=== PATIENT | female | born 1960 | race Caucasian/White ===

== ENCOUNTER 2021-09-26 14:17 | Inpatient (IN) ==
--- NOTE | 2021-09-26 15:36 | Emergency Department Note ---
Impression & Plan Schizophrenia, paranoid, chronic with acute exacerbation ED Provider Note Provider: Rafat Chacon MD DATE OF SERVICE: 09/26/2021 CHIEF COMPLAINT: Mental health evaluation HISTORY OF PRESENT ILLNESS: Patient is a 61-year-old female history of hypothyroidism and schizophrenia with prior inpatient hospitalizations at [facility] until August last year after approximately a year of hospitalization. Has been living independently at the [facility] with assistance from the staff there as well as a county foster care case manager. Patient has been doing fairly well but not significantly independent. Over the last approximately 4 days the patient's not been taking her Clozaril with her evening medications. She reports that this is because she feels that her mood medicines have not been helping her make her somewhat drowsy. 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 Patient states this is classified work and she can get me more details. Patient states that she feels like she has been stuck a little bit and things are bit boring at her current location. Today she left the jail and went to a former apartment site was looking for an apartment. She states that she went there to meet her 2 sons 1 of whom is 40 years old and the other who is 12 years old. She states they did not answer the door they got scared. She states they were for the [employer] service and she cannot tell us much as this is classified. Patient denies wanting to harm her self or others. She denies issues with eating and denies any falls or trauma. Patient does not want inpatient treatment at this time. Patient's county seat scooper machine is present states this is not like duty at all and she is much more grandiose now and does not have any sons. Patient psychiatrist Dr. Negron calls and states he is very concerned about the patient and believe she needs several days of inpatient treatment. He states that she has been noncompliant recently as reported above and he feels that when she gets back on medications after several days will be much improved. He does not think that she would do well with return to her current living situation without hospitalization. REVIEW OF SYSTEMS: A total of 10 review of systems was obtained and negative except as stated above in the HPI. PAST MEDICAL HISTORY: As noted above MEDICATIONS: Reviewed home medication list but again recent compliance issues SOCIAL HISTORY: Denies drug or alcohol issues with social rare alcohol use PHYSICAL EXAM: GENERAL: alert and oriented in no acute distress on stretcher Head: normocephalic and atraumatic EYES: No injection, discharge or icterus. NECK: Trachea midline. ENT: Mucous membranes pink and moist. LUNGS: Airway patent. No retractions and no tachypnea HEART: Regular rate and rhythm. SKIN: Acyanotic, warm, dry, without rashes EXTREMITIES: Without swelling, tenderness or deformity NEUROLOGICAL: No focal deficits. No aphasia. No facial droop or slurred speech. Ambulatory. Psych: Patient denies SI or HI. Does have grandiose thoughts and do not believe she actually works for the [employer]. Patient denies significant depression at this time. Patient denies auditory or visual hallucinations to me. Patient's laboratory studies reviewed. Differential includes Mood disorder, infection, hypoglycemia, electrolyte abnormalities, cardiac sources, intracerebral event, toxicologic, trauma, neurologic, as well as other pathologies. IMPRESSION/MEDICAL DECISION MAKING: Patient with long history and foster care case manager and psychiatry to call and provide additional history. Recent medication noncompliance. No evidence of any traumatic injury and basic labs were completed. Covid negative. Question the patient's ability to care for self at home although she has not attempted to deliberately harm herself or others I feel with her worsening grandiose thoughts and psychosis this could progress inadvertently. I do not feel she is in a position to go home at this time and this would be unsafe. Do feel involuntary commitment needs to be pursued and her psychiatrist agreed and recommended this in my phone discussion with him. I completed the 302 paperwork with my concerns for her ability to function with her worsening schizophrenia. Case management assisted and the process was initiated. Referral to [facility] and was she was accepted there for further care. Patient will be ordered small dose of Zyprexa to begin the process of trying to temper some of her paranoid schizophrenic delusions. DIAGNOSIS: Paranoid schizophrenia DISPOSITION: Transfer to [facility] for further inpatient psychiatric care on involuntary commitment Past Med/Surg History Social History Smoking Status: Never smoker Feels Safe at Home: No Allergies Allergies Allergy/AdvReac Type Severity Reaction Status Date / Time Sulfa (Sulfonamide Allergy Rash Verified 09/26/21 15:48 Antibiotics) tetracycline Allergy Unknown Verified 09/26/21 21:32 Home Meds Home Medications Medication Instructions Recorded Confirmed Refresh Optive 1 drp INSTIL QID 09/26/21 09/26/21 Vitamin D3 5,000 units PO DAILY 09/26/21 09/26/21 acetaminophen 500 mg tablet 500 - 1,000 mg PO Q8H PRN 09/26/21 09/26/21 clozapine 100 mg tablet 200 mg PO DAILY 09/26/21 09/26/21 clozapine 50 mg tablet 50 mg PO DAILY 09/26/21 09/26/21 docusate sodium 100 mg PO BID 09/26/21 09/26/21 levothyroxine 25 mcg tablet 25 mcg PO DAILY 09/26/21 09/26/21 loratadine 10 mg tablet 10 mg PO DAILY 09/26/21 09/26/21 naproxen 500 mg tablet 500 mg PO BID 09/26/21 09/26/21 olanzapine 5 mg tablet 5 mg PO HS 09/26/21 09/26/21 pantoprazole 20 mg tablet,delayed 20 mg PO DAILY 09/26/21 09/26/21 release Results & Data (ED) Vital Signs Vital Signs - 24 hr 09/26/21 14:20 09/26/21 18:20 Temperature 35.9 C L Temperature Source Temporal Artery Scan Pulse Rate 109 H Pulse Rate [Left] 88 Respiratory Rate 18 18 Respiratory Effort / Characteristics Non-Labored Spontaneous Respiratory Depth Normal Normal Blood Pressure 149/82 H Blood Pressure [Left Arm] 162/97 H Blood Pressure Mean 104 Blood Pressure Mean [Left Arm] 118 Blood Pressure Position [Left Arm] Sitting Pulse Oximetry 97 97 Oxygen Delivery Method Room Air Room Air Sepsis Recent Fever Within 48 Hours No Sepsis New/Unexplained Change in Mental Status N/A Sepsis Action Taken by Nursing No Action Required Laboratory Data Result diagrams: 09/26/21 15:38 09/26/21 15:38 Lab Results 09/26/21 09/26/21 09/26/21 Range/Units 14:35 14:35 15:38 WBC 6.31 (4.8-10.8) K/uL RBC 4.27 (4.2-5.4) M/uL Hgb 13.1 (12.0-16.0) g/dL Hct 39.6 (37-47) % MCV 92.7 (80-100) fL MCH 30.7 (25-34) pg MCHC 33.1 (32-36) g/dL RDW Std Deviation 49.4 H (36.4-46.3) fL RDW Coeff of Kim 14.5 (11.5-14.5) % Plt Count 296 (130-400) K/uL MPV 9.3 (7.4-10.4) fL Immature Gran % (Auto) 0.2 % Neut % (Auto) 58.8 % Lymph % (Auto) 31.5 % [place] % (Auto) 9.0 % Eos % (Auto) 0.0 % Baso % (Auto) 0.5 % Neut # (Auto) 3.71 (1.4-6.5) K/uL Lymph # (Auto) 1.99 (1.2-3.4) K/uL [place] # (Auto) 0.57 (0.11-0.59) K/uL Eos # (Auto) 0.00 (0-0.5) K/uL Baso # (Auto) 0.03 (0-0.2) K/uL Immature Gran # (Auto) 0.01 (0.00-0.02) K/uL Sodium (136-145) mmol/L Potassium (3.5-5.1) mmol/L Chloride (98-107) mmol/L Carbon Dioxide (21-32) mmol/L Anion Gap (3-11) BUN (7-18) mg/dl Creatinine (0.6-1.2) mg/dl Est Cr Clr Drug Dosing ml/min Est GFR ( Amer) ml/min Est GFR (Non-Af Amer) ml/min BUN/Creatinine Ratio (10-20) Glucose (70-99) mg/dl Calcium (8.5-10.1) mg/dl Total Bilirubin (0.2-1) mg/dl AST (15-37) U/L ALT (12-78) U/L Alkaline Phosphatase (45-117) U/L Total Protein (6.4-8.2) gm/dl Albumin (3.4-5.0) gm/dl Globulin (2.5-4.0) gm/dl Albumin/Globulin Ratio (0.9-2) TSH (0.300-4.500) uIu/ml Urine Color Yellow Urine Appearance Clear (Clear) Urine pH 6.0 (4.5-7.5) Ur Specific [place] 1.005 (1.000-1.030) Urine Protein Negative (Negative) Urine Glucose (UA) Negative (Negative) Urine Ketones Negative (Negative) Urine Blood Negative (Negative) Urine Nitrite Negative (Negative) Urine Bilirubin Negative (Negative) Urine Urobilinogen Negative (Negative) Ur Leukocyte Esterase Negative (Negative) Salicylates (2.8-20) mg/dl Urine Opiates Screen Neg (Neg) Ur Methadone, Qual Neg (Neg) Acetaminophen (10-30) ug/ml Urine Barbiturates Neg (Neg) Ur Phencyclidine (PCP) Neg (Neg) U Amphetamin/Meth Scrn Neg (Neg) MDMA (Ecstasy) Screen Neg (Neg) U Benzodiazepines Scrn Neg (Neg) Ur Cocaine Metabolite Neg (Neg) U Marijuana (THC) Screen Neg (Neg) Ethyl Alcohol mg/dL (0-3) mg/dl COVID-19 Eval Order SARS-CoV-2 (PCR) (Negative) 09/26/21 09/26/21 09/26/21 Range/Units 15:38 15:38 15:38 WBC (4.8-10.8) K/uL RBC (4.2-5.4) M/uL Hgb (12.0-16.0) g/dL Hct (37-47) % MCV (80-100) fL MCH (25-34) pg MCHC (32-36) g/dL RDW Std Deviation (36.4-46.3) fL RDW Coeff of Kim (11.5-14.5) % Plt Count (130-400) K/uL MPV (7.4-10.4) fL Immature Gran % (Auto) % Neut % (Auto) % Lymph % (Auto) % [place] % (Auto) % Eos % (Auto) % Baso % (Auto) % Neut # (Auto) (1.4-6.5) K/uL Lymph # (Auto) (1.2-3.4) K/uL [place] # (Auto) (0.11-0.59) K/uL Eos # (Auto) (0-0.5) K/uL Baso # (Auto) (0-0.2) K/uL Immature Gran # (Auto) (0.00-0.02) K/uL Sodium 140 (136-145) mmol/L Potassium 4.1 (3.5-5.1) mmol/L Chloride 109 H (98-107) mmol/L Carbon Dioxide 25 (21-32) mmol/L Anion Gap 6.0 (3-11) BUN 10 (7-18) mg/dl Creatinine 1.08 (0.6-1.2) mg/dl Est Cr Clr Drug Dosing 61.1 ml/min Est GFR ( Amer) 63.3 ml/min Est GFR (Non-Af Amer) 54.6 ml/min BUN/Creatinine Ratio 8.9 L (10-20) Glucose 95 (70-99) mg/dl Calcium 9.6 (8.5-10.1) mg/dl Total Bilirubin 0.3 (0.2-1) mg/dl AST 18 (15-37) U/L ALT 22 (12-78) U/L Alkaline Phosphatase 96 (45-117) U/L Total Protein 7.7 (6.4-8.2) gm/dl Albumin 3.7 (3.4-5.0) gm/dl Globulin 4.0 (2.5-4.0) gm/dl Albumin/Globulin Ratio 0.9 (0.9-2) TSH 1.270 (0.300-4.500) uIu/ml Urine Color Urine Appearance (Clear) Urine pH (4.5-7.5) Ur Specific [place] (1.000-1.030) Urine Protein (Negative) Urine Glucose (UA) (Negative) Urine Ketones (Negative) Urine Blood (Negative) Urine Nitrite (Negative) Urine Bilirubin (Negative) Urine Urobilinogen (Negative) Ur Leukocyte Esterase (Negative) Salicylates < 1.7 L (2.8-20) mg/dl Urine Opiates Screen (Neg) Ur Methadone, Qual (Neg) Acetaminophen < 2 L (10-30) ug/ml Urine Barbiturates (Neg) Ur Phencyclidine (PCP) (Neg) U Amphetamin/Meth Scrn (Neg) MDMA (Ecstasy) Screen (Neg) U Benzodiazepines Scrn (Neg) Ur Cocaine Metabolite (Neg) U Marijuana (THC) Screen (Neg) Ethyl Alcohol mg/dL < 3.0 (0-3) mg/dl COVID-19 Eval Order SARS-CoV-2 (PCR) (Negative) 09/26/21 09/26/21 Range/Units 15:53 15:53 WBC (4.8-10.8) K/uL RBC (4.2-5.4) M/uL Hgb (12.0-16.0) g/dL Hct (37-47) % MCV (80-100) fL MCH (25-34) pg MCHC (32-36) g/dL RDW Std Deviation (36.4-46.3) fL RDW Coeff of Kim (11.5-14.5) % Plt Count (130-400) K/uL MPV (7.4-10.4) fL Immature Gran % (Auto) % Neut % (Auto) % Lymph % (Auto) % [place] % (Auto) % Eos % (Auto) % Baso % (Auto) % Neut # (Auto) (1.4-6.5) K/uL Lymph # (Auto) (1.2-3.4) K/uL [place] # (Auto) (0.11-0.59) K/uL Eos # (Auto) (0-0.5) K/uL Baso # (Auto) (0-0.2) K/uL Immature Gran # (Auto) (0.00-0.02) K/uL Sodium (136-145) mmol/L Potassium (3.5-5.1) mmol/L Chloride (98-107) mmol/L Carbon Dioxide (21-32) mmol/L Anion Gap (3-11) BUN (7-18) mg/dl Creatinine (0.6-1.2) mg/dl Est Cr Clr Drug Dosing ml/min Est GFR ( Amer) ml/min Est GFR (Non-Af Amer) ml/min BUN/Creatinine Ratio (10-20) Glucose (70-99) mg/dl Calcium (8.5-10.1) mg/dl Total Bilirubin (0.2-1) mg/dl AST (15-37) U/L ALT (12-78) U/L Alkaline Phosphatase (45-117) U/L Total Protein (6.4-8.2) gm/dl Albumin (3.4-5.0) gm/dl Globulin (2.5-4.0) gm/dl Albumin/Globulin Ratio (0.9-2) TSH (0.300-4.500) uIu/ml Urine Color Urine Appearance (Clear) Urine pH (4.5-7.5) Ur Specific [place] (1.000-1.030) Urine Protein (Negative) Urine Glucose (UA) (Negative) Urine Ketones (Negative) Urine Blood (Negative) Urine Nitrite (Negative) Urine Bilirubin (Negative) Urine Urobilinogen (Negative) Ur Leukocyte Esterase (Negative) Salicylates (2.8-20) mg/dl Urine Opiates Screen (Neg) Ur Methadone, Qual (Neg) Acetaminophen (10-30) ug/ml Urine Barbiturates (Neg) Ur Phencyclidine (PCP) (Neg) U Amphetamin/Meth Scrn (Neg) MDMA (Ecstasy) Screen (Neg) U Benzodiazepines Scrn (Neg) Ur Cocaine Metabolite (Neg) U Marijuana (THC) Screen (Neg) Ethyl Alcohol mg/dL (0-3) mg/dl COVID-19 Eval Order Covid19 at [facility] SARS-CoV-2 (PCR) NEGATIVE (Negative) Discharge Plan Visit Data Chief Complaint: Mental Health Evaluation Stated Complaint: MENTAL HEALTH EVALUATION ED Provider: Rafat Chacon Discharge Problem: Schizophrenia, paranoid, chronic with acute exacerbation Patient Disposition: Admitted As Inpatient Forms Stand Alone Forms: My [facility], Suicide Prevention Resources Prescriptions Prescriptions: No Action clozapine 100 mg Tablet 200 mg PO DAILY RF: 0 clozapine 50 mg Tablet 50 mg PO DAILY RF: 0 loratadine 10 mg Tablet 10 mg PO DAILY RF: 0 acetaminophen 500 mg Tablet 500 - 1,000 mg PO Q8H PRN (Reason: Moderate Pain (Scale Score 5-6)) RF: 0 olanzapine 5 mg Tablet 5 mg PO HS RF: 0 naproxen 500 mg Tablet 500 mg PO BID RF: 0 levothyroxine 25 mcg Tablet 25 mcg PO DAILY RF: 0 pantoprazole 20 mg Tablet,Delayed Release (Dr/Ec) 20 mg PO DAILY RF: 0 Vitamin D3 5,000 units 5,000 units PO DAILY RF: 0 docusate sodium 100 mg 100 mg PO BID RF: 0 Refresh Optive 1 drp INSTIL QID RF: 0 Referrals Referrals: Usamn Kirkpatrick [Primary Care Provider] -
[2021-09-26 15:49] LABS: Basophils # (auto) 0.03 K/uL (0-0.2); Basophils % (auto) 0.5 %; Hematocrit (blood only) 39.6 % (37-47); Hemoglobin 13.1 g/dL (12.0-16.0); Immature Granulocytes # (auto) 0.01 K/uL (0.00-0.02); Immature Granulocytes % (auto) 0.2 %; Lymphocytes # (auto) 1.99 K/uL (1.2-3.4); Lymphocytes % (auto) 31.5 %; Mean Corpuscular Hemoglobin 30.7 pg (25-34); Mean Corpuscular Hgb Conc 33.1 g/dL (32-36); Mean Corpuscular Volume 92.7 fL (80-100); Mean Platelet Volume 9.3 fL (7.4-10.4); Monocytes # (auto) 0.57 K/uL (0.11-0.59); Neutrophils # (auto) 3.71 K/uL (1.4-6.5); Neutrophils % (auto) 58.8 %; Platelet Count 296 K/uL (130-400); RDW Coefficient of Variation 14.5 % (11.5-14.5); RDW Standard Deviation 49.4 fL (36.4-46.3); Red Blood Count 4.27 M/uL (4.2-5.4); White Blood Count 6.31 K/uL (4.8-10.8)
[2021-09-26 16:01] LABS: Appearance Urine Clear (Clear); Bilirubin Urine Negative (Negative); Blood Urine Negative (Negative); Color Urine Yellow; Glucose Urine UA Negative (Negative); Ketones Urine Negative (Negative); Leukocyte Esterase Urine Negative (Negative); Nitrite Urine Negative (Negative); Protein Urine Negative (Negative); Specific Gravity Urine 1.005 (1.000-1.030); Urobilinogen Urine Negative (Negative)
[2021-09-26 16:13] LABS: Albumin Level 3.7 gm/dl (3.4-5.0); BUN Creatinine Ratio 8.9 (10-20); Calcium 9.6 mg/dl (8.5-10.1); Creatinine Clr Calc Pharmacy 61.1 ml/min; Est GFR (African American) 63.3 ml/min; Est GFR (Non-African American) 54.6 ml/min; Potassium 4.1 mmol/L (3.5-5.1)
[2021-09-26 16:20] LABS: Acetaminophen < 2 ug/ml (10-30)
[2021-09-26 16:21] LABS: Salicylate < 1.7 mg/dl (2.8-20)
[2021-09-26 16:23] LABS: Albumin Globulin Ratio 0.9 (0.9-2); Bilirubin,Total 0.3 mg/dl (0.2-1); Thyroid Stimulating Hormone 1.27 uIu/ml (0.300-4.500); Total Protein 7.7 gm/dl (6.4-8.2)
[2021-09-26 16:32] LABS: Amphetamines+Metham, Urine Neg (Neg); Barbiturates, Urine Neg (Neg); Benzodiazepine, Urine Neg (Neg); Cocaine, Urine Neg (Neg); MDMA (Ecstacy), Urine Neg (Neg); Methadone, Urine Neg (Neg); Opiate, Urine Neg (Neg); Phencyclidine, Urine Neg (Neg)
[2021-09-26] MEDS ORDERED: OLANZapine 5 MG TABLET PO ONE (22:09)
[2021-09-26] MEDS ORDERED: ALUMINUM/MAGNESIUM SUSP 30 ML UDC PO PRN (23:43)
[2021-09-26] MEDS ORDERED: MAGNESIUM HYDROXIDE SUSP 30 ML UDC PO PRN (23:43)
[2021-09-26] MEDS ORDERED: ACETAMINOPHEN 325 MG TAB PO PRN (23:43)
[2021-09-26] MEDS ORDERED: BISMUTH SUBSALICYLATE LIQD 236 ML PO PRN (23:43)
[2021-09-26] MEDS ORDERED: SODIUM CHLORIDE 0.65% NA SOLN 45 ML (OCEAN) PRN (23:43)
[2021-09-26] MEDS ORDERED: OLANZapine 5 MG TABLET PO PRN (23:49)
[2021-09-27] MEDS ORDERED: DOCUSATE SODIUM 100 MG CAP PO SCH (09:00)
[2021-09-27] MEDS: LEVOTHYROXINE SODIUM 25 MCG TABLET PO SCH (09:28)
[2021-09-27] MEDS: LORATADINE 10 MG TAB PO SCH (09:28)
[2021-09-27] MEDS: CHOLECALCIFEROL 1,000 UNITS 25 MCG TAB PO SCH (09:28)
[2021-09-27] MEDS: NAPROXEN 250 MG TAB PO SCH ×2 (09:28→17:43)
[2021-09-27] MEDS: ARTIFICIAL TEARS OP SCH ×4 (09:36→20:22)
--- NOTE | 2021-09-27 09:40 | History & Physical ---
Date of Service September 27, 2021 Impression / Recommendations Elise Miller is a 61 yo female with acute exacerbation of psychosis for non-compliance with clozapine. She is on an extended outpatient commitment prior to admission following discharge from the [facility]. No history prior to entering care with Dr. Negron is available. (1) Schizophrenia, paranoid, chronic with acute exacerbation: The patient was admitted to the [facility] ([facility] mental health unit) on q15 min checks (behavioral with suicide precautions) for safety. The patient will participate in group, recreational, and milieu therapies and will be offered additional individual and family sessions as clinically appropriate. Risks/benefits/alternatives were reviewed re: antipsychotics for mood and/or psychosis. Discussion included but was not limited to metabolic side effects, risks of TD. There was EPS tremor but no TD at baseline. Fasting glucose and lipid panel ordered for baseline monitoring. She is agreeable to continuing Zyprexa but not Clozaril. Discussed that an JAQUEZ would be preferred and she declines due to limited insight into need for medication. Inventory Assets Strengths: intelligent, has been pleasant in interactions with staff and likes Needs: improved compliance, better tolerated antipsychotic. Risk Factors Assessment : Yes Do You Have Access To A Gun?: No Mental Health Diagnoses: Yes Substance Use Disorders: No Previous Attempt: No Previous Psychiatric Hospitalization: Yes Protective Factors Assessment Employed: No Good Rapport with Provider: Yes Psychiatric History Identifying Data TALITA BALL is a 61-year-old F who currently lives at [facility], has a history of schizophrenia and [facility] placement, and was admitted on 09/26/21 23:33 on a 302 involuntary commitment for delusional behavior and medication non-compliance. Reportedly is on a 305 outpatient commitment. Chief Complaint "yeah I didn't feel safet there". Referring to living setting. History of Present Illness The patient has reportedly been non-compliant with her Clozaril since 09/20 or 09/22/21 and is being followed by Dr. Negron since leaving [facility] last August after a 1-1.5 year stay. She has never been admitted to our facility. She apparently arranged county transportation from [facility] to go to her old apartment to find her sons. Per CM Farideh the patient doesn't have children. 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 Her outpatient psychiatrist felt she would benefit from inpatient admission to get restabilized on her medications as there were concerns about ability to care for self due to psychosis and likelihood that she would decompensate further without medication. She accepted Zyprexa 5 mg last hs and has been without agitation thus far. Patient told staff that she feels the staff where she lives are putting powder in people's drinks and she believes it's heroin. 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 She does not appear restless. She does have some upper extremity tremor, worse on left (patient is left handed) forearm and wrist. States she was simply looking for a better place to live. Doesn't recall past hospitalizations or medication trials. Notes from appointments with Dr. Negron mention a son in [place]. Past Psychiatric History Current Psychiatric Diagnosis: Paranoid Schizophrenia Outpatient Services: [facility] psychiatrist Dr. Negron Nubia Clear Previous Psych Admissions: likely but no hx available and [facility] does generally not release records to us. Do You Have Access To A Gun?: No History of Previous Suicide Attempt: No (patient denies at least) Past Medication Trials: Clozaril 250 mg daily Allergies Allergy/AdvReac Type Severity Reaction Status Date / Time Sulfa (Sulfonamide Allergy Rash Verified 09/26/21 15:48 Antibiotics) tetracycline Allergy Unknown Verified 09/26/21 21:32 Home Medications Medication Instructions Recorded Confirmed Type Refresh Optive 1 drp INSTIL QID 09/26/21 09/26/21 History Vitamin D3 5,000 units PO DAILY 09/26/21 09/26/21 History acetaminophen 500 mg tablet 500 - 1,000 mg PO Q8H PRN 09/26/21 09/26/21 History clozapine 100 mg tablet 200 mg PO DAILY 09/26/21 09/26/21 History clozapine 50 mg tablet 50 mg PO DAILY 09/26/21 09/26/21 History docusate sodium 100 mg PO BID 09/26/21 09/26/21 History levothyroxine 25 mcg tablet 25 mcg PO DAILY 09/26/21 09/26/21 History loratadine 10 mg tablet 10 mg PO DAILY 09/26/21 09/26/21 History naproxen 500 mg tablet 500 mg PO BID 09/26/21 09/26/21 History olanzapine 5 mg tablet 5 mg PO HS 09/26/21 09/26/21 History pantoprazole 20 mg tablet,delayed 20 mg PO DAILY 09/26/21 09/26/21 History release Family History Family History of: None Family Mental Health History Comment: denied Alcohol History Hx of Alcohol Use Over the Past 12 Months: No Smoking Use Have You Smoked or Used Tobacco Products in the Last 30 Days: No Smoking Status: Never smoker Substance History Hx of Prescription Med Misuse Over the Past 12 Months: No Hx of Over the Counter Med Misuse Over the Past 12 Months: No Hx of Inhalent Misuse Over the Past 12 Months: No Hx of Organic Substance Use Over the Past 12 Months: No Hx of Illegal Substances/Street Drug Use Over Past 12 Months: No Problems as a Result of Past Substance Use: None Identified Personal History Living Arrangements: Personal Care Facility Highest Grade Completed: Graduate School (unclear if delusion) Employment Status: Disabled Marital Status: Single Number Of Children: 0 Beliefs That Will Affect Care: None Current Legal Problems: No Hx Legal Problems: Yes (trespass charge so some of [facility] stay was at [facility]) Hx Traumatic Life Events: No Patient History Social History Smoking Status: Never smoker Preferred Language: Yi Communication Ability: Effective Ambulance Attendant Required: No Beliefs That Will Affect Care: None Feels Safe at Home: No Assistive Devices: Glasses Review of Systems Review of Systems: All systems reviewed & are unremarkable except as noted in HPI & below Physical Exam Psychiatric: Orientation: alert and oriented x 3 Apperance: appropriately dressed and appropriately groomed Eye Contact: good eye contact Motor Behavior: no abnormal motor movements Speech: normal rate/rhythm/volume of speech Affect: euthymic affect Mood: no depressed mood Thought Process: + circumstantial thought process Thought Content: + paranoid and + delusions Suicidal Thoughts: denies suicidal thoughts Homicidal Thoughts: denies homicidal thoughts Hallucinations: no auditory hallucinations and no visual hallucinations Cognition: attention grossly intact and language grossly intact Estimated Intelligence: consistent with education level Insight: + limited insight Judgement: + limited judgement Vital Signs (Past 24 Hours): Last Vital Signs Temp 36.4 C L 09/27/21 06:41 Pulse 106 H 09/27/21 06:42 Resp 16 09/27/21 06:41 BP 116/77 09/27/21 06:42 Pulse Ox 96 09/27/21 00:15 Exam Statement: A physical exam was performed in the ED by Dr. Chacon for the purposes of medical clearance. I accept that physical as correct and adequate for the purposes of the inpatient physical exam. Results & Data ([facility]) Laboratory Results Laboratory Results - last 24 hr 09/26/21 09/26/21 09/26/21 14:35 14:35 15:38 WBC 6.31 RBC 4.27 Hgb 13.1 Hct 39.6 MCV 92.7 MCH 30.7 MCHC 33.1 RDW Std Deviation 49.4 H RDW Coeff of Kim 14.5 Plt Count 296 MPV 9.3 Immature Gran % (Auto) 0.2 Neut % (Auto) 58.8 Lymph % (Auto) 31.5 Luce % (Auto) 9.0 Eos % (Auto) 0.0 Baso % (Auto) 0.5 Neut # (Auto) 3.71 Lymph # (Auto) 1.99 Luce # (Auto) 0.57 Eos # (Auto) 0.00 Baso # (Auto) 0.03 Immature Gran # (Auto) 0.01 Sodium Potassium Chloride Carbon Dioxide Anion Gap BUN Creatinine Est Cr Clr Drug Dosing Est GFR ( Amer) Est GFR (Non-Af Amer) BUN/Creatinine Ratio Glucose Calcium Total Bilirubin AST ALT Alkaline Phosphatase Total Protein Albumin Globulin Albumin/Globulin Ratio TSH Urine Color Yellow Urine Appearance Clear Urine pH 6.0 Ur Specific [place] 1.005 Urine Protein Negative Urine Glucose (UA) Negative Urine Ketones Negative Urine Blood Negative Urine Nitrite Negative Urine Bilirubin Negative Urine Urobilinogen Negative Ur Leukocyte Esterase Negative Salicylates Urine Opiates Screen Neg Ur Methadone, Qual Neg Acetaminophen Urine Barbiturates Neg Ur Phencyclidine (PCP) Neg U Amphetamin/Meth Scrn Neg MDMA (Ecstasy) Screen Neg U Benzodiazepines Scrn Neg Ur Cocaine Metabolite Neg U Marijuana (THC) Screen Neg Ethyl Alcohol mg/dL COVID-19 Eval Order SARS-CoV-2 (PCR) 09/26/21 09/26/21 09/26/21 15:38 15:38 15:38 WBC RBC Hgb Hct MCV MCH MCHC RDW Std Deviation RDW Coeff of Kim Plt Count MPV Immature Gran % (Auto) Neut % (Auto) Lymph % (Auto) Luce % (Auto) Eos % (Auto) Baso % (Auto) Neut # (Auto) Lymph # (Auto) Luce # (Auto) Eos # (Auto) Baso # (Auto) Immature Gran # (Auto) Sodium 140 Potassium 4.1 Chloride 109 H Carbon Dioxide 25 Anion Gap 6.0 BUN 10 Creatinine 1.08 Est Cr Clr Drug Dosing 61.1 Est GFR ( Amer) 63.3 Est GFR (Non-Af Amer) 54.6 BUN/Creatinine Ratio 8.9 L Glucose 95 Calcium 9.6 Total Bilirubin 0.3 AST 18 ALT 22 Alkaline Phosphatase 96 Total Protein 7.7 Albumin 3.7 Globulin 4.0 Albumin/Globulin Ratio 0.9 TSH 1.270 Urine Color Urine Appearance Urine pH Ur Specific [place] Urine Protein Urine Glucose (UA) Urine Ketones Urine Blood Urine Nitrite Urine Bilirubin Urine Urobilinogen Ur Leukocyte Esterase Salicylates < 1.7 L Urine Opiates Screen Ur Methadone, Qual Acetaminophen < 2 L Urine Barbiturates Ur Phencyclidine (PCP) U Amphetamin/Meth Scrn MDMA (Ecstasy) Screen U Benzodiazepines Scrn Ur Cocaine Metabolite U Marijuana (THC) Screen Ethyl Alcohol mg/dL < 3.0 COVID-19 Eval Order SARS-CoV-2 (PCR) 09/26/21 09/26/21 15:53 15:53 WBC RBC Hgb Hct MCV MCH MCHC RDW Std Deviation RDW Coeff of Kim Plt Count MPV Immature Gran % (Auto) Neut % (Auto) Lymph % (Auto) Luce % (Auto) Eos % (Auto) Baso % (Auto) Neut # (Auto) Lymph # (Auto) Luce # (Auto) Eos # (Auto) Baso # (Auto) Immature Gran # (Auto) Sodium Potassium Chloride Carbon Dioxide Anion Gap BUN Creatinine Est Cr Clr Drug Dosing Est GFR ( Amer) Est GFR (Non-Af Amer) BUN/Creatinine Ratio Glucose Calcium Total Bilirubin AST ALT Alkaline Phosphatase Total Protein Albumin Globulin Albumin/Globulin Ratio TSH Urine Color Urine Appearance Urine pH Ur Specific [place] Urine Protein Urine Glucose (UA) Urine Ketones Urine Blood Urine Nitrite Urine Bilirubin Urine Urobilinogen Ur Leukocyte Esterase Salicylates Urine Opiates Screen Ur Methadone, Qual Acetaminophen Urine Barbiturates Ur Phencyclidine (PCP) U Amphetamin/Meth Scrn MDMA (Ecstasy) Screen U Benzodiazepines Scrn Ur Cocaine Metabolite U Marijuana (THC) Screen Ethyl Alcohol mg/dL COVID-19 Eval Order Covid19 at [facility] SARS-CoV-2 (PCR) NEGATIVE Current Inpatient Medications Current Inpatient Medications: Current Inpatient Medications Acetaminophen (Acetaminophen 325 Mg Tab) 650 mg PO Q4H PRN PRN Reason: Headache or Minor Fever Stop: 10/26/21 23:42 Al Hydrox/Mg Hydrox/Simethicone (Aluminum/Magnesium Susp 30 Ml Udc) 30 ml PO Q4H PRN PRN Reason: GI Upset Stop: 10/26/21 23:42 Artificial Tears (Artificial Tears) 1 drops OP QID [facility] Stop: 10/27/21 08:59 Last Admin: 09/27/21 09:36 Dose: 1 drops Documented by: Bismuth Subsalicylate (Bismuth Subsalicylate Liqd 236 Ml) 15 ml PO PRN PRN PRN Reason: Loose Stool Stop: 10/26/21 23:42 Docusate Sodium (Docusate Sodium 100 Mg Cap) 100 mg PO BID@0800,2100 [facility] Stop: 10/27/21 08:59 Hydroxyzine HCl (Hydroxyzine Hcl 25 Mg Tab) 50 mg PO HSZ PRN PRN Reason: Insomnia Stop: 10/26/21 23:42 Hydroxyzine HCl (Hydroxyzine Hcl 25 Mg Tab) 25 mg PO Q4H PRN PRN Reason: Anxiety Stop: 10/26/21 23:42 Levothyroxine Sodium (Levothyroxine Sodium 25 Mcg Tablet) 25 mcg PO DAILY@0800 [facility] Stop: 10/27/21 08:59 Last Admin: 09/27/21 09:28 Dose: 25 mcg Documented by: Loratadine (Loratadine 10 Mg Tab) 10 mg PO DAILY [facility] Stop: 10/27/21 08:59 Last Admin: 09/27/21 09:28 Dose: 10 mg Documented by: Magnesium Hydroxide (Magnesium Hydroxide Susp 30 Ml Udc) 30 ml PO DAILY PRN PRN Reason: Constipation Stop: 10/26/21 23:42 Naproxen (Naproxen 250 Mg Tab) 500 mg PO BIDM [facility] Stop: 10/27/21 08:59 Last Admin: 09/27/21 09:28 Dose: 500 mg Documented by: Olanzapine (Olanzapine 5 Mg Tablet) 5 mg PO Q6 PRN PRN Reason: psychosis Stop: 10/26/21 23:48 Olanzapine (Olanzapine 5 Mg Tablet) 5 mg PO HS [facility] Stop: 10/27/21 21:59 Sodium Chloride (Sodium Chloride 0.65% Na Soln 45 Ml ([place])) 1 - 2 sprays NA PRN PRN PRN Reason: Nasal Dryness/Congestion Stop: 10/26/21 23:42 Vitamin D (Cholecalciferol 1,000 Units 25 Mcg Tab) 5,000 units PO DAILY [facility] Stop: 10/27/21 08:59 Last Admin: 09/27/21 09:28 Dose: 5,000 units Documented by:
[2021-09-27] MEDS: OLANZapine 10 MG TAB PO SCH (20:21)
[2021-09-27] MEDS: DOCUSATE SODIUM 100 MG CAP PO SCH (20:21)
[2021-09-27] MEDS ORDERED: OLANZapine 5 MG TABLET PO SCH (22:00)
[2021-09-28 08:25] LABS: Glucose Fasting 98 mg/dl (70-99)
[2021-09-28 08:32] LABS: Chol HDL Ratio 6; Cholesterol 192 mg/dl (0-200); HDL Cholesterol 32 mg/dl; LDL Cholesterol Calculated 129 mg/dl; Triglycerides 155 mg/dl (0-150); VLDL Cholesterol 31 mg/dl
[2021-09-28] MEDS: LEVOTHYROXINE SODIUM 25 MCG TABLET PO SCH (08:39)
[2021-09-28] MEDS: DOCUSATE SODIUM 100 MG CAP PO SCH ×2 (08:39→21:02)
[2021-09-28] MEDS: ARTIFICIAL TEARS OP SCH ×4 (08:40→21:03)
[2021-09-28] MEDS: CHOLECALCIFEROL 1,000 UNITS 25 MCG TAB PO SCH (08:41)
[2021-09-28] MEDS: LORATADINE 10 MG TAB PO SCH (08:42)
[2021-09-28] MEDS: NAPROXEN 250 MG TAB PO SCH ×2 (08:42→17:00)
--- NOTE | 2021-09-28 12:08 | Psychiatric Progress Note ---
Date of Service September 28, 2021 Impression / Recommendations Elise Miller is a 61 yo female with acute exacerbation of psychosis for non-compliance with clozapine. She is on an extended outpatient commitment prior to admission following discharge from the [facility]. No history prior to entering care with Dr. Negron is available. 09/28/21: superficially coopertive on unit, continue MNPR as reports feeling impulsive on the inside and wanting to run (elopement precautions) (1) Schizophrenia, paranoid, chronic with acute exacerbation: 09/28/21: continue Zyprexa 10 mg po qhs, add Cogentin 0.5 mg BID. No sense to restart Clozaril if won't take consistently. Monitor symptoms and consider Invega trial with hopes she'll ultimately agree to JAQUEZ. 09/27/21: The patient was admitted to the [facility] ([facility]) on q15 min checks (behavioral with suicide precautions) for safety. The patient will participate in group, recreational, and milieu therapies and will be offered additional individual and family sessions as clinically appropriate. Risks/benefits/alternatives were reviewed re: antipsychotics for mood and/or psychosis. Discussion included but was not limited to metabolic side effects, risks of TD. There was EPS tremor but no TD at baseline. Fasting glucose and lipid panel ordered for baseline monitoring. She is agreeable to continuing Zyprexa but not Clozaril. Discussed that an JAQUEZ would be preferred and she declines due to limited insight into need for medication. Inventory Assets Strengths: intelligent, has been pleasant in interactions with staff and likes CM Needs: improved compliance, better tolerated antipsychotic. Risk Factors Assessment : Yes Do You Have Access To A Gun?: No Mental Health Diagnoses: Yes Substance Use Disorders: No Previous Attempt: No Previous Psychiatric Hospitalization: Yes Protective Factors Assessment Employed: No Good Rapport with Provider: Yes Interval History Identifying Information TALITA BALL is a 61-year-old F who currently lives at [facility], has a history of schizophrenia and [facility] placement, and was admitted on 09/26/21 23:33 on a 302 involuntary commitment but is actually maintained on a 305 outpatient commitment for delusional behavior. Chief Complaint "yeah my sister did me wrong". Review of Systems Sleep Information Total Hours of Sleep: 7.25 Sleep Comments: pt on q-15 minute checks Meal Information Percent Meal Consumed - Breakfast: 100 Percent Meal Consumed - Lunch: 100 Percent Meal Consumed - Dinner: 100 Subjective Subjective Patient was seen & assessed and interval progress reviewed with nursing and social work. 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 She was living in an apartment but stopped paying rent and refused to leave resulting in charges and then placement at [facility] given psychosis noted in group home. The patient tells me she believes her mother and sister are into drugs and sister dressed up as police with her friend to have her sent to group home to get money for drugs. She states she is willing to take PO medication but not the level of Clozaril like before due to side effects. Reportedly is delusionial at baseline so unclear how effective the medication has been. She reportedly went to the [facility] for hospitalizations prior to [place], no evidence in surescripts and patient denies being there when approached to sign release so past medication trials are not available. Still appears to have some tremor hand/forearm Physical Exam Psychiatric Orientation: alert and oriented x 3 Apperance: appropriately dressed and appropriately groomed Eye Contact: good eye contact Motor Behavior: no abnormal motor movements Speech: normal rate/rhythm/volume of speech Affect: euthymic affect Mood: no depressed mood Thought Process: + circumstantial thought process Thought Content: + paranoid and + delusions Suicidal Thoughts: denies suicidal thoughts Homicidal Thoughts: denies homicidal thoughts Hallucinations: no auditory hallucinations and no visual hallucinations Cognition: attention grossly intact and language grossly intact Estimated Intelligence: consistent with education level Insight: + limited insight Judgement: + limited judgement Vital Signs (Past 24 Hours) Last Vital Signs Temp 36.6 C 09/28/21 06:39 Pulse 96 H 09/28/21 06:40 Resp 16 09/28/21 06:39 BP 113/80 09/28/21 06:40 Pulse Ox 96 09/27/21 00:15 Results & Data ([facility]) Laboratory Results Laboratory Results - last 24 hr 09/28/21 07:36 Fasting Glucose 98 Triglycerides 155 H Cholesterol 192 LDL Cholesterol, Calc 129 VLDL Cholesterol, Calc 31 HDL Cholesterol 32 Cholesterol/HDL Ratio 6 Current Inpatient Medications Current Inpatient Medications: Current Inpatient Medications Acetaminophen (Acetaminophen 325 Mg Tab) 650 mg PO Q4H PRN PRN Reason: Headache or Minor Fever Stop: 10/26/21 23:42 Al Hydrox/Mg Hydrox/Simethicone (Aluminum/Magnesium Susp 30 Ml Udc) 30 ml PO Q4H PRN PRN Reason: GI Upset Stop: 10/26/21 23:42 Artificial Tears (Artificial Tears) 1 drops OP QID [facility] Stop: 10/27/21 08:59 Last Admin: 09/28/21 08:40 Dose: 1 drops Documented by: Benztropine Mesylate (Benztropine Mesylate 0.5 Mg Tab) 0.5 mg PO BID [facility] Stop: 10/28/21 12:04 Bismuth Subsalicylate (Bismuth Subsalicylate Liqd 236 Ml) 15 ml PO PRN PRN PRN Reason: Loose Stool Stop: 10/26/21 23:42 Docusate Sodium (Docusate Sodium 100 Mg Cap) 100 mg PO BID@0800,2100 [facility] Stop: 10/27/21 08:59 Last Admin: 09/28/21 08:39 Dose: 100 mg Documented by: Hydroxyzine HCl (Hydroxyzine Hcl 25 Mg Tab) 50 mg PO HSZ PRN PRN Reason: Insomnia Stop: 10/26/21 23:42 Hydroxyzine HCl (Hydroxyzine Hcl 25 Mg Tab) 25 mg PO Q4H PRN PRN Reason: Anxiety Stop: 10/26/21 23:42 Levothyroxine Sodium (Levothyroxine Sodium 25 Mcg Tablet) 25 mcg PO DAILY@0800 [facility] Stop: 10/27/21 08:59 Last Admin: 09/28/21 08:39 Dose: 25 mcg Documented by: Loratadine (Loratadine 10 Mg Tab) 10 mg PO DAILY [facility] Stop: 10/27/21 08:59 Last Admin: 09/28/21 08:42 Dose: 10 mg Documented by: Magnesium Hydroxide (Magnesium Hydroxide Susp 30 Ml Udc) 30 ml PO DAILY PRN PRN Reason: Constipation Stop: 10/26/21 23:42 Naproxen (Naproxen 250 Mg Tab) 500 mg PO BIDM [facility] Stop: 10/27/21 08:59 Last Admin: 09/28/21 08:42 Dose: 500 mg Documented by: Olanzapine (Olanzapine 5 Mg Tablet) 5 mg PO Q6 PRN PRN Reason: psychosis Stop: 10/26/21 23:48 Olanzapine (Olanzapine 10 Mg Tab) 10 mg PO HS [facility] Stop: 10/27/21 21:59 Last Admin: 09/27/21 20:21 Dose: 10 mg Documented by: Sodium Chloride (Sodium Chloride 0.65% Na Soln 45 Ml ([place])) 1 - 2 sprays NA PRN PRN PRN Reason: Nasal Dryness/Congestion Stop: 10/26/21 23:42 Vitamin D (Cholecalciferol 1,000 Units 25 Mcg Tab) 5,000 units PO DAILY [facility] Stop: 10/27/21 08:59 Last Admin: 09/28/21 08:41 Dose: 5,000 units Documented by: Mental Health & Subst Abuse Tx Security Operations Manager Name of Security Operations Manager: Farideh Rajan Date of Appointment with Security Operations Manager: 09/29/21
[2021-09-28] MEDS ORDERED: BENZTROPINE MESYLATE 0.5 MG TAB PO ONE (12:13)
[2021-09-28] MEDS: BENZTROPINE MESYLATE 0.5 MG TAB PO SCH (21:02)
[2021-09-28] MEDS: OLANZapine 10 MG TAB PO SCH (21:02)
[2021-09-28] MEDS: hydrOXYzine HCl 25 MG TAB PO PRN (21:08)
[2021-09-29] MEDS: ARTIFICIAL TEARS OP SCH ×4 (09:02→21:02)
[2021-09-29] MEDS: LEVOTHYROXINE SODIUM 25 MCG TABLET PO SCH (09:02)
[2021-09-29] MEDS: DOCUSATE SODIUM 100 MG CAP PO SCH ×2 (09:02→21:04)
[2021-09-29] MEDS: CHOLECALCIFEROL 1,000 UNITS 25 MCG TAB PO SCH (09:03)
[2021-09-29] MEDS: BENZTROPINE MESYLATE 0.5 MG TAB PO SCH ×2 (09:03→21:03)
[2021-09-29] MEDS: NAPROXEN 250 MG TAB PO SCH ×2 (09:04→17:03)
[2021-09-29] MEDS: LORATADINE 10 MG TAB PO SCH (09:04)
[2021-09-29] MEDS ORDERED: ARIPiprazole 5 MG TAB PO ONE ×2 (09:56→10:00)
[2021-09-29] MEDS ORDERED: ARIPiprazole 5 MG TAB PO SCH (10:00)
--- NOTE | 2021-09-29 12:06 | Psychiatric Progress Note ---
Date of Service September 29, 2021 Impression / Recommendations Elise Miller is a 61 yo female with acute exacerbation of psychosis for non-compliance with clozapine. She is on an extended outpatient commitment prior to admission following discharge from the [facility]. No history prior to entering care with Dr. Negron is available. 09/29/21: patient upset after the hearing given doctor testimony, CM was present for support. (1) Schizophrenia, paranoid, chronic with acute exacerbation: 09/29/21: continue Zyprexa but taper soon in favor of Abilify. Test dose Abilify 2.5 mg today and 5 mg daily tomorrow. Once tolerability assessed, c onvert to JAQUEZ. Patient lacks insight into need to return to [facility]. Patient is upset following hearing so will be monitored before additional consideration of d/c MNPR. 09/28/21: continue Zyprexa 10 mg po qhs, add Cogentin 0.5 mg BID. No sense to restart Clozaril if won't take consistently. Monitor symptoms and consider Invega trial with hopes she'll ultimately agree to JAQUEZ. 09/27/21: The patient was admitted to the [facility] ([facility]) on q15 min checks (behavioral with suicide precautions) for safety. The patient will participate in group, recreational, and milieu therapies and will be offered additional individual and family sessions as clinically appropriate. Risks/benefits/alternatives were reviewed re: antipsychotics for mood and/or psychosis. Discussion included but was not limited to metabolic side effects, risks of TD. There was EPS tremor but no TD at baseline. Fasting glucose and lipid panel ordered for baseline monitoring. She is agreeable to c ontinuing Zyprexa but not Clozaril. Discussed that an JAQUEZ would be preferred and she declines due to limited insight into need for medication. Inventory Assets Strengths: intelligent, has been pleasant in interactions with staff and likes CM Needs: improved compliance, better tolerated antipsychotic. Risk Factors Assessment : Yes Do You Have Access To A Gun?: No Mental Health Diagnoses: Yes Substance Use Disorders: No Previous Attempt: No Previous Psychiatric Hospitalization: Yes Protective Factors Assessment Employed: No Good Rapport with Provider: Yes Interval History Identifying Information TALITA BALL is a 61-year-old F who currently lives at [facility], has a history of schizophrenia and [facility] placement, and was admitted on 09/26/21 23:33 on a 302 involuntary commitment but is actually maintained on a 305 outpatient commitment for delusional behavior. Chief Complaint "I think that's a good idea", referring to LEONID Gutierres Review of Systems Sleep Information Total Hours of Sleep: 7.25 Sleep Comments: pt on q-15 minute checks Meal Information Percent Meal Consumed - Breakfast: 100 Percent Meal Consumed - Lunch: 100 Percent Meal Consumed - Dinner: 100 Subjective Subjective Patient was seen & assessed and interval progress reviewed with treatment team. Cooperative with meds and unit routines. Discussing her delusions less but continues to lack insight into diagnosis. She is not opposed to hospitalization but became upset after the conversion hearing as "I'm not a danger to myself or others." Reviewed my discussions with Dr. Negron about not restarting Clozaril if agreeable to switch to Abilify. Seems unaware of hand tremor. Physical Exam Psychiatric Orientation: alert and oriented x 3 Apperance: appropriately dressed and appropriately groomed Eye Contact: good eye contact Motor Behavior: no abnormal motor movements Speech: normal rate/rhythm/volume of speech Affect: euthymic affect Mood: no depressed mood Thought Process: + circumstantial thought process Thought Content: + paranoid and + delusions Suicidal Thoughts: denies suicidal thoughts Homicidal Thoughts: denies homicidal thoughts Hallucinations: no auditory hallucinations and no visual hallucinations Cognition: attention grossly intact and language grossly intact Estimated Intelligence: consistent with education level Insight: + limited insight Judgement: + limited judgement Vital Signs (Past 24 Hours) Last Vital Signs Temp 36.3 C L 09/29/21 06:45 Pulse 89 09/29/21 06:45 Resp 16 09/29/21 06:45 BP 137/85 09/29/21 06:46 Pulse Ox 96 09/27/21 00:15 Results & Data ([facility]) Current Inpatient Medications Current Inpatient Medications: Current Inpatient Medications Acetaminophen (Acetaminophen 325 Mg Tab) 650 mg PO Q4H PRN PRN Reason: Headache or Minor Fever Stop: 10/26/21 23:42 Al Hydrox/Mg Hydrox/Simethicone (Aluminum/Magnesium Susp 30 Ml Udc) 30 ml PO Q4H PRN PRN Reason: GI Upset Stop: 10/26/21 23:42 Aripiprazole (Aripiprazole 5 Mg Tab) 5 mg PO QAM [facility] Stop: 10/30/21 08:59 Artificial Tears (Artificial Tears) 1 drops OP QID EMMA Stop: 10/27/21 08:59 Last Admin: 09/29/21 09:02 Dose: 1 drops Documented by: Benztropine Mesylate (Benztropine Mesylate 0.5 Mg Tab) 0.5 mg PO BID EMMA Stop: 10/28/21 20:59 Last Admin: 09/29/21 09:03 Dose: 0.5 mg Documented by: Bismuth Subsalicylate (Bismuth Subsalicylate Liqd 236 Ml) 15 ml PO PRN PRN PRN Reason: Loose Stool Stop: 10/26/21 23:42 Docusate Sodium (Docusate Sodium 100 Mg Cap) 100 mg PO BID@0800,2100 [facility] Stop: 10/27/21 08:59 Last Admin: 09/29/21 09:02 Dose: 100 mg Documented by: Hydroxyzine HCl (Hydroxyzine Hcl 25 Mg Tab) 50 mg PO HSZ PRN PRN Reason: Insomnia Stop: 10/26/21 23:42 Last Admin: 09/28/21 21:08 Dose: 50 mg Documented by: Hydroxyzine HCl (Hydroxyzine Hcl 25 Mg Tab) 25 mg PO Q4H PRN PRN Reason: Anxiety Stop: 10/26/21 23:42 Levothyroxine Sodium (Levothyroxine Sodium 25 Mcg Tablet) 25 mcg PO DAILY@0800 [facility] Stop: 10/27/21 08:59 Last Admin: 09/29/21 09:02 Dose: 25 mcg Documented by: Loratadine (Loratadine 10 Mg Tab) 10 mg PO DAILY EMMA Stop: 10/27/21 08:59 Last Admin: 09/29/21 09:04 Dose: 10 mg Documented by: Magnesium Hydroxide (Magnesium Hydroxide Susp 30 Ml Udc) 30 ml PO DAILY PRN PRN Reason: Constipation Stop: 10/26/21 23:42 Naproxen (Naproxen 250 Mg Tab) 500 mg PO BIDM [facility] Stop: 10/27/21 08:59 Last Admin: 09/29/21 09:04 Dose: 500 mg Documented by: Olanzapine (Olanzapine 5 Mg Tablet) 5 mg PO Q6 PRN PRN Reason: psychosis Stop: 10/26/21 23:48 Olanzapine (Olanzapine 10 Mg Tab) 10 mg PO HS EMMA Stop: 10/27/21 21:59 Last Admin: 09/28/21 21:02 Dose: 10 mg Documented by: Sodium Chloride (Sodium Chloride 0.65% Na Soln 45 Ml ([place])) 1 - 2 sprays NA PRN PRN PRN Reason: Nasal Dryness/Congestion Stop: 10/26/21 23:42 Vitamin D (Cholecalciferol 1,000 Units 25 Mcg Tab) 5,000 units PO DAILY EM[facility] Stop: 10/27/21 08:59 Last Admin: 09/29/21 09:03 Dose: 5,000 units Documented by: Mental Health & Subst Abuse Tx Senior Director Finance Name of Senior Director Finance: Farideh Rajan Date of Appointment with Senior Director Finance: 09/29/21
[2021-09-29] MEDS: OLANZapine 10 MG TAB PO SCH (21:04)
[2021-09-30] MEDS: LEVOTHYROXINE SODIUM 25 MCG TABLET PO SCH (08:54)
[2021-09-30] MEDS: DOCUSATE SODIUM 100 MG CAP PO SCH ×2 (08:54→21:00)
[2021-09-30] MEDS: ARIPiprazole 5 MG TAB PO SCH (08:54)
[2021-09-30] MEDS: CHOLECALCIFEROL 1,000 UNITS 25 MCG TAB PO SCH (08:55)
[2021-09-30] MEDS: BENZTROPINE MESYLATE 0.5 MG TAB PO SCH ×2 (08:55→21:00)
[2021-09-30] MEDS: NAPROXEN 250 MG TAB PO SCH ×2 (08:55→17:24)
[2021-09-30] MEDS: ARTIFICIAL TEARS OP SCH ×4 (08:55→21:00)
[2021-09-30] MEDS: LORATADINE 10 MG TAB PO SCH (08:55)
--- NOTE | 2021-09-30 12:00 | Psychiatric Progress Note ---
Date of Service September 30, 2021 Impression / Recommendations Elise Miller is a 61 yo female with acute exacerbation of psychosis for non-compliance with clozapine. She is on an extended outpatient commitment prior to admission following discharge from the [facility]. No history prior to entering care with Dr. Negron is available. 09/30/21: calmed down since hearing yesterday, agreeable to plan for ongoing abilify titration MNPR for psychiatric symptoms of psychosis, paranoid ideation (1) Schizophrenia, paranoid, chronic with acute exacerbation: 09/30/21: Abilify 5 mg qd today. Tomorrow will decrease zyprexa from 10mg to 5 mg qhs and continue with cross-taper with goal of abilify monotherapy and then JAQUEZ if well tolerated. Continues to have limited insight but appropriate so far today, if this persists will consider d/c of MNPR tomorrow. 09/29/21: continue Zyprexa but taper soon in favor of Abilify. Test dose Abilify 2.5 mg today and 5 mg daily tomorrow. Once tolerability assessed, convert to JAQEUZ. Patient lacks insight into need to return to [facility]. Patient is upset following hearing so will be monitored before additional consideration of d/c MNPR. 09/28/21: continue Zyprexa 10 mg po qhs, add Cogentin 0.5 mg BID. No sense to restart Clozaril if won't take consistently. Monitor symptoms and consider Invega trial with hopes she'll ultimately agree to JAQUEZ. 09/27/21: The patient was admitted to the [facility] ([facility] mental health unit) on q15 min checks (behavioral with suicide precautions) for safety. The patient will participate in group, recreational, and milieu therapies and will be offered additional individual and family sessions as clinically appropriate. Risks/benefits/alternatives were reviewed re: antipsychotics for mood and/or psychosis. Discussion included but was not limited to metabolic side effects, risks of TD. There was EPS tremor but no TD at baseline. Fasting glucose and lipid panel ordered for baseline monitoring. She is agreeable to continuing Zyprexa but not Clozaril. Discussed that an JAQUEZ would be preferred and she declines due to limited insight into need for medication. Inventory Assets Strengths: intelligent, has been pleasant in interactions with staff and likes CM Needs: improved compliance, better tolerated antipsychotic. Risk Factors Assessment : Yes Do You Have Access To A Gun?: No Mental Health Diagnoses: Yes Substance Use Disorders: No Previous Attempt: No Previous Psychiatric Hospitalization: Yes Protective Factors Assessment Employed: No Good Rapport with Provider: Yes Interval History Identifying Information TALITA BALL is a 61-year-old F who currently lives at [facility], has a [facility], and was admitted on 09/26/21 23:33 on a 302 involuntary commitment but is actually maintained on a 305 outpatient commitment for delusional behavior. Chief Complaint "I'm looking forward to the football game". Review of Systems Sleep Information Total Hours of Sleep: 6.5 Sleep Comments: pt on q-15 minute checks Meal Information Percent Meal Consumed - Breakfast: 100 Percent Meal Consumed - Lunch: 100 Percent Meal Consumed - Dinner: 100 Subjective Subjective Patient was seen & assessed and interval progress reviewed with treatment team nursing and social work. Today she notes stable mood and is eager to watch the football game. No side effects from the increased abilify dose today. Remains in agreement with plan to cross-taper from zyprexa to abilify with goal of JAQUEZ abilify. Physical Exam Psychiatric Orientation: alert and oriented x 3 Apperance: appropriately dressed and appropriately groomed Eye Contact: good eye contact Motor Behavior: no abnormal motor movements Speech: normal rate/rhythm/volume of speech Affect: euthymic affect Mood: no depressed mood Thought Process: + circumstantial thought process Thought Content: + paranoid and + delusions Suicidal Thoughts: denies suicidal thoughts Homicidal Thoughts: denies homicidal thoughts Hallucinations: no auditory hallucinations and no visual hallucinations Cognition: attention grossly intact and language grossly intact Estimated Intelligence: consistent with education level Insight: + limited insight Judgement: + limited judgement Vital Signs (Past 24 Hours) Last Vital Signs Temp 36.5 C 09/30/21 06:00 Pulse 69 09/30/21 06:29 Resp 14 09/30/21 06:00 BP 137/84 09/30/21 06:29 Pulse Ox 96 09/27/21 00:15 Results & Data ([facility]) Current Inpatient Medications Current Inpatient Medications: Current Inpatient Medications Acetaminophen (Acetaminophen 325 Mg Tab) 650 mg PO Q4H PRN PRN Reason: Headache or Minor Fever Stop: 10/26/21 23:42 Al Hydrox/Mg Hydrox/Simethicone (Aluminum/Magnesium Susp 30 Ml Udc) 30 ml PO Q4H PRN PRN Reason: GI Upset Stop: 10/26/21 23:42 Aripiprazole (Aripiprazole 5 Mg Tab) 5 mg PO QAM [facility] Stop: 10/30/21 08:59 Last Admin: 09/30/21 08:54 Dose: 5 mg Documented by: Artificial Tears (Artificial Tears) 1 drops OP QID EMMA Stop: 10/27/21 08:59 Last Admin: 09/30/21 08:55 Dose: 1 drops Documented by: Benztropine Mesylate (Benztropine Mesylate 0.5 Mg Tab) 0.5 mg PO BID EMMA Stop: 10/28/21 20:59 Last Admin: 09/30/21 08:55 Dose: 0.5 mg Documented by: Bismuth Subsalicylate (Bismuth Subsalicylate Liqd 236 Ml) 15 ml PO PRN PRN PRN Reason: Loose Stool Stop: 10/26/21 23:42 Docusate Sodium (Docusate Sodium 100 Mg Cap) 100 mg PO BID@0800,2100 [facility] Stop: 10/27/21 08:59 Last Admin: 09/30/21 08:54 Dose: 100 mg Documented by: Hydroxyzine HCl (Hydroxyzine Hcl 25 Mg Tab) 50 mg PO HSZ PRN PRN Reason: Insomnia Stop: 10/26/21 23:42 Last Admin: 09/28/21 21:08 Dose: 50 mg Documented by: Hydroxyzine HCl (Hydroxyzine Hcl 25 Mg Tab) 25 mg PO Q4H PRN PRN Reason: Anxiety Stop: 10/26/21 23:42 Levothyroxine Sodium (Levothyroxine Sodium 25 Mcg Tablet) 25 mcg PO DAILY@0800 [facility] Stop: 10/27/21 08:59 Last Admin: 09/30/21 08:54 Dose: 25 mcg Documented by: Loratadine (Loratadine 10 Mg Tab) 10 mg PO DAILY EMMA Stop: 10/27/21 08:59 Last Admin: 09/30/21 08:55 Dose: 10 mg Documented by: Magnesium Hydroxide (Magnesium Hydroxide Susp 30 Ml Udc) 30 ml PO DAILY PRN PRN Reason: Constipation Stop: 10/26/21 23:42 Naproxen (Naproxen 250 Mg Tab) 500 mg PO BIDM EMMA Stop: 10/27/21 08:59 Last Admin: 09/30/21 08:55 Dose: 500 mg Documented by: Olanzapine (Olanzapine 5 Mg Tablet) 5 mg PO Q6 PRN PRN Reason: psychosis Stop: 10/26/21 23:48 Olanzapine (Olanzapine 10 Mg Tab) 10 mg PO HS EMMA Stop: 10/27/21 21:59 Last Admin: 09/29/21 21:04 Dose: 10 mg Documented by: Sodium Chloride (Sodium Chloride 0.65% Na Soln 45 Ml ([place])) 1 - 2 sprays NA PRN PRN PRN Reason: Nasal Dryness/Congestion Stop: 10/26/21 23:42 Vitamin D (Cholecalciferol 1,000 Units 25 Mcg Tab) 5,000 units PO DAILY EMMA Stop: 10/27/21 08:59 Last Admin: 09/30/21 08:55 Dose: 5,000 units Documented by: Mental Health & Subst Abuse Tx Manufacturers Agent Name of Manufacturers Agent: Farideh Rajan Date of Appointment with Manufacturers Agent: 09/29/21
[2021-09-30] MEDS: OLANZapine 10 MG TAB PO SCH (21:00)
[2021-09-30] MEDS: hydrOXYzine HCl 25 MG TAB PO PRN (23:25)
--- NOTE | 2021-10-01 08:27 | Psychiatric Progress Note ---
Date of Service October 01, 2021 Impression / Recommendations Elise Miller is a 61 yo female with acute exacerbation of psychosis for non-compliance with clozapine. She is on an extended outpatient commitment prior to admission following discharge from the [facility]. No history prior to entering care with Dr. Negron is available. 10/01/21: appropriate but delusions remain, agreeable to ongoing cross-taper MNPR for psychiatric symptoms of psychosis, paranoid ideation (1) Schizophrenia, paranoid, chronic with acute exacerbation: 10/01/21: She consents to ongoing cross-taper will decrease zyprexa from 10mg to 5mg qhs and increasing abilify from 5mg to 10 mg tomorrow morning. Remains very paranoid and suspicious of others so will continue MNPR. 09/30/21: Abilify 5 mg qd today. Tomorrow will decrease zyprexa from 10mg to 5 mg qhs and continue with cross-taper with goal of abilify monotherapy and then JAQUEZ if well tolerated. Continues to have limited insight but appropriate so far today, if this persists will consider d/c of MNPR tomorrow. 09/29/21: continue Zyprexa but taper soon in favor of Abilify. Test dose Abilify 2.5 mg today and 5 mg daily tomorrow. Once tolerability assessed, convert to JAQUEZ. Patient lacks insight into need to return to [facility]. Patient is upset following hearing so will be monitored before additional consideration of d/c MNPR. 09/28/21: continue Zyprexa 10 mg po qhs, add Cogentin 0.5 mg BID. No sense to restart Clozaril if won't take consistently. Monitor symptoms and consider Invega trial with hopes she'll ultimately agree to JAQUEZ. 09/27/21: The patient was admitted to the [facility] ([facility] inpatient mental health unit) on q15 min checks (behavioral with suicide precautions) for safety. The patient will participate in group, recreational, and milieu therapies and will be offered additional individual and family sessions as clinically appropriate. Risks/benefits/alternatives were reviewed re: antipsychotics for mood and/or psychosis. Discussion included but was not limited to metabolic side effects, risks of TD. There was EPS tremor but no TD at baseline. Fasting glucose and lipid panel ordered for baseline monitoring. She is agreeable to continuing Zyprexa but not Clozaril. Discussed that an JAQUEZ would be preferred and she declines due to limited insight into need for medication. Inventory Assets Strengths: intelligent, has been pleasant in interactions with staff and likes CM Needs: improved compliance, better tolerated antipsychotic. Risk Factors Assessment : Yes Do You Have Access To A Gun?: No Mental Health Diagnoses: Yes Substance Use Disorders: No Previous Attempt: No Previous Psychiatric Hospitalization: Yes Protective Factors Assessment Employed: No Good Rapport with Provider: Yes Interval History Identifying Information TALITA BALL is a 61-year-old F who currently lives at [facility], has a history of schizophrenia and [facility] placement, and was admitted on 09/26/21 23:33 on a 302 involuntary commitment but is actually maintained on a 305 outpatient commitment for delusional behavior. Chief Complaint "I do want to go back there". Review of Systems Sleep Information Total Hours of Sleep: 5.5 Sleep Comments: pt on q-15 minute checks Meal Information Percent Meal Consumed - Breakfast: 100 Percent Meal Consumed - Lunch: 100 Percent Meal Consumed - Dinner: 100 Subjective Subjective Patient was seen & assessed and interval progress reviewed with treatment team nursing and social work. She reported to staff that she "politely refuses" to return to her personal long-term due to beliefs that all the staff are using "heroin", expands on this with me today stating that the manager merchandise there "mixes white powder with her coffee" which she suspects is "some type of drug". Continues to speak about beliefs regarding her relationships with a famous athlete and unable to reality-test about this. Reports stable mood. Went "running" around the unit last night. She reported concerns about hives to staff but then denied this with me. Reports good sleep and appetite. Denies any medication side effects. Physical Exam Psychiatric Orientation: alert and oriented x 3 Apperance: appropriately dressed and appropriately groomed Eye Contact: good eye contact Motor Behavior: no abnormal motor movements Speech: normal rate/rhythm/volume of speech Affect: euthymic affect Mood: no depressed mood Thought Process: + circumstantial thought process Thought Content: + paranoid and + delusions Suicidal Thoughts: denies suicidal thoughts Homicidal Thoughts: denies homicidal thoughts Hallucinations: no auditory hallucinations and no visual hallucinations Cognition: attention grossly intact and language grossly intact Estimated Intelligence: consistent with education level Insight: + limited insight Judgement: + limited judgement Vital Signs (Past 24 Hours) Last Vital Signs Temp 36.5 C 10/01/21 06:00 Pulse 84 10/01/21 06:39 Resp 14 10/01/21 06:00 BP 128/82 10/01/21 06:39 Pulse Ox 96 09/27/21 00:15 Results & Data ([facility]) Current Inpatient Medications Current Inpatient Medications: Current Inpatient Medications Acetaminophen (Acetaminophen 325 Mg Tab) 650 mg PO Q4H PRN PRN Reason: Headache or Minor Fever Stop: 10/26/21 23:42 Al Hydrox/Mg Hydrox/Simethicone (Aluminum/Magnesium Susp 30 Ml Udc) 30 ml PO Q4H PRN PRN Reason: GI Upset Stop: 10/26/21 23:42 Aripiprazole (Aripiprazole 5 Mg Tab) 5 mg PO QAM [facility] Stop: 10/30/21 08:59 Last Admin: 09/30/21 08:54 Dose: 5 mg Documented by: Artificial Tears (Artificial Tears) 1 drops OP QID [facility]MA Stop: 10/27/21 08:59 Last Admin: 09/30/21 21:00 Dose: 1 drops Documented by: Benztropine Mesylate (Benztropine Mesylate 0.5 Mg Tab) 0.5 mg PO BID EMMA Stop: 10/28/21 20:59 Last Admin: 09/30/21 21:00 Dose: 0.5 mg Documented by: Bismuth Subsalicylate (Bismuth Subsalicylate Liqd 236 Ml) 15 ml PO PRN PRN PRN Reason: Loose Stool Stop: 10/26/21 23:42 Docusate Sodium (Docusate Sodium 100 Mg Cap) 100 mg PO BID@0800,2100 [facility] Stop: 10/27/21 08:59 Last Admin: 09/30/21 21:00 Dose: 100 mg Documented by: Hydroxyzine HCl (Hydroxyzine Hcl 25 Mg Tab) 50 mg PO HSZ PRN PRN Reason: Insomnia Stop: 10/26/21 23:42 Last Admin: 09/30/21 23:25 Dose: 50 mg Documented by: Hydroxyzine HCl (Hydroxyzine Hcl 25 Mg Tab) 25 mg PO Q4H PRN PRN Reason: Anxiety Stop: 10/26/21 23:42 Levothyroxine Sodium (Levothyroxine Sodium 25 Mcg Tablet) 25 mcg PO DAILY@0800 [facility] Stop: 10/27/21 08:59 Last Admin: 09/30/21 08:54 Dose: 25 mcg Documented by: Loratadine (Loratadine 10 Mg Tab) 10 mg PO DAILY [facility] Stop: 10/27/21 08:59 Last Admin: 09/30/21 08:55 Dose: 10 mg Documented by: Magnesium Hydroxide (Magnesium Hydroxide Susp 30 Ml Udc) 30 ml PO DAILY PRN PRN Reason: Constipation Stop: 10/26/21 23:42 Naproxen (Naproxen 250 Mg Tab) 500 mg PO BIDM [facility] Stop: 10/27/21 08:59 Last Admin: 09/30/21 17:24 Dose: 500 mg Documented by: Olanzapine (Olanzapine 5 Mg Tablet) 5 mg PO Q6 PRN PRN Reason: psychosis Stop: 10/26/21 23:48 Olanzapine (Olanzapine 10 Mg Tab) 10 mg PO HS EMMA Stop: 10/27/21 21:59 Last Admin: 09/30/21 21:00 Dose: 10 mg Documented by: Sodium Chloride (Sodium Chloride 0.65% Na Soln 45 Ml ([place])) 1 - 2 sprays NA PRN PRN PRN Reason: Nasal Dryness/Congestion Stop: 10/26/21 23:42 Vitamin D (Cholecalciferol 1,000 Units 25 Mcg Tab) 5,000 units PO DAILY [facility] Stop: 10/27/21 08:59 Last Admin: 09/30/21 08:55 Dose: 5,000 units Documented by: Mental Health & Subst Abuse Tx Silk Winding Machine Operator Name of Silk Winding Machine Operator: Farideh Rajan Date of Appointment with Silk Winding Machine Operator: 09/29/21
[2021-10-01] MEDS: DOCUSATE SODIUM 100 MG CAP PO SCH ×2 (09:07→20:48)
[2021-10-01] MEDS: ARIPiprazole 5 MG TAB PO SCH (09:08)
[2021-10-01] MEDS: CHOLECALCIFEROL 1,000 UNITS 25 MCG TAB PO SCH (09:08)
[2021-10-01] MEDS: ARTIFICIAL TEARS OP SCH ×4 (09:08→20:48)
[2021-10-01] MEDS: LEVOTHYROXINE SODIUM 25 MCG TABLET PO SCH (09:08)
[2021-10-01] MEDS: BENZTROPINE MESYLATE 0.5 MG TAB PO SCH ×2 (09:08→20:48)
[2021-10-01] MEDS: NAPROXEN 250 MG TAB PO SCH ×2 (09:09→17:31)
[2021-10-01] MEDS: LORATADINE 10 MG TAB PO SCH (09:09)
[2021-10-01] MEDS ORDERED: OLANZapine 5 MG TABLET PO SCH (22:00)
[2021-10-02] MEDS: DOCUSATE SODIUM 100 MG CAP PO SCH ×2 (08:42→21:43)
[2021-10-02] MEDS: LEVOTHYROXINE SODIUM 25 MCG TABLET PO SCH (08:43)
[2021-10-02] MEDS: ARTIFICIAL TEARS OP SCH ×4 (08:44→21:42)
[2021-10-02] MEDS: BENZTROPINE MESYLATE 0.5 MG TAB PO SCH ×2 (08:45→21:43)
[2021-10-02] MEDS: NAPROXEN 250 MG TAB PO SCH ×2 (08:46→17:31)
[2021-10-02] MEDS: LORATADINE 10 MG TAB PO SCH (08:46)
[2021-10-02] MEDS: CHOLECALCIFEROL 1,000 UNITS 25 MCG TAB PO SCH (08:47)
[2021-10-02] MEDS ORDERED: ARIPiprazole 10 MG TAB PO SCH (09:00)
--- NOTE | 2021-10-02 12:25 | Psychiatric Progress Note ---
Date of Service October 02, 2021 Impression / Recommendations Elise Miller is a 61 yo female with acute exacerbation of psychosis for non-compliance with clozapine. She is on an extended outpatient commitment prior to admission following discharge from the [facility] hospital. No history prior to entering care with Dr. Negron is available. 10/02/21: delusions remain, agreeable to ongoing cross-taper of abilify and zyprexa MNPR for psychiatric symptoms of psychosis, paranoid ideation (1) Schizophrenia, paranoid, chronic with acute exacerbation: 10/02/21: She consents to increase of abilify to 15 mg tomorrow morning and discontinuation of zyprexa tonight. Benadryl 50 mg qhs prn for allergy symptoms. Continues to have delusions. Will attempt to start prior authorization process for Abilify Maintena if she continues to tolerate abilify po well. 10/01/21: She consents to ongoing cross-taper will decrease zyprexa from 10mg to 5mg qhs and increasing abilify from 5mg to 10 mg tomorrow morning. Remains very paranoid and suspicious of others so will continue MNPR. 09/30/21: Abilify 5 mg qd today. Tomorrow will decrease zyprexa from 10mg to 5 mg qhs and continue with cross-taper with goal of abilify monotherapy and then JAQUEZ if well tolerated. Continues to have limited insight but appropriate so far today, if this persists will consider d/c of MNPR tomorrow. 09/29/21: continue Zyprexa but taper soon in favor of Abilify. Test dose Abilify 2.5 mg today and 5 mg daily tomorrow. Once tolerability assessed, convert to JAQUEZ. Patient lacks insight into need to return to [facility]. Patient is upset following hearing so will be monitored before additional consideration of d/c MNPR. 09/28/21: continue Zyprexa 10 mg po qhs, add Cogentin 0.5 mg BID. No sense to restart Clozaril if won't take consistently. Monitor symptoms and consider In sepulveda trial with hopes she'll ultimately agree to JAQUEZ. 09/27/21: The patient was admitted to the [facility] ([facility] mental health unit) on q15 min checks (behavioral with suicide precautions) for safety. The patient will participate in group, recreational, and milieu therapies and will be offered additional individual and family sessions as clinically appropriate. Risks/benefits/alternatives were reviewed re: antipsychotics for mood and/or psychosis. Discussion included but was not limited to metabolic side effects, risks of TD. There was EPS tremor but no TD at baseline. Fasting glucose and lipid panel ordered for baseline monitoring. She is agreeable to continuing Zyprexa but not Clozaril. Discussed that an JAQUEZ would be preferred and she declines due to limited insight into need for medication. Inventory Assets Strengths: intelligent, has been pleasant in interactions with staff and likes CM Needs: improved compliance, better tolerated antipsychotic. Risk Factors Assessment : Yes Do You Have Access To A Gun?: No Mental Health Diagnoses: Yes Substance Use Disorders: No Previous Attempt: No Previous Psychiatric Hospitalization: Yes Protective Factors Assessment Employed: No Good Rapport with Provider: Yes Interval History Identifying Information TALITA BALL is a 61-year-old F who currently lives at [facility], has a history of schizophrenia and state hospital placement, and was admitted on 09/26/21 23:33 on a 302 involuntary commitment but is actually maintained on a 305 outpatient commitment for delusional behavior. Chief Complaint "I work for the [employer] in [place] and need to get back to my job". Review of Systems Sleep Information Total Hours of Sleep: 7.5 Sleep Comments: pt appeared to sleep one hour during evening shift. pt on q-15 minute checks Meal Information Percent Meal Consumed - Breakfast: 100 Percent Meal Consumed - Lunch: 100 Percent Meal Consumed - Dinner: 100 Subjective Subjective Patient was seen & assessed and interval progress reviewed with treatment team nursing and social work. She reports stable, euthymic mood. She is concerned about "hayfever" symptoms which she gets every fall, she's found benadryl helpful in the past. No denies any side effects from her medications. 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 She remains quite focused on trying to return to an old apartment/condo where she was found wandering prompting this admission. Physical Exam Psychiatric Orientation: alert and oriented x 3 Apperance: + disheveled Eye Contact: good eye contact Motor Behavior: no abnormal motor movements Speech: normal rate/rhythm/volume of speech Affect: + constricted affect Mood: no depressed mood Thought Process: + circumstantial thought process Thought Content: + preoccupation, + paranoid and + delusions Suicidal Thoughts: denies suicidal thoughts Homicidal Thoughts: denies homicidal thoughts Hallucinations: no auditory hallucinations and no visual hallucinations Cognition: attention grossly intact and language grossly intact Estimated Intelligence: consistent with education level Insight: + limited insight Judgement: + limited judgement Vital Signs (Past 24 Hours) Last Vital Signs Temp 36.6 C 10/02/21 06:26 Pulse 98 H 10/02/21 06:27 Resp 16 10/02/21 06:26 BP 108/76 10/02/21 06:27 Pulse Ox 96 09/27/21 00:15 Results & Data ([facility]) Current Inpatient Medications Current Inpatient Medications: Current Inpatient Medications Acetaminophen (Acetaminophen 325 Mg Tab) 650 mg PO Q4H PRN PRN Reason: Headache or Minor Fever Stop: 10/26/21 23:42 Al Hydrox/Mg Hydrox/Simethicone (Aluminum/Magnesium Susp 30 Ml Udc) 30 ml PO Q4H PRN PRN Reason: GI Upset Stop: 10/26/21 23:42 Aripiprazole (Aripiprazole 10 Mg Tab) 10 mg PO QAM [facility] Stop: 11/01/21 08:59 Last Admin: 10/02/21 08:43 Dose: 10 mg Documented by: Artificial Tears (Artificial Tears) 1 drops OP QID [facility] Stop: 10/27/21 08:59 Last Admin: 10/02/21 08:44 Dose: 1 drops Documented by: Benztropine Mesylate (Benztropine Mesylate 0.5 Mg Tab) 0.5 mg PO BID [facility] Stop: 10/28/21 20:59 Last Admin: 10/02/21 08:45 Dose: 0.5 mg Documented by: Bismuth Subsalicylate (Bismuth Subsalicylate Liqd 236 Ml) 15 ml PO PRN PRN PRN Reason: Loose Stool Stop: 10/26/21 23:42 Docusate Sodium (Docusate Sodium 100 Mg Cap) 100 mg PO BID@0800,2100 [facility] Stop: 10/27/21 08:59 Last Admin: 10/02/21 08:42 Dose: 100 mg Documented by: Hydroxyzine HCl (Hydroxyzine Hcl 25 Mg Tab) 50 mg PO HSZ PRN PRN Reason: Insomnia Stop: 10/26/21 23:42 Last Admin: 09/30/21 23:25 Dose: 50 mg Documented by: Hydroxyzine HCl (Hydroxyzine Hcl 25 Mg Tab) 25 mg PO Q4H PRN PRN Reason: Anxiety Stop: 10/26/21 23:42 Levothyroxine Sodium (Levothyroxine Sodium 25 Mcg Tablet) 25 mcg PO DAILY@0800 [facility] Stop: 10/27/21 08:59 Last Admin: 10/02/21 08:43 Dose: 25 mcg Documented by: Loratadine (Loratadine 10 Mg Tab) 10 mg PO DAILY [facility] Stop: 10/27/21 08:59 Last Admin: 10/02/21 08:46 Dose: 10 mg Documented by: Magnesium Hydroxide (Magnesium Hydroxide Susp 30 Ml Udc) 30 ml PO DAILY PRN PRN Reason: Constipation Stop: 10/26/21 23:42 Naproxen (Naproxen 250 Mg Tab) 500 mg PO BIDM [facility] Stop: 10/27/21 08:59 Last Admin: 10/02/21 08:46 Dose: 500 mg Documented by: Olanzapine (Olanzapine 5 Mg Tablet) 5 mg PO Q6 PRN PRN Reason: psychosis Stop: 10/26/21 23:48 Olanzapine (Olanzapine 5 Mg Tablet) 5 mg PO HS [facility] Stop: 10/31/21 21:59 Last Admin: 10/01/21 20:48 Dose: 5 mg Documented by: Sodium Chloride (Sodium Chloride 0.65% Na Soln 45 Ml ([place])) 1 - 2 sprays NA PRN PRN PRN Reason: Nasal Dryness/Congestion Stop: 10/26/21 23:42 Vitamin D (Cholecalciferol 1,000 Units 25 Mcg Tab) 5,000 units PO DAILY [facility] Stop: 10/27/21 08:59 Last Admin: 10/02/21 08:47 Dose: 5,000 units Documented by: Mental Health & Subst Abuse Tx Senior Sales Administrator Name of Senior Sales Administrator: Farideh Rajan Date of Appointment with Senior Sales Administrator: 09/29/21
[2021-10-02] MEDS: diphenhydrAMINE Capsule 25 MG CAP PO PRN (21:43)
[2021-10-03] MEDS: LEVOTHYROXINE SODIUM 25 MCG TABLET PO SCH (08:02)
[2021-10-03] MEDS: ARTIFICIAL TEARS OP SCH ×4 (08:02→21:00)
[2021-10-03] MEDS: DOCUSATE SODIUM 100 MG CAP PO SCH ×2 (08:02→20:59)
[2021-10-03] MEDS: ARIPiprazole 15 MG TAB PO SCH (08:02)
[2021-10-03] MEDS: LORATADINE 10 MG TAB PO SCH (08:03)
[2021-10-03] MEDS: BENZTROPINE MESYLATE 0.5 MG TAB PO SCH ×2 (08:03→21:00)
[2021-10-03] MEDS: CHOLECALCIFEROL 1,000 UNITS 25 MCG TAB PO SCH (08:03)
[2021-10-03] MEDS: NAPROXEN 250 MG TAB PO SCH ×2 (08:04→17:23)
[2021-10-03] MEDS: hydrOXYzine HCl 25 MG TAB PO PRN ×4 (08:19→22:04)
--- NOTE | 2021-10-03 08:41 | Psychiatric Progress Note ---
Date of Service October 03, 2021 Impression / Recommendations Elise Miller is a 61 yo female with acute exacerbation of psychosis for non-compliance with clozapine. She is on an extended outpatient commitment prior to admission following discharge from the psychiatric [facility] hospital. No history prior to entering care with Dr. Negron is available. 10/03/21: delusions persist, tolerating abilify so far but need to determine if JAQUEZ will be cost prohibitive, very poor insight into safe disposition options MNPR for psychiatric symptoms of psychosis, paranoid ideation (1) Schizophrenia, paranoid, chronic with acute exacerbation: 10/03/21: Continue with abilify 15 mg po qd. Spoke with her outpt psychiatrist Dr. Negron about challenge of JAQUEZ [place]aint[place] possibly being cost prohibitive so have call out to her welfare case worker to see if there may be financial support options for this. Otherwise will need to consider haldol JAQUEZ vs Invega JAQUEZ. 10/02/21: She consents to increase of abilify to 15 mg tomorrow morning and discontinuation of zyprexa tonight. Benadryl 50 mg qhs prn for allergy symptoms. Continues to have delusions. Will attempt to start prior authorization process for Abilify Maintena if she continues to tolerate abilify po well. 10/01/21: She consents to ongoing cross-taper will decrease zyprexa from 10mg to 5mg qhs and increasing abilify from 5mg to 10 mg tomorrow morning. Remains very paranoid and suspicious of others so will continue MNPR. 09/30/21: Abilify 5 mg qd today. Tomorrow will decrease zyprexa from 10mg to 5 mg qhs and continue with cross-taper with goal of abilify monotherapy and then JAQUEZ if well tolerated. Continues to have limited insight but appropriate so far today, if this persists will consider d/c of MNPR tomorrow. 09/29/21: continue Zyprexa but taper soon in favor of Abilify. Test dose Abilify 2.5 mg today and 5 mg daily tomorrow. Once tolerability assessed, convert to JAQUEZ. Patient lacks insight into need to return to [facility]. Patient is upset following hearing so will be monitored before additional consideration of d/c MNPR. 10/28/21: continue Zyprexa 10 mg po qhs, add Cogentin 0.5 mg BID. No sense to restart Clozaril if won't take consistently. Monitor symptoms and consider Invega trial with hopes she'll ultimately agree to JAQUEZ. 09/27/21: The patient was admitted to the [facility] ([facility] mental health unit) on q15 min checks (behavioral with suicide precautions) for safety. The patient will participate in group, recreational, and milieu therapies and will be offered additional individual and family sessions as clinically appropriate. Risks/benefits/alternatives were reviewed re: antipsychotics for mood and/or psychosis. Discussion included but was not limited to metabolic side effects, risks of TD. There was EPS tremor but no TD at baseline. Fasting glucose and lipid panel ordered for baseline monitoring. She is agreeable to continuing Zyprexa but not Clozaril. Discussed that an JAQUEZ would be preferred and she declines due to limited insight into need for medication. Inventory Assets Strengths: intelligent, has been pleasant in interactions with staff and likes CM Needs: improved compliance, better tolerated antipsychotic. Risk Factors Assessment : Yes Do You Have Access To A Gun?: No Mental Health Diagnoses: Yes Substance Use Disorders: No Previous Attempt: No Previous Psychiatric Hospitalization: Yes Protective Factors Assessment Employed: No Good Rapport with Provider: Yes Interval History Identifying Information TALITA BALL is a 61-year-old F who currently lives at [facility], has a history of schizophrenia and psychiatric hospital hospital placement, and was admitted on 09/26/21 23:33 on a 302 involuntary commitment but is actually maintained on a 305 outpatient commitment for delusional behavior. Chief Complaint "I have the right to refuse treatment". Review of Systems Sleep Information Total Hours of Sleep: 7 Sleep Comments: pt given benadryl per rn. pt on q-15 minute checks Meal Information Percent Meal Consumed - Breakfast: 100 Percent Meal Consumed - Lunch: 100 Percent Meal Consumed - Dinner: 100 Subjective Subjective Patient was seen & assessed and interval progress reviewed with treatment team nursing and social work. Refused to sign her treatment update yesterday due to frustration about wording regarding psychosis and delusions. Remains convinced she works for the [employer]. Took benadryl and atarax prns for allergies/itching. Continues to vocalize her desire to live independently and work for the [employer] service. No side effects from the abilify-discussed challenge of high cost for JAQUEZ and that we are looking into this. She would be open to trying haldol or invega JAQUEZ if necessary. She would like to leave the hospital soon to get back to work. She was observed murmuring to herself, seemingly responding to internal stimuli when I entered her room. Physical Exam Psychiatric Orientation: alert and oriented x 3 Apperance: + disheveled Eye Contact: good eye contact Motor Behavior: no abnormal motor movements Speech: normal rate/rhythm/volume of speech Affect: + constricted affect Mood: no depressed mood Thought Content: + preoccupation, + paranoid and + delusions Suicidal Thoughts: denies suicidal thoughts Homicidal Thoughts: denies homicidal thoughts Hallucinations: no auditory hallucinations (she denies but appeared to be responding to internal stimuli) and no visual hallucinations Cognition: attention grossly intact and language grossly intact Estimated Intelligence: consistent with education level Insight: + limited insight Judgement: + limited judgement Vital Signs (Past 24 Hours) Last Vital Signs Temp 36.6 C 10/03/21 06:57 Pulse 94 H 10/03/21 06:58 Resp 16 10/03/21 06:57 BP 153/93 H 10/03/21 06:58 Pulse Ox 96 09/27/21 00:15 Results & Data (U) Current Inpatient Medications Current Inpatient Medications: Current Inpatient Medications Acetaminophen (Acetaminophen 325 Mg Tab) 650 mg PO Q4H PRN PRN Reason: Headache or Minor Fever Stop: 10/26/21 23:42 Al Hydrox/Mg Hydrox/Simethicone (Aluminum/Magnesium Susp 30 Ml Udc) 30 ml PO Q4H PRN PRN Reason: GI Upset Stop: 10/26/21 23:42 Aripiprazole (Aripiprazole 15 Mg Tab) 15 mg PO QAM [facility] Stop: 11/02/21 08:59 Last Admin: 10/03/21 08:02 Dose: 15 mg Documented by: Artificial Tears (Artificial Tears) 1 drops OP QID [facility] Stop: 10/27/21 08:59 Last Admin: 10/03/21 08:02 Dose: 1 drops Documented by: Benztropine Mesylate (Benztropine Mesylate 0.5 Mg Tab) 0.5 mg PO BID [facility] Stop: 10/28/21 20:59 Last Admin: 10/03/21 08:03 Dose: 0.5 mg Documented by: Bismuth Subsalicylate (Bismuth Subsalicylate Liqd 236 Ml) 15 ml PO PRN PRN PRN Reason: Loose Stool Stop: 10/26/21 23:42 Diphenhydramine HCl (Diphenhydramine Capsule 25 Mg Cap) 50 mg PO HS PRN PRN Reason: Allergy Symptoms Stop: 11/01/21 12:25 Last Admin: 10/02/21 21:43 Dose: 50 mg Documented by: Docusate Sodium (Docusate Sodium 100 Mg Cap) 100 mg PO BID@0800,2100 [facility] Stop: 10/27/21 08:59 Last Admin: 10/03/21 08:02 Dose: 100 mg Documented by: Hydroxyzine HCl (Hydroxyzine Hcl 25 Mg Tab) 50 mg PO HSZ PRN PRN Reason: Insomnia Stop: 10/26/21 23:42 Last Admin: 09/30/21 23:25 Dose: 50 mg Documented by: Hydroxyzine HCl (Hydroxyzine Hcl 25 Mg Tab) 25 mg PO Q4H PRN PRN Reason: Anxiety Stop: 10/26/21 23:42 Last Admin: 10/03/21 08:19 Dose: 25 mg Documented by: Levothyroxine Sodium (Levothyroxine Sodium 25 Mcg Tablet) 25 mcg PO DAILY@0800 [facility] Stop: 10/27/21 08:59 Last Admin: 10/03/21 08:02 Dose: 25 mcg Documented by: Loratadine (Loratadine 10 Mg Tab) 10 mg PO DAILY [facility] Stop: 10/27/21 08:59 Last Admin: 10/03/21 08:03 Dose: 10 mg Documented by: Magnesium Hydroxide (Magnesium Hydroxide Susp 30 Ml Udc) 30 ml PO DAILY PRN PRN Reason: Constipation Stop: 10/26/21 23:42 Naproxen (Naproxen 250 Mg Tab) 500 mg PO BIDM [facility] Stop: 10/27/21 08:59 Last Admin: 10/03/21 08:04 Dose: 500 mg Documented by: Olanzapine (Olanzapine 5 Mg Tablet) 5 mg PO Q6 PRN PRN Reason: psychosis Stop: 10/26/21 23:48 Sodium Chloride (Sodium Chloride 0.65% Na Soln 45 Ml ([place])) 1 - 2 sprays NA P RN PRN PRN Reason: Nasal Dryness/Congestion Stop: 10/26/21 23:42 Vitamin D (Cholecalciferol 1,000 Units 25 Mcg Tab) 5,000 units PO DAILY [facility] Stop: 10/27/21 08:59 Last Admin: 10/03/21 08:03 Dose: 5,000 units Documented by: Mental Health & Subst Abuse Tx Yard Labor Supervisor Name of Yard Labor Supervisor: Farideh Rajan Date of Appointment with Yard Labor Supervisor: 09/29/21
[2021-10-03] MEDS: diphenhydrAMINE Capsule 25 MG CAP PO PRN (21:00)
[2021-10-04] MEDS: DOCUSATE SODIUM 100 MG CAP PO SCH ×2 (08:03→20:35)
[2021-10-04] MEDS: ARIPiprazole 15 MG TAB PO SCH (08:04)
[2021-10-04] MEDS: LEVOTHYROXINE SODIUM 25 MCG TABLET PO SCH (08:04)
[2021-10-04] MEDS: ARTIFICIAL TEARS OP SCH ×4 (08:05→20:36)
[2021-10-04] MEDS: BENZTROPINE MESYLATE 0.5 MG TAB PO SCH ×2 (08:05→20:35)
[2021-10-04] MEDS: CHOLECALCIFEROL 1,000 UNITS 25 MCG TAB PO SCH (08:06)
[2021-10-04] MEDS: LORATADINE 10 MG TAB PO SCH (08:07)
[2021-10-04] MEDS: NAPROXEN 250 MG TAB PO SCH ×2 (08:08→16:54)
[2021-10-04] MEDS: hydrOXYzine HCl 25 MG TAB PO PRN ×3 (09:32→20:50)
--- NOTE | 2021-10-04 14:34 | Psychiatric Progress Note ---
Date of Service October 04, 2021 Impression / Recommendations Elise Miller is a 61 yo female with acute exacerbation of psychosis for non-compliance with clozapine. She is on an extended outpatient commitment prior to admission following discharge from the [facility] hospital. No history prior to entering care with Dr. Negron is available. 10/04/21: delusions persist, very poor insight into safe disposition options. Discussed cost prohibitiveness of abilify JAQUEZ. Discussed alternatives/r isks/benefits. She would like to try haldol instead and agrees for plan to then get JAQUEZ haldol decanoate. Discussed risks including but not limited to EPS, TD, acute dystonia which she consented to. MNPR for psychiatric symptoms of psychosis, paranoid ideation (1) Schizophrenia, paranoid, chronic with acute exacerbation: 10/04/21: Need to cross-taper from abilify to haldol due to high cost of abilify JAQUEZ. She consents to starting haldol. Tomorrow will reduce abilify from 15 mg to 10mg qd and start haldol 2.5 mg qd. 10/03/21: Continue with abilify 15 mg po qd. Spoke with her outpt psychiatrist Dr. Negron about challenge of JAQUEZ Maintenna possibly being cost prohibitive so have call out to her nurse case manager to see if there may be financial support options for this. Otherwise will need to consider haldol JAQUEZ vs Invega JAQUEZ. 10/02/21: She consents to increase of abilify to 15 mg tomorrow morning and discontinuation of zyprexa tonight. Benadryl 50 mg qhs prn for allergy symptoms. Continues to have delusions. Will attempt to start prior authorization process for Abilify Maintena if she continues to tolerate abilify po well. 10/01/21: She consents to ongoing cross-taper will decrease zyprexa from 10mg to 5mg qhs and increasing abilify from 5mg to 10 mg tomorrow morning. Remains very paranoid and suspicious of others so will continue MNPR. 09/30/21: Abilify 5 mg qd today. Tomorrow will decrease zyprexa from 10mg to 5 mg qhs and continue with cross-taper with goal of abilify monotherapy and then JAQUEZ if well tolerated. Continues to have limited insight but appropriate so far today, if this persists will consider d/c of MNPR tomorrow. 09/29/21: continue Zyprexa but taper soon in favor of Abilify. Test dose Abilify 2.5 mg today and 5 mg daily tomorrow. Once tolerability assessed, convert to JAQUEZ. Patient lacks insight into need to return to [facility]. Patient is upset following hearing so will be monitored before additional consideration of d/c MNPR. 09/28/21: continue Zyprexa 10 mg po qhs, add Cogentin 0.5 mg BID. No sense to restart Clozaril if won't take consistently. Monitor symptoms and consider Invega trial with hopes she'll ultimately agree to JAQUEZ. 09/27/21: The patient was admitted to the [facility] ([facility] mental health unit) on q15 min checks (behavioral with suicide precautions) for safety. The patient will participate in group, recreational, and milieu therapies and will be offered additional individual and family sessions as clinically appropriate. Risks/benefits/alternatives were reviewed re: antipsychotics for mood and/or psychosis. Discussion included but was not limited to metabolic side effects, risks of TD. There was EPS tremor but no TD at baseline. Fasting glucose and lipid panel ordered for baseline monitoring. She is agreeable to continuing Zyprexa but not Clozaril. Discussed that an JAQUEZ would be preferred and she declines due to limited insight into need for medication. Inventory Assets Strengths: intelligent, has been pleasant in interactions with staff and likes CM Needs: improved compliance, better tolerated antipsychotic. Risk Factors Assessment : Yes Do You Have Access To A Gun?: No Mental Health Diagnoses: Yes Substance Use Disorders: No Previous Attempt: No Previous Psychiatric Hospitalization: Yes Protective Factors Assessment Employed: No Good Rapport with Provider: Yes Interval History Identifying Information TALITA BALL is a 61-year-old F who currently lives at [facility], has a history of schizophrenia and state hospital placement, and was admitted on 09/26/21 23:33 on a 302 involuntary commitment but is actually maintained on a 305 outpatient commitment for delusional behavior. Chief Complaint "It's a magda day". Review of Systems Sleep Information Total Hours of Sleep: 6.5 Sleep Comments: pt given benadryl per rn. pt on q-15 minute checks Meal Information Percent Meal Consumed - Breakfast: 100 Percent Meal Consumed - Lunch: 100 Percent Meal Consumed - Dinner: 100 Nutrition Comment: per meal record Subjective Subjective Patient was seen & assessed and interval progress reviewed with treatment team nursing and social work. Continues to be observed responding to internal stimuli-talking to herself in her room last evening. Continues to desire benadryl and atarax for allergic symptoms of itchiness. Showed me where she believes she has hives on her wrists, appears more consistent with dry skin which we discussed but she finds it itchy. Discussed that we have not heard about any options to help with financial burden of abilify JAQUEZ. She is agreeable to haldol instead with plan for then JAQUEZ decanoate. Continues to refuse to meet with medical claims manager from her living home stating "the [employer] [facility] in [place] has told me it's not a good place to be" when asked about how they have been communicating with her she states "it's classified". Physical Exam Psychiatric Orientation: alert and oriented x 3 Apperance: appropriately dressed and appropriately groomed Eye Contact: good eye contact Motor Behavior: no abnormal motor movements Speech: normal rate/rhythm/volume of speech Affect: + constricted affect Mood: no depressed mood Thought Content: + preoccupation, + paranoid and + delusions Suicidal Thoughts: denies suicidal thoughts Homicidal Thoughts: denies homicidal thoughts Hallucinations: no auditory hallucinations (she denies but appeared to be responding to internal stimuli) and no visual hallucinations Cognition: attention grossly intact and language grossly intact Estimated Intelligence: consistent with education level Insight: + limited insight Judgement: + limited judgement Vital Signs (Past 24 Hours) Last Vital Signs Temp 36.8 C 10/04/21 07:00 Pulse 78 10/04/21 07:00 Resp 16 10/04/21 07:00 BP 133/84 10/04/21 07:01 Pulse Ox 96 09/27/21 00:15 Results & Data ([facility]) Current Inpatient Medications Current Inpatient Medications: Current Inpatient Medications Acetaminophen (Acetaminophen 325 Mg Tab) 650 mg PO Q4H PRN PRN Reason: Headache or Minor Fever Stop: 10/26/21 23:42 Al Hydrox/Mg Hydrox/Simethicone (Aluminum/Magnesium Susp 30 Ml Udc) 30 ml PO Q4H PRN PRN Reason: GI Upset Stop: 10/26/21 23:42 Aripiprazole (Aripiprazole 15 Mg Tab) 15 mg PO QAM COUNTS INCLUDE 234 BEDS AT THE [facility] Stop: 11/02/21 08:59 Last Admin: 10/04/21 08:04 Dose: 15 mg Documented by: Artificial Tears (Artificial Tears) 1 drops OP QID [facility]MA Stop: 10/27/21 08:59 Last Admin: 10/04/21 13:25 Dose: 1 drops Documented by: Benztropine Mesylate (Benztropine Mesylate 0.5 Mg Tab) 0.5 mg PO BID EMMA Stop: 10/28/21 20:59 Last Admin: 10/04/21 08:05 Dose: 0.5 mg Documented by: Bismuth Subsalicylate (Bismuth Subsalicylate Liqd 236 Ml) 15 ml PO PRN PRN PRN Reason: Loose Stool Stop: 10/26/21 23:42 Diphenhydramine HCl (Diphenhydramine Capsule 25 Mg Cap) 50 mg PO HS PRN PRN Reason: Allergy Symptoms Stop: 11/01/21 12:25 Last Admin: 10/03/21 21:00 Dose: 50 mg Documented by: Docusate Sodium (Docusate Sodium 100 Mg Cap) 100 mg PO BID@0800,2100 COUNTS INCLUDE 234 BEDS AT THE [facility] Stop: 10/27/21 08:59 Last Admin: 10/04/21 08:03 Dose: 100 mg Documented by: Hydroxyzine HCl (Hydroxyzine Hcl 25 Mg Tab) 50 mg PO HSZ PRN PRN Reason: Insomnia Stop: 10/26/21 23:42 Last Admin: 10/03/21 22:04 Dose: 50 mg Documented by: Hydroxyzine HCl (Hydroxyzine Hcl 25 Mg Tab) 25 mg PO Q4H PRN PRN Reason: Anxiety Stop: 10/26/21 23:42 Last Admin: 10/04/21 09:32 Dose: 25 mg Documented by: Levothyroxine Sodium (Levothyroxine Sodium 25 Mcg Tablet) 25 mcg PO DAILY@0800 COUNTS INCLUDE 234 BEDS AT THE [facility] Stop: 10/27/21 08:59 Last Admin: 10/04/21 08:04 Dose: 25 mcg Documented by: Loratadine (Loratadine 10 Mg Tab) 10 mg PO DAILY COUNTS INCLUDE 234 BEDS AT THE [facility] Stop: 10/27/21 08:59 Last Admin: 10/04/21 08:07 Dose: 10 mg Documented by: Magnesium Hydroxide (Magnesium Hydroxide Susp 30 Ml Udc) 30 ml PO DAILY PRN PRN Reason: Constipation Stop: 10/26/21 23:42 Naproxen (Naproxen 250 Mg Tab) 500 mg PO BIDM EMMA Stop: 10/27/21 08:59 Last Admin: 10/04/21 08:08 Dose: 500 mg Documented by: Olanzapine (Olanzapine 5 Mg Tablet) 5 mg PO Q6 PRN PRN Reason: psychosis Stop: 10/26/21 23:48 Sodium Chloride (Sodium Chloride 0.65% Na Soln 45 Ml ([place])) 1 - 2 sprays NA PRN PRN PRN Reason: Nasal Dryness/Congestion Stop: 10/26/21 23:42 Vitamin D (Cholecalciferol 1,000 Units 25 Mcg Tab) 5,000 units PO DAILY [facility] Stop: 10/27/21 08:59 Last Admin: 10/04/21 08:06 Dose: 5,000 units Documented by: Mental Health & Subst Abuse Tx Coat Check Attendant Name of Coat Check Attendant: Farideh Rajan Date of Appointment with Coat Check Attendant: 09/29/21
[2021-10-04] MEDS: diphenhydrAMINE Capsule 25 MG CAP PO PRN (20:45)
[2021-10-05] MEDS: DOCUSATE SODIUM 100 MG CAP PO SCH ×2 (08:05→20:47)
[2021-10-05] MEDS: LEVOTHYROXINE SODIUM 25 MCG TABLET PO SCH (08:05)
[2021-10-05] MEDS: BENZTROPINE MESYLATE 0.5 MG TAB PO SCH ×2 (08:07→20:47)
[2021-10-05] MEDS: ARTIFICIAL TEARS OP SCH ×4 (08:07→20:46)
[2021-10-05] MEDS: CHOLECALCIFEROL 1,000 UNITS 25 MCG TAB PO SCH (08:07)
[2021-10-05] MEDS: LORATADINE 10 MG TAB PO SCH (08:08)
[2021-10-05] MEDS: NAPROXEN 250 MG TAB PO SCH ×2 (08:08→17:13)
[2021-10-05] MEDS: hydrOXYzine HCl 25 MG TAB PO PRN (08:10)
[2021-10-05] MEDS ORDERED: ARIPiprazole 10 MG TAB PO SCH (09:00)
[2021-10-05] MEDS ORDERED: haloperidoL 0.5 MG TAB PO SCH (09:00)
[2021-10-05] MEDS ORDERED: haloperidoL 5 MG TAB PO SCH ×2 (09:00→21:00)
--- NOTE | 2021-10-05 20:18 | Psychiatric Progress Note ---
Date of Service October 05, 2021 Impression / Recommendations Elise Miller is a 61 yo female with acute exacerbation of psychosis for non-compliance with clozapine. She is on an extended outpatient commitment prior [facility] No history prior to entering care with Dr. Negron is available. 10/05/21: delusions persist, very poor insight into safe disposition options. Cross-tapering to haldol. MNPR for psychiatric symptoms of psychosis, paranoid ideation (1) Schizophrenia, paranoid, chronic with acute exacerbation: 10/05/21: Continue cross-taper will reduce abilify from 10 mg to 5 mg tomorrow. Increase haldol from 2.5 mg qd to 2.5 mg BID. 10/04/21: Need to cross-taper from abilify to haldol due to high cost of abilify JAQUEZ. She consents to starting haldol. Tomorrow will reduce abilify from 15 mg to 10mg qd and start haldol 2.5 mg qd. 10/03/21: Continue with abilify 15 mg po qd. Spoke with her outpt psychiatrist Dr. Negron about challenge of JAQUEZ Maintenna possibly being cost prohibitive so have call out to her case maker to see if there may be financial support options for this. Otherwise will need to consider haldol JAQUEZ vs Invega JAQUEZ. 10/02/21: She consents to increase of abilify to 15 mg tomorrow morning and discontinuation of zyprexa tonight. Benadryl 50 mg qhs prn for allergy symptoms. Continues to have delusions. Will attempt to start prior authorization process for Abilify Maintena if she continues to tolerate abilify po well. 10/01/21: She consents to ongoing cross-taper will decrease zyprexa from 10mg to 5mg qhs and increasing abilify from 5mg to 10 mg tomorrow morning. Remains very paranoid and suspicious of others so will continue MNPR. 09/30/21: Abilify 5 mg qd today. Tomorrow will decrease zyprexa from 10mg to 5 mg qhs and continue with cross-taper with goal of abilify monotherapy and then JAQUEZ if well tolerated. Continues to have limited insight but appropriate so far today, if this persists will consider d/c of MNPR tomorrow. 09/29/21: continue Zyprexa but taper soon in favor of Abilify. Test dose Abilify 2.5 mg today and 5 mg daily tomorrow. Once tolerability assessed, convert to JAQUEZ. Patient lacks insight into need to return to [facility]. Patient is upset following hearing so will be monitored before additional consideration of d/c MNPR. 09/28/21: continue Zyprexa 10 mg po qhs, add Cogentin 0.5 mg BID. No sense to restart Clozaril if won't take consistently. Monitor symptoms and consider Invega trial with hopes she'll ultimately agree to JAQUEZ. 09/27/21: The patient was admitted to the [facility] ([facility] mental health unit) on q15 min checks (behavioral with suicide precautions) for safety. The patient will participate in group, recreational, and milieu therapies and will be offered additional individual and family sessions as clinically appropriate. Risks/benefits/alternatives were reviewed re: antipsychotics for mood and/or psychosis. Discussion included but was not limited to metabolic side effects, risks of TD. There was EPS tremor but no TD at baseline. Fasting glucose and lipid panel ordered for baseline monitoring. She is agreeable to continuing Zyprexa but not Clozaril. Discussed that an JAQUEZ would be preferred and she declines due to limited insight into need for medication. Inventory Assets Strengths: intelligent, has been pleasant in interactions with staff and likes CM Needs: improved compliance, better tolerated antipsychotic. Risk Factors Assessment : Yes Do You Have Access To A Gun?: No Mental Health Diagnoses: Yes Substance Use Disorders: No Previous Attempt: No Previous Psychiatric Hospitalization: Yes Protective Factors Assessment Employed: No Good Rapport with Provider: Yes Interval History Identifying Information TALITA BALL is a 61-year-old F who currently lives at [facility], has a history of schizophrenia and state hospital placement, and was admitted on 09/26/21 23:33 on a 302 involuntary commitment but is actually maintained on a 305 outpatient commitment for delusional behavior. Chief Complaint "I have extra insurance through the [employer]". Review of Systems Sleep Information Total Hours of Sleep: 6 Sleep Comments: pt given benadryl per rn. pt on q-15 minute checks Meal Information Percent Meal Consumed - Breakfast: 100 Percent Meal Consumed - Lunch: 100 Percent Meal Consumed - Dinner: 100 Nutrition Comment: per meal record Subjective Subjective Patient was seen & assessed and interval progress reviewed with treatment team nursing and social work. Reports euthymic mood. No side effects from medications, tolerating initiation of haldol. 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 Physical Exam Psychiatric Orientation: alert and oriented x 3 Apperance: appropriately dressed and appropriately groomed Eye Contact: good eye contact Motor Behavior: no abnormal motor movements Speech: normal rate/rhythm/volume of speech Affect: + constricted affect Mood: no depressed mood Thought Process: + circumstantial thought process Thought Content: + preoccupation, + paranoid and + delusions Suicidal Thoughts: denies suicidal thoughts Homicidal Thoughts: denies homicidal thoughts Hallucinations: + auditory hallucinations; no visual hallucinations Cognition: attention grossly intact and language grossly intact Estimated Intelligence: consistent with education level Insight: + limited insight Judgement: + limited judgement Vital Signs (Past 24 Hours) Last Vital Signs Temp 36.3 C L 10/05/21 20:00 Pulse 93 H 10/05/21 07:00 Resp 16 10/05/21 06:59 BP 123/81 10/05/21 07:00 Pulse Ox 98 10/05/21 06:59 Results & Data ([facility]) Current Inpatient Medications Current Inpatient Medications: Current Inpatient Medications Acetaminophen (Acetaminophen 325 Mg Tab) 650 mg PO Q4H PRN PRN Reason: Headache or Minor Fever Stop: 10/26/21 23:42 Al Hydrox/Mg Hydrox/Simethicone (Aluminum/Magnesium Susp 30 Ml Udc) 30 ml PO Q4H PRN PRN Reason: GI Upset Stop: 10/26/21 23:42 Aripiprazole (Aripiprazole 10 Mg Tab) 10 mg PO QAM EMMA Stop: 11/04/21 08:59 Last Admin: 10/05/21 08:06 Dose: 10 mg Documented by: Artificial Tears (Artificial Tears) 1 drops OP QID EMMA Stop: 10/27/21 08:59 Last Admin: 10/05/21 17:13 Dose: 1 drops Documented by: Benztropine Mesylate (Benztropine Mesylate 0.5 Mg Tab) 0.5 mg PO BID EMMA Stop: 10/28/21 20:59 Last Admin: 10/05/21 08:07 Dose: 0.5 mg Documented by: Bismuth Subsalicylate (Bismuth Subsalicylate Liqd 236 Ml) 15 ml PO PRN PRN PRN Reason: Loose Stool Stop: 10/26/21 23:42 Diphenhydramine HCl (Diphenhydramine Capsule 25 Mg Cap) 50 mg PO HS PRN PRN Reason: Allergy Symptoms Stop: 11/01/21 12:25 Last Admin: 10/04/21 20:45 Dose: 50 mg Documented by: Docusate Sodium (Docusate Sodium 100 Mg Cap) 100 mg PO BID@0800,2100 [facility] Stop: 10/27/21 08:59 Last Admin: 10/05/21 08:05 Dose: 100 mg Documented by: Haloperidol (Haloperidol 5 Mg Tab) 2.5 mg PO QAM [facility] Stop: 11/04/21 08:59 Last Admin: 10/05/21 08:08 Dose: 2.5 mg Documented by: Hydroxyzine HCl (Hydroxyzine Hcl 25 Mg Tab) 50 mg PO HSZ PRN PRN Reason: Insomnia Stop: 10/26/21 23:42 Last Admin: 10/03/21 22:04 Dose: 50 mg Documented by: Hydroxyzine HCl (Hydroxyzine Hcl 25 Mg Tab) 25 mg PO Q4H PRN PRN Reason: Anxiety Stop: 10/26/21 23:42 Last Admin: 10/05/21 08:10 Dose: 25 mg Documented by: Levothyroxine Sodium (Levothyroxine Sodium 25 Mcg Tablet) 25 mcg PO DAILY@0800 [facility] Stop: 10/27/21 08:59 Last Admin: 10/05/21 08:05 Dose: 25 mcg Documented by: Loratadine (Loratadine 10 Mg Tab) 10 mg PO DAILY [facility] Stop: 10/27/21 08:59 Last Admin: 10/05/21 08:08 Dose: 10 mg Documented by: Magnesium Hydroxide (Magnesium Hydroxide Susp 30 Ml Udc) 30 ml PO DAILY PRN PRN Reason: Constipation Stop: 10/26/21 23:42 Naproxen (Naproxen 250 Mg Tab) 500 mg PO BIDM [facility] Stop: 10/27/21 08:59 Last Admin: 10/05/21 17:13 Dose: 500 mg Documented by: Sodium Chloride (Sodium Chloride 0.65% Na Soln 45 Ml ([place])) 1 - 2 sprays NA PRN PRN PRN Reason: Nasal Dryness/Congestion Stop: 10/26/21 23:42 Vitamin D (Cholecalciferol 1,000 Units 25 Mcg Tab) 5,000 units PO DAILY [facility] Stop: 10/27/21 08:59 Last Admin: 10/05/21 08:07 Dose: 5,000 units Documented by: Zinc Acetate/Diphenhydramine (Diphenhydramine 2%/Zinc 0.1% Cream 28gm Tube) 1 appln EXT DAILY PRN PRN Reason: Itching Stop: 11/03/21 14:35 Mental Health & Subst Abuse Tx Physical Plant Manager Name of Physical Plant Manager: Farideh Rajan Date of Appointment with Physical Plant Manager: 09/29/21
[2021-10-05] MEDS: diphenhydrAMINE Capsule 25 MG CAP PO PRN (20:49)
[2021-10-06] MEDS: hydrOXYzine HCl 25 MG TAB PO PRN ×2 (02:37→09:14)
[2021-10-06] MEDS: LEVOTHYROXINE SODIUM 25 MCG TABLET PO SCH (08:47)
[2021-10-06] MEDS ORDERED: ARIPiprazole 5 MG TAB PO SCH (09:00)
[2021-10-06] MEDS ORDERED: haloperidoL 5 MG TAB PO SCH ×2 (09:00→22:00)
[2021-10-06] MEDS: BENZTROPINE MESYLATE 0.5 MG TAB PO SCH ×2 (09:02→20:53)
[2021-10-06] MEDS: ARTIFICIAL TEARS OP SCH ×4 (09:02→20:53)
[2021-10-06] MEDS: DOCUSATE SODIUM 100 MG CAP PO SCH ×2 (09:02→20:53)
[2021-10-06] MEDS: CHOLECALCIFEROL 1,000 UNITS 25 MCG TAB PO SCH (09:03)
[2021-10-06] MEDS: NAPROXEN 250 MG TAB PO SCH ×2 (09:03→17:11)
[2021-10-06] MEDS: LORATADINE 10 MG TAB PO SCH (09:03)
[2021-10-06] MEDS ORDERED: IBUPROFEN 200 MG TAB PO PRN (09:38)
--- NOTE | 2021-10-06 16:19 | Psychiatric Progress Note ---
Date of Service October 06, 2021 Impression / Recommendations Elise Miller is a 61 yo female with acute exacerbation of psychosis for non-compliance with clozapine. She is on an extended outpatient commitment prior to admission following discharge [facility]. No history prior to entering care with Dr. Negron is available. On 305 commitment. 10/06/21: delusions persist, very poor insight into safe disposition options. Now on haldol monotherapy with plan to titrate dose and then if tolerated recieve JAQUEZ decanoate. MNPR for psychiatric symptoms of psychosis, paranoid ideation (1) Schizophrenia, paranoid, chronic with acute exacerbation: 10/06/21: Discontinuing abilify. Increasing haldol to 2.5 mg qAM and 5 mg qHS. 10/05/21: Continue cross-taper will reduce abilify from 10 mg to 5 mg tomorrow. Increase haldol from 2.5 mg qd to 2.5 mg BID. 10/04/21: Need to cross-taper from abilify to haldol due to high cost of abilify JAQUEZ. She consents to starting haldol. Tomorrow will reduce abilify from 15 mg to 10mg qd and start haldol 2.5 mg qd. 10/03/21: Continue with abilify 15 mg po qd. Spoke with her outpt psychiatrist Dr. Negron about challenge of JAQUEZ Maintenna possibly being cost prohibitive so have call out to her case fitter to see if there may be financial support options for this. Otherwise will need to consider haldol JAQUEZ vs Invega JAQUEZ. 10/02/21: She consents to increase of abilify to 15 mg tomorrow morning and discontinuation of zyprexa tonight. Benadryl 50 mg qhs prn for allergy symptoms. Continues to have delusions. Will attempt to start prior authorization process for Abilify Maintena if she continues to tolerate abilify po well. 10/01/21: She consents to ongoing cross-taper will decrease zyprexa from 10mg to 5mg qhs and increasing abilify from 5mg to 10 mg tomorrow morning. Remains very paranoid and suspicious of others so will continue MNPR. 09/30/21: Abilify 5 mg qd today. Tomorrow will decrease zyprexa from 10mg to 5 mg qhs and continue with cross-taper with goal of abilify monotherapy and then JAQUEZ if well tolerated. Continues to have limited insight but appropriate so far today, if this persists will consider d/c of MNPR tomorrow. 09/29/21: continue Zyprexa but taper soon in favor of Abilify. Test dose Abilify 2.5 mg today and 5 mg daily tomorrow. Once tolerability assessed, convert to JAQUEZ. Patient lacks insight into need to return to [facility]. Patient is upset following hearing so will be monitored before additional consideration of d/c MNPR. 09/28/21: continue Zyprexa 10 mg po qhs, add Cogentin 0.5 mg BID. No sense to restart Clozaril if won't take consistently. Monitor symptoms and consider Invega trial with hopes she'll ultimately agree to JAQUEZ. 09/27/21: The patient was admitted to the [facility] ([facility] mental health unit) on q15 min checks (behavioral with suicide precautions) for safety. The patient will participate in group, recreational, and milieu therapies and will be offered additional individual and family sessions as clinically appropriate. Risks/benefits/alternatives were reviewed re: antipsychotics for mood and/or psychosis. Discussion included but was not limited to metabolic side effects, risks of TD. There was EPS tremor but no TD at baseline. Fasting glucose and lipid panel ordered for baseline monitoring. She is agreeable to continuing Zyprexa but not Clozaril. Discussed that an JAQUEZ would be preferred and she declines due to limited insight into need for medication. Inventory Assets Strengths: intelligent, has been pleasant in interactions with staff and likes Needs: improved compliance, better tolerated antipsychotic. Risk Factors Assessment : Yes Do You Have Access To A Gun?: No Mental Health Diagnoses: Yes Substance Use Disorders: No Previous Attempt: No Previous Psychiatric Hospitalization: Yes Protective Factors Assessment Employed: No Good Rapport with Provider: Yes Interval History Identifying Information TALITA BALL is a 61-year-old F who currently lives at [facility], has a history of schizophrenia and [facility] placement, and was admitted on 09/26/21 23:33 on a 302 involuntary commitment but is actually maintained on a 305 outpatient commitment for delusional behavior. Chief Complaint "I can live next to my dad at [facility], it's a good place to be for my work in the [employer]". Review of Systems Sleep Information Total Hours of Sleep: 4.75 Sleep Comments: pt given benadryl per rn. pt on q-15 minute checks Meal Information Percent Meal Consumed - Breakfast: 100 Percent Meal Consumed - Lunch: 100 Percent Meal Consumed - Dinner: 100 Nutrition Comment: per meal record Subjective Subjective Patient was seen & assessed and interval progress reviewed with treatment team nursing and social work. Angela continues to have delusions including a belief that her father is still alive, a belief she works for [employer] and that she is good friends with a celebrity athlete who she alerted staff would be calling the unit to speak with her. She endorses good mood and denies any me dication side effects. Remains agreeable to taking haldol. Agrees with ongoing plan for dose titration and to then receive haldol JAQUEZ. Physical Exam Psychiatric Orientation: alert and oriented x 3 Apperance: appropriately dressed and appropriately groomed Eye Contact: good eye contact Motor Behavior: no abnormal motor movements Speech: normal rate/rhythm/volume of speech Affect: + constricted affect Mood: no depressed mood Thought Process: + circumstantial thought process Thought Content: + preoccupation, + paranoid and + delusions Suicidal Thoughts: denies suicidal thoughts Homicidal Thoughts: denies homicidal thoughts Hallucinations: + auditory hallucinations; no visual hallucinations Cognition: attention grossly intact and language grossly intact Estimated Intelligence: consistent with education level Insight: + limited insight Judgement: + limited judgement Vital Signs (Past 24 Hours) Last Vital Signs Temp 36.5 C 10/06/21 06:00 Pulse 91 H 10/06/21 06:46 Resp 18 10/06/21 06:00 BP 129/84 10/06/21 06:46 Pulse Ox 98 10/05/21 06:59 Results & Data ([facility]) Current Inpatient Medications Current Inpatient Medications: Current Inpatient Medications Acetaminophen (Acetaminophen 325 Mg Tab) 650 mg PO Q4H PRN PRN Reason: Headache or Minor Fever Stop: 10/26/21 23:42 Al Hydrox/Mg Hydrox/Simethicone (Aluminum/Magnesium Susp 30 Ml Udc) 30 ml PO Q4H PRN PRN Reason: GI Upset Stop: 10/26/21 23:42 Aripiprazole (Aripiprazole 5 Mg Tab) 5 mg PO QAM EMMA Stop: 11/05/21 08:59 Last Admin: 10/06/21 09:02 Dose: 5 mg Documented by: Artificial Tears (Artificial Tears) 1 drops OP QID ON LICENSE OF [facility] Stop: 10/27/21 08:59 Last Admin: 10/06/21 13:51 Dose: 1 drops Documented by: Benztropine Mesylate (Benztropine Mesylate 0.5 Mg Tab) 0.5 mg PO BID ON LICENSE OF [facility] Stop: 10/28/21 20:59 Last Admin: 10/06/21 09:02 Dose: 0.5 mg Documented by: Bismuth Subsalicylate (Bismuth Subsalicylate Liqd 236 Ml) 15 ml PO PRN PRN PRN Reason: Loose Stool Stop: 10/26/21 23:42 Diphenhydramine HCl (Diphenhydramine Capsule 25 Mg Cap) 50 mg PO HS PRN PRN Reason: Allergy Symptoms Stop: 11/01/21 12:25 Last Admin: 10/05/21 20:49 Dose: 50 mg Documented by: Docusate Sodium (Docusate Sodium 100 Mg Cap) 100 mg PO BID@0800,2100 ON LICENSE OF [facility] Stop: 10/27/21 08:59 Last Admin: 10/06/21 09:02 Dose: 100 mg Documented by: Haloperidol (Haloperidol 5 Mg Tab) 2.5 mg PO BID ON LICENSE OF [facility] Stop: 11/05/21 08:59 Last Admin: 10/06/21 09:04 Dose: 2.5 mg Documented by: Hydroxyzine HCl (Hydroxyzine Hcl 25 Mg Tab) 50 mg PO HSZ PRN PRN Reason: Insomnia Stop: 10/26/21 23:42 Last Admin: 10/06/21 02:37 Dose: 50 mg Documented by: Hydroxyzine HCl (Hydroxyzine Hcl 25 Mg Tab) 25 mg PO Q4H PRN PRN Reason: Anxiety Stop: 10/26/21 23:42 Last Admin: 10/06/21 09:14 Dose: 25 mg Documented by: Ibuprofen (Ibuprofen 200 Mg Tab) 400 mg PO Q8 PRN PRN Reason: Pain Stop: 11/05/21 09:37 Levothyroxine Sodium (Levothyroxine Sodium 25 Mcg Tablet) 25 mcg PO DAILY@0800 ON LICENSE OF [facility] Stop: 10/27/21 08:59 Last Admin: 10/06/21 08:47 Dose: 25 mcg Documented by: Loratadine (Loratadine 10 Mg Tab) 10 mg PO DAILY EMMA Stop: 10/27/21 08:59 Last Admin: 10/06/21 09:03 Dose: 10 mg Documented by: Magnesium Hydroxide (Magnesium Hydroxide Susp 30 Ml Udc) 30 ml PO DAILY PRN PRN Reason: Constipation Stop: 10/26/21 23:42 Naproxen (Naproxen 250 Mg Tab) 500 mg PO BIDM EMMA Stop: 10/27/21 08:59 Last Admin: 10/06/21 09:03 Dose: 500 mg Documented by: Sodium Chloride (Sodium Chloride 0.65% Na Soln 45 Ml ([place])) 1 - 2 sprays NA PRN PRN PRN Reason: Nasal Dryness/Congestion Stop: 10/26/21 23:42 Vitamin D (Cholecalciferol 1,000 Units 25 Mcg Tab) 5,000 units PO DAILY EMMA Stop: 10/27/21 08:59 Last Admin: 10/06/21 09:03 Dose: 5,000 units Documented by: Zinc Acetate/Diphenhydramine (Diphenhydramine 2%/Zinc 0.1% Cream 28gm Tube) 1 appln EXT DAILY PRN PRN Reason: Itching Stop: 11/03/21 14:35 Mental Health & Subst Abuse Tx Jig And Fixture Repairer Name of Jig And Fixture Repairer: Farideh Rajan Date of Appointment with Jig And Fixture Repairer: 09/29/21
[2021-10-06] MEDS: diphenhydrAMINE Capsule 25 MG CAP PO PRN (21:01)
[2021-10-07] MEDS ORDERED: haloperidoL 0.5 MG TAB PO SCH (08:00)
[2021-10-07] MEDS: DOCUSATE SODIUM 100 MG CAP PO SCH ×2 (08:17→20:47)
[2021-10-07] MEDS: ARTIFICIAL TEARS OP SCH ×4 (08:19→20:48)
[2021-10-07] MEDS: LEVOTHYROXINE SODIUM 25 MCG TABLET PO SCH (08:19)
[2021-10-07] MEDS: BENZTROPINE MESYLATE 0.5 MG TAB PO SCH ×2 (08:19→20:47)
[2021-10-07] MEDS: CHOLECALCIFEROL 1,000 UNITS 25 MCG TAB PO SCH (08:20)
[2021-10-07] MEDS: NAPROXEN 250 MG TAB PO SCH ×2 (08:20→17:13)
[2021-10-07] MEDS: LORATADINE 10 MG TAB PO SCH (08:20)
[2021-10-07] MEDS: hydrOXYzine HCl 25 MG TAB PO PRN ×2 (08:21→20:46)
--- NOTE | 2021-10-07 11:56 | Psychiatric Progress Note ---
Date of Service October 07, 2021 Impression / Recommendations Elise Miller is a 61 yo female with acute exacerbation of psychosis for non-compliance with clozapine. She is on an extended outpatient commitment prior to admission following [facility]. No history prior to entering care with Dr. Negron is available. On 305 commitment. 10/07/21: delusions persist, tolerating Haldol MNPR for psychiatric symptoms of psychosis, paranoid ideation (1) Schizophrenia, paranoid, chronic with acute exacerbation: 10/07/21: will titrate Haldol to 5 mg BId tomorrow. 10/06/21: Discontinuing abilify. Increasing haldol to 2.5 mg qAM and 5 mg qHS. 10/05/21: Continue cross-taper will reduce abilify from 10 mg to 5 mg tomorrow. Increase haldol from 2.5 mg qd to 2.5 mg BID. 10/04/21: Need to cross-taper from abilify to haldol due to high cost of abilify JAQUEZ. She consents to starting haldol. Tomorrow will reduce abilify from 15 mg to 10mg qd and start haldol 2.5 mg qd. 10/03/21: Continue with abilify 15 mg po qd. Spoke with her outpt psychiatrist Dr. Negron about challenge of JAQUEZ Maintenna possibly being cost prohibitive so have call out to her case management specialist to see if there may be financial support options for this. Otherwise will need to consider haldol JAQUEZ vs Invega JAQUEZ. 10/02/21: She consents to increase of abilify to 15 mg tomorrow morning and discontinuation of zyprexa tonight. Benadryl 50 mg qhs prn for allergy symptoms. Continues to have delusions. Will attempt to start prior authorization process for Abilify Maintena if she continues to tolerate abilify po well. 10/01/21: She consents to ongoing cross-taper will decrease zyprexa from 10mg to 5mg qhs and increasing abilify from 5mg to 10 mg tomorrow morning. Remains very paranoid and suspicious of others so will continue MNPR. 09/30/21: Abilify 5 mg qd today. Tomorrow will decrease zyprexa from 10mg to 5 mg qhs and continue with cross-taper with goal of abilify monotherapy and then JAQUEZ if well tolerated. Continues to have limited insight but appropriate so far today, if this persists will consider d/c of MNPR tomorrow. 09/29/21: continue Zyprexa but taper soon in favor of Abilify. Test dose Abilify 2.5 mg today and 5 mg daily tomorrow. Once tolerability assessed, convert to JAQUEZ. Patient lacks insight into need to return to [facility]. Patient is upset following hearing so will be monitored before additional consideration of d/c MNPR. 09/28/21: continue Zyprexa 10 mg po qhs, add Cogentin 0.5 mg BID. No sense to restart Clozaril if won't take consistently. Monitor symptoms and consider Invega trial with hopes she'll ultimately agree to JAQUEZ. 09/27/21: The patient was admitted to the [facility] ([facility]) on q15 min checks (behavioral with suicide precautions) for safety. The patient will participate in group, recreational, and milieu therapies and will be offered additional individual and family sessions as clinically appropriate. Risks/benefits/alternatives were reviewed re: antipsychotics for mood and/or psychosis. Discussion included but was not limited to metabolic side effects, risks of TD. There was EPS tremor but no TD at baseline. Fasting glucose and lipid panel ordered for baseline monitoring. She is agreeable to continuing Zyprexa but not Clozaril. Discussed that an JAQUEZ would be preferred and she declines due to limited insight into need for medication. Inventory Assets Strengths: intelligent, has been pleasant in interactions with staff and likes Needs: improved compliance, better tolerated antipsychotic. Risk Factors Assessment : Yes Do You Have Access To A Gun?: No Mental Health Diagnoses: Yes Substance Use Disorders: No Previous Attempt: No Previous Psychiatric Hospitalization: Yes Protective Factors Assessment Employed: No Good Rapport with Provider: Yes Interval History Identifying Information TALITA BALL is a 61-year-old F who currently lives at [facility], has a history of schizophrenia and psychiatric hospital hospital placement, and was admitted on 09/26/21 23:33 on a 302 involuntary commitment but is actually maintained on a 305 outpatient commitment for delusional behavior. Chief Complaint "yeah I'm not going back there, my mom did it for drug money and there are drugs there. I'm going to live with my dad in [facility]". Review of Systems Sleep Information Total Hours of Sleep: 7 Sleep Comments: pt given benadryl per rn. pt on q-15 minute checks Meal Information Percent Meal Consumed - Breakfast: 100 Percent Meal Consumed - Lunch: 100 Percent Meal Consumed - Dinner: 100 Nutrition Comment: per meal record Subjective Subjective Patient was seen & assessed and interval progress reviewed with nursing and social work. Cooperative with medications but stating she won't return to [facility]. Reviewed that it is required under her commitment and quickly became paranoid r e: there. Tolerating Haldol and remains agreeable to JAQUEZ but thinks all meds should be available that way. Physical Exam Psychiatric Orientation: alert and oriented x 3 Apperance: appropriately dressed and appropriately groomed Eye Contact: good eye contact Motor Behavior: no abnormal motor movements Speech: normal rate/rhythm/volume of speech Affect: euthymic affect Mood: no depressed mood Thought Process: + circumstantial thought process Thought Content: + paranoid and + delusions Suicidal Thoughts: denies suicidal thoughts Homicidal Thoughts: denies homicidal thoughts Hallucinations: no visual hallucinations Cognition: attention grossly intact and language grossly intact Estimated Intelligence: consistent with education level Insight: + limited insight Judgement: + limited judgement Vital Signs (Past 24 Hours) Last Vital Signs Temp 36.6 C 10/07/21 06:42 Pulse 96 H 10/07/21 06:43 Resp 16 10/07/21 06:42 BP 124/82 10/07/21 06:43 Pulse Ox 98 10/05/21 06:59 Results & Data ([facility]) Current Inpatient Medications Current Inpatient Medications: Current Inpatient Medications Acetaminophen (Acetaminophen 325 Mg Tab) 650 mg PO Q4H PRN PRN Reason: Headache or Minor Fever Stop: 10/26/21 23:42 Al Hydrox/Mg Hydrox/Simethicone (Aluminum/Magnesium Susp 30 Ml Udc) 30 ml PO Q4H PRN PRN Reason: GI Upset Stop: 10/26/21 23:42 Artificial Tears (Artificial Tears) 1 drops OP QID EMMA Stop: 10/27/21 08:59 Last Admin: 10/07/21 08:19 Dose: 1 drops Documented by: Benztropine Mesylate (Benztropine Mesylate 0.5 Mg Tab) 0.5 mg PO BID EMMA Stop: 10/28/21 20:59 Last Admin: 10/07/21 08:19 Dose: 0.5 mg Documented by: Bismuth Subsalicylate (Bismuth Subsalicylate Liqd 236 Ml) 15 ml PO PRN PRN PRN Reason: Loose Stool Stop: 10/26/21 23:42 Diphenhydramine HCl (Diphenhydramine Capsule 25 Mg Cap) 50 mg PO HS PRN PRN Reason: Allergy Symptoms Stop: 11/01/21 12:25 Last Admin: 10/06/21 21:01 Dose: 50 mg Documented by: Docusate Sodium (Docusate Sodium 100 Mg Cap) 100 mg PO BID@0800,2100 [facility] Stop: 10/27/21 08:59 Last Admin: 10/07/21 08:17 Dose: 100 mg Documented by: Haloperidol (Haloperidol 0.5 Mg Tab) 2.5 mg PO QD@08 [facility] Stop: 11/06/21 07:59 Last Admin: 10/07/21 08:18 Dose: 2.5 mg Documented by: Haloperidol (Haloperidol 5 Mg Tab) 5 mg PO HS EMMA Stop: 11/05/21 21:59 Last Admin: 10/06/21 20:53 Dose: 5 mg Documented by: Hydroxyzine HCl (Hydroxyzine Hcl 25 Mg Tab) 50 mg PO HSZ PRN PRN Reason: Insomnia Stop: 10/26/21 23:42 Last Admin: 10/06/21 02:37 Dose: 50 mg Documented by: Hydroxyzine HCl (Hydroxyzine Hcl 25 Mg Tab) 25 mg PO Q4H PRN PRN Reason: Anxiety Stop: 10/26/21 23:42 Last Admin: 10/07/21 08:21 Dose: 25 mg Documented by: Ibuprofen (Ibuprofen 200 Mg Tab) 400 mg PO Q8 PRN PRN Reason: Pain Stop: 11/05/21 09:37 Levothyroxine Sodium (Levothyroxine Sodium 25 Mcg Tablet) 25 mcg PO DAILY@0800 [facility] Stop: 10/27/21 08:59 Last Admin: 10/07/21 08:19 Dose: 25 mcg Documented by: Loratadine (Loratadine 10 Mg Tab) 10 mg PO DAILY EMMA Stop: 10/27/21 08:59 Last Admin: 10/07/21 08:20 Dose: 10 mg Documented by: Magnesium Hydroxide (Magnesium Hydroxide Susp 30 Ml Udc) 30 ml PO DAILY PRN PRN Reason: Constipation Stop: 10/26/21 23:42 Naproxen (Naproxen 250 Mg Tab) 500 mg PO BIDM EMMA Stop: 10/27/21 08:59 Last Admin: 10/07/21 08:20 Dose: 500 mg Documented by: Sodium Chloride (Sodium Chloride 0.65% Na Soln 45 Ml ([place])) 1 - 2 sprays NA PRN PRN PRN Reason: Nasal Dryness/Congestion Stop: 10/26/21 23:42 Vitamin D (Cholecalciferol 1,000 Units 25 Mcg Tab) 5,000 units PO DAILY EMMA Stop: 10/27/21 08:59 Last Admin: 10/07/21 08:20 Dose: 5,000 units Documented by: Zinc Acetate/Diphenhydramine (Diphenhydramine 2%/Zinc 0.1% Cream 28gm Tube) 1 appln EXT DAILY PRN PRN Reason: Itching Stop: 11/03/21 14:35 Last Admin: 10/06/21 21:03 Dose: 1 appln Documented by: Mental Health & Subst Abuse Tx Sand Car Worker Name of Sand Car Worker: Farideh Rajan Date of Appointment with Sand Car Worker: 09/29/21
[2021-10-07] MEDS: diphenhydrAMINE Capsule 25 MG CAP PO PRN (20:46)
[2021-10-07] MEDS: haloperidoL 5 MG TAB PO SCH (20:47)
[2021-10-08] MEDS: DOCUSATE SODIUM 100 MG CAP PO SCH ×2 (08:24→20:40)
[2021-10-08] MEDS: BENZTROPINE MESYLATE 0.5 MG TAB PO SCH ×2 (08:25→20:40)
[2021-10-08] MEDS: ARTIFICIAL TEARS OP SCH ×4 (08:25→20:42)
[2021-10-08] MEDS: LEVOTHYROXINE SODIUM 25 MCG TABLET PO SCH (08:25)
[2021-10-08] MEDS: CHOLECALCIFEROL 1,000 UNITS 25 MCG TAB PO SCH (08:26)
[2021-10-08] MEDS: LORATADINE 10 MG TAB PO SCH (08:27)
[2021-10-08] MEDS: haloperidoL 5 MG TAB PO SCH (08:27)
[2021-10-08] MEDS: NAPROXEN 250 MG TAB PO SCH (08:27)
[2021-10-08] MEDS: hydrOXYzine HCl 25 MG TAB PO PRN ×2 (08:28→20:47)
--- NOTE | 2021-10-08 12:12 | Psychiatric Progress Note ---
Date of Service October 08, 2021 Impression / Recommendations Elise Miller is a 61 yo female with acute exacerbation of psychosis for non-compliance with clozapine. She is on an extended outpatient commitment prior to admission following discharge from the [facility]. No history prior to entering care with Dr. Negron is available. 305 commitment converted to inpatient. 10/07/21: delusions persist, total lack of insight into her condition. Tolerating Haldol. MNPR for psychiatric symptoms of psychosis, paranoid ideation (1) Schizophrenia, paranoid, chronic with acute exacerbation: 10/08/21: more breakthrough during med changes with Haldol not yet therapeutic. Increase Haldol to 5 mg po qam and 10 mg po qhs starting tonight as no evidence of worsening EPS. Needs meeting with [facility] and CM. 10/07/21: will titrate Haldol to 5 mg BId tomorrow. 10/06/21: Discontinuing abilify. Increasing haldol to 2.5 mg qAM and 5 mg qHS. 10/05/21: Continue cross-taper will reduce abilify from 10 mg to 5 mg tomorrow. Increase haldol from 2.5 mg qd to 2.5 mg BID. 10/04/21: Need to cross-taper from abilify to haldol due to high cost of abilify JAQUEZ. She consents to starting haldol. Tomorrow will reduce abilify from 15 mg to 10mg qd and start haldol 2.5 mg qd. 10/03/21: Continue with abilify 15 mg po qd. Spoke with her outpt psychiatrist Dr. Negron about challenge of JAQUEZ Maintenna possibly being cost prohibitive so have call out to her rn field case manager to see if there may be financial support options for this. Otherwise will need to consider haldol JAQUEZ vs Invega JAQUEZ. 10/02/21: She consents to increase of abilify to 15 mg tomorrow morning and d iscontinuation of zyprexa tonight. Benadryl 50 mg qhs prn for allergy symptoms. Continues to have delusions. Will attempt to start prior authorization process for Abilify Maintena if she continues to tolerate abilify po well. 10/01/21: She consents to ongoing cross-taper will decrease zyprexa from 10mg to 5mg qhs and increasing abilify from 5mg to 10 mg tomorrow morning. Remains very paranoid and suspicious of others so will continue MNPR. 09/30/21: Abilify 5 mg qd today. Tomorrow will decrease zyprexa from 10mg to 5 mg qhs and continue with cross-taper with goal of abilify monotherapy and then JAQUEZ if well tolerated. Continues to have limited insight but appropriate so far today, if this persists will consider d/c of MNPR tomorrow. 09/29/21: continue Zyprexa but taper soon in favor of Abilify. Test dose Abilify 2.5 mg today and 5 mg daily tomorrow. Once tolerability assessed, convert to JAQUEZ. Patient lacks insight into need to return to [facility]. Patient is upset following hearing so will be monitored before additional consideration of d/c MNPR. 09/28/21: continue Zyprexa 10 mg po qhs, add Cogentin 0.5 mg BID. No sense to restart Clozaril if won't take consistently. Monitor symptoms and consider Invega trial with hopes she'll ultimately agree to JAQUEZ. 09/27/21: The patient was admitted to the [facility] on q15 min checks (behavioral with suicide precautions) for safety. The patient will participate in group, recreational, and milieu therapies and will be offered additional individual and family sessions as clinically appropriate. Risks/benefits/alternatives were reviewed re: antipsychotics for mood and/or psychosis. Discussion included but was not limited to metabolic side effects, risks of TD. There was EPS tremor but no TD at baseline. Fasting glucose and lipid panel ordered for baseline monitoring. She is agreeable to continuing Zyprexa but not Clozaril. Discussed that an JAQUEZ would be preferred and she declines due to limited insight into need for medication. Inventory Assets Strengths: intelligent, has been pleasant in interactions with staff and likes Needs: improved compliance, better tolerated antipsychotic. Risk Factors Assessment : Yes Do You Have Access To A Gun?: No Mental Health Diagnoses: Yes Substance Use Disorders: No Previous Attempt: No Previous Psychiatric Hospitalization: Yes Protective Factors Assessment Employed: No Good Rapport with Provider: Yes Interval History Identifying Information TALITA BALL is a 61-year-old F who currently lives at [facility], has a history of schizophrenia and [facility] placement, and was admitted on 09/26/21 23:33 on a 302 involuntary commitment but is actually maintained on a 305 outpatient commitment for delusional behavior. Chief Complaint "Yeah you'll hear from my probation manager, I have 4 children and an apartment in [facility], I'm not going back there". Review of Systems Sleep Information Total Hours of Sleep: 7.5 Sleep Comments: pt given benadryl per rn. pt on q-15 minute checks Meal Information Percent Meal Consumed - Breakfast: 100 Percent Meal Consumed - Lunch: 100 Percent Meal Consumed - Dinner: 90 Nutrition Comment: per meal record Subjective Subjective Patient was seen & assessed and interval progress reviewed with nursing and social work. Patient is edgier today. Threatens to withdraw her consent for medications. Challenged her on her delusions related to personal correction and will not reality focus to fact she could not have a 4 yo son given age. Father is but she maintains he lives in [facility] [place]. Physical Exam Psychiatric Orientation: alert and oriented x 3 Apperance: appropriately dressed and appropriately groomed Eye Contact: good eye contact Motor Behavior: no abnormal motor movements Speech: normal rate/rhythm/volume of speech Affect: euthymic affect Mood: no depressed mood Thought Process: + circumstantial thought process Thought Content: + preoccupation, + paranoid and + delusions Suicidal Thoughts: denies suicidal thoughts Homicidal Thoughts: denies homicidal thoughts Hallucinations: no auditory hallucinations and no visual hallucinations Cognition: attention grossly intact and language grossly intact Estimated Intelligence: consistent with education level Insight: + limited insight Judgement: + limited judgement Vital Signs (Past 24 Hours) Last Vital Signs Temp 36.5 C 10/08/21 06:47 Pulse 85 10/08/21 06:48 Resp 16 10/08/21 06:47 BP 139/85 10/08/21 06:48 Pulse Ox 98 10/05/21 06:59 Results & Data ([facility]) Current Inpatient Medications Current Inpatient Medications: Current Inpatient Medications Acetaminophen (Acetaminophen 325 Mg Tab) 650 mg PO Q4H PRN PRN Reason: Headache or Minor Fever Stop: 10/26/21 23:42 Al Hydrox/Mg Hydrox/Simethicone (Aluminum/Magnesium Susp 30 Ml Udc) 30 ml PO Q4H PRN PRN Reason: GI Upset Stop: 10/26/21 23:42 Artificial Tears (Artificial Tears) 1 drops OP QID EMMA Stop: 10/27/21 08:59 Last Admin: 10/08/21 08:25 Dose: 1 drops Documented by: Benztropine Mesylate (Benztropine Mesylate 0.5 Mg Tab) 0.5 mg PO BID EMMA Stop: 10/28/21 20:59 Last Admin: 10/08/21 08:25 Dose: 0.5 mg Documented by: Bismuth Subsalicylate (Bismuth Subsalicylate Liqd 236 Ml) 15 ml PO PRN PRN PRN Reason: Loose Stool Stop: 10/26/21 23:42 Diphenhydramine HCl (Diphenhydramine Capsule 25 Mg Cap) 50 mg PO HS PRN PRN Reason: Allergy Symptoms Stop: 11/01/21 12:25 Last Admin: 10/07/21 20:46 Dose: 50 mg Documented by: Docusate Sodium (Docusate Sodium 100 Mg Cap) 100 mg PO BID@0800,2100 EMMA Stop: 10/27/21 08:59 Last Admin: 10/08/21 08:24 Dose: 100 mg Documented by: Haloperidol (Haloperidol 5 Mg Tab) 5 mg PO QAM EMMA Stop: 11/08/21 08:59 Haloperidol (Haloperidol 5 Mg Tab) 10 mg PO HS EMMA Stop: 11/07/21 21:59 Hydroxyzine HCl (Hydroxyzine Hcl 25 Mg Tab) 50 mg PO HSZ PRN PRN Reason: Insomnia Stop: 10/26/21 23:42 Last Admin: 10/06/21 02:37 Dose: 50 mg Documented by: Hydroxyzine HCl (Hydroxyzine Hcl 25 Mg Tab) 25 mg PO Q4H PRN PRN Reason: Anxiety Stop: 10/26/21 23:42 Last Admin: 10/08/21 08:28 Dose: 25 mg Documented by: Ibuprofen (Ibuprofen 200 Mg Tab) 400 mg PO Q8 PRN PRN Reason: Pain Stop: 11/05/21 09:37 Levothyroxine Sodium (Levothyroxine Sodium 25 Mcg Tablet) 25 mcg PO DAILY@0800 EMMA Stop: 10/27/21 08:59 Last Admin: 10/08/21 08:25 Dose: 25 mcg Documented by: Magnesium Hydroxide (Magnesium Hydroxide Susp 30 Ml Udc) 30 ml PO DAILY PRN PRN Reason: Constipation Stop: 10/26/21 23:42 Naproxen (Naproxen 250 Mg Tab) 500 mg PO BIDM PRN PRN Reason: pain Stop: 10/27/21 08:59 Sodium Chloride (Sodium Chloride 0.65% Na Soln 45 Ml ([place])) 1 - 2 sprays NA PRN PRN PRN Reason: Nasal Dryness/Congestion Stop: 10/26/21 23:42 Vitamin D (Cholecalciferol 1,000 Units 25 Mcg Tab) 1,000 units PO DAILY EMMA Stop: 11/08/21 08:59 Zinc Acetate/Diphenhydramine (Diphenhydramine 2%/Zinc 0.1% Cream 28gm Tube) 1 appln EXT DAILY PRN PRN Reason: Itching Stop: 11/03/21 14:35 Last Admin: 10/07/21 21:23 Dose: 1 appln Documented by: Mental Health & Subst Abuse Tx Inspector [employer] Name of Inspector [employer]: Farideh Rajan Date of Appointment with Inspector [employer]: 09/29/21
[2021-10-08] MEDS: diphenhydrAMINE Capsule 25 MG CAP PO PRN (20:43)
[2021-10-08] MEDS ORDERED: haloperidoL 5 MG TAB PO SCH (22:00)
[2021-10-09] MEDS ORDERED: haloperidoL 5 MG TAB PO SCH (09:00)
[2021-10-09] MEDS: DOCUSATE SODIUM 100 MG CAP PO SCH ×2 (09:01→21:25)
[2021-10-09] MEDS: ARTIFICIAL TEARS OP SCH ×4 (09:01→21:24)
[2021-10-09] MEDS: BENZTROPINE MESYLATE 0.5 MG TAB PO SCH ×2 (09:01→21:25)
[2021-10-09] MEDS: CHOLECALCIFEROL 1,000 UNITS 25 MCG TAB PO SCH (09:01)
[2021-10-09] MEDS: LEVOTHYROXINE SODIUM 25 MCG TABLET PO SCH (09:01)
--- NOTE | 2021-10-09 10:01 | Psychiatric Progress Note ---
Date of Service October 09, 2021 Impression / Recommendations Elise Miller is a 61 yo female with acute exacerbation of psychosis for non-compliance with clozapine. She is on an extended outpatient commitment prior to admission following discharge from the [facility]. No history prior to entering care with Dr. Negron is available. 305 commitment converted to inpatient. 10/09/21: unable to care for self outside of the hospital, worsening after challenge of delusions. MNPR for psychiatric symptoms of psychosis, paranoid ideation (1) Schizophrenia, paranoid, chronic with acute exacerbation: 10/09/21: d/c Haldol (patient refusing), there is no acute agitation or threatening behavior or medical decompensation that would support meds over objection/injectable at this time given that she is willing to take Abilify 5 mg daily PO. 10/08/21: more breakthrough during med changes with Haldol not yet therapeutic. Increase Haldol to 5 mg po qam and 10 mg po qhs starting tonight as no evidence of worsening EPS. Needs meeting with [facility] and CM. 10/07/21: will titrate Haldol to 5 mg BId tomorrow. 10/06/21: Discontinuing abilify. Increasing haldol to 2.5 mg qAM and 5 mg qHS. 10/05/21: Continue cross-taper will reduce abilify from 10 mg to 5 mg tomorrow. Increase haldol from 2.5 mg qd to 2.5 mg BID. 10/04/21: Need to cross-taper from abilify to haldol due to high cost of abilify JAQUEZ. She consents to starting haldol. Tomorrow will reduce abilify from 15 mg to 10mg qd and start haldol 2.5 mg qd. 10/03/21: Continue with abilify 15 mg po qd. Spoke with her outpt psychiatrist Dr. Negron about challenge of JAQUEZ Maintenna possibly being cost prohibitive so have call out to her outpatient case manager to see if there may be financial support options for this. Otherwise will need to consider haldol JAQUEZ vs Invega JAQUEZ. 10/02/21: She consents to increase of abilify to 15 mg tomorrow morning and discontinuation of zyprexa tonight. Benadryl 50 mg qhs prn for allergy symptoms. Continues to have delusions. Will attempt to start prior authorization process for Abilify Maintena if she continues to tolerate abilify po well. 10/01/21: She consents to ongoing cross-taper will decrease zyprexa from 10mg to 5mg qhs and increasing abilify from 5mg to 10 mg tomorrow morning. Remains very paranoid and suspicious of others so will continue MNPR. 09/30/21: Abilify 5 mg qd today. Tomorrow will decrease zyprexa from 10mg to 5 mg qhs and continue with cross-taper with goal of abilify monotherapy and then JAQUEZ if well tolerated. Continues to have limited insight but appropriate so far today, if this persists will consider d/c of MNPR tomorrow. 09/29/21: continue Zyprexa but taper soon in favor of Abilify. Test dose Abilify 2.5 mg today and 5 mg daily tomorrow. Once tolerability assessed, convert to JAQUEZ. Patient lacks insight into need to return to [facility]. Patient is upset following hearing so will be monitored before additional consideration of d/c MNPR. 09/28/21: continue Zyprexa 10 mg po qhs, add Cogentin 0.5 mg BID. No sense to restart Clozaril if won't take consistently. Monitor symptoms and consider Invega trial with hopes she'll ultimately agree to JAQUEZ. 09/27/21: The patient was admitted to the [facility] ([facility]) on q15 min checks (behavioral with suicide precautions) for safety. The patient will participate in group, recreational, and milieu therapies and will be offered additional individual and family sessions as clinically appropriate. Risks/benefits/alternatives were reviewed re: antipsychotics for mood and/or psychosis. Discussion included but was not limited to metabolic side effects, risks of TD. There was EPS tremor but no TD at baseline. Fasting glucose and lipid panel ordered for baseline monitoring. She is agreeable to continuing Zyprexa but not Clozaril. Discussed that an JAQUEZ would be preferred and she declines due to limited insight into need for medication. Inventory Assets Strengths: intelligent, has been pleasant in interactions with staff and likes CM Needs: improved compliance, better tolerated antipsychotic. Risk Factors Assessment : Yes Do You Have Access To A Gun?: No Mental Health Diagnoses: Yes Substance Use Disorders: No Previous Attempt: No Previous Psychiatric Hospitalization: Yes Protective Factors Assessment Employed: No Good Rapport with Provider: Yes Interval History Identifying Information TALITA BALL is a 61-year-old F who currently lives at [facility], has a history of schizophrenia and [facility] placement, and was admitted on 09/26/21 23:33 on a 302 involuntary commitment but is actually maintained on a 305 outpatient commitment for delusional behavior. Chief Complaint "I saw that paper and have those side effects". Review of Systems Sleep Information Total Hours of Sleep: 7 Sleep Comments: pt given benadryl per rn. pt on q-15 minute checks Meal Information Percent Meal Consumed - Breakfast: 100 Percent Meal Consumed - Lunch: 100 Percent Meal Consumed - Dinner: 100 Nutrition Comment: per meal record Subjective Subjective Patient was seen & assessed and interval progress reviewed with treatment team. After reading the patient education handout patient c/o muscle stiffness in her forehead, dry mouth and trouble with her balance this am to nurse wanted Haldol held until she could speak with me. She is adamant that she will not return to [facility], reviewed commitment. She is insistent she is not on a commitment and that she has a home in [facility]. She does not appear to have EPS and admits "that paper just looks horrible and you can keep that stuff, I'm not taking it". Mentions messages she has gotten from her employment attorney. Now refusing conversion to JAQUEZ. Will not take any additional doses of Haldol and does seem more irritable since the switch, although also is being challenged more on her longstanding delusions. Physical Exam Psychiatric Orientation: alert and oriented x 3 Apperance: appropriately dressed and appropriately groomed Eye Contact: good eye contact Motor Behavior: no abnormal motor movements Speech: normal rate/rhythm/volume of speech Affect: + constricted affect Mood: + irritable mood; no depressed mood Thought Process: + circumstantial thought process Thought Content: + preoccupation, + paranoid and + delusions Suicidal Thoughts: denies suicidal thoughts Homicidal Thoughts: denies homicidal thoughts Hallucinations: no auditory hallucinations and no visual hallucinations Cognition: attention grossly intact and language grossly intact Estimated Intelligence: consistent with education level Insight: + limited insight Judgement: + limited judgement Vital Signs (Past 24 Hours) Last Vital Signs Temp 36.5 C 10/09/21 06:40 Pulse 102 H 10/09/21 06:41 Resp 16 10/09/21 06:40 BP 127/84 10/09/21 06:41 Pulse Ox 98 10/05/21 06:59 Results & Data ([facility]) Current Inpatient Medications Current Inpatient Medications: Current Inpatient Medications Acetaminophen (Acetaminophen 325 Mg Tab) 650 mg PO Q4H PRN PRN Reason: Headache or Minor Fever Stop: 10/26/21 23:42 Al Hydrox/Mg Hydrox/Simethicone (Aluminum/Magnesium Susp 30 Ml Udc) 30 ml PO Q4H PRN PRN Reason: GI Upset Stop: 10/26/21 23:42 Artificial Tears (Artificial Tears) 1 drops OP QID EMMA Stop: 10/27/21 08:59 Last Admin: 10/09/21 09:01 Dose: 1 drops Documented by: Benztropine Mesylate (Benztropine Mesylate 0.5 Mg Tab) 0.5 mg PO BID EMMA Stop: 10/28/21 20:59 Last Admin: 10/09/21 09:01 Dose: 0.5 mg Documented by: Bismuth Subsalicylate (Bismuth Subsalicylate Liqd 236 Ml) 15 ml PO PRN PRN PRN Reason: Loose Stool Stop: 10/26/21 23:42 Diphenhydramine HCl (Diphenhydramine Capsule 25 Mg Cap) 50 mg PO HS PRN PRN Reason: Allergy Symptoms Stop: 11/01/21 12:25 Last Admin: 10/08/21 20:43 Dose: 50 mg Documented by: Docusate Sodium (Docusate Sodium 100 Mg Cap) 100 mg PO BID@0800,2100 EMMA Stop: 10/27/21 08:59 Last Admin: 10/09/21 09:01 Dose: 100 mg Documented by: Haloperidol (Haloperidol 5 Mg Tab) 5 mg PO QAM EMMA Stop: 11/08/21 08:59 Last Admin: 10/09/21 09:09 Dose: Not Given Documented by: Haloperidol (Haloperidol 5 Mg Tab) 10 mg PO HS EMMA Stop: 11/07/21 21:59 Last Admin: 10/08/21 20:40 Dose: 10 mg Documented by: Hydroxyzine HCl (Hydroxyzine Hcl 25 Mg Tab) 50 mg PO HSZ PRN PRN Reason: Insomnia Stop: 10/26/21 23:42 Last Admin: 10/06/21 02:37 Dose: 50 mg Documented by: Hydroxyzine HCl (Hydroxyzine Hcl 25 Mg Tab) 25 mg PO Q4H PRN PRN Reason: Anxiety Stop: 10/26/21 23:42 Last Admin: 10/08/21 20:47 Dose: 25 mg Documented by: Levothyroxine Sodium (Levothyroxine Sodium 25 Mcg Tablet) 25 mcg PO DAILY@0800 EMMA Stop: 10/27/21 08:59 Last Admin: 10/09/21 09:01 Dose: 25 mcg Documented by: Magnesium Hydroxide (Magnesium Hydroxide Susp 30 Ml Udc) 30 ml PO DAILY PRN PRN Reason: Constipation Stop: 10/26/21 23:42 Naproxen (Naproxen 250 Mg Tab) 500 mg PO BIDM PRN PRN Reason: pain Stop: 10/27/21 08:59 Sodium Chloride (Sodium Chloride 0.65% Na Soln 45 Ml ([place])) 1 - 2 sprays NA PRN PRN PRN Reason: Nasal Dryness/Congestion Stop: 10/26/21 23:42 Vitamin D (Cholecalciferol 1,000 Units 25 Mcg Tab) 1,000 units PO DAILY EMMA Stop: 11/08/21 08:59 Last Admin: 10/09/21 09:01 Dose: 1,000 units Documented by: Zinc Acetate/Diphenhydramine (Diphenhydramine 2%/Zinc 0.1% Cream 28gm Tube) 1 appln EXT DAILY PRN PRN Reason: Itching Stop: 11/03/21 14:35 Last Admin: 10/07/21 21:23 Dose: 1 appln Documented by: Mental Health & Subst Abuse Tx Aircraft Worker Name of Aircraft Worker: Farideh Rajan Date of Appointment with Aircraft Worker: 09/29/21
[2021-10-09] MEDS: NAPROXEN 250 MG TAB PO PRN (11:35)
[2021-10-09] MEDS: diphenhydrAMINE Capsule 25 MG CAP PO PRN (21:30)
[2021-10-10] MEDS: LEVOTHYROXINE SODIUM 25 MCG TABLET PO SCH (08:44)
[2021-10-10] MEDS: DOCUSATE SODIUM 100 MG CAP PO SCH ×2 (08:44→20:35)
[2021-10-10] MEDS: ARIPiprazole 5 MG TAB PO SCH (08:44)
[2021-10-10] MEDS: ARTIFICIAL TEARS OP SCH ×4 (08:45→20:34)
[2021-10-10] MEDS: CHOLECALCIFEROL 1,000 UNITS 25 MCG TAB PO SCH (08:45)
[2021-10-10] MEDS: BENZTROPINE MESYLATE 0.5 MG TAB PO SCH ×2 (08:45→20:38)
[2021-10-10] MEDS: hydrOXYzine HCl 25 MG TAB PO PRN ×2 (13:04→18:30)
--- NOTE | 2021-10-10 15:18 | Psychiatric Progress Note ---
Date of Service October 10, 2021 Impression / Recommendations Elise Miller is a 61 yo female with acute exacerbation of psychosis for non-compliance with clozapine. She is on an extended outpatient commitment prior to admission following discharge from the [facility]. No history prior to entering care with Dr. Negron is available. 305 commitment converted to inpatient. 10/10/21: unable to care for self outside of the hospital, compliant with Abilify this am otherwise stating if "I'm not discharged saturday I'm going to refuse all care" MNPR for psychiatric symptoms of psychosis, paranoid ideation (1) Schizophrenia, paranoid, chronic with acute exacerbation: 10/10/21: unclear if ever had trued EPS for Haldol or just manipulating med regiment, tolerating Abilify this am. Refusing JAQUEZ. 10/09/21: d/c Haldol (patient refusing), there is no acute agitation or threatening behavior or medical decompensation that would support meds over objection/injectable at this time given that she is willing to take Abilify 5 mg daily PO. 10/08/21: more breakthrough during med changes with Haldol not yet therapeutic. Increase Haldol to 5 mg po qam and 10 mg po qhs starting tonight as no evidence of worsening EPS. Needs meeting with [facility] and CM. 10/07/21: will titrate Haldol to 5 mg BId tomorrow. 10/06/21: Discontinuing abilify. Increasing haldol to 2.5 mg qAM and 5 mg qHS. 10/05/21: Continue cross-taper will reduce abilify from 10 mg to 5 mg tomorrow. Increase haldol from 2.5 mg qd to 2.5 mg BID. 10/04/21: Need to cross-taper from abilify to haldol due to high cost of abilify JAQUEZ. She consents to starting haldol. Tomorrow will reduce abilify from 15 mg to 10mg qd and start haldol 2.5 mg qd. 10/03/21: Continue with abilify 15 mg po qd. Spoke with her outpt psychiatrist Dr. Negron about challenge of JAQUEZ Maintenna possibly being cost prohibitive so have call out to her case worker to see if there may be financial support options for this. Otherwise will need to consider haldol JAQUEZ vs Invega JAQUEZ. 10/02/21: She consents to increase of abilify to 15 mg tomorrow morning and discontinuation of zyprexa tonight. Benadryl 50 mg qhs prn for allergy symptoms. Continues to have delusions. Will attempt to start prior authorization process for Abilify Maintena if she continues to tolerate abilify po well. 10/01/21: She consents to ongoing cross-taper will decrease zyprexa from 10mg to 5mg qhs and increasing abilify from 5mg to 10 mg tomorrow morning. Remains very paranoid and suspicious of others so will continue MNPR. 09/30/21: Abilify 5 mg qd today. Tomorrow will decrease zyprexa from 10mg to 5 mg qhs and continue with cross-taper with goal of abilify monotherapy and then JAQUEZ if well tolerated. Continues to have limited insight but appropriate so far today, if this persists will consider d/c of MNPR tomorrow. 09/29/21: continue Zyprexa but taper soon in favor of Abilify. Test dose Abilify 2.5 mg today and 5 mg daily tomorrow. Once tolerability assessed, convert to JAQUEZ. Patient lacks insight into need to return to [facility]. Patient is upset following hearing so will be monitored before additional consideration of d/c MNPR. 09/28/21: continue Zyprexa 10 mg po qhs, add Cogentin 0.5 mg BID. No sense to restart Clozaril if won't take consistently. Monitor symptoms and consider Invega trial with hopes she'll ultimately agree to JAQUEZ. 09/27/21: The patient was admitted to the [facility] ([facility] inpatient mental health unit) on q15 min checks (behavioral with suicide precautions) for safety. The patient will participate in group, recreational, and milieu therapies and will be offered additional individual and family sessions as clinically appropriate. Risks/benefits/alternatives were reviewed re: antipsychotics for mood and/or psychosis. Discussion included but was not limited to metabolic side effects, risks of TD. There was EPS tremor but no TD at baseline. Fasting glucose and lipid panel ordered for baseline monitoring. She is agreeable to continuing Zyprexa but not Clozaril. Discussed that an JAQUEZ would be preferred and she declines due to limited insight into need for medication. Inventory Assets Strengths: intelligent, has been pleasant in interactions with staff and likes CM Needs: improved compliance, better tolerated antipsychotic. Risk Factors Assessment : Yes Do You Have Access To A Gun?: No Mental Health Diagnoses: Yes Substance Use Disorders: No Previous Attempt: No Previous Psychiatric Hospitalization: Yes Protective Factors Assessment Employed: No Good Rapport with Provider: Yes Interval History Identifying Information TALITA BALL is a 61-year-old F who currently lives at [facility], has a history of schizophrenia and [facility] placement, and was admitted on 09/26/21 23:33 on a 302 involuntary commitment but is actually maintained on a 305 outpatient commitment for delusional behavior. Chief Complaint "I'm not going back there, they are all drug addicts". Review of Systems Sleep Information Total Hours of Sleep: 5.5 Sleep Comments: pt given benadryl per rn. pt on q-15 minute checks Meal Information Percent Meal Consumed - Breakfast: 100 Percent Meal Consumed - Lunch: 100 Percent Meal Consumed - Dinner: 100 Nutrition Comment: per meal record Subjective Subjective Patient was seen & assessed and interval progress reviewed with nursing and social work. Refusing to meet with anyone from [facility]. Did take Abilify this am "it works". She did not spontaneously report any side effects but when asked about Haldol she mentioned her forehead was still tight. Patient is superficially cooperative but very irritable when challenged on her delusions. Maintains she owns and apartment and when I attempt to reality orient states "I'm done talking with you." Physical Exam Psychiatric Orientation: alert and oriented x 3 Apperance: appropriately dressed and appropriately groomed Eye Contact: good eye contact Motor Behavior: no abnormal motor movements Speech: normal rate/rhythm/volume of speech Affect: + constricted affect Mood: + irritable mood Thought Process: + circumstantial thought process Thought Content: + paranoid and + delusions Suicidal Thoughts: denies suicidal thoughts Homicidal Thoughts: denies homicidal thoughts Hallucinations: no auditory hallucinations and no visual hallucinations Cognition: attention grossly intact and language grossly intact Estimated Intelligence: consistent with education level Insight: + limited insight Judgement: + limited judgement Vital Signs (Past 24 Hours) Last Vital Signs Temp 36.5 C 10/10/21 06:47 Pulse 93 H 11/09/21 06:47 Resp 16 10/10/21 06:47 BP 133/82 10/10/21 06:47 Pulse Ox 98 10/05/21 06:59 Results & Data ([facility]) Current Inpatient Medications Current Inpatient Medications: Current Inpatient Medications Acetaminophen (Acetaminophen 325 Mg Tab) 650 mg PO Q4H PRN PRN Reason: Headache or Minor Fever Stop: 10/26/21 23:42 Al Hydrox/Mg Hydrox/Simethicone (Aluminum/Magnesium Susp 30 Ml Udc) 30 ml PO Q4H PRN PRN Reason: GI Upset Stop: 10/26/21 23:42 Aripiprazole (Aripiprazole 5 Mg Tab) 5 mg PO QAM [facility] Stop: 11/09/21 08:59 Last Admin: 10/10/21 08:44 Dose: 5 mg Documented by: Artificial Tears (Artificial Tears) 1 drops OP QID EMMA Stop: 10/27/21 08:59 Last Admin: 10/10/21 13:03 Dose: 1 drops Documented by: Benztropine Mesylate (Benztropine Mesylate 0.5 Mg Tab) 0.5 mg PO BID [facility] Stop: 10/28/21 20:59 Last Admin: 10/10/21 08:45 Dose: 0.5 mg Documented by: Bismuth Subsalicylate (Bismuth Subsalicylate Liqd 236 Ml) 15 ml PO PRN PRN PRN Reason: Loose Stool Stop: 10/26/21 23:42 Diphenhydramine HCl (Diphenhydramine Capsule 25 Mg Cap) 50 mg PO HS PRN PRN Reason: Allergy Symptoms Stop: 11/01/21 12:25 Last Admin: 10/09/21 21:30 Dose: 50 mg Documented by: Docusate Sodium (Docusate Sodium 100 Mg Cap) 100 mg PO BID@0800,2100 [facility] Stop: 10/27/21 08:59 Last Admin: 10/10/21 08:44 Dose: 100 mg Documented by: Hydroxyzine HCl (Hydroxyzine Hcl 25 Mg Tab) 50 mg PO HSZ PRN PRN Reason: Insomnia Stop: 10/26/21 23:42 Last Admin: 10/06/21 02:37 Dose: 50 mg Documented by: Hydroxyzine HCl (Hydroxyzine Hcl 25 Mg Tab) 25 mg PO Q4H PRN PRN Reason: Anxiety Stop: 10/26/21 23:42 Last Admin: 10/10/21 13:04 Dose: 25 mg Documented by: Levothyroxine Sodium (Levothyroxine Sodium 25 Mcg Tablet) 25 mcg PO DAILY@0800 [facility] Stop: 10/27/21 08:59 Last Admin: 10/10/21 08:44 Dose: 25 mcg Documented by: Magnesium Hydroxide (Magnesium Hydroxide Susp 30 Ml Udc) 30 ml PO DAILY PRN PRN Reason: Constipation Stop: 10/26/21 23:42 Naproxen (Naproxen 250 Mg Tab) 500 mg PO BIDM PRN PRN Reason: pain Stop: 10/27/21 08:59 Last Admin: 10/09/21 11:35 Dose: 500 mg Documented by: Sodium Chloride (Sodium Chloride 0.65% Na Soln 45 Ml (Tool)) 1 - 2 sprays NA PRN PRN PRN Reason: Nasal Dryness/Congestion Stop: 10/26/21 23:42 Vitamin D (Cholecalciferol 1,000 Units 25 Mcg Tab) 1,000 units PO DAILY [facility] Stop: 11/08/21 08:59 Last Admin: 10/10/21 08:45 Dose: 1,000 units Documented by: Zinc Acetate/Diphenhydramine (Diphenhydramine 2%/Zinc 0.1% Cream 28gm Tube) 1 appln EXT DAILY PRN PRN Reason: Itching Stop: 11/03/21 14:35 Last Admin: 10/07/21 21:23 Dose: 1 appln Documented by: Mental Health & Subst Abuse Tx Auto Transmission Mechanic Name of Auto Transmission Mechanic: Farideh Rajan Date of Appointment with Auto Transmission Mechanic: 09/29/21
[2021-10-10] MEDS: NAPROXEN 250 MG TAB PO PRN (18:30)
[2021-10-10] MEDS: diphenhydrAMINE Capsule 25 MG CAP PO PRN (20:32)
--- NOTE | 2021-10-11 06:42 | Psychiatric Progress Note ---
Date of Service October 11, 2021 Impression / Recommendations Elise Miller is a 61 yo female with acute exacerbation of psychosis for non-compliance with clozapine. She is on an extended outpatient commitment prior to admission following discharge from the [facility]. No history prior to entering care with Dr. Negron is available. 305 commitment converted to inpatient. 10/12/21: unchanged, irritable when challenged on delusions and threatens to refuse treatment. MNPR for psychiatric symptoms of psychosis, paranoid ideation (1) Schizophrenia, paranoid, chronic with acute exacerbation: 10/11/21: re=reviewed fasting metabolic labs from earlier in the month. Agreed to increase Abilify 10 mg daily. 10/10/21: unclear if ever had trued EPS for Haldol or just manipulating med regimen, tolerating Abilify this am. Refusing JAQUEZ. 10/09/21: d/c Haldol (patient refusing), there is no acute agitation or threatening behavior or medical decompensation that would support meds over objection/injectable at this time given that she is willing to take Abilify 5 mg daily PO. 10/08/21: more breakthrough during med changes with Haldol not yet therapeutic. Increase Haldol to 5 mg po qam and 10 mg po qhs starting tonight as no evidence of worsening EPS. Needs meeting with [facility] and CM. 10/07/21: will titrate Haldol to 5 mg BId tomorrow. 10/06/21: Discontinuing abilify. Increasing haldol to 2.5 mg qAM and 5 mg qHS. 10/05/21: Continue cross-taper will reduce abilify from 10 mg to 5 mg tomorrow. Increase haldol from 2.5 mg qd to 2.5 mg BID. 10/04/21: Need to cross-taper from abilify to haldol due to high cost of abilify JAQUEZ. She consents to starting haldol. Tomorrow will reduce abilify from 15 mg to 10mg qd and start haldol 2.5 mg qd. 10/03/21: Continue with abilify 15 mg po qd. Spoke with her outpt psychiatrist Dr. Negron about challenge of JAQUEZ Maintenna possibly being cost prohibitive so have call out to her immigration case manager to see if there may be financial support options for this. Otherwise will need to consider haldol JAQUEZ vs Invega JAQUEZ. 10/02/21: She consents to increase of abilify to 15 mg tomorrow morning and discontinuation of zyprexa tonight. Benadryl 50 mg qhs prn for allergy symptoms. Continues to have delusions. Will attempt to start prior authorization process for Abilify Maintena if she continues to tolerate abilify po well. 10/01/21: She consents to ongoing cross-taper will decrease zyprexa from 10mg to 5mg qhs and increasing abilify from 5mg to 10 mg tomorrow morning. Remains very paranoid and suspicious of others so will continue MNPR. 09/30/21: Abilify 5 mg qd today. Tomorrow will decrease zyprexa from 10mg to 5 mg qhs and continue with cross-taper with goal of abilify monotherapy and then JAQUEZ if well tolerated. Continues to have limited insight but appropriate so far today, if this persists will consider d/c of MNPR tomorrow. 09/29/21: continue Zyprexa but taper soon in favor of Abilify. Test dose Abilify 2.5 mg today and 5 mg daily tomorrow. Once tolerability assessed, convert to L AI. Patient lacks insight into need to return to [facility]. Patient is upset following hearing so will be monitored before additional consideration of d/c MNPR. 09/28/21: continue Zyprexa 10 mg po qhs, add Cogentin 0.5 mg BID. No sense to restart Clozaril if won't take consistently. Monitor symptoms and consider Invega trial with hopes she'll ultimately agree to JAQUEZ. 09/27/21: The patient was admitted to the [facility] on q15 min checks (behavioral with suicide precautions) for safety. The patient will participate in group, recreational, and milieu therapies and will be offered additional individual and family sessions as clinically appropriate. Risks/benefits/alternatives were reviewed re: antipsychotics for mood and/or psychosis. Discussion included but was not limited to metabolic side effects, risks of TD. There was EPS tremor but no TD at baseline. Fasting glucose and lipid panel ordered for baseline monitoring. She is agreeable to continuing Zyprexa but not Clozaril. Discussed that an JAQUEZ would be preferred and she declines due to limited insight into need for medication. Inventory Assets Strengths: intelligent, has been pleasant in interactions with staff and likes CM Needs: improved compliance, better tolerated antipsychotic. Risk Factors Assessment : Yes Do You Have Access To A Gun?: No Mental Health Diagnoses: Yes Substance Use Disorders: No Previous Attempt: No Previous Psychiatric Hospitalization: Yes Protective Factors Assessment Employed: No Good Rapport with Provider: Yes Interval History Identifying Information TALITA BALL is a 61-year-old F who currently lives at [facility], has a history of schizophrenia and [facility] placement, and was admitted on 09/26/21 23:33 on a 302 involuntary commitment but is actually maintained on a 305 outpatient commitment for delusional behavior. Chief Complaint "yeah, I'm leaving Saturday or I'm refusing care and you're going to be in big legal trouble". Review of Systems Sleep Information Total Hours of Sleep: 7 Meal Information Percent Meal Consumed - Breakfast: 100 Percent Meal Consumed - Lunch: 100 Percent Meal Consumed - Dinner: 100 Nutrition Comment: per meal record Subjective Subjective Patient was seen & assessed and interval progress reviewed with treatment team. Patient was on phone yesterday, claimed to be talking with her disc sander, staff looked up name given and that fire safety manager . More openly expressing her delusions in the pm. This am refused her Cogentin. Denies EPS. Said she wouldn't take pills on Saturday, now says will take PO Abilify but no shot. Physical Exam Psychiatric Orientation: alert and oriented x 3 Apperance: appropriately dressed and appropriately groomed Eye Contact: good eye contact Motor Behavior: no abnormal motor movements Speech: normal rate/rhythm/volume of speech Affect: + constricted affect Mood: + irritable mood Thought Process: + circumstantial thought process Thought Content: + preoccupation, + paranoid and + delusions Suicidal Thoughts: denies suicidal thoughts Homicidal Thoughts: denies homicidal thoughts Hallucinations: no auditory hallucinations and no visual hallucinations Cognition: attention grossly intact and language grossly intact Estimated Intelligence: consistent with education level Insight: + severely impaired insight Judgement: + impaired judgement Vital Signs (Past 24 Hours) Last Vital Signs Temp 36.4 C L 10/10/21 22:06 Pulse 97 H 10/11/21 06:28 Resp 16 10/11/21 06:27 BP 132/84 10/11/21 06:28 Pulse Ox 98 10/05/21 06:59 Results & Data ([facility]) Current Inpatient Medications Current Inpatient Medications: Current Inpatient Medications Acetaminophen (Acetaminophen 325 Mg Tab) 650 mg PO Q4H PRN PRN Reason: Headache or Minor Fever Stop: 10/26/21 23:42 Al Hydrox/Mg Hydrox/Simethicone (Aluminum/Magnesium Susp 30 Ml Udc) 30 ml PO Q4H PRN PRN Reason: GI Upset Stop: 10/26/21 23:42 Aripiprazole (Aripiprazole 5 Mg Tab) 5 mg PO QAM EMMA Stop: 11/09/21 08:59 Last Admin: 10/10/21 08:44 Dose: 5 mg Documented by: Artificial Tears (Artificial Tears) 1 drops OP QID EMMA Stop: 10/27/21 08:59 Last Admin: 10/10/21 20:34 Dose: 1 drops Documented by: Benztropine Mesylate (Benztropine Mesylate 0.5 Mg Tab) 0.5 mg PO BID [facility] Stop: 10/28/21 20:59 Last Admin: 10/10/21 20:38 Dose: Not Given Documented by: Bismuth Subsalicylate (Bismuth Subsalicylate Liqd 236 Ml) 15 ml PO PRN PRN PRN Reason: Loose Stool Stop: 10/26/21 23:42 Diphenhydramine HCl (Diphenhydramine Capsule 25 Mg Cap) 50 mg PO HS PRN PRN Reason: Allergy Symptoms Stop: 11/01/21 12:25 Last Admin: 10/10/21 20:32 Dose: 50 mg Documented by: Docusate Sodium (Docusate Sodium 100 Mg Cap) 100 mg PO BID@0800,2100 [facility] Stop: 10/27/21 08:59 Last Admin: 10/10/21 20:35 Dose: 100 mg Documented by: Hydroxyzine HCl (Hydroxyzine Hcl 25 Mg Tab) 50 mg PO HSZ PRN PRN Reason: Insomnia Stop: 10/26/21 23:42 Last Admin: 10/06/21 02:37 Dose: 50 mg Documented by: Hydroxyzine HCl (Hydroxyzine Hcl 25 Mg Tab) 25 mg PO Q4H PRN PRN Reason: Anxiety Stop: 10/26/21 23:42 Last Admin: 10/10/21 18:30 Dose: 25 mg Documented by: Levothyroxine Sodium (Levothyroxine Sodium 25 Mcg Tablet) 25 mcg PO DAILY@0800 [facility] Stop: 10/27/21 08:59 Last Admin: 10/10/21 08:44 Dose: 25 mcg Documented by: Magnesium Hydroxide (Magnesium Hydroxide Susp 30 Ml Udc) 30 ml PO DAILY PRN PRN Reason: Constipation Stop: 10/26/21 23:42 Naproxen (Naproxen 250 Mg Tab) 500 mg PO BIDM PRN PRN Reason: pain Stop: 10/27/21 08:59 Last Admin: 10/10/21 18:30 Dose: 500 mg Documented by: Sodium Chloride (Sodium Chloride 0.65% Na Soln 45 Ml (Avenel)) 1 - 2 sprays NA PRN PRN PRN Reason: Nasal Dryness/Congestion Stop: 10/26/21 23:42 Vitamin D (Cholecalciferol 1,000 Units 25 Mcg Tab) 1,000 units PO DAILY [facility] Stop: 11/08/21 08:59 Last Admin: 10/10/21 08:45 Dose: 1,000 units Documented by: Zinc Acetate/Diphenhydramine (Diphenhydramine 2%/Zinc 0.1% Cream 28gm Tube) 1 appln EXT DAILY PRN PRN Reason: Itching Stop: 11/03/21 14:35 Last Admin: 10/07/21 21:23 Dose: 1 appln Documented by: Mental Health & Subst Abuse Tx Web Designer Developer Name of Web Designer Developer: Farideh Rajan Date of Appointment with Web Designer Developer: 09/29/21
[2021-10-11] MEDS: ARIPiprazole 5 MG TAB PO SCH (08:40)
[2021-10-11] MEDS: LEVOTHYROXINE SODIUM 25 MCG TABLET PO SCH (08:40)
[2021-10-11] MEDS: ARTIFICIAL TEARS OP SCH ×4 (08:40→20:16)
[2021-10-11] MEDS: DOCUSATE SODIUM 100 MG CAP PO SCH ×2 (08:40→20:20)
[2021-10-11] MEDS: CHOLECALCIFEROL 1,000 UNITS 25 MCG TAB PO SCH (08:41)
[2021-10-11] MEDS: BENZTROPINE MESYLATE 0.5 MG TAB PO SCH (08:45)
[2021-10-11] MEDS: IBUPROFEN 200 MG TAB PO PRN ×2 (11:55→18:50)
[2021-10-11] MEDS: diphenhydrAMINE Capsule 25 MG CAP PO PRN (20:14)
[2021-10-11] MEDS: hydrOXYzine HCl 25 MG TAB PO PRN (20:15)
[2021-10-12] MEDS: DOCUSATE SODIUM 100 MG CAP PO SCH ×2 (07:53→20:24)
[2021-10-12] MEDS: ARIPiprazole 10 MG TAB PO SCH (07:54)
[2021-10-12] MEDS: ARTIFICIAL TEARS OP SCH ×4 (07:54→20:24)
[2021-10-12] MEDS: LEVOTHYROXINE SODIUM 25 MCG TABLET PO SCH (07:54)
[2021-10-12] MEDS: CHOLECALCIFEROL 1,000 UNITS 25 MCG TAB PO SCH (07:55)
[2021-10-12] MEDS: hydrOXYzine HCl 25 MG TAB PO PRN ×2 (07:56→20:25)
[2021-10-12] MEDS: IBUPROFEN 200 MG TAB PO PRN ×2 (11:19→20:25)
--- NOTE | 2021-10-12 13:35 | Psychiatric Progress Note ---
Date of Service October 12, 2021 Impression / Recommendations Impression Angela is a 61 yo female with acute exacerbation of psychosis for non-compliance with clozapine. She is on an extended outpatient commitment prior to admission following discharge from the [facility]. 305 commitment converted to inpatient. 10/13/21: less irritable today MNPR for psychiatric symptoms of psychosis, paranoid ideation (1) Schizophrenia, paranoid, chronic with acute exacerbation: Inventory Assets Strengths: intelligent, has been pleasant in interactions with staff and likes CM Needs: improved compliance, better tolerated antipsychotic. Risk Factors Assessment : Yes Do You Have Access To A Gun?: No Mental Health Diagnoses: Yes Substance Use Disorders: No Previous Attempt: No Previous Psychiatric Hospitalization: Yes Protective Factors Assessment Employed: No Good Rapport with Provider: Yes Interval History Identifying Information TALITA BALL is a 61-year-old F who currently lives at [facility], has a history of schizophrenia and [facility] placement, and was admitted on 09/26/21 23:33 on a 302 involuntary commitment but is actually maintained on a 305 outpatient commitment for delusional behavior. Chief Complaint "I feel my meds are right". Review of Systems Sleep Information Total Hours of Sleep: 7 Sleep Comments: pt on q-15 minute checks Meal Information Percent Meal Consumed - Breakfast: 100 Percent Meal Consumed - Lunch: 100 Percent Meal Consumed - Dinner: 100 Nutrition Comment: per meal record Subjective Subjective Patient was seen & assessed and interval progress reviewed with nursing and social work. Pleasant unless challenged on delusions. Patient keeps telling staff she is being discharged saturday and has tickets for the [employer] and her boyfriend (Victor M Zaman) is taking her. Physical Exam Psychiatric Orientation: alert and oriented x 3 Apperance: appropriately dressed and appropriately groomed Eye Contact: good eye contact Motor Behavior: no abnormal motor movements Speech: normal rate/rhythm/volume of speech Affect: euthymic affect Mood: no depressed mood Thought Process: + circumstantial thought process Thought Content: + paranoid and + delusions Suicidal Thoughts: denies suicidal thoughts Homicidal Thoughts: denies homicidal thoughts Hallucinations: no auditory hallucinations and no visual hallucinations Cognition: attention grossly intact and language grossly intact Estimated Intelligence: consistent with education level Insight: + limited insight Judgement: + impaired judgement Vital Signs (Past 24 Hours) Last Vital Signs Temp 36.6 C 10/12/21 06:47 Pulse 97 H 10/12/21 06:48 Resp 16 10/12/21 06:47 BP 129/81 10/12/21 06:48 Pulse Ox 98 10/05/21 06:59 Results & Data ([facility]) Current Inpatient Medications Current Inpatient Medications: Current Inpatient Medications Acetaminophen (Acetaminophen 325 Mg Tab) 650 mg PO Q4H PRN PRN Reason: Headache or Minor Fever Stop: 10/26/21 23:42 Al Hydrox/Mg Hydrox/Simethicone (Aluminum/Magnesium Susp 30 Ml Udc) 30 ml PO Q4H PRN PRN Reason: GI Upset Stop: 10/26/21 23:42 Aripiprazole (Aripiprazole 10 Mg Tab) 10 mg PO QAM EMMA Stop: 11/11/21 08:59 Last Admin: 10/12/21 07:54 Dose: 10 mg Documented by: Artificial Tears (Artificial Tears) 1 drops OP QID EMMA Stop: 10/27/21 08:59 Last Admin: 10/12/21 12:17 Dose: 1 drops Documented by: Bismuth Subsalicylate (Bismuth Subsalicylate Liqd 236 Ml) 15 ml PO PRN PRN PRN Reason: Loose Stool Stop: 10/26/21 23:42 Diphenhydramine HCl (Diphenhydramine Capsule 25 Mg Cap) 50 mg PO HS PRN PRN Reason: Allergy Symptoms Stop: 11/01/21 12:25 Last Admin: 10/11/21 20:14 Dose: 50 mg Documented by: Docusate Sodium (Docusate Sodium 100 Mg Cap) 100 mg PO BID@0800,2100 [facility] Stop: 10/27/21 08:59 Last Admin: 10/12/21 07:53 Dose: 100 mg Documented by: Hydroxyzine HCl (Hydroxyzine Hcl 25 Mg Tab) 50 mg PO HSZ PRN PRN Reason: Insomnia Stop: 10/26/21 23:42 Last Admin: 10/06/21 02:37 Dose: 50 mg Documented by: Hydroxyzine HCl (Hydroxyzine Hcl 25 Mg Tab) 25 mg PO Q4H PRN PRN Reason: Anxiety Stop: 10/26/21 23:42 Last Admin: 10/12/21 07:56 Dose: 25 mg Documented by: Ibuprofen (Ibuprofen 200 Mg Tab) 400 mg PO Q6H PRN PRN Reason: pain Stop: 11/10/21 11:33 Last Admin: 10/12/21 11:19 Dose: 400 mg Documented by: Levothyroxine Sodium (Levothyroxine Sodium 25 Mcg Tablet) 25 mcg PO DAILY@0800 EMMA Stop: 10/27/21 08:59 Last Admin: 10/12/21 07:54 Dose: 25 mcg Documented by: Magnesium Hydroxide (Magnesium Hydroxide Susp 30 Ml Udc) 30 ml PO DAILY PRN PRN Reason: Constipation Stop: 10/26/21 23:42 Sodium Chloride (Sodium Chloride 0.65% Na Soln 45 Ml ([place])) 1 - 2 sprays NA PRN PRN PRN Reason: Nasal Dryness/Congestion Stop: 10/26/21 23:42 Vitamin D (Cholecalciferol 1,000 Units 25 Mcg Tab) 1,000 units PO DAILY EMMA Stop: 11/08/21 08:59 Last Admin: 10/12/21 07:55 Dose: 1,000 units Documented by: Zinc Acetate/Diphenhydramine (Diphenhydramine 2%/Zinc 0.1% Cream 28gm Tube) 1 appln EXT DAILY PRN PRN Reason: Itching Stop: 11/03/21 14:35 Last Admin: 10/07/21 21:23 Dose: 1 appln Documented by: Mental Health & Subst Abuse Tx Hand Marker Name of Hand Marker: Farideh Rajan Date of Appointment with Hand Marker: 09/29/21
[2021-10-12] MEDS: diphenhydrAMINE Capsule 25 MG CAP PO PRN (20:25)
[2021-10-13] MEDS: DOCUSATE SODIUM 100 MG CAP PO SCH ×2 (08:14→21:25)
[2021-10-13] MEDS: ARIPiprazole 10 MG TAB PO SCH (08:15)
[2021-10-13] MEDS: CHOLECALCIFEROL 1,000 UNITS 25 MCG TAB PO SCH (08:15)
[2021-10-13] MEDS: ARTIFICIAL TEARS OP SCH ×4 (08:15→21:24)
[2021-10-13] MEDS: LEVOTHYROXINE SODIUM 25 MCG TABLET PO SCH (08:15)
[2021-10-13] MEDS: IBUPROFEN 200 MG TAB PO PRN (08:25)
[2021-10-13] MEDS: hydrOXYzine HCl 25 MG TAB PO PRN (08:25)
[2021-10-13] MEDS ORDERED: OLANZapine 10 MG/2.1 ML SDV IM PRN (08:58)
--- NOTE | 2021-10-13 15:14 | Psychiatric Progress Note ---
Date of Service October 13, 2021 Impression / Recommendations Elise Miller is a 61 yo female with acute exacerbation of psychosis for non-compliance with clozapine. She is on an extended outpatient commitment prior to admission following discharge from the [facility] hospital. 305 commitment converted to inpatient. 10/13/21: will not accept commitment status or recommendations re: diagnosis and treatment plan. MNPR for psychiatric symptoms of psychosis, paranoid ideation (1) Schizophrenia, paranoid, chronic with acute exacerbation: 10/13/21: patient will not engage in any discussion around Abilify titration today as refusing to stay here, not yet attempting to elope or act out aggressively but Zyprexa 10 mg IM ordered in case of acute agitation. 10/11/21: re=reviewed fasting metabolic labs from earlier in the month. Agreed to increase Abilify 10 mg daily. 10/10/21: unclear if ever had trued EPS for Haldol or just manipulating med regimen, tolerating Abilify this am. Refusing JAQUEZ. 10/09/21: d/c Haldol (patient refusing), there is no acute agitation or threatening behavior or medical decompensation that would support meds over objection/injectable at this time given that she is willing to take Abilify 5 mg daily PO. 10/08/21: more breakthrough during med changes with Haldol not yet therapeutic. Increase Haldol to 5 mg po qam and 10 mg po qhs starting tonight as no evidence of worsening EPS. Needs meeting with [facility] and CM. 10/07/21: will titrate Haldol to 5 mg BId tomorrow. 10/06/21: Discontinuing abilify. Increasing haldol to 2.5 mg qAM and 5 mg qHS. 10/05/21: Continue cross-taper will reduce abilify from 10 mg to 5 mg tomorrow. Increase haldol from 2.5 mg qd to 2.5 mg BID. 10/04/21: Need to cross-taper from abilify to haldol due to high cost of abilify JAQUEZ. She consents to starting haldol. Tomorrow will reduce abilify from 15 mg to 10mg qd and start haldol 2.5 mg qd. 10/03/21: Continue with abilify 15 mg po qd. Spoke with her outpt psychiatrist Dr. 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 Otherwise will need to consider haldol JAQUEZ vs Invega JAQUEZ. 10/02/21: She consents to increase of abilify to 15 mg tomorrow morning and discontinuation of zyprexa tonight. Benadryl 50 mg qhs prn for allergy symptoms. Continues to have delusions. Will attempt to start prior authorization process for Abilify [place]aint[place] if she continues to tolerate abilify po well. 10/01/21: She consents to ongoing cross-taper will decrease zyprexa from 10mg to 5mg qhs and increasing abilify from 5mg to 10 mg tomorrow morning. Remains very paranoid and suspicious of others so will continue MNPR. 09/30/21: Abilify 5 mg qd today. Tomorrow will decrease zyprexa from 10mg to 5 mg qhs and continue with cross-taper with goal of abilify monotherapy and then JAQUEZ if well tolerated. Continues to have limited insight but appropriate so far today, if this persists will consider d/c of MNPR tomorrow. 09/29/21: continue Zyprexa but taper soon in favor of Abilify. Test dose Abilify 2.5 mg today and 5 mg daily tomorrow. Once tolerability assessed, convert to JAQUEZ. Patient lacks insight into need to return to [facility]. Patient is upset following hearing so will be monitored before additional consideration of d/c MNPR. 09/28/21: continue Zyprexa 10 mg po qhs, add Cogentin 0.5 mg BID. No sense to restart Clozaril if won't take consistently. Monitor symptoms and consider Invega trial with hopes she'll ultimately agree to JAQUEZ. 09/27/21: The patient was admitted to the [facility] ([facility] unit) on q15 min checks (behavioral with suicide precautions) for safety. The patient will participate in group, recreational, and milieu therapies and will be offered additional individual and family sessions as clinically appropriate. Risks/benefits/alternatives were reviewed re: antipsychotics for mood and/or psychosis. Discussion included but was not limited to metabolic side effects, risks of TD. There was EPS tremor but no TD at baseline. Fasting glucose and lipid panel ordered for baseline monitoring. She is agreeable to continuing Zyprexa but not Clozaril. Discussed that an JAQUEZ would be preferred and she declines due to limited insight into need for medication. Inventory Assets Strengths: intelligent, has been pleasant in interactions with staff and likes CM Needs: improved compliance, better tolerated antipsychotic. Risk Factors Assessment : Yes Do You Have Access To A Gun?: No Mental Health Diagnoses: Yes Substance Use Disorders: No Previous Attempt: No Previous Psychiatric Hospitalization: Yes Protective Factors Assessment Employed: No Good Rapport with Provider: Yes Interval History Identifying Information TALITA BALL is a 61-year-old F who currently lives at [facility], has a history of schizophrenia and [facility] placement, and was admitted on 09/26/21 23:33 on a 302 involuntary commitment but is actually maintained on a 305 outpatient commitment for delusional behavior. Chief Complaint "you can't hold me here more than 120 hrs, I'm leaving today, I'm running out of here". Review of Systems Sleep Information Total Hours of Sleep: 7.75 Sleep Comments: pt on q-15 minute checks Meal Information Percent Meal Consumed - Breakfast: 100 Percent Meal Consumed - Lunch: 100 Percent Meal Consumed - Dinner: 100 Nutrition Comment: per meal record Subjective Subjective Patient was seen & assessed and interval progress reviewed with treatment team. She interrupted me while I meeting with another patient stating I needed to see her immediately re: discharge. Patient maintains she has an staff attorney in [place] with whom she is having communication. Encouraged patient to sign a release so we may confirm if she is an active client. She continues to refuse to return to her outpatient commitment site but is compliant with Abilify. She ended interview because "hates" me but then calmly attended group. Physical Exam Psychiatric Orientation: alert and oriented x 3 Apperance: appropriately dressed and appropriately groomed Eye Contact: good eye contact Motor Behavior: no abnormal motor movements Speech: normal rate/rhythm/volume of speech Affect: euthymic affect and + constricted affect Mood: + irritable mood Thought Process: + circumstantial thought process Thought Content: + preoccupation, + paranoid and + delusions Suicidal Thoughts: denies suicidal thoughts Homicidal Thoughts: denies homicidal thoughts Hallucinations: no auditory hallucinations and no visual hallucinations Cognition: attention grossly intact and language grossly intact Estimated Intelligence: consistent with education level Vital Signs (Past 24 Hours) Last Vital Signs Temp 36.6 C 10/13/21 06:00 Pulse 74 10/13/21 06:43 Resp 14 10/13/21 06:00 BP 140/83 10/13/21 06:43 Pulse Ox 98 10/05/21 06:59 Results & Data ([facility]) Current Inpatient Medications Current Inpatient Medications: Current Inpatient Medications Acetaminophen (Acetaminophen 325 Mg Tab) 650 mg PO Q4H PRN PRN Reason: Headache or Minor Fever Stop: 10/26/21 23:42 Al Hydrox/Mg Hydrox/Simethicone (Aluminum/Magnesium Susp 30 Ml Udc) 30 ml PO Q4H PRN PRN Reason: GI Upset Stop: 10/26/21 23:42 Aripiprazole (Aripiprazole 10 Mg Tab) 10 mg PO QAM EMMA Stop: 11/11/21 08:59 Last Admin: 10/13/21 08:15 Dose: 10 mg Documented by: Artificial Tears (Artificial Tears) 1 drops OP QID EMMA Stop: 10/27/21 08:59 Last Admin: 10/13/21 12:36 Dose: 1 drops Documented by: Bismuth Subsalicylate (Bismuth Subsalicylate Liqd 236 Ml) 15 ml PO PRN PRN PRN Reason: Loose Stool Stop: 10/26/21 23:42 Diphenhydramine HCl (Diphenhydramine Capsule 25 Mg Cap) 50 mg PO HS PRN PRN Reason: Allergy Symptoms Stop: 11/01/21 12:25 Last Admin: 10/12/21 20:25 Dose: 50 mg Documented by: Docusate Sodium (Docusate Sodium 100 Mg Cap) 100 mg PO BID@0800,2100 EMMA Stop: 10/27/21 08:59 Last Admin: 10/13/21 08:14 Dose: 100 mg Documented by: Hydroxyzine HCl (Hydroxyzine Hcl 25 Mg Tab) 50 mg PO HSZ PRN PRN Reason: Insomnia Stop: 10/26/21 23:42 Last Admin: 10/06/21 02:37 Dose: 50 mg Documented by: Hydroxyzine HCl (Hydroxyzine Hcl 25 Mg Tab) 25 mg PO Q4H PRN PRN Reason: Anxiety Stop: 10/26/21 23:42 Last Admin: 10/13/21 08:25 Dose: 25 mg Documented by: Ibuprofen (Ibuprofen 200 Mg Tab) 400 mg PO Q6H PRN PRN Reason: pain Stop: 11/10/21 11:33 Last Admin: 10/13/21 08:25 Dose: 400 mg Documented by: Levothyroxine Sodium (Levothyroxine Sodium 25 Mcg Tablet) 25 mcg PO DAILY@0800 EMMA Stop: 10/27/21 08:59 Last Admin: 10/13/21 08:15 Dose: 25 mcg Documented by: Magnesium Hydroxide (Magnesium Hydroxide Susp 30 Ml Udc) 30 ml PO DAILY PRN PRN Reason: Constipation Stop: 10/26/21 23:42 Olanzapine (Olanzapine 10 Mg/2.1 Ml Sdv) 10 mg IM Q6 PRN PRN Reason: Agitation Stop: 11/12/21 08:57 Sodium Chloride (Sodium Chloride 0.65% Na Soln 45 Ml ([place])) 1 - 2 sprays NA PRN PRN PRN Reason: Nasal Dryness/Congestion Stop: 10/26/21 23:42 Vitamin D (Cholecalciferol 1,000 Units 25 Mcg Tab) 1,000 units PO DAILY EMMA Stop: 11/08/21 08:59 Last Admin: 10/13/21 08:15 Dose: 1,000 units Documented by: Zinc Acetate/Diphenhydramine (Diphenhydramine 2%/Zinc 0.1% Cream 28gm Tube) 1 appln EXT DAILY PRN PRN Reason: Itching Stop: 11/03/21 14:35 Last Admin: 10/07/21 21:23 Dose: 1 appln Documented by: Mental Health & Subst Abuse Tx Psychiatrist Name of Psychiatrist: Griffin Negron Component Overhaul Operator Name of Component Overhaul Operator: PADMINI Pederson Phone Number for Component Overhaul Operator: [phone] Date of Appointment with Component Overhaul Operator: 09/29/21 Post Discharge Appointments Contact Information Discharge Discharge Address: [address] [address]
[2021-10-14] MEDS: LEVOTHYROXINE SODIUM 25 MCG TABLET PO SCH (07:35)
[2021-10-14] MEDS: DOCUSATE SODIUM 100 MG CAP PO SCH ×2 (07:35→20:53)
[2021-10-14] MEDS: ARTIFICIAL TEARS OP SCH ×4 (08:03→20:54)
[2021-10-14] MEDS: ARIPiprazole 10 MG TAB PO SCH (08:03)
[2021-10-14] MEDS: CHOLECALCIFEROL 1,000 UNITS 25 MCG TAB PO SCH (08:03)
[2021-10-14] MEDS: hydrOXYzine HCl 25 MG TAB PO PRN ×2 (08:04→20:59)
[2021-10-14] MEDS: IBUPROFEN 200 MG TAB PO PRN ×2 (12:10→20:59)
--- NOTE | 2021-10-14 15:31 | Psychiatric Progress Note ---
Date of Service October 14, 2021 Impression / Recommendations Elise Miller is a 61 yo female with acute exacerbation of psychosis for non-compliance with clozapine. She is on an extended outpatient commitment prior to admission following discharge from the [facility] hospital. 305 commitment converted to inpatient. Diagnostically seems most consistent with schizophrenia but I'm unsure what to make of her significant memory lapse in terms of meeting me before and delusions versus confabulations about her family members still being alive when there is evidence that they many years ago. MNPR for psychiatric symptoms of psychosis, paranoid ideation (1) Schizophrenia, paranoid, chronic with acute exacerbation: 10/14/21: reviewed interim progress from Dr. Valladares's notes. She is back on abilify but remains irritable about her length of stay and remains focused on not wanting to return to her previous housing. Will attempt to further titrate abilify tomorrow if she agrees, she declined today. 10/13/21: patient will not engage in any discussion around Abilify titration today as refusing to stay here, not yet attempting to elope or act out aggressively but Zyprexa 10 mg IM ordered in case of acute agitation. 10/11/21: re=reviewed fasting metabolic labs from earlier in the month. Agreed to increase Abilify 10 mg daily. 10/10/21: unclear if ever had trued EPS for Haldol or just manipulating med regimen, tolerating Abilify this am. Refusing JAQUEZ. 10/09/21: d/c Haldol (patient refusing), there is no acute agitation or threatening behavior or medical decompensation that would support meds over objection/injectable at this time given that she is willing to take Abilify 5 mg daily PO. 10/08/21: more breakthrough during med changes with Haldol not yet therapeutic. Increase Haldol to 5 mg po qam and 10 mg po qhs starting tonight as no evidence of worsening EPS. Needs meeting with [facility] and CM. 10/07/21: will titrate Haldol to 5 mg BId tomorrow. 10/06/21: Discontinuing abilify. Increasing haldol to 2.5 mg qAM and 5 mg qHS. 10/05/21: Continue cross-taper will reduce abilify from 10 mg to 5 mg tomorrow. Increase haldol from 2.5 mg qd to 2.5 mg BID. 10/04/21: Need to cross-taper from abilify to haldol due to high cost of abilify JAQUEZ. She consents to starting haldol. Tomorrow will reduce abilify from 15 mg to 10mg qd and start haldol 2.5 mg qd. 10/03/21: Continue with abilify 15 mg po qd. Spoke with her outpt psychiatrist Dr. Negron about challenge of JAQUEZ Maintenna possibly being cost prohibitive so have call out to her pillowcase turner to see if there may be financial support options for this. Otherwise will need to consider haldol JAQUEZ vs Invega JAQUEZ. 10/02/21: She consents to increase of abilify to 15 mg tomorrow morning and discontinuation of zyprexa tonight. Benadryl 50 mg qhs prn for allergy symptoms. Continues to have delusions. Will attempt to start prior authorization process for Abilify Maintena if she continues to tolerate abilify po well. 10/01/21: She consents to ongoing cross-taper will decrease zyprexa from 10mg to 5mg qhs and increasing abilify from 5mg to 10 mg tomorrow morning. Remains very paranoid and suspicious of others so will continue MNPR. 09/30/21: Abilify 5 mg qd today. Tomorrow will decrease zyprexa from 10mg to 5 mg qhs and continue with cross-taper with goal of abilify monotherapy and then JAQUEZ if well tolerated. Continues to have limited insight but appropriate so far today, if this persists will consider d/c of MNPR tomorrow. 09/29/21: continue Zyprexa but taper soon in favor of Abilify. Test dose Abilify 2.5 mg today and 5 mg daily tomorrow. Once tolerability assessed, convert to JAQUEZ. Patient lacks insight into need to return to [facility]. Patient is upset following hearing so will be monitored before additional consideration of d/c MNPR. 09/28/21: continue Zyprexa 10 mg po qhs, add Cogentin 0.5 mg BID. No sense to restart Clozaril if won't take consistently. Monitor symptoms and consider Invega trial with hopes she'll ultimately agree to JAQUEZ. 09/27/21: The patient was admitted to the [facility] ([facility] inpatient mental health unit) on q15 min checks (behavioral with suicide precautions) for safety. The patient will participate in group, recreational, and milieu therapies and will be offered additional individual and family sessions as clinically appropriate. Risks/benefits/alternatives were reviewed re: antipsychotics for mood and/or psychosis. Discussion included but was not limited to metabolic side effects, risks of TD. There was EPS tremor but no TD at baseline. Fasting glucose and lipid panel ordered for baseline monitoring. She is agreeable to continuing Zyprexa but not Clozaril. Discussed that an JAQUEZ would be preferred and she declines due to limited insight into need for medication. Inventory Assets Strengths: intelligent, has been pleasant in interactions with staff and likes CM Needs: improved compliance, better tolerated antipsychotic. Risk Factors Assessment : Yes Do You Have Access To A Gun?: No Mental Health Diagnoses: Yes Substance Use Disorders: No Previous Attempt: No Previous Psychiatric Hospitalization: Yes Protective Factors Assessment Employed: No Good Rapport with Provider: Yes Interval History Identifying Information TALITA BALL is a 61-year-old F who currently lives at [facility], has a history of schizophrenia and state hospital placement, and was admitted on 09/26/21 23:33 on a 302 involuntary commitment but is actually maintained on a 305 outpatient commitment for delusional behavior. Chief Complaint "I've never met you before". Review of Systems Sleep Information Total Hours of Sleep: 5.5 Sleep Comments: pt on q-15 minute checks Meal Information Percent Meal Consumed - Breakfast: 100 Percent Meal Consumed - Lunch: 100 Percent Meal Consumed - Dinner: 100 Nutrition Comment: per meal record Subjective Subjective Patient was seen & assessed and interval progress reviewed with treatment team nursing and social work. Interestingly Angela did not recall working with me two weeks ago and when I reminded her of conversations we had and that she had told me about her past allergies to hay fever she became irritable. Remains insistent that she has set up housing somewhere else. Discussed my concerns about the safety of this and that we would need to hear from the [employer] management [employer] who she states have set this up for her. She agreed to provide them with the unit number so they could contact us. Continues to state her belief that she is not on a 305 status and was hospitalized falsely in the past. Likes abilify more than haldol, denies any side effects. States she'll consider possible abilify JAQUEZ. Physical Exam Psychiatric Orientation: alert and oriented x 3 Apperance: appropriately dressed and appropriately groomed Eye Contact: good eye contact Motor Behavior: no abnormal motor movements Speech: normal rate/rhythm/volume of speech Affect: + constricted affect Mood: + irritable mood Thought Process: + circumstantial thought process Thought Content: + paranoid and + delusions Suicidal Thoughts: denies suicidal thoughts Homicidal Thoughts: denies homicidal thoughts Hallucinations: no auditory hallucinations and no visual hallucinations Cognition: remote memory grossly intact, attention grossly intact and language grossly intact; + recent memory not intact Estimated Intelligence: consistent with education level Insight: + severely impaired insight Judgement: + limited judgement Vital Signs (Past 24 Hours) Last Vital Signs Temp 36.7 C 10/14/21 06:00 Pulse 71 10/14/21 06:37 Resp 14 10/14/21 06:00 BP 132/83 10/14/21 06:37 Pulse Ox 98 10/05/21 06:59 Results & Data ([facility]) Current Inpatient Medications Current Inpatient Medications: Current Inpatient Medications Acetaminophen (Acetaminophen 325 Mg Tab) 650 mg PO Q4H PRN PRN Reason: Headache or Minor Fever Stop: 10/26/21 23:42 Al Hydrox/Mg Hydrox/Simethicone (Aluminum/Magnesium Susp 30 Ml Udc) 30 ml PO Q4H PRN PRN Reason: GI Upset Stop: 10/26/21 23:42 Aripiprazole (Aripiprazole 10 Mg Tab) 10 mg PO QAM [facility] Stop: 11/11/21 08:59 Last Admin: 10/14/21 08:03 Dose: 10 mg Documented by: Artificial Tears (Artificial Tears) 1 drops OP QID EMMA Stop: 10/27/21 08:59 Last Admin: 10/14/21 12:08 Dose: 1 drops Documented by: Bismuth Subsalicylate (Bismuth Subsalicylate Liqd 236 Ml) 15 ml PO PRN PRN PRN Reason: Loose Stool Stop: 10/26/21 23:42 Diphenhydramine HCl (Diphenhydramine Capsule 25 Mg Cap) 50 mg PO HS PRN PRN Reason: Allergy Symptoms Stop: 11/01/21 12:25 Last Admin: 10/12/21 20:25 Dose: 50 mg Documented by: Docusate Sodium (Docusate Sodium 100 Mg Cap) 100 mg PO BID@0800,2100 [facility] Stop: 10/27/21 08:59 Last Admin: 10/14/21 07:35 Dose: 100 mg Documented by: Hydroxyzine HCl (Hydroxyzine Hcl 25 Mg Tab) 50 mg PO HSZ PRN PRN Reason: Insomnia Stop: 10/26/21 23:42 Last Admin: 10/06/21 02:37 Dose: 50 mg Documented by: Hydroxyzine HCl (Hydroxyzine Hcl 25 Mg Tab) 25 mg PO Q4H PRN PRN Reason: Anxiety Stop: 10/26/21 23:42 Last Admin: 10/14/21 08:04 Dose: 25 mg Documented by: Ibuprofen (Ibuprofen 200 Mg Tab) 400 mg PO Q6H PRN PRN Reason: pain Stop: 11/10/21 11:33 Last Admin: 10/14/21 12:10 Dose: 400 mg Documented by: Levothyroxine Sodium (Levothyroxine Sodium 25 Mcg Tablet) 25 mcg PO DAILY@0800 [facility] Stop: 10/27/21 08:59 Last Admin: 10/14/21 07:35 Dose: 25 mcg Documented by: Magnesium Hydroxide (Magnesium Hydroxide Susp 30 Ml Udc) 30 ml PO DAILY PRN PRN Reason: Constipation Stop: 10/26/21 23:42 Olanzapine (Olanzapine 10 Mg/2.1 Ml Sdv) 10 mg IM Q6 PRN PRN Reason: Agitation Stop: 11/12/21 08:57 Sodium Chloride (Sodium Chloride 0.65% Na Soln 45 Ml ([place])) 1 - 2 sprays NA PRN PRN PRN Reason: Nasal Dryness/Congestion Stop: 10/26/21 23:42 Vitamin D (Cholecalciferol 1,000 Units 25 Mcg Tab) 1,000 units PO DAILY [facility] Stop: 11/08/21 08:59 Last Admin: 10/14/21 08:03 Dose: 1,000 units Documented by: Zinc Acetate/Diphenhydramine (Diphenhydramine 2%/Zinc 0.1% Cream 28gm Tube) 1 appln EXT DAILY PRN PRN Reason: Itching Stop: 11/03/21 14:35 Last Admin: 10/07/21 21:23 Dose: 1 appln Documented by: Mental Health & Subst Abuse Tx Psychiatrist Name of Psychiatrist: Griffin Negron Fast Food Sales Assistant Name of Fast Food Sales Assistant: PADMINI Pederson Phone Number for Fast Food Sales Assistant: [phone] Date of Appointment with Fast Food Sales Assistant: 09/29/21 Post Discharge Appointments Contact Information Discharge Discharge Address: [facility] - [address] [place], [place] [address] [address]
[2021-10-14] MEDS: diphenhydrAMINE Capsule 25 MG CAP PO PRN (21:00)
[2021-10-15] MEDS: IBUPROFEN 200 MG TAB PO PRN ×2 (07:51→16:44)
[2021-10-15] MEDS: ARIPiprazole 10 MG TAB PO SCH (07:51)
[2021-10-15] MEDS: CHOLECALCIFEROL 1,000 UNITS 25 MCG TAB PO SCH (07:51)
[2021-10-15] MEDS: LEVOTHYROXINE SODIUM 25 MCG TABLET PO SCH (07:51)
[2021-10-15] MEDS: DOCUSATE SODIUM 100 MG CAP PO SCH ×2 (07:51→20:59)
[2021-10-15] MEDS: ARTIFICIAL TEARS OP SCH ×4 (07:51→21:00)
[2021-10-15] MEDS: hydrOXYzine HCl 25 MG TAB PO PRN ×2 (07:56→21:00)
--- NOTE | 2021-10-15 14:51 | Psychiatric Progress Note ---
Date of Service October 15, 2021 Impression / Recommendations Elise Miller is a 61 yo female with acute exacerbation of psychosis for non-compliance with clozapine. She is on an extended outpatient commitment prior to admission following discharge from the [facility] hospital. 305 commitment converted to inpatient. Diagnostically seems most consistent with schizophrenia but I'm unsure what to make of her significant memory lapse in terms of meeting me before and delusions versus confabulations about her family members still being alive when there is evidence that they many years ago. 10/15/21: continues to have evidence of delusions and confabulations. She denies any history of substance use including no hx of significant alcohol use which makes Wernike's less likely. Possible that combination of benadryl and atarax is having some cognitive impairment effects but suspect presentation is largely due to schizophrenia. MNPR for psychiatric symptoms of psychosis, paranoid ideation (1) Schizophrenia, paranoid, chronic with acute exacerbation: 10/15/21: continue current medications. Reviewed chart for substance use history. She is declining any titration of abilify. Agrees to discuss housing options with me tomorrow. 10/14/21: reviewed interim progress from Dr. Valladares's notes. She is back on abilify but remains irritable about her length of stay and remains focused on not wanting to return to her previous housing. Will attempt to further titrate abilify tomorrow if she agrees, she declined today. 10/13/21: patient will not engage in any discussion around Abilify titration today as refusing to stay here, not yet attempting to elope or act out aggressively but Zyprexa 10 mg IM ordered in case of acute agitation. 10/11/21: re=reviewed fasting metabolic labs from earlier in the month. Agreed to increase Abilify 10 mg daily. 10/10/21: unclear if ever had trued EPS for Haldol or just manipulating med regimen, tolerating Abilify this am. Refusing JAQUEZ. 10/09/21: d/c Haldol (patient refusing), there is no acute agitation or threatening behavior or medical decompensation that would support meds over objection/injectable at this time given that she is willing to take Abilify 5 mg daily PO. 10/08/21: more breakthrough during med changes with Haldol not yet therapeutic. Increase Haldol to 5 mg po qam and 10 mg po qhs starting tonight as no evidence of worsening EPS. Needs meeting with [facility] and CM. 10/07/21: will titrate Haldol to 5 mg BId tomorrow. 10/06/21: Discontinuing abilify. Increasing haldol to 2.5 mg qAM and 5 mg qHS. 10/05/21: Continue cross-taper will reduce abilify from 10 mg to 5 mg tomorrow. Increase haldol from 2.5 mg qd to 2.5 mg BID. 10/04/21: Need to cross-taper from abilify to haldol due to high cost of abilify JAQUEZ. She consents to starting haldol. Tomorrow will reduce abilify from 15 mg to 10mg qd and start haldol 2.5 mg qd. 10/03/21: Continue with abilify 15 mg po qd. Spoke with her outpt psychiatrist Dr. Negron about challenge of JAQUEZ Maintenna possibly being cost prohibitive so have call out to her registered nurse hh case manager to see if there may be financial support options for this. Otherwise will need to consider haldol JAQUEZ vs Invega JAQUEZ. 10/02/21: She consents to increase of abilify to 15 mg tomorrow morning and discontinuation of zyprexa tonight. Benadryl 50 mg qhs prn for allergy symptoms. Continues to have delusions. Will attempt to start prior authorization process for Abilify Maintena if she continues to tolerate abilify po well. 10/01/21: She consents to ongoing cross-taper will decrease zyprexa from 10mg to 5mg qhs and increasing abilify from 5mg to 10 mg tomorrow morning. Remains very paranoid and suspicious of others so will continue MNPR. 09/30/21: Abilify 5 mg qd today. Tomorrow will decrease zyprexa from 10mg to 5 mg qhs and continue with cross-taper with goal of abilify monotherapy and then JAQUEZ if well tolerated. Continues to have limited insight but appropriate so far today, if this persists will consider d/c of MNPR tomorrow. 09/29/21: continue Zyprexa but taper soon in favor of Abilify. Test dose Abilify 2.5 mg today and 5 mg daily tomorrow. Once tolerability assessed, convert to JAQUEZ. Patient lacks insight into need to return to [facility]. Patient is upset following hearing so will be monitored before additional consideration of d/c MNPR. 09/28/21: continue Zyprexa 10 mg po qhs, add Cogentin 0.5 mg BID. No sense to restart Clozaril if won't take consistently. Monitor symptoms and consider Invega trial with hopes she'll ultimately agree to JAQUEZ. 09/27/21: The patient was admitted to the [facility] ([facility] mental health unit) on q15 min checks (behavioral with suicide precautions) for safety. The patient will participate in group, recreational, and milieu therapies and will be offered additional individual and family sessions as clinically appropriate. Risks/benefits/alternatives were reviewed re: antipsychotics for mood and/or psychosis. Discussion included but was not limited to metabolic side effects, risks of TD. There was EPS tremor but no TD at baseline. Fasting glucose and lipid panel ordered for baseline monitoring. She is agreeable to continuing Zyprexa but not Clozaril. Discussed that an JAQUEZ would be preferred and she declines due to limited insight into need for medication. Inventory Assets Strengths: intelligent, has been pleasant in interactions with staff and likes Needs: improved compliance, better tolerated antipsychotic. Risk Factors Assessment : Yes Do You Have Access To A Gun?: No Mental Health Diagnoses: Yes Substance Use Disorders: No Previous Attempt: No Previous Psychiatric Hospitalization: Yes Protective Factors Assessment Employed: No Good Rapport with Provider: Yes Interval History Identifying Information TALITA BALL is a 61-year-old F who currently lives at [facility], has a history of schizophrenia and [facility] hospital placement, and was admitted on 09/26/21 23:33 on a 302 involuntary commitment but is actually maintained on a 305 outpatient commitment for delusional behavior. Chief Complaint "I'm good". Review of Systems Sleep Information Total Hours of Sleep: 6.75 Sleep Comments: pt on q-15 minute checks Meal Information Percent Meal Consumed - Breakfast: 100 Percent Meal Consumed - Lunch: 100 Percent Meal Consumed - Dinner: 100 Nutrition Comment: per meal record Subjective Subjective Patient was seen & assessed and interval progress reviewed with treatment team nursing and social work. She reports stable mood. Declines increasing dose of abilify stating "I think it's good as it is". Remains reluctant to consider JAQUEZ. Asked about potential discharge date and we discussed that this will depend on when she is able to discuss returning to her housing. She again states her intent to live in her own independent housing and tells me she will evidence of this housing availability sent to us tomorrow. Denies any medication side effects. Continues to report symptoms of hay fever for which she feels benadryl is helpful. Continues to believe she is having phone calls with celebrity athletes. Physical Exam Psychiatric Orientation: alert and oriented x 3 Apperance: appropriately dressed and appropriately groomed Eye Contact: + fair eye contact Motor Behavior: no abnormal motor movements Speech: normal rate/rhythm/volume of speech Affect: + constricted affect Mood: no depressed mood and no anxious mood Thought Process: + circumstantial thought process and + confabulations Thought Content: + paranoid and + delusions Suicidal Thoughts: denies suicidal thoughts Homicidal Thoughts: denies homicidal thoughts Hallucinations: no auditory hallucinations and no visual hallucinations Cognition: attention grossly intact and language grossly intact; + recent memory not intact Insight: + impaired insight Judgement: + impaired judgement Vital Signs (Past 24 Hours) Last Vital Signs Temp 36.5 C 10/15/21 06:00 Pulse 97 H 10/15/21 06:29 Resp 16 10/15/21 06:00 BP 149/84 H 10/15/21 06:29 Pulse Ox 98 10/05/21 06:59 Results & Data ([facility]) Current Inpatient Medications Current Inpatient Medications: Current Inpatient Medications Acetaminophen (Acetaminophen 325 Mg Tab) 650 mg PO Q4H PRN PRN Reason: Headache or Minor Fever Stop: 10/26/21 23:42 Al Hydrox/Mg Hydrox/Simethicone (Aluminum/Magnesium Susp 30 Ml Udc) 30 ml PO Q4H PRN PRN Reason: GI Upset Stop: 10/26/21 23:42 Aripiprazole (Aripiprazole 10 Mg Tab) 10 mg PO QAM [facility] Stop: 11/11/21 08:59 Last Admin: 10/15/21 07:51 Dose: 10 mg Documented by: Artificial Tears (Artificial Tears) 1 drops OP QID EMMA Stop: 10/27/21 08:59 Last Admin: 10/15/21 12:34 Dose: 1 drops Documented by: Bismuth Subsalicylate (Bismuth Subsalicylate Liqd 236 Ml) 15 ml PO PRN PRN PRN Reason: Loose Stool Stop: 10/26/21 23:42 Diphenhydramine HCl (Diphenhydramine Capsule 25 Mg Cap) 50 mg PO HS PRN PRN Reason: Allergy Symptoms Stop: 11/01/21 12:25 Last Admin: 10/14/21 21:00 Dose: 50 mg Documented by: Docusate Sodium (Docusate Sodium 100 Mg Cap) 100 mg PO BID@0800,2100 [facility] Stop: 10/27/21 08:59 Last Admin: 10/15/21 07:51 Dose: 100 mg Documented by: Hydroxyzine HCl (Hydroxyzine Hcl 25 Mg Tab) 50 mg PO HSZ PRN PRN Reason: Insomnia Stop: 10/26/21 23:42 Last Admin: 10/14/21 20:59 Dose: 50 mg Documented by: Hydroxyzine HCl (Hydroxyzine Hcl 25 Mg Tab) 25 mg PO Q4H PRN PRN Reason: Anxiety Stop: 10/26/21 23:42 Last Admin: 10/15/21 07:56 Dose: 25 mg Documented by: Ibuprofen (Ibuprofen 200 Mg Tab) 400 mg PO Q6H PRN PRN Reason: pain Stop: 11/10/21 11:33 Last Admin: 10/15/21 07:51 Dose: 400 mg Documented by: Levothyroxine Sodium (Levothyroxine Sodium 25 Mcg Tablet) 25 mcg PO DAILY@0800 [facility] Stop: 10/27/21 08:59 Last Admin: 10/15/21 07:51 Dose: 25 mcg Documented by: Magnesium Hydroxide (Magnesium Hydroxide Susp 30 Ml Udc) 30 ml PO DAILY PRN PRN Reason: Constipation Stop: 10/26/21 23:42 Olanzapine (Olanzapine 10 Mg/2.1 Ml Sdv) 10 mg IM Q6 PRN PRN Reason: Agitation Stop: 11/12/21 08:57 Sodium Chloride (Sodium Chloride 0.65% Na Soln 45 Ml ([place])) 1 - 2 sprays NA PRN PRN PRN Reason: Nasal Dryness/Congestion Stop: 10/26/21 23:42 Vitamin D (Cholecalciferol 1,000 Units 25 Mcg Tab) 1,000 units PO DAILY EMMA Stop: 11/08/21 08:59 Last Admin: 10/15/21 07:51 Dose: 1,000 units Documented by: Zinc Acetate/Diphenhydramine (Diphenhydramine 2%/Zinc 0.1% Cream 28gm Tube) 1 appln EXT DAILY PRN PRN Reason: Itching Stop: 11/03/21 14:35 Last Admin: 10/07/21 21:23 Dose: 1 appln Documented by: Mental Health & Subst Abuse Tx Psychiatrist Name of Psychiatrist: Griffin Negron Business Intelligence Developer Name of Business Intelligence Developer: PADMINI Pederson Phone Number for Business Intelligence Developer: [phone] Date of Appointment with Business Intelligence Developer: 09/29/21 Post Discharge Appointments Contact Information Discharge Discharge Address: [address] [place] [address]
[2021-10-15] MEDS: diphenhydrAMINE Capsule 25 MG CAP PO PRN (20:59)
[2021-10-16] MEDS: ARTIFICIAL TEARS OP SCH ×4 (08:41→20:18)
[2021-10-16] MEDS: LEVOTHYROXINE SODIUM 25 MCG TABLET PO SCH (08:41)
[2021-10-16] MEDS: ARIPiprazole 10 MG TAB PO SCH (08:41)
[2021-10-16] MEDS: CHOLECALCIFEROL 1,000 UNITS 25 MCG TAB PO SCH (08:41)
[2021-10-16] MEDS: DOCUSATE SODIUM 100 MG CAP PO SCH ×2 (08:41→20:18)
[2021-10-16] MEDS: IBUPROFEN 200 MG TAB PO PRN ×2 (10:21→21:59)
--- NOTE | 2021-10-16 16:40 | Psychiatric Progress Note ---
Date of Service October 16, 2021 Impression / Recommendations Elise Miller is a 61 yo female with acute exacerbation of psychosis for non-compliance with clozapine. She is on an extended outpatient commitment prior to admission following discharge from the [facility]. 305 commitment converted to inpatient. Diagnostically seems most consistent with schizophrenia but I'm unsure what to make of her significant memory lapse in terms of meeting me before and delusions versus confabulations about her family members still being alive when there is evidence that they many years ago. 10/16/21: remains delusional with no ability to reality-test even after phone call with rental agency who confirmed to her over the phone that she doesn't have other housing options. Continues to refuse any dose escalation of her abilify or consideration for any other antipsychotics. Will attempt to get her to reconsider option for abilify JAQUEZ given that she has been tolerating abilify well so far. MNPR for psychiatric symptoms of psychosis, paranoid ideation (1) Schizophrenia, paranoid, chronic with acute exacerbation: 10/16/21: continue current medications. Continue to reality-test delusions. Discussed with social work and nursing goal of having her supports from her housing come for facilitated meeting to test delusions and paranoia about her housing. 10/15/21: continue current medications. Reviewed chart for substance use his tory. She is declining any titration of abilify. Agrees to discuss housing options with me tomorrow. 10/14/21: reviewed interim progress from Dr. Valladares's notes. She is back on abilify but remains irritable about her length of stay and remains focused on not wanting to return to her previous housing. Will attempt to further titrate abilify tomorrow if she agrees, she declined today. 10/13/21: patient will not engage in any discussion around Abilify titration today as refusing to stay here, not yet attempting to elope or act out aggressively but Zyprexa 10 mg IM ordered in case of acute agitation. 10/11/21: re=reviewed fasting metabolic labs from earlier in the month. Agreed to increase Abilify 10 mg daily. 10/10/21: unclear if ever had trued EPS for Haldol or just manipulating med regimen, tolerating Abilify this am. Refusing JAQUEZ. 10/09/21: d/c Haldol (patient refusing), there is no acute agitation or threatening behavior or medical decompensation that would support meds over objection/injectable at this time given that she is willing to take Abilify 5 mg daily PO. 10/08/21: more breakthrough during med changes with Haldol not yet therapeutic. Increase Haldol to 5 mg po qam and 10 mg po qhs starting tonight as no evidence of worsening EPS. Needs meeting with [facility] and CM. 10/07/21: will titrate Haldol to 5 mg BId tomorrow. 10/06/21: Discontinuing abilify. Increasing haldol to 2.5 mg qAM and 5 mg qHS. 10/05/21: Continue cross-taper will reduce abilify from 10 mg to 5 mg tomorrow. Increase haldol from 2.5 mg qd to 2.5 mg BID. 10/04/21: Need to cross-taper from abilify to haldol due to high cost of abilify JAQUEZ. She consents to starting haldol. Tomorrow will reduce abilify from 15 mg to 10mg qd and start haldol 2.5 mg qd. 10/03/21: Continue with abilify 15 mg po qd. Spoke with her outpt psychiatrist Dr. Negron about challenge of JAQUEZ Maintenna possibly being cost prohibitive so have call out to her rehabilitation case coordinator to see if there may be financial support options for this. Otherwise will need to consider haldol JAQUEZ vs Invega JAQUEZ. 10/02/21: She consents to increase of abilify to 15 mg tomorrow morning and discontinuation of zyprexa tonight. Benadryl 50 mg qhs prn for allergy symptoms. Continues to have delusions. Will attempt to start prior authorization process for Abilify Maintena if she continues to tolerate abilify po well. 10/01/21: She consents to ongoing cross-taper will decrease zyprexa from 10mg to 5mg qhs and increasing abilify from 5mg to 10 mg tomorrow morning. Remains very paranoid and suspicious of others so will continue MNPR. 09/30/21: Abilify 5 mg qd today. Tomorrow will decrease zyprexa from 10mg to 5 mg qhs and continue with cross-taper with goal of abilify monotherapy and then JAQUEZ if well tolerated. Continues to have limited insight but appropriate so far today, if this persists will consider d/c of MNPR tomorrow. 09/29/21: continue Zyprexa but taper soon in favor of Abilify. Test dose Abilify 2.5 mg today and 5 mg daily tomorrow. Once tolerability assessed, convert to JAQUEZ. Patient lacks insight into need to return to [facility]. Patient is upset following hearing so will be monitored before additional consideration of d/c MNPR. 09/28/21: continue Zyprexa 10 mg po qhs, add Cogentin 0.5 mg BID. No sense to restart Clozaril if won't take consistently. Monitor symptoms and consider Invega trial with hopes she'll ultimately agree to JAQUEZ. 09/27/21: The patient was admitted to the [facility] ([facility]) on q15 min checks (behavioral with suicide precautions) for safety. The patient will participate in group, recreational, and milieu therapies and will be offered additional individual and family sessions as clinically appropriate. Risks/benefits/alternatives were reviewed re: antipsychotics for mood and/or psychosis. Discussion included but was not limited to metabolic side effects, risks of TD. There was EPS tremor but no TD at baseline. Fasting glucose and lipid panel ordered for baseline monitoring. She is agreeable to continuing Zyprexa but not Clozaril. Discussed that an JAQUEZ would be preferred and she declines due to limited insight into need for medication. Inventory Assets Strengths: intelligent, has been pleasant in interactions with staff and likes Needs: improved compliance, better tolerated antipsychotic. Risk Factors Assessment : Yes Do You Have Access To A Gun?: No Mental Health Diagnoses: Yes Substance Use Disorders: No Previous Attempt: No Previous Psychiatric Hospitalization: Yes Protective Factors Assessment Employed: No Good Rapport with Provider: Yes Interval History Identifying Information TALITA BALL is a 61-year-old F who currently lives at [facility], has a history of schizophrenia and [facility] placement, and was admitted on 09/26/21 23:33 on a 302 involuntary commitment but is actually maintained on a 305 outpatient commitment for delusional behavior. Chief Complaint "I'm not fibbing". Review of Systems Sleep Information Total Hours of Sleep: 7 Sleep Comments: pt given feliberto per rn. pt on q-15 minute checks Meal Information Percent Meal Consumed - Breakfast: 100 Percent Meal Consumed - Lunch: 100 Percent Meal Consumed - Dinner: 100 Nutrition Comment: per meal record Subjective Subjective Patient was seen & assessed and interval progress reviewed with treatment team nursing and social work. Angela continues to insist that she will not return to her previous living situation due to paranoia about drug use by staff there. She also continues to deny that she is on a 305 status. She tells me that her father is not really and to contact the [employer] offices in [place]. She continues to refuse to increase the dose of her abilify, denies any current side effects. Remains resistant to JAQUEZ. Behaviorally has been appropriate. Biggest barrier to discharge to supportive outpatient setting is her refusal to return to her previpus housing. Today called local housing office with her and social work where she insisted roselyn ball had purchased a home. When she called she was confronted with the reality that such homes are not available and that the rental business, she stated she had been communicating with, denied that they had control over these homes and only had apartments. She then told me she suspects this person was "fibbing" and that something suspicious is occurring. Physical Exam Psychiatric Orientation: alert and oriented x 3 Apperance: appropriately dressed and appropriately groomed Eye Contact: good eye contact Motor Behavior: no abnormal motor movements Speech: normal rate/rhythm/volume of speech Affect: + constricted affect Mood: no depressed mood and no anxious mood Thought Process: + circumstantial thought process and + confabulations Thought Content: + paranoid and + delusions Suicidal Thoughts: denies suicidal thoughts Homicidal Thoughts: denies homicidal thoughts Hallucinations: no auditory hallucinations and no visual hallucinations Cognition: remote memory grossly intact, attention grossly intact and language grossly intact Estimated Intelligence: consistent with education level Insight: + impaired insight Judgement: + impaired judgement Vital Signs (Past 24 Hours) Last Vital Signs Temp 36.7 C 10/16/21 06:29 Pulse 96 H 10/16/21 06:29 Resp 16 10/16/21 06:29 BP 129/85 10/16/21 06:29 Pulse Ox 98 10/05/21 06:59 Results & Data ([facility]) Current Inpatient Medications Current Inpatient Medications: Current Inpatient Medications Acetaminophen (Acetaminophen 325 Mg Tab) 650 mg PO Q4H PRN PRN Reason: Headache or Minor Fever Stop: 10/26/21 23:42 Al Hydrox/Mg Hydrox/Simethicone (Aluminum/Magnesium Susp 30 Ml Udc) 30 ml PO Q4H PRN PRN Reason: GI Upset Stop: 10/26/21 23:42 Aripiprazole (Aripiprazole 10 Mg Tab) 10 mg PO QAM [facility] Stop: 11/11/21 08:59 Last Admin: 10/16/21 08:41 Dose: 10 mg Documented by: Artificial Tears (Artificial Tears) 1 drops OP QID [facility] Stop: 10/27/21 08:59 Last Admin: 10/16/21 13:01 Dose: 1 drops Documented by: Bismuth Subsalicylate (Bismuth Subsalicylate Liqd 236 Ml) 15 ml PO PRN PRN PRN Reason: Loose Stool Stop: 10/26/21 23:42 Diphenhydramine HCl (Diphenhydramine Capsule 25 Mg Cap) 50 mg PO HS PRN PRN Reason: Allergy Symptoms Stop: 11/01/21 12:25 Last Admin: 10/15/21 20:59 Dose: 50 mg Documented by: Docusate Sodium (Docusate Sodium 100 Mg Cap) 100 mg PO BID@0800,2100 [facility] Stop: 10/27/21 08:59 Last Admin: 10/16/21 08:41 Dose: 100 mg Documented by: Hydroxyzine HCl (Hydroxyzine Hcl 25 Mg Tab) 50 mg PO HSZ PRN PRN Reason: Insomnia Stop: 10/26/21 23:42 Last Admin: 10/15/21 21:00 Dose: 50 mg Documented by: Hydroxyzine HCl (Hydroxyzine Hcl 25 Mg Tab) 25 mg PO Q4H PRN PRN Reason: Anxiety Stop: 10/26/21 23:42 Last Admin: 10/15/21 07:56 Dose: 25 mg Documented by: Ibuprofen (Ibuprofen 200 Mg Tab) 400 mg PO Q6H PRN PRN Reason: pain Stop: 11/10/21 11:33 Last Admin: 10/16/21 10:21 Dose: 400 mg Documented by: Levothyroxine Sodium (Levothyroxine Sodium 25 Mcg Tablet) 25 mcg PO DAILY@0800 [facility] Stop: 10/27/21 08:59 Last Admin: 10/16/21 08:41 Dose: 25 mcg Documented by: Magnesium Hydroxide (Magnesium Hydroxide Susp 30 Ml Udc) 30 ml PO DAILY PRN PRN Reason: Constipation Stop: 10/26/21 23:42 Olanzapine (Olanzapine 10 Mg/2.1 Ml Sdv) 10 mg IM Q6 PRN PRN Reason: Agitation Stop: 11/12/21 08:57 Sodium Chloride (Sodium Chloride 0.65% Na Soln 45 Ml ([place])) 1 - 2 sprays NA PRN PRN PRN Reason: Nasal Dryness/Congestion Stop: 10/26/21 23:42 Vitamin D (Cholecalciferol 1,000 Units 25 Mcg Tab) 1,000 units PO DAILY [facility] Stop: 11/08/21 08:59 Last Admin: 10/16/21 08:41 Dose: 1,000 units Documented by: Zinc Acetate/Diphenhydramine (Diphenhydramine 2%/Zinc 0.1% Cream 28gm Tube) 1 appln EXT DAILY PRN PRN Reason: Itching Stop: 11/03/21 14:35 Last Admin: 10/07/21 21:23 Dose: 1 appln Documented by: Mental Health & Subst Abuse Tx Psychiatrist Name of Psychiatrist: Griffin Negron Ground Services Instructor Name of Ground Services Instructor: PADMINI Pederson Phone Number for Ground Services Instructor: [phone] Date of Appointment with Ground Services Instructor: 09/29/21 Post Discharge Appointments Contact Information Discharge Discharge Address: [address] [address]
[2021-10-16] MEDS: hydrOXYzine HCl 25 MG TAB PO PRN (21:53)
[2021-10-16] MEDS: diphenhydrAMINE Capsule 25 MG CAP PO PRN (21:53)
[2021-10-17] MEDS: LEVOTHYROXINE SODIUM 25 MCG TABLET PO SCH (07:49)
[2021-10-17] MEDS: DOCUSATE SODIUM 100 MG CAP PO SCH ×2 (07:49→20:31)
[2021-10-17] MEDS: ARIPiprazole 10 MG TAB PO SCH (08:21)
[2021-10-17] MEDS: CHOLECALCIFEROL 1,000 UNITS 25 MCG TAB PO SCH (08:21)
[2021-10-17] MEDS: ARTIFICIAL TEARS OP SCH ×4 (08:24→20:28)
--- NOTE | 2021-10-17 08:49 | Psychiatric Progress Note ---
Date of Service October 17, 2021 Impression / Recommendations Elise Miller is a 61 yo female with acute exacerbation of psychosis for non-compliance with clozapine. She is on an extended outpatient commitment prior to admission following discharge from the [facility]. 305 commitment converted to inpatient. Diagnostically seems most consistent with schizophrenia but I'm unsure what to make of her significant memory lapse in terms of meeting me before and delusions versus confabulations about her family members still being alive when there is evidence that they many years ago. 10/17/21: remains delusional with no ability to reality-test. Continues to refuse any dose escalation of her abilify or consideration for JAQUEZ but she is now willing to consider restarting clozapine which worked well in the past. Challenge will be adherence but given that she is now refusing any JAQUEZ options this seems like the next best option. MNPR for psychiatric symptoms of psychosis, paranoid ideation (1) Schizophrenia, paranoid, chronic with acute exacerbation: 10/17/21: EKG, ANC, WBC, repeat height/weight/BMI ordered for consideration of starting clozapine. Her refusal to return to her pre-admission housing remains significant barrier to safe discharge especially in setting of ongoing delusions and paranoia. 10/16/21: continue current medications. Continue to reality-test delusions. Discussed with social work and nursing goal of having her supports from her housing come for facilitated meeting to test delusions and paranoia about her housing. 10/15/21: continue current medications. Reviewed chart for substance use histor y. She is declining any titration of abilify. Agrees to discuss housing options with me tomorrow. 10/14/21: reviewed interim progress from Dr. Valladares's notes. She is back on abilify but remains irritable about her length of stay and remains focused on not wanting to return to her previous housing. Will attempt to further titrate abilify tomorrow if she agrees, she declined today. 10/13/21: patient will not engage in any discussion around Abilify titration today as refusing to stay here, not yet attempting to elope or act out aggressively but Zyprexa 10 mg IM ordered in case of acute agitation. 10/11/21: re=reviewed fasting metabolic labs from earlier in the month. Agreed to increase Abilify 10 mg daily. 10/10/21: unclear if ever had trued EPS for Haldol or just manipulating med reg imen, tolerating Abilify this am. Refusing JAQUEZ. 10/09/21: d/c Haldol (patient refusing), there is no acute agitation or threatening behavior or medical decompensation that would support meds over ob jection/injectable at this time given that she is willing to take Abilify 5 mg daily PO. 10/08/21: more breakthrough during med changes with Haldol not yet therapeutic. Increase Haldol to 5 mg po qam and 10 mg po qhs starting tonight as no evidence of worsening EPS. Needs meeting with [facility] and CM. 10/07/21: will titrate Haldol to 5 mg BId tomorrow. 10/06/21: Discontinuing abilify. Increasing haldol to 2.5 mg qAM and 5 mg qHS. 10/05/21: Continue cross-taper will reduce abilify from 10 mg to 5 mg tomorrow. Increase haldol from 2.5 mg qd to 2.5 mg BID. 10/04/21: Need to cross-taper from abilify to haldol due to high cost of abilify JAQUEZ. She consents to starting haldol. Tomorrow will reduce abilify from 15 mg to 10mg qd and start haldol 2.5 mg qd. 10/03/21: Continue with abilify 15 mg po qd. Spoke with her outpt psychiatrist Dr. Negron about challenge of JAQUEZ Maintenna possibly being cost prohibitive so have call out to her therapeutic case manager to see if there may be financial support options for this. Otherwise will need to consider haldol JAQUEZ vs Invega JAQUEZ. 10/02/21: She consents to increase of abilify to 15 mg tomorrow morning and discontinuation of zyprexa tonight. Benadryl 50 mg qhs prn for allergy symptoms. Continues to have delusions. Will attempt to start prior authorization process for Abilify Maintena if she continues to tolerate abilify po well. 10/01/21: She consents to ongoing cross-taper will decrease zyprexa from 10mg to 5mg qhs and increasing abilify from 5mg to 10 mg tomorrow morning. Remains very paranoid and suspicious of others so will continue MNPR. 09/30/21: Abilify 5 mg qd today. Tomorrow will decrease zyprexa from 10mg to 5 mg qhs and continue with cross-taper with goal of abilify monotherapy and then JAQUEZ if well tolerated. Continues to have limited insight but appropriate so far today, if this persists will consider d/c of MNPR tomorrow. 09/29/21: continue Zyprexa but taper soon in favor of Abilify. Test dose Abilify 2.5 mg today and 5 mg daily tomorrow. Once tolerability assessed, convert to JAQUEZ. Patient lacks insight into need to return to [facility]. Patient is upset following hearing so will be monitored before additional consideration of d/c MNPR. 09/28/21: continue Zyprexa 10 mg po qhs, add Cogentin 0.5 mg BID. No sense to restart Clozaril if won't take consistently. Monitor symptoms and consider Invega trial with hopes she'll ultimately agree to JAUQEZ. 09/27/21: The patient was admitted to the [facility] ([facility]) on q15 min checks (behavioral with suicide precautions) for safety. The patient will participate in group, recreational, and milieu therapies and will be offered additional individual and family sessions as clinically appropriate. Risks/benefits/alternatives were reviewed re: antipsychotics for mood and/or psychosis. Discussion included but was not limited to metabolic side effects, risks of TD. There was EPS tremor but no TD at baseline. Fasting glucose and lipid panel ordered for baseline monitoring. She is agreeable to continuing Zyprexa but not Clozaril. Discussed that an JAQUEZ would be preferred and she declines due to limited insight into need for medication. Inventory Assets Strengths: intelligent, has been pleasant in interactions with staff and likes Needs: improved compliance, better tolerated antipsychotic. Risk Factors Assessment : Yes Do You Have Access To A Gun?: No Mental Health Diagnoses: Yes Substance Use Disorders: No Previous Attempt: No Previous Psychiatric Hospitalization: Yes Protective Factors Assessment Employed: No Good Rapport with Provider: Yes Interval History Identifying Information TALITA BALL is a 61-year-old F who currently lives at [facility], has a history of schizophrenia and formerly [facility] hospital placement, and was admitted on 09/26/21 23:33 on a 302 involuntary commitment but is actually maintained on a 305 outpatient commitment for delusional behavior. Chief Complaint "I am not delusional, I saw a counselor in the past and that fixed everything". Review of Systems Sleep Information Total Hours of Sleep: 6.5 Sleep Comments: pt given sandra and feliberto per rn. pt on q-15 minute checks Meal Information Percent Meal Consumed - Breakfast: 100 Percent Meal Consumed - Lunch: 100 Percent Meal Consumed - Dinner: 100 Nutrition Comment: per meal record Subjective Subjective Patient was seen & assessed and interval progress reviewed with treatment team nursing and social work. Continues to discuss delusions. Believes her PCP came onto the unit yesterday and told her to stop her synthroid so she refused to take it this morning. This afternoon continues to believe she [facility] a [facility], continues to refuse to return to [facility] and continues to have fixed delusions about staff there using substances. Refuses to titrate dose of abilify or consider any long acting antipsychotic. She is agreeable to considering starting clozapine again which worked in the past for her. Physical Exam Psychiatric Orientation:alert and oriented x 3 Apperance:appropriately dressed and appropriately groomed Eye Contact:good eye contact Motor Behavior:no abnormal motor movements Speech:normal rate/rhythm/volume of speech Affect:+ constricted affect Mood:no depressed mood and no anxious mood Thought Process:+ circumstantial thought process and + confabulations Thought Content:+ paranoid and + delusions Suicidal Thoughts:denies suicidal thoughts Homicidal Thoughts:denies homicidal thoughts Hallucinations:no auditory hallucinations and no visual hallucinations Cognition:remote memory grossly intact, attention grossly intact and language grossly intact Estimated Intelligence:consistent with education level Insight:+ impaired insight Judgement:+ impaired judgement Vital Signs (Past 24 Hours) Last Vital Signs Temp 36.5 C 10/17/21 06:37 Pulse 103 H 10/17/21 06:38 Resp 16 10/17/21 06:37 BP 135/90 10/17/21 06:38 Pulse Ox 98 10/05/21 06:59 Results & Data ([facility]) Current Inpatient Medications Current Inpatient Medications: Current Inpatient Medications Acetaminophen (Acetaminophen 325 Mg Tab) 650 mg PO Q4H PRN PRN Reason: Headache or Minor Fever Stop: 10/26/21 23:42 Al Hydrox/Mg Hydrox/Simethicone (Aluminum/Magnesium Susp 30 Ml Udc) 30 ml PO Q4H PRN PRN Reason: GI Upset Stop: 10/26/21 23:42 Aripiprazole (Aripiprazole 10 Mg Tab) 10 mg PO QAM [facility] Stop: 11/11/21 08:59 Last Admin: 10/17/21 08:21 Dose: 10 mg Documented by: Artificial Tears (Artificial Tears) 1 drops OP QID [facility] Stop: 10/27/21 08:59 Last Admin: 10/17/21 08:24 Dose: 1 drops Documented by: Bismuth Subsalicylate (Bismuth Subsalicylate Liqd 236 Ml) 15 ml PO PRN PRN PRN Reason: Loose Stool Stop: 10/26/21 23:42 Diphenhydramine HCl (Diphenhydramine Capsule 25 Mg Cap) 50 mg PO HS PRN PRN Reason: Allergy Symptoms Stop: 11/01/21 12:25 Last Admin: 10/16/21 21:53 Dose: 50 mg Documented by: Docusate Sodium (Docusate Sodium 100 Mg Cap) 100 mg PO BID@0800,2100 [facility] Stop: 10/27/21 08:59 Last Admin: 10/17/21 07:49 Dose: Not Given Documented by: Hydroxyzine HCl (Hydroxyzine Hcl 25 Mg Tab) 50 mg PO HSZ PRN PRN Reason: Insomnia Stop: 10/26/21 23:42 Last Admin: 10/16/21 21:53 Dose: 50 mg Documented by: Hydroxyzine HCl (Hydroxyzine Hcl 25 Mg Tab) 25 mg PO Q4H PRN PRN Reason: Anxiety Stop: 10/26/21 23:42 Last Admin: 10/15/21 07:56 Dose: 25 mg Documented by: Ibuprofen (Ibuprofen 200 Mg Tab) 400 mg PO Q6H PRN PRN Reason: pain Stop: 11/10/21 11:33 Last Admin: 10/16/21 21:59 Dose: 400 mg Documented by: Levothyroxine Sodium (Levothyroxine Sodium 25 Mcg Tablet) 25 mcg PO DAILY@0800 [facility] Stop: 10/27/21 08:59 Last Admin: 10/17/21 07:49 Dose: Not Given Documented by: Magnesium Hydroxide (Magnesium Hydroxide Susp 30 Ml Udc) 30 ml PO DAILY PRN PRN Reason: Constipation Stop: 10/26/21 23:42 Olanzapine (Olanzapine 10 Mg/2.1 Ml Sdv) 10 mg IM Q6 PRN PRN Reason: Agitation Stop: 11/12/21 08:57 Sodium Chloride (Sodium Chloride 0.65% Na Soln 45 Ml ([place])) 1 - 2 sprays NA PRN PRN PRN Reason: Nasal Dryness/Congestion Stop: 10/26/21 23:42 Vitamin D (Cholecalciferol 1,000 Units 25 Mcg Tab) 1,000 units PO DAILY [facility] Stop: 11/08/21 08:59 Last Admin: 10/17/21 08:21 Dose: 1,000 units Documented by: Zinc Acetate/Diphenhydramine (Diphenhydramine 2%/Zinc 0.1% Cream 28gm Tube) 1 appln EXT DAILY PRN PRN Reason: Itching Stop: 11/03/21 14:35 Last Admin: 10/07/21 21:23 Dose: 1 appln Documented by: Mental Health & Subst Abuse Tx Psychiatrist Name of Psychiatrist: Griffin Negron Cement Tester Assistant Name of Cement Tester Assistant: PADMINI Pederson Phone Number for Cement Tester Assistant: [phone] Date of Appointment with Cement Tester Assistant: 09/29/21 Post Discharge Appointments Contact Information Discharge Discharge Address: [address] [address]
[2021-10-17] MEDS: IBUPROFEN 200 MG TAB PO PRN ×2 (12:03→20:36)
[2021-10-17 15:42] LABS: Basophils # (auto) 0.03 K/uL (0-0.2); Basophils % (auto) 0.5 %; Hematocrit (blood only) 36.2 % (37-47); Hemoglobin 11.9 g/dL (12.0-16.0); Immature Granulocytes # (auto) 0.01 K/uL (0.00-0.02); Immature Granulocytes % (auto) 0.2 %; Lymphocytes # (auto) 2.66 K/uL (1.2-3.4); Mean Corpuscular Hemoglobin 30.4 pg (25-34); Mean Corpuscular Hgb Conc 32.9 g/dL (32-36); Mean Corpuscular Volume 92.6 fL (80-100); Mean Platelet Volume 9.2 fL (7.4-10.4); Monocytes # (auto) 0.61 K/uL (0.11-0.59); Monocytes % (auto) 9.2 %; Neutrophils # (auto) 3.34 K/uL (1.4-6.5); Neutrophils % (auto) 50.1 %; Platelet Count 259 K/uL (130-400); RDW Coefficient of Variation 13.8 % (11.5-14.5); RDW Standard Deviation 46.8 fL (36.4-46.3); Red Blood Count 3.91 M/uL (4.2-5.4); White Blood Count 6.65 K/uL (4.8-10.8)
[2021-10-17] MEDS ORDERED: diphenhydrAMINE Capsule 25 MG CAP PO PRN (16:45)
[2021-10-18] MEDS: CHOLECALCIFEROL 1,000 UNITS 25 MCG TAB PO SCH (08:03)
[2021-10-18] MEDS: cloZAPine 25 MG TAB PO SCH ×2 (08:03→20:22)
[2021-10-18] MEDS: ARTIFICIAL TEARS OP SCH ×4 (08:03→20:32)
[2021-10-18] MEDS: DOCUSATE SODIUM 100 MG CAP PO SCH ×3 (08:07→20:34)
[2021-10-18] MEDS: LEVOTHYROXINE SODIUM 25 MCG TABLET PO SCH (08:07)
--- NOTE | 2021-10-18 08:16 | Electrocardiogram Report ---
Test Reason : Blood Pressure : / mmHG Vent. Rate : 073 BPM Atrial Rate : 073 BPM P-R Int : 160 ms QRS Dur : 100 ms QT Int : 404 ms P-R-T Axes : 072 092 058 degrees QTc Int : 445 ms Normal sinus rhythm Rightward axis Borderline ECG No previous ECGs available Confirmed by Bandar Clinton ([id number]) on 10/18/2021 8:16:11 AM Referred By: Usman Kirkpatrick Confirmed By:Bandar Clinton
[2021-10-18] MEDS: IBUPROFEN 200 MG TAB PO PRN ×2 (10:29→21:04)
[2021-10-18] MEDS: diphenhydrAMINE Capsule 25 MG CAP PO PRN ×2 (14:38→21:03)
[2021-10-18] MEDS ORDERED: DOCUSATE SODIUM/SENNA 50/8.6MG TAB PO PRN (15:03)
--- NOTE | 2021-10-18 15:03 | Psychiatric Progress Note ---
Date of Service October 18, 2021 Impression / Recommendations Elise Miller is a 61 yo female with acute exacerbation of psychosis for non-compliance with clozapine. She is on an extended outpatient commitment prior to admission following discharge from the [facility]. 305 commitment converted to inpatient. Diagnostically seems most consistent with schizophrenia but I'm unsure what to make of her significant memory lapse in terms of meeting me before and delusions versus confabulations about her family members still being alive when there is evidence that they many years ago. 10/18/21: continuing to see decompensation and given history of significant decompensation in the past and stability/good response with clozapine this seems most appropriate route at this point especially since she is refusing any JAQUEZ options or abilify dose increases. So far tolerating initiation of clozapine. Discussed risks of continuing Benadryl while also on clozapine. She wants to continue with benadryl twice a day at lowest dose given benefit of it helping her with her allergies. She agreed that we can stop the benadryl as the clozapine dose increases. She understands clozapine goal dose will be 250mg per day which she agrees to. Will need to follow TSH if she continues to refuse synthroid for extended period. Last took clozapine on 09/20 or 09/22 so we could go back to previous monitoring frequency of once monthly given that she has been off clozapine for <30 days but for now will get weekly ANC/WBC. MNPR for psychiatric symptoms of psychosis, paranoid ideation (1) Schizophrenia, paranoid, chronic with acute exacerbation: 10/18/21: Continue clozapine 12.5 mg BID. Senna/colace prn added. Increased benadryl 25mg BID prn for her allergies (will d/c as clozapine titration continues). Weekly WBC/ANC for now but could go back to monthly monitoring after discharge as it has been <30 days off clozapine. Her refusal to return to any type of supported housing and her inability to function safely in a less supportive setting remains the biggest barrier to discharge. 10/17/21: EKG, ANC, WBC, repeat height/weight/BMI ordered for consideration of starting clozapine. Her refusal to return to her pre-admission housing remains significant barrier to safe discharge especially in setting of ongoing delusions and paranoia. 10/16/21: continue current medications. Continue to reality-test delusions. Discussed with social work and nursing goal of having her supports from her housing come for facilitated meeting to test delusions and paranoia about her housing. 10/15/21: continue current medications. Reviewed chart for substance use history. She is declining any titration of abilify. Agrees to discuss housing options with me tomorrow. 10/14/21: reviewed interim progress from Dr. Valladares's notes. She is back on elliott lify but remains irritable about her length of stay and remains focused on not wanting to return to her previous housing. Will attempt to further titrate abilify tomorrow if she agrees, she declined today. 10/13/21: patient will not engage in any discussion around Abilify titration today as refusing to stay here, not yet attempting to elope or act out aggressively but Zyprexa 10 mg IM ordered in case of acute agitation. 10/11/21: re=reviewed fasting metabolic labs from earlier in the month. Agreed to increase Abilify 10 mg daily. 10/10/21: unclear if ever had trued EPS for Haldol or just manipulating med regimen, tolerating Abilify this am. Refusing JAQUEZ. 10/09/21: d/c Haldol (patient refusing), there is no acute agitation or threatening behavior or medical decompensation that would support meds over objection/injectable at this time given that she is willing to take Abilify 5 mg daily PO. 10/08/21: more breakthrough during med changes with Haldol not yet therapeutic. Increase Haldol to 5 mg po qam and 10 mg po qhs starting tonight as no evidence of worsening EPS. Needs meeting with [facility] and CM. 10/07/21: will titrate Haldol to 5 mg BId tomorrow. 10/06/21: Discontinuing abilify. Increasing haldol to 2.5 mg qAM and 5 mg qHS. 10/05/21: Continue cross-taper will reduce abilify from 10 mg to 5 mg tomorrow. Increase haldol from 2.5 mg qd to 2.5 mg BID. 10/04/21: Need to cross-taper from abilify to haldol due to high cost of abilify JAQUEZ. She consents to starting haldol. Tomorrow will reduce abilify from 15 mg to 10mg qd and start haldol 2.5 mg qd. 10/03/21: Continue with abilify 15 mg po qd. Spoke with her outpt psychiatrist Dr. Negron about challenge of JAQUEZ Maintenna possibly being cost prohibitive so have call out to her case work aide to see if there may be financial support options for this. Otherwise will need to consider haldol JAQUEZ vs Invega JAQUEZ. 10/02/21: She consents to increase of abilify to 15 mg tomorrow morning and discontinuation of zyprexa tonight. Benadryl 50 mg qhs prn for allergy symptoms. Continues to have delusions. Will attempt to start prior authorization process for Abilify Maintena if she continues to tolerate abilify po well. 10/01/21: She consents to ongoing cross-taper will decrease zyprexa from 10mg to 5mg qhs and increasing abilify from 5mg to 10 mg tomorrow morning. Remains very paranoid and suspicious of others so will continue MNPR. 09/30/21: Abilify 5 mg qd today. Tomorrow will decrease zyprexa from 10mg to 5 mg qhs and continue with cross-taper with goal of abilify monotherapy and then JAQUEZ if well tolerated. Continues to have limited insight but appropriate so far today, if this persists will consider d/c of MNPR tomorrow. 09/29/21: continue Zyprexa but taper soon in favor of Abilify. Test dose Abilify 2.5 mg today and 5 mg daily tomorrow. Once tolerability assessed, convert to JAQUEZ. Patient lacks insight into need to return to [facility]. Patient is upset following hearing so will be monitored before additional consideration of d/c MNPR. 09/28/21: continue Zyprexa 10 mg po qhs, add Cogentin 0.5 mg BID. No sense to restart Clozaril if won't take consistently. Monitor symptoms and consider Invega trial with hopes she'll ultimately agree to JAQUEZ. 09/27/21: The patient was admitted to the [facility] ([facility] unit) on q15 min checks (behavioral with suicide precautions) for safety. The patient will participate in group, recreational, and milieu therapies and will be offered additional individual and family sessions as clinically appropriate. Risks/benefits/alternatives were reviewed re: antipsychotics for mood and/or psychosis. Discussion included but was not limited to metabolic side effects, risks of TD. There was EPS tremor but no TD at baseline. Fasting glucose and lipid panel ordered for baseline monitoring. She is agreeable to continuing Zyprexa but not Clozaril. Discussed that an JAQUEZ would be preferred and she declines due to limited insight into need for medication. Inventory Assets Strengths: intelligent, has been pleasant in interactions with staff and likes CM Needs: improved compliance, better tolerated antipsychotic. Risk Factors Assessment : Yes Do You Have Access To A Gun?: No Mental Health Diagnoses: Yes Substance Use Disorders: No Previous Attempt: No Previous Psychiatric Hospitalization: Yes Protective Factors Assessment Employed: No Good Rapport with Provider: Yes Interval History Identifying Information TALITA BALL is a 61-year-old F who currently lives at [facility], has a history of schizophrenia and state hospital placement, and was admitted on 09/26/21 23:33 on a 302 involuntary commitment but is actually maintained on a 305 outpatient commitment for delusional behavior. Chief Complaint "That's not true, something fishy is going on here". Review of Systems Sleep Information Total Hours of Sleep: 7.5 Sleep Comments: pt on q-15 minute checks Meal Information Percent Meal Consumed - Breakfast: 90 Percent Meal Consumed - Lunch: 100 Percent Meal Consumed - Dinner: 100 Nutrition Comment: per meal record Subjective Subjective Patient was seen & assessed and interval progress reviewed with treatment team nursing and social work. She continues to have delusions which are undeterred by reality-testing. She has also been more isolative. She called a [employer] office in [place] with staff to try to ask about housing records and was informed by the staff there that the person she was looking for did not work there. She then accused them of "fibbing". She did accept her morning clozapine and denies any side effects. She wants to continue to being able to take benadryl twice a day for allergies. Discussed risks associated with anti-histamine effects with both benadryl and clozapine and plan for benadryl for now but that we'll discontinue it as we get toward higher doses of clozapine. Also discussed importance of staying ahead of any bowel changes due to risk of constipation. She again refused her synthroid. She stated she may begin to refuse care on Saturday. Reviewed and gave her another copy of her 305 commitment paperwork and reviewed that status is for 115 days of treatment not 5 days like is typical with 302. She was frustrated about this and noted paranoia about something being "off" with this facility. She also informed me she was having a deed of her purchased home sent to our office (none arrived). Physical Exam Psychiatric Orientation: alert and oriented x 3 Apperance: appropriately dressed and appropriately groomed Eye Contact: good eye contact Motor Behavior: no abnormal motor movements Speech: normal rate/rhythm/volume of speech Affect: + constricted affect Mood: + irritable mood; no depressed mood and no anxious mood Thought Process: + confabulations Thought Content: + preoccupation, + paranoid and + delusions Suicidal Thoughts: denies suicidal thoughts Homicidal Thoughts: denies homicidal thoughts Hallucinations: + auditory hallucinations; no visual hallucinations Cognition: remote memory grossly intact, attention grossly intact and language grossly intact; + recent memory not intact Insight: + impaired insight Judgement: + impaired judgement Vital Signs (Past 24 Hours) Last Vital Signs Temp 36.4 C L 10/18/21 06:40 Pulse 76 10/18/21 06:40 Resp 18 10/18/21 06:40 BP 173/82 H 10/18/21 06:40 Pulse Ox 98 10/05/21 06:59 Results & Data ([facility]) Laboratory Results Laboratory Results - last 24 hr 10/17/21 15:30 WBC 6.65 RBC 3.91 L Hgb 11.9 L Hct 36.2 L MCV 92.6 MCH 30.4 MCHC 32.9 RDW Std Deviation 46.8 H RDW Coeff of Kim 13.8 Plt Count 259 MPV 9.2 Immature Gran % (Auto) 0.2 Neut % (Auto) 50.1 Lymph % (Auto) 40.0 Bourbon % (Auto) 9.2 Eos % (Auto) 0.0 Baso % (Auto) 0.5 Neut # (Auto) 3.34 Lymph # (Auto) 2.66 Bourbon # (Auto) 0.61 H Eos # (Auto) 0.00 Baso # (Auto) 0.03 Immature Gran # (Auto) 0.01 Current Inpatient Medications Current Inpatient Medications: Current Inpatient Medications Acetaminophen (Acetaminophen 325 Mg Tab) 650 mg PO Q4H PRN PRN Reason: Headache or Minor Fever Stop: 10/26/21 23:42 Al Hydrox/Mg Hydrox/Simethicone (Aluminum/Magnesium Susp 30 Ml Udc) 30 ml PO Q4H PRN PRN Reason: GI Upset Stop: 10/26/21 23:42 Artificial Tears (Artificial Tears) 1 drops OP QID [facility] Stop: 10/27/21 08:59 Last Admin: 10/18/21 12:18 Dose: 1 drops Documented by: Bismuth Subsalicylate (Bismuth Subsalicylate Liqd 236 Ml) 15 ml PO PRN PRN PRN Reason: Loose Stool Stop: 10/26/21 23:42 Clozapine (Clozapine 25 Mg Tab) 12.5 mg PO BID [facility] Stop: 11/17/21 08:59 Last Admin: 10/18/21 08:03 Dose: 12.5 mg Documented by: Diphenhydramine HCl (Diphenhydramine Capsule 25 Mg Cap) 25 mg PO BID PRN PRN Reason: Allergy Symptoms Stop: 11/16/21 16:44 Docusate Sodium (Docusate Sodium 100 Mg Cap) 100 mg PO BID@0800,2100 [facility] Stop: 10/27/21 08:59 Last Admin: 10/18/21 08:07 Dose: Not Given Documented by: Ibuprofen (Ibuprofen 200 Mg Tab) 400 mg PO Q6H PRN PRN Reason: pain Stop: 11/10/21 11:33 Last Admin: 10/18/21 10:29 Dose: 400 mg Documented by: Levothyroxine Sodium (Levothyroxine Sodium 25 Mcg Tablet) 25 mcg PO DAILY@0800 [facility] Stop: 10/27/21 08:59 Last Admin: 10/18/21 08:07 Dose: Not Given Documented by: Magnesium Hydroxide (Magnesium Hydroxide Susp 30 Ml Udc) 30 ml PO DAILY PRN PRN Reason: Constipation Stop: 10/26/21 23:42 Olanzapine (Olanzapine 10 Mg/2.1 Ml Sdv) 10 mg IM Q6 PRN PRN Reason: Agitation Stop: 11/12/21 08:57 Sodium Chloride (Sodium Chloride 0.65% Na Soln 45 Ml (Borden)) 1 - 2 sprays NA PRN PRN PRN Reason: Nasal Dryness/Congestion Stop: 10/26/21 23:42 Vitamin D (Cholecalciferol 1,000 Units 25 Mcg Tab) 1,000 units PO DAILY [facility] Stop: 11/08/21 08:59 Last Admin: 10/18/21 08:03 Dose: 1,000 units Documented by: Zinc Acetate/Diphenhydramine (Diphenhydramine 2%/Zinc 0.1% Cream 28gm Tube) 1 appln EXT DAILY PRN PRN Reason: Itching Stop: 11/03/21 14:35 Last Admin: 10/07/21 21:23 Dose: 1 appln Documented by: Mental Health & Subst Abuse Tx Psychiatrist Name of Psychiatrist: Griffin Negron Raspberry Checker Name of Raspberry Checker: PADMINI Pederson Phone Number for Raspberry Checker: [phone] Date of Appointment with Raspberry Checker: 09/29/21 Post Discharge Appointments Contact Information Discharge Discharge Address: [address] [address]
[2021-10-19] MEDS: LEVOTHYROXINE SODIUM 25 MCG TABLET PO SCH (09:34)
[2021-10-19] MEDS: cloZAPine 25 MG TAB PO SCH ×2 (09:35→20:12)
[2021-10-19] MEDS: CHOLECALCIFEROL 1,000 UNITS 25 MCG TAB PO SCH (09:35)
[2021-10-19] MEDS: ARTIFICIAL TEARS OP SCH ×4 (09:35→20:12)
[2021-10-19] MEDS: IBUPROFEN 200 MG TAB PO PRN ×2 (09:36→20:13)
[2021-10-19] MEDS: diphenhydrAMINE Capsule 25 MG CAP PO PRN ×2 (09:37→20:15)
[2021-10-19] MEDS: DOCUSATE SODIUM 100 MG CAP PO SCH ×2 (09:43→20:12)
--- NOTE | 2021-10-19 15:01 | Psychiatric Progress Note ---
Date of Service October 19, 2021 Impression / Recommendations Elise Miller is a 61 yo female with acute exacerbation of psychosis for non-compliance with clozapine. She is on an extended outpatient commitment prior to admission following discharge from the [facility]. 305 commitment converted to inpatient. Diagnostically seems most consistent with schizophrenia but I'm unsure what to make of her significant memory lapse in terms of meeting me before and delusions versus confabulations about her family members still being alive when there is evidence that they many years ago. 10/19/21: continuing clozapine titration to target delusions with goal of lessening of symptoms enough that she may agree to return to [facility] where she has been living. Last took clozapine on 09/20 or 09/22 so we could go back to previous monitoring frequency of once monthly given that she has been off clozapine for <30 days but for now will get weekly ANC/WBC. MNPR for psychiatric symptoms of psychosis, paranoid ideation (1) Schizophrenia, paranoid, chronic with acute exacerbation: 10/19/21: Increase clozapine to 25 mg BID. Next WBC/ANC on 10/24/21 10/18/21: Continue clozapine 12.5 mg BID. Senna/colace prn added. Increased benadryl 25mg BID prn for her allergies (will d/c as clozapine titration continues). Weekly WBC/ANC for now but could go back to monthly monitoring after discharge as it has been <30 days off clozapine. Her refusal to return to any type of supported housing and her inability to function safely in a less supportive setting remains the biggest barrier to discharge. 10/17/21: EKG, ANC, WBC, repeat height/weight/BMI ordered for consideration of starting clozapine. Her refusal to return to her pre-admission housing remains significant barrier to safe discharge especially in setting of ongoing delusions and paranoia. 10/16/21: continue current medications. Continue to reality-test delusions. Discussed with social work and nursing goal of having her supports from her hous ing come for facilitated meeting to test delusions and paranoia about her housing. 10/15/21: continue current medications. Reviewed chart for substance use history. She is declining any titration of abilify. Agrees to discuss housing options with me tomorrow. 10/14/21: reviewed interim progress from Dr. Valladares's notes. She is back on abilify but remains irritable about her length of stay and remains focused on not wanting to return to her previous housing. Will attempt to further titrate abilify tomorrow if she agrees, she declined today. 10/13/21: patient will not engage in any discussion around Abilify titration today as refusing to stay here, not yet attempting to elope or act out aggressively but Zyprexa 10 mg IM ordered in case of acute agitation. 10/11/21: re=reviewed fasting metabolic labs from earlier in the month. Agreed to increase Abilify 10 mg daily. 10/10/21: unclear if ever had trued EPS for Haldol or just manipulating med regimen, tolerating Abilify this am. Refusing JAQUEZ. 10/09/21: d/c Haldol (patient refusing), there is no acute agitation or threatening behavior or medical decompensation that would support meds over objection/injectable at this time given that she is willing to take Abilify 5 mg daily PO. 10/08/21: more breakthrough during med changes with Haldol not yet therapeutic. Increase Haldol to 5 mg po qam and 10 mg po qhs starting tonight as no evidence of worsening EPS. Needs meeting with [facility] and CM. 10/07/21: will titrate Haldol to 5 mg BId tomorrow. 10/06/21: Discontinuing abilify. Increasing haldol to 2.5 mg qAM and 5 mg qHS. 10/05/21: Continue cross-taper will reduce abilify from 10 mg to 5 mg tomorrow. Increase haldol from 2.5 mg qd to 2.5 mg BID. 10/04/21: Need to cross-taper from abilify to haldol due to high cost of abilify JAQUEZ. She consents to starting haldol. Tomorrow will reduce abilify from 15 mg to 10mg qd and start haldol 2.5 mg qd. 10/03/21: Continue with abilify 15 mg po qd. Spoke with her outpt psychiatrist Dr. 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 Otherwise will need to consider haldol JAQUEZ vs Invega JAQUEZ. 10/02/21: She consents to increase of abilify to 15 mg tomorrow morning and discontinuation of zyprexa tonight. Benadryl 50 mg qhs prn for allergy symptoms. Continues to have delusions. Will attempt to start prior authorization process for Abilify Maintena if she continues to tolerate abilify po well. 10/01/21: She consents to ongoing cross-taper will decrease zyprexa from 10mg to 5mg qhs and increasing abilify from 5mg to 10 mg tomorrow morning. Remains very paranoid and suspicious of others so will continue MNPR. 09/30/21: Abilify 5 mg qd today. Tomorrow will decrease zyprexa from 10mg to 5 mg qhs and continue with cross-taper with goal of abilify monotherapy and then JAQUEZ if well tolerated. Continues to have limited insight but appropriate so far today, if this persists will consider d/c of MNPR tomorrow. 09/29/21: continue Zyprexa but taper soon in favor of Abilify. Test dose Abilify 2.5 mg today and 5 mg daily tomorrow. Once tolerability assessed, convert to JAQUEZ. Patient lacks insight into need to return to [facility]. Patient is upset following hearing so will be monitored before additional consideration of d/c MNPR. 09/28/21: continue Zyprexa 10 mg po qhs, add Cogentin 0.5 mg BID. No sense to restart Clozaril if won't take consistently. Monitor symptoms and consider Invega trial with hopes she'll ultimately agree to JAQUEZ. 09/27/21: The patient was admitted to the [facility] ([facility] mental health unit) on q15 min checks (behavioral with suicide precautions) for safety. The patient will participate in group, recreational, and milieu therapies and will be offered additional individual and family sessions as clinically appropriate. Risks/benefits/alternatives were reviewed re: antipsychotics for mood and/or psychosis. Discussion included but was not limited to metabolic side effects, risks of TD. There was EPS tremor but no TD at baseline. Fasting glucose and lipid panel ordered for baseline monitoring. She is agreeable to continuing Zyprexa but not Clozaril. Discussed that an JAQUEZ would be preferred and she declines due to limited insight into need for medication. Inventory Assets Strengths: intelligent, has been pleasant in interactions with staff and likes CM Needs: improved compliance, better tolerated antipsychotic. Risk Factors Assessment : Yes Do You Have Access To A Gun?: No Mental Health Diagnoses: Yes Substance Use Disorders: No Previous Attempt: No Previous Psychiatric Hospitalization: Yes Protective Factors Assessment Employed: No Good Rapport with Provider: Yes Interval History Identifying Information TALITA BALL is a 61-year-old F who currently lives at [facility], has a history of schizophrenia and [facility] placement, and was admitted on 09/26/21 23:33 on a 302 involuntary commitment but is actually maintained on a 305 outpatient commitment for delusional behavior. Chief Complaint "I have the right to refuse care, I will do so starting tomorrow, I checked the law, I can leave when I want". Review of Systems Sleep Information Total Hours of Sleep: 6.75 Sleep Comments: pt on q-15 minute checks Meal Information Percent Meal Consumed - Breakfast: 100 Percent Meal Consumed - Lunch: 100 Percent Meal Consumed - Dinner: 100 Nutrition Comment: per meal record Subjective Subjective Patient was seen & assessed and interval progress reviewed with treatment team nursing and social work. Remains isolative and with delusions and paranoia. Tolerating the clozapine well and denies any side effects. Agreeable to plan for ongoing titration. Continues to insist that she has recently purchased a home at [address] in [place] and that they will phone or fax us the house deed "soon". Discussed the importance of taking her synthroid to avoid symptoms of hypothyroidism. Physical Exam Psychiatric Orientation: alert and oriented x 3 Apperance: appropriately dressed and appropriately groomed Eye Contact: + fair eye contact Motor Behavior: no abnormal motor movements Speech: normal rate/rhythm/volume of speech Affect: + constricted affect Mood: + irritable mood; no depressed mood and no anxious mood Thought Process: + circumstantial thought process and + confabulations Thought Content: + preoccupation, + paranoid and + delusions Suicidal Thoughts: denies suicidal thoughts Homicidal Thoughts: denies homicidal thoughts Hallucinations: + auditory hallucinations; no visual hallucinations Cognition: remote memory grossly intact, attention grossly intact and language grossly intact; + recent memory not intact Estimated Intelligence: consistent with education level Insight: + severely impaired insight Judgement: + impaired judgement Vital Signs (Past 24 Hours) Last Vital Signs Temp 36.6 C 10/19/21 06:00 Pulse 86 10/19/21 06:31 Resp 14 10/19/21 06:00 BP 133/76 10/19/21 06:31 Pulse Ox 98 10/05/21 06:59 Results & Data ([facility]) Current Inpatient Medications Current Inpatient Medications: Current Inpatient Medications Acetaminophen (Acetaminophen 325 Mg Tab) 650 mg PO Q4H PRN PRN Reason: Headache or Minor Fever Stop: 10/26/21 23:42 Al Hydrox/Mg Hydrox/Simethicone (Aluminum/Magnesium Susp 30 Ml Udc) 30 ml PO Q4H PRN PRN Reason: GI Upset Stop: 10/26/21 23:42 Artificial Tears (Artificial Tears) 1 drops OP QID EMMA Stop: 10/27/21 08:59 Last Admin: 10/19/21 12:58 Dose: 1 drops Documented by: Bismuth Subsalicylate (Bismuth Subsalicylate Liqd 236 Ml) 15 ml PO PRN PRN PRN Reason: Loose Stool Stop: 10/26/21 23:42 Clozapine (Clozapine 25 Mg Tab) 25 mg PO BID [facility] Stop: 11/18/21 20:59 Diphenhydramine HCl (Diphenhydramine Capsule 25 Mg Cap) 25 mg PO BID PRN PRN Reason: Allergy Symptoms Stop: 11/16/21 16:44 Last Admin: 10/19/21 09:37 Dose: 25 mg Documented by: Docusate Sodium (Docusate Sodium 100 Mg Cap) 100 mg PO BID@0800,2100 [facility] Stop: 10/27/21 08:59 Last Admin: 10/19/21 09:43 Dose: Not Given Documented by: Ibuprofen (Ibuprofen 200 Mg Tab) 400 mg PO Q6H PRN PRN Reason: pain Stop: 11/10/21 11:33 Last Admin: 10/19/21 09:36 Dose: 400 mg Documented by: Levothyroxine Sodium (Levothyroxine Sodium 25 Mcg Tablet) 25 mcg PO DAILY@0800 [facility] Stop: 10/27/21 08:59 Last Admin: 10/19/21 09:34 Dose: 25 mcg Documented by: Magnesium Hydroxide (Magnesium Hydroxide Susp 30 Ml Udc) 30 ml PO DAILY PRN PRN Reason: Constipation Stop: 10/26/21 23:42 Olanzapine (Olanzapine 10 Mg/2.1 Ml Sdv) 10 mg IM Q6 PRN PRN Reason: Agitation Stop: 11/12/21 08:57 Senna/Docusate Sodium (Docusate Sodium/Senna 50/8.6mg Tab) 1 tab PO BID PRN PRN Reason: Constipation Stop: 11/17/21 15:02 Sodium Chloride (Sodium Chloride 0.65% Na Soln 45 Ml ([place])) 1 - 2 sprays NA P RN PRN PRN Reason: Nasal Dryness/Congestion Stop: 10/26/21 23:42 Vitamin D (Cholecalciferol 1,000 Units 25 Mcg Tab) 1,000 units PO DAILY EMMA Stop: 11/08/21 08:59 Last Admin: 10/19/21 09:35 Dose: 1,000 units Documented by: Zinc Acetate/Diphenhydramine (Diphenhydramine 2%/Zinc 0.1% Cream 28gm Tube) 1 appln EXT DAILY PRN PRN Reason: Itching Stop: 11/03/21 14:35 Last Admin: 10/07/21 21:23 Dose: 1 appln Documented by: Mental Health & Subst Abuse Tx Psychiatrist Name of Psychiatrist: Griffin Negron Demolition Worker Name of Demolition Worker: PADMINI Pederson Phone Number for Demolition Worker: [phone] Date of Appointment with Demolition Worker: 09/29/21 Post Discharge Appointments Contact Information Discharge Discharge Address: [address] [address]
[2021-10-20] MEDS: LEVOTHYROXINE SODIUM 25 MCG TABLET PO SCH (07:33)
[2021-10-20] MEDS: DOCUSATE SODIUM 100 MG CAP PO SCH ×2 (07:33→20:34)
[2021-10-20] MEDS: CHOLECALCIFEROL 1,000 UNITS 25 MCG TAB PO SCH (08:11)
[2021-10-20] MEDS: ARTIFICIAL TEARS OP SCH ×4 (08:11→20:35)
[2021-10-20] MEDS: cloZAPine 25 MG TAB PO SCH ×2 (08:11→20:35)
[2021-10-20] MEDS: diphenhydrAMINE Capsule 25 MG CAP PO PRN ×2 (08:11→20:37)
[2021-10-20] MEDS: IBUPROFEN 200 MG TAB PO PRN ×2 (08:12→20:36)
--- NOTE | 2021-10-20 14:35 | Psychiatric Progress Note ---
Date of Service October 20, 2021 Impression / Recommendations Elise Miller is a 61 yo female with acute exacerbation of psychosis for non-compliance with clozapine. She is on an extended outpatient commitment prior to admission following discharge from the [facility]. 305 commitment converted to inpatient. Diagnostically seems most consistent with schizophrenia but I'm unsure what to make of her significant memory lapse in terms of meeting me before and delusions versus confabulations about her family members still being alive when there is evidence that they many years ago. 10/20/21: continuing clozapine titration to target delusions with goal of lessening of symptoms enough that she may agree to return to [facility] where she has been living. Plan: reviewed the side effects for clozapine again and encouraged her to resume synthroid. Last took clozapine on 09/20 or 09/22 so we could go back to previous monitoring frequency of once monthly given that she has been off clozapine for <30 days but for now will get weekly ANC/WBC while in the hospital. MNPR for psychiatric symptoms of psychosis, paranoid ideation (1) Schizophrenia, paranoid, chronic with acute exacerbation: 10/20/21: continue current medications. 10/19/21: Increase clozapine to 25 mg BID. Next WBC/ANC on 10/24/21 10/18/21: Continue clozapine 12.5 mg BID. Senna/colace prn added. Increased benadryl 25mg BID prn for her allergies (will d/c as clozapine titration continues). Weekly WBC/ANC for now but could go back to monthly monitoring after discharge as it has been <30 days off clozapine. Her refusal to return to any type of supported housing and her inability to function safely in a less supportive setting remains the biggest barrier to discharge. 10/17/21: EKG, ANC, WBC, repeat height/weight/BMI ordered for consideration of starting clozapine. Her refusal to return to her pre-admission housing remains significant barrier to safe discharge especially in setting of ongoing delusions and paranoia. 10/16/21: continue current medications. Continue to reality-test delusions. Discussed with social work and nursing goal of having her supports from her housing come for facilitated meeting to test delusions and paranoia about her housing. 10/15/21: continue current medications. Reviewed chart for substance use history. She is declining any titration of abilify. Agrees to discuss housing options with me tomorrow. 10/14/21: reviewed interim progress from Dr. Valladares's notes. She is back on abilify but remains irritable about her length of stay and remains focused on not wanting to return to her previous housing. Will attempt to further titrate abilify tomorrow if she agrees, she declined today. 10/13/21: patient will not engage in any discussion around Abilify titration today as refusing to stay here, not yet attempting to elope or act out aggressively but Zyprexa 10 mg IM ordered in case of acute agitation. 10/11/21: re=reviewed fasting metabolic labs from earlier in the month. Agreed to increase Abilify 10 mg daily. 10/10/21: unclear if ever had trued EPS for Haldol or just manipulating med regimen, tolerating Abilify this am. Refusing JAQUEZ. 10/09/21: d/c Haldol (patient refusing), there is no acute agitation or threatening behavior or medical decompensation that would support meds over objection/injectable at this time given that she is willing to take Abilify 5 mg daily PO. 10/08/21: more breakthrough during med changes with Haldol not yet therapeutic. Increase Haldol to 5 mg po qam and 10 mg po qhs starting tonight as no evidence of worsening EPS. Needs meeting with [facility] and CM. 10/07/21: will titrate Haldol to 5 mg BId tomorrow. 10/06/21: Discontinuing abilify. Increasing haldol to 2.5 mg qAM and 5 mg qHS. 10/05/21: Continue cross-taper will reduce abilify from 10 mg to 5 mg tomorrow. Increase haldol from 2.5 mg qd to 2.5 mg BID. 10/04/21: Need to cross-taper from abilify to haldol due to high cost of abilify JAQUEZ. She consents to starting haldol. Tomorrow will reduce abilify from 15 mg to 10mg qd and start haldol 2.5 mg qd. 10/03/21: Continue with abilify 15 mg po qd. Spoke with her outpt psychiatrist Dr. 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 Otherwise will need to consider haldol JAQUEZ vs Invega JAQUEZ. 10/02/21: She consents to increase of abilify to 15 mg tomorrow morning and discontinuation of zyprexa tonight. Benadryl 50 mg qhs prn for allergy symptoms. Continues to have delusions. Will attempt to start prior authorization process for Abilify Maintena if she continues to tolerate abilify po well. 10/01/21: She consents to ongoing cross-taper will decrease zyprexa from 10mg to 5mg qhs and increasing abilify from 5mg to 10 mg tomorrow morning. Remains very paranoid and suspicious of others so will continue MNPR. 09/30/21: Abilify 5 mg qd today. Tomorrow will decrease zyprexa from 10mg to 5 mg qhs and continue with cross-taper with goal of abilify monotherapy and then JAQUEZ if well tolerated. Continues to have limited insight but appropriate so far today, if this persists will consider d/c of MNPR tomorrow. 09/29/21: continue Zyprexa but taper soon in favor of Abilify. Test dose Abilify 2.5 mg today and 5 mg daily tomorrow. Once tolerability assessed, convert to JAQUEZ. Patient lacks insight into need to return to [facility]. Patient is upset following hearing so will be monitored before additional consideration of d/c MNPR. 09/28/21: continue Zyprexa 10 mg po qhs, add Cogentin 0.5 mg BID. No sense to restart Clozaril if won't take consistently. Monitor symptoms and consider Invega trial with hopes she'll ultimately agree to JAQUEZ. 09/27/21: The patient was admitted to the [facility] ([facility] inpatient mental health unit) on q15 min checks (behavioral with suicide precautions) for safety. The patient will participate in group, recreational, and milieu therapies and will be offered additional individual and family sessions as clinically appropriate. Risks/benefits/alternatives were reviewed re: antipsychotics for mood and/or psychosis. Discussion included but was not limited to metabolic side effects, risks of TD. There was EPS tremor but no TD at baseline. Fasting glucose and lipid panel ordered for baseline monitoring. She is agreeable to continuing Zyprexa but not Clozaril. Discussed that an JAQUEZ would be preferred and she declines due to limited insight into need for medication. Inventory Assets Strengths: intelligent, has been pleasant in interactions with staff and likes CM Needs: improved compliance, better tolerated antipsychotic. Risk Factors Assessment : Yes Do You Have Access To A Gun?: No Mental Health Diagnoses: Yes Substance Use Disorders: No Previous Attempt: No Previous Psychiatric Hospitalization: Yes Protective Factors Assessment Employed: No Good Rapport with Provider: Yes Interval History Identifying Information TALITA BALL is a 61-year-old F who currently lives at [facility], has a [facility] of [facility] and [facility], and was admitted on 09/26/21 23:33 on a 302 involuntary commitment but is actually maintained on a 305 outpatient commitment for delusional behavior. Chief Complaint "I'm fine". Review of Systems Sleep Information Total Hours of Sleep: 8.25 Sleep Comments: pt on q-15 minute checks Meal Information Percent Meal Consumed - Breakfast: 100 Percent Meal Consumed - Lunch: 100 Percent Meal Consumed - Dinner: 100 Nutrition Comment: per meal record Subjective Subjective Patient was seen & assessed and interval progress reviewed with treatment team nursing and social work. Attended no groups last night. This morning refused her synthroid and told staff a state tropper would be picking her up today. Did take her clozapine. Was observed by staff talking to herself, likely in response to AH. This afternoon tells me her mood is "fine". Doesn't wish to engage for long but feels the clozapine is working well. Denies any side effects except some mouth dryness for which she has been drinking more water. No issues with constipation. Discussed football games this weekend briefly. Physical Exam Psychiatric Orientation: alert and oriented x 3 Apperance: appropriately dressed and appropriately groomed Eye Contact: + fair eye contact Motor Behavior: no abnormal motor movements Speech: normal rate/rhythm/volume of speech Affect: + constricted affect Mood: no depressed mood and no anxious mood Thought Process: + circumstantial thought process and + confabulations Thought Content: + preoccupation, + paranoid and + delusions Suicidal Thoughts: denies suicidal thoughts Homicidal Thoughts: denies homicidal thoughts Hallucinations: + auditory hallucinations; no visual hallucinations Cognition: remote memory grossly intact, attention grossly intact and language grossly intact; + recent memory not intact Estimated Intelligence: consistent with education level Insight: + impaired insight Judgement: + impaired judgement Vital Signs (Past 24 Hours) Last Vital Signs Temp 36.7 C 10/20/21 06:00 Pulse 108 H 10/20/21 06:36 Resp 16 10/20/21 06:00 BP 169/94 H 10/20/21 06:36 Pulse Ox 98 10/05/21 06:59 Results & Data ([facility]) Current Inpatient Medications Current Inpatient Medications: Current Inpatient Medications Acetaminophen (Acetaminophen 325 Mg Tab) 650 mg PO Q4H PRN PRN Reason: Headache or Minor Fever Stop: 10/26/21 23:42 Al Hydrox/Mg Hydrox/Simethicone (Aluminum/Magnesium Susp 30 Ml Udc) 30 ml PO Q4H PRN PRN Reason: GI Upset Stop: 10/26/21 23:42 Artificial Tears (Artificial Tears) 1 drops OP QID EMMA Stop: 10/27/21 08:59 Last Admin: 10/20/21 12:11 Dose: 1 drops Documented by: Bismuth Subsalicylate (Bismuth Subsalicylate Liqd 236 Ml) 15 ml PO PRN PRN PRN Reason: Loose Stool Stop: 10/26/21 23:42 Clozapine (Clozapine 25 Mg Tab) 25 mg PO BID EMMA Stop: 11/18/21 20:59 Last Admin: 10/20/21 08:11 Dose: 25 mg Documented by: Diphenhydramine HCl (Diphenhydramine Capsule 25 Mg Cap) 25 mg PO BID PRN PRN Reason: Allergy Symptoms Stop: 11/16/21 16:44 Last Admin: 10/20/21 08:11 Dose: 25 mg Documented by: Docusate Sodium (Docusate Sodium 100 Mg Cap) 100 mg PO BID@0800,2100 [facility] Stop: 10/27/21 08:59 Last Admin: 10/20/21 07:33 Dose: Not Given Documented by: Ibuprofen (Ibuprofen 200 Mg Tab) 400 mg PO Q6H PRN PRN Reason: pain Stop: 11/10/21 11:33 Last Admin: 10/20/21 08:12 Dose: 400 mg Documented by: Levothyroxine Sodium (Levothyroxine Sodium 25 Mcg Tablet) 25 mcg PO DAILY@0800 [facility] Stop: 10/27/21 08:59 Last Admin: 10/20/21 07:33 Dose: Not Given Documented by: Magnesium Hydroxide (Magnesium Hydroxide Susp 30 Ml Udc) 30 ml PO DAILY PRN PRN Reason: Constipation Stop: 10/26/21 23:42 Olanzapine (Olanzapine 10 Mg/2.1 Ml Sdv) 10 mg IM Q6 PRN PRN Reason: Agitation Stop: 11/12/21 08:57 Senna/Docusate Sodium (Docusate Sodium/Senna 50/8.6mg Tab) 1 tab PO BID PRN PRN Reason: Constipation Stop: 11/17/21 15:02 Sodium Chloride (Sodium Chloride 0.65% Na Soln 45 Ml ([place])) 1 - 2 sprays NA PRN PRN PRN Reason: Nasal Dryness/Congestion Stop: 10/26/21 23:42 Vitamin D (Cholecalciferol 1,000 Units 25 Mcg Tab) 1,000 units PO DAILY EMMA Stop: 11/08/21 08:59 Last Admin: 10/20/21 08:11 Dose: 1,000 units Documented by: Zinc Acetate/Diphenhydramine (Diphenhydramine 2%/Zinc 0.1% Cream 28gm Tube) 1 appln EXT DAILY PRN PRN Reason: Itching Stop: 11/03/21 14:35 Last Admin: 10/07/21 21:23 Dose: 1 appln Documented by: Mental Health & Subst Abuse Tx Psychiatrist Name of Psychiatrist: Griffin Negron Computer Tape Librarian Name of Computer Tape Librarian: PADMINI Pederson Phone Number for Computer Tape Librarian: [phone] Date of Appointment with Computer Tape Librarian: 09/29/21 Post Discharge Appointments Contact Information Discharge Discharge Address: [address] [address]
[2021-10-21] MEDS: LEVOTHYROXINE SODIUM 25 MCG TABLET PO SCH (07:44)
[2021-10-21] MEDS: IBUPROFEN 200 MG TAB PO PRN ×2 (07:44→21:00)
[2021-10-21] MEDS: diphenhydrAMINE Capsule 25 MG CAP PO PRN ×2 (07:44→21:00)
[2021-10-21] MEDS: DOCUSATE SODIUM 100 MG CAP PO SCH ×2 (07:47→20:57)
[2021-10-21] MEDS ORDERED: DOCUSATE CALCIUM 240 MG CAPSULE PO SCH (09:00)
[2021-10-21] MEDS: cloZAPine 25 MG TAB PO SCH ×2 (09:06→20:57)
[2021-10-21] MEDS: CHOLECALCIFEROL 1,000 UNITS 25 MCG TAB PO SCH (09:06)
[2021-10-21] MEDS: ARTIFICIAL TEARS OP SCH ×4 (09:08→20:58)
--- NOTE | 2021-10-21 14:09 | Psychiatric Progress Note ---
Date of Service October 21, 2021 Impression / Recommendations Elise Miller is a 61 yo female with acute exacerbation of psychosis for non-compliance with clozapine. She is on an extended outpatient commitment prior to admission following discharge from the [facility] hospital. 305 commitment converted to inpatient. Diagnostically seems most consistent with schizophrenia but I'm unsure what to make of her significant memory lapse in terms of meeting me before and delusions versus confabulations about her family members still being alive when there is evidence that they many years ago. 10/21/21: continuing clozapine titration to target delusions with goal of lessening of symptoms enough that she may agree to return to [facility] where she has been living. Plan: continue with clozapine titration. Last took clozapine on 09/20 or 09/22 so we could go back to previous monitoring frequency of once monthly given that she has been off clozapine for <30 days but for now will get weekly ANC/WBC while in the hospital. MNPR for psychiatric symptoms of psychosis, paranoid ideation (1) Schizophrenia, paranoid, chronic with acute exacerbation: 10/21/21: increase clozapine to 50mg BID starting tomorrow. 10/20/21: continue current medications. 10/19/21: Increase clozapine to 25 mg BID. Next WBC/ANC on 10/24/21 10/18/21: Continue clozapine 12.5 mg BID. Senna/colace prn added. Increased benadryl 25mg BID prn for her allergies (will d/c as clozapine titration continues). Weekly WBC/ANC for now but could go back to monthly monitoring after discharge as it has been <30 days off clozapine. Her refusal to return to any type of supported housing and her inability to function safely in a less supportive setting remains the biggest barrier to discharge. 10/17/21: EKG, ANC, WBC, repeat height/weight/BMI ordered for consideration of starting clozapine. Her refusal to return to her pre-admission housing remains significant barrier to safe discharge especially in setting of ongoing delusions and paranoia. 10/16/21: continue current medications. Continue to reality-test delusions. Discussed with social work and nursing goal of having her supports from her housing come for facilitated meeting to test delusions and paranoia about her housing. 10/15/21: continue current medications. Reviewed chart for substance use history. She is declining any titration of abilify. Agrees to discuss housing options with me tomorrow. 10/14/21: reviewed interim progress from Dr. Valladares's notes. She is back on abilify but remains irritable about her length of stay and remains focused on not wanting to return to her previous housing. Will attempt to further titrate abilify tomorrow if she agrees, she declined today. 10/13/21: patient will not engage in any discussion around Abilify titration today as refusing to stay here, not yet attempting to elope or act out aggressively but Zyprexa 10 mg IM ordered in case of acute agitation. 10/11/21: re=reviewed fasting metabolic labs from earlier in the month. Agreed to increase Abilify 10 mg daily. 10/10/21: unclear if ever had trued EPS for Haldol or just manipulating med regimen, tolerating Abilify this am. Refusing JAQUEZ. 10/09/21: d/c Haldol (patient refusing), there is no acute agitation or threatening behavior or medical decompensation that would support meds over objection/injectable at this time given that she is willing to take Abilify 5 mg daily PO. 10/08/21: more breakthrough during med changes with Haldol not yet therapeutic. Increase Haldol to 5 mg po qam and 10 mg po qhs starting tonight as no evidence of worsening EPS. Needs meeting with [facility] and CM. 10/07/21: will titrate Haldol to 5 mg BId tomorrow. 10/06/21: Discontinuing abilify. Increasing haldol to 2.5 mg qAM and 5 mg qHS. 10/05/21: Continue cross-taper will reduce abilify from 10 mg to 5 mg tomorrow. Increase haldol from 2.5 mg qd to 2.5 mg BID. 10/04/21: Need to cross-taper from abilify to haldol due to high cost of abilify JAQUEZ. She consents to starting haldol. Tomorrow will reduce abilify from 15 mg to 10mg qd and start haldol 2.5 mg qd. 10/03/21: Continue with abilify 15 mg po qd. Spoke with her outpt psychiatrist Dr. Negron about challenge of JAQUEZ Maintenna possibly being cost prohibitive so have call out to her foster care case manager to see if there may be financial support options for this. Otherwise will need to consider haldol JAQUEZ vs Invega JAQUEZ. 10/02/21: She consents to increase of abilify to 15 mg tomorrow morning and discontinuation of zyprexa tonight. Benadryl 50 mg qhs prn for allergy symptoms. Continues to have delusions. Will attempt to start prior authorization process for Abilify Maintena if she continues to tolerate abilify po well. 10/01/21: She consents to ongoing cross-taper will decrease zyprexa from 10mg to 5mg qhs and increasing abilify from 5mg to 10 mg tomorrow morning. Remains very paranoid and suspicious of others so will continue MNPR. 09/30/21: Abilify 5 mg qd today. Tomorrow will decrease zyprexa from 10mg to 5 mg qhs and continue with cross-taper with goal of abilify monotherapy and then JAQUEZ if well tolerated. Continues to have limited insight but appropriate so far today, if this persists will consider d/c of MNPR tomorrow. 09/29/21: continue Zyprexa but taper soon in favor of Abilify. Test dose Abilify 2.5 mg today and 5 mg daily tomorrow. Once tolerability assessed, convert to JAQUEZ. Patient lacks insight into need to return to [facility]. Patient is upset following hearing so will be monitored before additional consideration of d/c MNPR. 09/28/21: continue Zyprexa 10 mg po qhs, add Cogentin 0.5 mg BID. No sense to restart Clozaril if won't take consistently. Monitor symptoms and consider Invega trial with hopes she'll ultimately agree to JAQUEZ. 09/27/21: The patient was admitted to the [facility] ([facility] inpatient mental health unit) on q15 min checks (behavioral with suicide precautions) for safety. The patient will participate in group, recreational, and milieu therapies and will be offered additional individual and family sessions as clinically appropriate. Risks/benefits/alternatives were reviewed re: antipsychotics for mood and/or psychosis. Discussion included but was not limited to metabolic side effects, risks of TD. There was EPS tremor but no TD at baseline. Fasting glucose and lipid panel ordered for baseline monitoring. She is agreeable to continuing Zyprexa but not Clozaril. Discussed that an JAQUEZ would be preferred and she declines due to limited insight into need for medication. Inventory Assets Strengths: intelligent, has been pleasant in interactions with staff and likes CM Needs: improved compliance, better tolerated antipsychotic. Risk Factors Assessment : Yes Do You Have Access To A Gun?: No Mental Health Diagnoses: Yes Substance Use Disorders: No Previous Attempt: No Previous Psychiatric Hospitalization: Yes Protective Factors Assessment Employed: No Good Rapport with Provider: Yes Interval History Identifying Information TALITA BALL is a 61-year-old F who currently lives at [facility], has a history of schizophrenia and state hospital placement, and was admitted on 09/26/21 23:33 on a 302 involuntary commitment but is actually maintained on a 305 outpatient commitment for delusional behavior. Chief Complaint "I'm happy because I'm listening to my favorite song". Review of Systems Sleep Information Total Hours of Sleep: 6.25 Sleep Comments: pt given gregoryl per rn. pt on q-15 minute checks Meal Information Percent Meal Consumed - Breakfast: 100 Percent Meal Consumed - Lunch: 90 Percent Meal Consumed - Dinner: 100 Nutrition Comment: per meal record Subjective Subjective Patient was seen & assessed and interval progress reviewed with treatment team nursing and social work. Angela was upset with her treatment plan update yesterday and refused to sign it. This morning she initially declined her synthroid but then accepted with encouragement. Taking her clozapine. Denies any side effects from the clozapine except dry mouth for which she finds drinking water alleviates it. She was dancing to a song on the radio this morning and noted it was putting her in a good mood. She's looking forward to watching football. Physical Exam Psychiatric Orientation: alert and oriented x 3 Apperance: appropriately dressed and appropriately groomed Eye Contact: + fair eye contact Motor Behavior: no abnormal motor movements Speech: normal rate/rhythm/volume of speech Affect: + constricted affect Mood: no depressed mood and no anxious mood Thought Process: + circumstantial thought process Thought Content: + paranoid and + delusions Suicidal Thoughts: denies suicidal thoughts Homicidal Thoughts: denies homicidal thoughts Hallucinations: + auditory hallucinations; no visual hallucinations Cognition: remote memory grossly intact, attention grossly intact and language grossly intact; + recent memory not intact Insight: + impaired insight Judgement: + impaired judgement Vital Signs (Past 24 Hours) Last Vital Signs Temp 36.6 C 10/21/21 06:47 Pulse 126 H 10/21/21 06:49 Resp 16 10/21/21 06:47 BP 114/70 10/21/21 06:49 Pulse Ox 98 10/05/21 06:59 Results & Data ([facility]) Current Inpatient Medications Current Inpatient Medications: Current Inpatient Medications Acetaminophen (Acetaminophen 325 Mg Tab) 650 mg PO Q4H PRN PRN Reason: Headache or Minor Fever Stop: 10/26/21 23:42 Al Hydrox/Mg Hydrox/Simethicone (Aluminum/Magnesium Susp 30 Ml Udc) 30 ml PO Q4H PRN PRN Reason: GI Upset Stop: 10/26/21 23:42 Artificial Tears (Artificial Tears) 1 drops OP QID EMMA Stop: 10/27/21 08:59 Last Admin: 10/21/21 12:05 Dose: 1 drops Documented by: Bismuth Subsalicylate (Bismuth Subsalicylate Liqd 236 Ml) 15 ml PO PRN PRN PRN Reason: Loose Stool Stop: 10/26/21 23:42 Clozapine (Clozapine 25 Mg Tab) 25 mg PO BID EMMA Stop: 11/18/21 20:59 Last Admin: 10/21/21 09:06 Dose: 25 mg Documented by: Diphenhydramine HCl (Diphenhydramine Capsule 25 Mg Cap) 25 mg PO BID PRN PRN Reason: Allergy Symptoms Stop: 11/16/21 16:44 Last Admin: 10/21/21 07:44 Dose: 25 mg Documented by: Docusate Sodium (Docusate Sodium 100 Mg Cap) 100 mg PO BID@0800,2100 EMMA Stop: 10/27/21 08:59 Last Admin: 10/21/21 07:47 Dose: Not Given Documented by: Ibuprofen (Ibuprofen 200 Mg Tab) 400 mg PO Q6H PRN PRN Reason: pain Stop: 11/10/21 11:33 Last Admin: 10/21/21 07:44 Dose: 400 mg Documented by: Levothyroxine Sodium (Levothyroxine Sodium 25 Mcg Tablet) 25 mcg PO DAILY@0800 [facility] Stop: 10/27/21 08:59 Last Admin: 10/21/21 07:44 Dose: 25 mcg Documented by: Magnesium Hydroxide (Magnesium Hydroxide Susp 30 Ml Udc) 30 ml PO DAILY PRN PRN Reason: Constipation Stop: 10/26/21 23:42 Olanzapine (Olanzapine 10 Mg/2.1 Ml Sdv) 10 mg IM Q6 PRN PRN Reason: Agitation Stop: 11/12/21 08:57 Senna/Docusate Sodium (Docusate Sodium/Senna 50/8.6mg Tab) 1 tab PO BID PRN PRN Reason: Constipation Stop: 11/17/21 15:02 Sodium Chloride (Sodium Chloride 0.65% Na Soln 45 Ml ([place])) 1 - 2 sprays NA PRN PRN PRN Reason: Nasal Dryness/Congestion Stop: 10/26/21 23:42 Vitamin D (Cholecalciferol 1,000 Units 25 Mcg Tab) 1,000 units PO DAILY EMMA Stop: 11/08/21 08:59 Last Admin: 10/21/21 09:06 Dose: 1,000 units Documented by: Zinc Acetate/Diphenhydramine (Diphenhydramine 2%/Zinc 0.1% Cream 28gm Tube) 1 appln EXT DAILY PRN PRN Reason: Itching Stop: 11/03/21 14:35 Last Admin: 10/07/21 21:23 Dose: 1 appln Documented by: Mental Health & Subst Abuse Tx Psychiatrist Name of Psychiatrist: Griffin Negron Shaft Tender Name of Shaft Tender: PADMINI Pederson Phone Number for Shaft Tender: [phone] Date of Appointment with Shaft Tender: 09/29/21 Post Discharge Appointments Contact Information Discharge Discharge Address: [address] [address]
[2021-10-22] MEDS: cloZAPine 25 MG TAB PO SCH ×2 (08:09→21:45)
[2021-10-22] MEDS: ARTIFICIAL TEARS OP SCH ×4 (08:09→21:45)
[2021-10-22] MEDS: LEVOTHYROXINE SODIUM 25 MCG TABLET PO SCH (08:09)
[2021-10-22] MEDS: CHOLECALCIFEROL 1,000 UNITS 25 MCG TAB PO SCH (08:09)
[2021-10-22] MEDS: IBUPROFEN 200 MG TAB PO PRN ×2 (08:10→21:45)
[2021-10-22] MEDS: DOCUSATE SODIUM 100 MG CAP PO SCH ×2 (08:17→21:45)
--- NOTE | 2021-10-22 10:43 | Psychiatric Progress Note ---
Date of Service October 22, 2021 Impression / Recommendations Elise Miller is a 61 yo female with acute exacerbation of psychosis for non-compliance with clozapine. She is on an extended outpatient commitment prior to admission following discharge from the [facility]. 305 commitment converted to inpatient. Diagnostically seems most consistent with schizophrenia but I'm unsure what to make of her significant memory lapse in terms of meeting me before and delusions versus confabulations about her family members still being alive when there is evidence that they many years ago. 10/22/21: continuing clozapine titration to target delusions with goal of lessening of symptoms enough that she may agree to return to [facility] where she has been living. Tolerating dose increase without side effects. Goal of reducing benadryl as clozapine titration continues, for now she is fixated on needing benadryl for hay fever symptoms and unwilling to stop it. Plan: continue with clozapine titration. Last took clozapine on 09/20 or 09/22 so we could go back to previous monitoring frequency of once monthly given that she has been off clozapine for <30 days but for now will get weekly ANC/WBC while in the hospital. MNPR for psychiatric symptoms of psychosis, paranoid ideation (1) Schizophrenia, paranoid, chronic with acute exacerbation: 10/22/21: continue with clozapine 50mg BID. No side effects so far. Continued goal of reducing delusions to the point that she will agree to return to [facility] and remain adherent with clozapine, so far taking clozapine without any issues. 10/21/21: increase clozapine to 50mg BID starting tomorrow. 10/20/21: continue current medications. 10/19/21: Increase clozapine to 25 mg BID. Next WBC/ANC on 10/24/21 10/18/21: Continue clozapine 12.5 mg BID. Colace prn added. Has benadryl 25mg BID prn for her allergies (will d/c as clozapine titration continues). Weekly WBC/ANC for now but could go back to monthly monitoring after discharge as it has been <30 days off clozapine. Her refusal to return to any type of supported housing and her inability to function safely in a less supportive setting remains the biggest barrier to discharge. 10/17/21: EKG, ANC, WBC, repeat height/weight/BMI ordered for consideration of starting clozapine. Her refusal to return to her pre-admission housing remains significant barrier to safe discharge especially in setting of ongoing delusions and paranoia. Started clozapine 12.5 mg BID as this worked well for her previously and she is now refusing to further titrate abilify or consider any other long acting injectable options for medications which leaves clozapine as the superior oral medication choice and she is willing to take this. 10/16/21: continue current medications. Continue to reality-test delusions. Discussed with social work and nursing goal of having her supports from her housing come for facilitated meeting to test delusions and paranoia about her housing. 10/15/21: continue current medications. Reviewed chart for substance use history. She is declining any titration of abilify. Agrees to discuss housing options with me tomorrow. 10/14/21: reviewed interim progress from Dr. Valladares's notes. She is back on abilify but remains irritable about her length of stay and remains focused on not wanting to return to her previous housing. Will attempt to further titrate abilify tomorrow if she agrees, she declined today. 10/13/21: patient will not engage in any discussion around Abilify titration today as refusing to stay here, not yet attempting to elope or act out aggressively but Zyprexa 10 mg IM ordered in case of acute agitation. 10/11/21: re=reviewed fasting metabolic labs from earlier in the month. Agreed to increase Abilify 10 mg daily. 10/10/21: unclear if ever had trued EPS for Haldol or just manipulating med regimen, tolerating Abilify this am. Refusing JAQUEZ. 10/09/21: d/c Haldol (patient refusing), there is no acute agitation or threatening behavior or medical decompensation that would support meds over objection/injectable at this time given that she is willing to take Abilify 5 mg daily PO. 10/08/21: more breakthrough during med changes with Haldol not yet therapeutic. Increase Haldol to 5 mg po qam and 10 mg po qhs starting tonight as no evidence of worsening EPS. Needs meeting with [facility] and CM. 10/07/21: will titrate Haldol to 5 mg BId tomorrow. 10/06/21: Discontinuing abilify. Increasing haldol to 2.5 mg qAM and 5 mg qHS. 10/05/21: Continue cross-taper will reduce abilify from 10 mg to 5 mg tomorrow. Increase haldol from 2.5 mg qd to 2.5 mg BID. 10/04/21: Need to cross-taper from abilify to haldol due to high cost of abilify JAQUEZ. She consents to starting haldol. Tomorrow will reduce abilify from 15 mg to 10mg qd and start haldol 2.5 mg qd. 10/03/21: Continue with abilify 15 mg po qd. Spoke with her outpt psychiatrist Dr. Negron about challenge of JAQUEZ Maintenna possibly being cost prohibitive so have call out to her major case detective to see if there may be financial support options for this. Otherwise will need to consider haldol JAQUEZ vs Invega JAQUEZ. 10/02/21: She consents to increase of abilify to 15 mg tomorrow morning and discontinuation of zyprexa tonight. Benadryl 50 mg qhs prn for allergy symptoms. Continues to have delusions. Will attempt to start prior authorization process for Abilify Maintena if she continues to tolerate abilify po well. 10/01/21: She consents to ongoing cross-taper will decrease zyprexa from 10mg to 5mg qhs and increasing abilify from 5mg to 10 mg tomorrow morning. Remains very paranoid and suspicious of others so will continue MNPR. 09/30/21: Abilify 5 mg qd today. Tomorrow will decrease zyprexa from 10mg to 5 mg qhs and continue with cross-taper with goal of abilify monotherapy and then JAQUEZ if well tolerated. Continues to have limited insight but appropriate so far today, if this persists will consider d/c of MNPR tomorrow. 09/29/21: continue Zyprexa but taper soon in favor of Abilify. Test dose Abilify 2.5 mg today and 5 mg daily tomorrow. Once tolerability assessed, convert to JAQUEZ. Patient lacks insight into need to return to [facility]. Patient is upset following hearing so will be monitored before additional consideration of d/c MNPR. 09/28/21: continue Zyprexa 10 mg po qhs, add Cogentin 0.5 mg BID. No sense to restart Clozaril if won't take consistently. Monitor symptoms and consider Invega trial with hopes she'll ultimately agree to JAQUEZ. 09/27/21: The patient was admitted to the [facility]) on q15 min checks (behavioral with suicide precautions) for safety. The patient will participate in group, recreational, and milieu therapies and will be offered additional individual and family sessions as clinically appropriate. Risks/benefits/alternatives were reviewed re: antipsychotics for mood and/or psychosis. Discussion included but was not limited to metabolic side effects, risks of TD. There was EPS tremor but no TD at baseline. Fasting glucose and lipid panel ordered for baseline monitoring. She is agreeable to continuing Zyprexa but not Clozaril. Discussed that an JAQUEZ would be preferred and she declines due to limited insight into need for medication. Inventory Assets Strengths: intelligent, has been pleasant in interactions with staff and likes CM Needs: improved compliance, better tolerated antipsychotic. Risk Factors Assessment : Yes Do You Have Access To A Gun?: No Mental Health Diagnoses: Yes Substance Use Disorders: No Previous Attempt: No Previous Psychiatric Hospitalization: Yes Protective Factors Assessment Employed: No Good Rapport with Provider: Yes Interval History Identifying Information TALITA BALL is a 61-year-old F who currently lives at [facility], has a history of schizophrenia and state hospital [facility], and was admitted on 09/26/21 23:33 on a 302 involuntary commitment but is actually maintained on a 305 outpatient commitment for delusional behavior. Chief Complaint "I'm working on my menu choices". Review of Systems Sleep Information Total Hours of Sleep: 7.25 Sleep Comments: pt given feliberto per rn. pt on q-15 minute checks Meal Information Percent Meal Consumed - Breakfast: 100 Percent Meal Consumed - Lunch: 90 Percent Meal Consumed - Dinner: 100 Nutrition Comment: per meal record Subjective Subjective Patient was seen & assessed and interval progress reviewed with nursing. She endorses stable mood. Likes the clozapine and feels it is "working well for me", denies any side effects. Slightly HTN today but she denies any symptoms of palpitations, JOLLEY, SOB or vision changes. Remains more isolative in recent days. Plans to watch football today. Asks about leaving and her length of stay and we discuss that no discharge plans can be made until she has housing or agrees to return to [facility] where she lives. She states she is working on "getting my supply aide to fax you the house deed" and agrees with plan to need housing established before she can safely leave. Physical Exam Psychiatric Orientation: alert and oriented x 3 Apperance: appropriately dressed and appropriately groomed Eye Contact: good eye contact Motor Behavior: no abnormal motor movements Speech: normal rate/rhythm/volume of speech Affect: euthymic affect Mood: no depressed mood and no anxious mood Thought Process: + circumstantial thought process and + confabulations Thought Content: + preoccupation, + paranoid and + delusions Suicidal Thoughts: denies suicidal thoughts Homicidal Thoughts: denies homicidal thoughts Hallucinations: + auditory hallucinations; no visual hallucinations Cognition: remote memory grossly intact, attention grossly intact and language grossly intact; + recent memory not intact Estimated Intelligence: consistent with education level Insight: + severely impaired insight Judgement: + impaired judgement Vital Signs (Past 24 Hours) Last Vital Signs Temp 36.6 C 10/22/21 06:37 Pulse 92 H 10/22/21 06:39 Resp 16 10/22/21 06:37 BP 164/94 H 10/22/21 06:39 Pulse Ox 98 10/05/21 06:59 Results & Data ([facility]) Current Inpatient Medications Current Inpatient Medications: Current Inpatient Medications Acetaminophen (Acetaminophen 325 Mg Tab) 650 mg PO Q4H PRN PRN Reason: Headache or Minor Fever Stop: 10/26/21 23:42 Al Hydrox/Mg Hydrox/Simethicone (Aluminum/Magnesium Susp 30 Ml Udc) 30 ml PO Q4H PRN PRN Reason: GI Upset Stop: 10/26/21 23:42 Artificial Tears (Artificial Tears) 1 drops OP QID [facility] Stop: 10/27/21 08:59 Last Admin: 10/22/21 08:09 Dose: 1 drops Documented by: Bismuth Subsalicylate (Bismuth Subsalicylate Liqd 236 Ml) 15 ml PO PRN PRN PRN Reason: Loose Stool Stop: 10/26/21 23:42 Clozapine (Clozapine 25 Mg Tab) 50 mg PO BID [facility] Stop: 11/21/21 08:59 Last Admin: 10/22/21 08:09 Dose: 50 mg Documented by: Diphenhydramine HCl (Diphenhydramine Capsule 25 Mg Cap) 25 mg PO BID PRN PRN Reason: Allergy Symptoms Stop: 11/16/21 16:44 Last Admin: 10/21/21 21:00 Dose: 25 mg Documented by: Docusate Sodium (Docusate Sodium 100 Mg Cap) 100 mg PO BID@0800,2100 [facility] Stop: 10/27/21 08:59 Last Admin: 10/22/21 08:17 Dose: Not Given Documented by: Ibuprofen (Ibuprofen 200 Mg Tab) 400 mg PO Q6H PRN PRN Reason: pain Stop: 11/10/21 11:33 Last Admin: 10/22/21 08:10 Dose: 400 mg Documented by: Levothyroxine Sodium (Levothyroxine Sodium 25 Mcg Tablet) 25 mcg PO DAILY@0800 [facility] Stop: 10/27/21 08:59 Last Admin: 10/22/21 08:09 Dose: 25 mcg Documented by: Magnesium Hydroxide (Magnesium Hydroxide Susp 30 Ml Udc) 30 ml PO DAILY PRN PRN Reason: Constipation Stop: 10/26/21 23:42 Olanzapine (Olanzapine 10 Mg/2.1 Ml Sdv) 10 mg IM Q6 PRN PRN Reason: Agitation Stop: 11/12/21 08:57 Senna/Docusate Sodium (Docusate Sodium/Senna 50/8.6mg Tab) 1 tab PO BID PRN PRN Reason: Constipation Stop: 11/17/21 15:02 Sodium Chloride (Sodium Chloride 0.65% Na Soln 45 Ml ([place])) 1 - 2 sprays NA PRN PRN PRN Reason: Nasal Dryness/Congestion Stop: 10/26/21 23:42 Vitamin D (Cholecalciferol 1,000 Units 25 Mcg Tab) 1,000 units PO DAILY [facility] Stop: 11/08/21 08:59 Last Admin: 10/22/21 08:09 Dose: 1,000 units Documented by: Zinc Acetate/Diphenhydramine (Diphenhydramine 2%/Zinc 0.1% Cream 28gm Tube) 1 appln EXT DAILY PRN PRN Reason: Itching Stop: 11/03/21 14:35 Last Admin: 10/07/21 21:23 Dose: 1 appln Documented by: Mental Health & Subst Abuse Tx Psychiatrist Name of Psychiatrist: Griffin Negron Shuttlecock Assembler Name of Shuttlecock Assembler: PADMINI Pederson Phone Number for Shuttlecock Assembler: [phone] Date of Appointment with Shuttlecock Assembler: 09/29/21 Post Discharge Appointments Contact Information Discharge Discharge Address: [facility] [place] [address]
[2021-10-22] MEDS: diphenhydrAMINE Capsule 25 MG CAP PO PRN (21:45)
[2021-10-23] MEDS: CHOLECALCIFEROL 1,000 UNITS 25 MCG TAB PO SCH (08:12)
[2021-10-23] MEDS: DOCUSATE SODIUM 100 MG CAP PO SCH ×2 (08:12→20:25)
[2021-10-23] MEDS: diphenhydrAMINE Capsule 25 MG CAP PO PRN ×2 (08:12→20:25)
[2021-10-23] MEDS: LEVOTHYROXINE SODIUM 25 MCG TABLET PO SCH (08:13)
[2021-10-23] MEDS: cloZAPine 25 MG TAB PO SCH ×2 (08:13→20:25)
[2021-10-23] MEDS: ARTIFICIAL TEARS OP SCH ×4 (08:13→20:25)
[2021-10-23] MEDS: IBUPROFEN 200 MG TAB PO PRN ×2 (08:18→20:25)
--- NOTE | 2021-10-23 12:31 | Psychiatric Progress Note ---
Date of Service October 23, 2021 Impression / Recommendations Elise Miller is a 61 yo female with acute exacerbation of psychosis for non-compliance with clozapine. She is on an extended outpatient commitment prior to admission following discharge from the [facility]. 305 commitment converted to inpatient. Diagnostically seems most consistent with schizophrenia but I'm unsure what to make of her significant memory lapse in terms of meeting me before and delusions versus confabulations about her family members still being alive when there is evidence that they many years ago. MNPR for psychiatric symptoms of psychosis, paranoid ideation 10/23/21: restarted Clozaril within past 48 hrs. Plan: tolerating, minimal sedation this am, consider titration tomorrow as patient has history of refusing medication if titrated too quickly. Inventory Assets Strengths: intelligent, has been pleasant in interactions with staff and likes CM Needs: improved compliance, better tolerated antipsychotic. Risk Factors Assessment : Yes Do You Have Access To A Gun?: No Mental Health Diagnoses: Yes Substance Use Disorders: No Previous Attempt: No Previous Psychiatric Hospitalization: Yes Protective Factors Assessment Employed: No Good Rapport with Provider: Yes Interval History Identifying Information TALITA BALL is a 61-year-old F who currently lives at [facility], has a history of schizophrenia and [facility] hospital placement, and was admitted on 09/26/21 23:33 on a 302 involuntary commitment but is actually maintained on a 305 outpatient commitment for delusional behavior. Chief Complaint "[]". Review of Systems Sleep Information Total Hours of Sleep: 6 Sleep Comments: pt given feliberto per rn. pt on q-15 minute checks Meal Information Percent Meal Consumed - Breakfast: 100 Percent Meal Consumed - Lunch: 100 Percent Meal Consumed - Dinner: 100 Nutrition Comment: per meal record Subjective Subjective Patient was seen & assessed and interval progress reviewed with [treatment team] [nursing and social work] Physical Exam Psychiatric Orientation: alert and oriented x 3 Apperance: appropriately dressed and appropriately groomed Eye Contact: good eye contact Motor Behavior: no abnormal motor movements Speech: normal rate/rhythm/volume of speech Affect: + depressed affect Mood: + irritable mood Thought Process: + perseveration Thought Content: + paranoid and + delusions Suicidal Thoughts: denies suicidal thoughts Homicidal Thoughts: denies homicidal thoughts Hallucinations: no auditory hallucinations and no visual hallucinations Cognition: attention grossly intact and language grossly intact Estimated Intelligence: consistent with education level Insight: + poor insight Judgement: + poor judgement Vital Signs (Past 24 Hours) Last Vital Signs Temp 36.8 C 10/23/21 06:45 Pulse 105 H 10/23/21 06:46 Resp 16 10/23/21 06:45 BP 131/81 10/23/21 06:46 Pulse Ox 98 10/05/21 06:59 Results & Data ([facility]) Current Inpatient Medications Current Inpatient Medications: Current Inpatient Medications Acetaminophen (Acetaminophen 325 Mg Tab) 650 mg PO Q4H PRN PRN Reason: Headache or Minor Fever Stop: 10/26/21 23:42 Al Hydrox/Mg Hydrox/Simethicone (Aluminum/Magnesium Susp 30 Ml Udc) 30 ml PO Q4H PRN PRN Reason: GI Upset Stop: 10/26/21 23:42 Artificial Tears (Artificial Tears) 1 drops OP QID EMMA Stop: 10/27/21 08:59 Last Admin: 10/23/21 12:08 Dose: 1 drops Documented by: Bismuth Subsalicylate (Bismuth Subsalicylate Liqd 236 Ml) 15 ml PO PRN PRN PRN Reason: Loose Stool Stop: 10/26/21 23:42 Clozapine (Clozapine 25 Mg Tab) 50 mg PO BID [facility] Stop: 11/21/21 08:59 Last Admin: 10/23/21 08:13 Dose: 50 mg Documented by: Diphenhydramine HCl (Diphenhydramine Capsule 25 Mg Cap) 25 mg PO BID PRN PRN Reason: Allergy Symptoms Stop: 11/16/21 16:44 Last Admin: 10/23/21 08:12 Dose: 25 mg Documented by: Docusate Sodium (Docusate Sodium 100 Mg Cap) 100 mg PO BID@0800,2100 [facility] Stop: 10/27/21 08:59 Last Admin: 10/23/21 08:12 Dose: 100 mg Documented by: Ibuprofen (Ibuprofen 200 Mg Tab) 400 mg PO Q6H PRN PRN Reason: pain Stop: 11/10/21 11:33 Last Admin: 10/23/21 08:18 Dose: 400 mg Documented by: Levothyroxine Sodium (Levothyroxine Sodium 25 Mcg Tablet) 25 mcg PO DAILY@0800 [facility] Stop: 10/27/21 08:59 Last Admin: 10/23/21 08:13 Dose: 25 mcg Documented by: Magnesium Hydroxide (Magnesium Hydroxide Susp 30 Ml Udc) 30 ml PO DAILY PRN PRN Reason: Constipation Stop: 10/26/21 23:42 Olanzapine (Olanzapine 10 Mg/2.1 Ml Sdv) 10 mg IM Q6 PRN PRN Reason: Agitation Stop: 11/12/21 08:57 Senna/Docusate Sodium (Docusate Sodium/Senna 50/8.6mg Tab) 1 tab PO BID PRN PRN Reason: Constipation Stop: 11/17/21 15:02 Sodium Chloride (Sodium Chloride 0.65% Na Soln 45 Ml ([place])) 1 - 2 sprays NA PRN PRN PRN Reason: Nasal Dryness/Congestion Stop: 10/26/21 23:42 Vitamin D (Cholecalciferol 1,000 Units 25 Mcg Tab) 1,000 units PO DAILY [facility] Stop: 11/08/21 08:59 Last Admin: 10/23/21 08:12 Dose: 1,000 units Documented by: Zinc Acetate/Diphenhydramine (Diphenhydramine 2%/Zinc 0.1% Cream 28gm Tube) 1 appln EXT DAILY PRN PRN Reason: Itching Stop: 11/03/21 14:35 Last Admin: 10/23/21 08:19 Dose: 1 appln Documented by: Mental Health & Subst Abuse Tx Psychiatrist Name of Psychiatrist: Griffin Negron Senior Sales Operations Manager Name of Senior Sales Operations Manager: PADMINI Pederson Phone Number for Senior Sales Operations Manager: [phone] Date of Appointment with Senior Sales Operations Manager: 09/29/21 Post Discharge Appointments Contact Information Discharge Discharge Address: [address] [address]
[2021-10-24] MEDS: ARTIFICIAL TEARS OP SCH ×4 (08:28→21:02)
[2021-10-24] MEDS: DOCUSATE SODIUM 100 MG CAP PO SCH ×2 (08:29→21:00)
[2021-10-24] MEDS: LEVOTHYROXINE SODIUM 25 MCG TABLET PO SCH (08:29)
[2021-10-24] MEDS: CHOLECALCIFEROL 1,000 UNITS 25 MCG TAB PO SCH (08:29)
[2021-10-24] MEDS: cloZAPine 25 MG TAB PO SCH (08:29)
[2021-10-24] MEDS: diphenhydrAMINE Capsule 25 MG CAP PO PRN ×2 (08:33→21:01)
[2021-10-24] MEDS: IBUPROFEN 200 MG TAB PO PRN ×2 (08:33→21:00)
--- NOTE | 2021-10-24 10:52 | Psychiatric Progress Note ---
Date of Service October 24, 2021 Impression / Recommendations Elise Miller is a 61 yo female with acute exacerbation of psychosis for non-compliance with clozapine. She is on an extended outpatient commitment prior to admission following discharge from the [facility]. 305 commitment converted to inpatient. Diagnostically seems most consistent with schizophrenia but I'm unsure what to make of her significant memory lapse in terms of meeting me before and delusions versus confabulations about her family members still being alive when there is evidence that they many years ago. MNPR for psychiatric symptoms of psychosis, paranoid ideation 10/24/21: irritable due to delusions, tolerating clozaril retrial (1) Schizophrenia, paranoid, chronic with acute exacerbation: 10/24/21: titrate hs dose clozapine to 100 mg hs. Patient agreed 10/23/21. 10/22/21: continue with clozapine 50mg BID. No side effects so far. Continued goal of reducing delusions to the point that she will agree to return to [facility] and remain adherent with clozapine, so far taking clozapine without any issues. 10/21/21: increase clozapine to 50mg BID starting tomorrow. 10/20/21: continue current medications. 10/19/21: Increase clozapine to 25 mg BID. Next WBC/ANC on 10/24/21 10/18/21: Continue clozapine 12.5 mg BID. Colace prn added. Has benadryl 25mg BID prn for her allergies (will d/c as clozapine titration continues). Weekly WBC/ANC for now but could go back to monthly monitoring after discharge as it has been <30 days off clozapine. Her refusal to return to any type of supported housing and her inability to function safely in a less supportive setting remains the biggest barrier to discharge. 10/17/21: EKG, ANC, WBC, repeat height/weight/BMI ordered for consideration of starting clozapine. Her refusal to return to her pre-admission housing remains significant barrier to safe discharge especially in setting of ongoing delusions and paranoia. Started clozapine 12.5 mg BID as this worked well for her previously and she is now refusing to further titrate abilify or consider any other long acting injectable options for medications which leaves clozapine as the superior oral medication choice and she is willing to take this. 10/16/21: continue current medications. Continue to reality-test delusions. Discussed with social work and nursing goal of having her supports from her housing come for facilitated meeting to test delusions and paranoia about her housing. 10/15/21: continue current medications. Reviewed chart for substance use history. She is declining any titration of abilify. Agrees to discuss housing options with me tomorrow. 10/14/21: reviewed interim progress from Dr. Valladares's notes. She is back on abilify but remains irritable about her length of stay and remains focused on not wanting to return to her previous housing. Will attempt to further titrate abilify tomorrow if she agrees, she declined today. 10/13/21: patient will not engage in any discussion around Abilify titration today as refusing to stay here, not yet attempting to elope or act out aggressively but Zyprexa 10 mg IM ordered in case of acute agitation. 10/11/21: re=reviewed fasting metabolic labs from earlier in the month. Agreed to increase Abilify 10 mg daily. 10/10/21: unclear if ever had trued EPS for Haldol or just manipulating med regimen, tolerating Abilify this am. Refusing JAQUEZ. 10/09/21: d/c Haldol (patient refusing), there is no acute agitation or threatening behavior or medical decompensation that would support meds over objection/injectable at this time given that she is willing to take Abilify 5 mg daily PO. 10/08/21: more breakthrough during med changes with Haldol not yet therapeutic. Increase Haldol to 5 mg po qam and 10 mg po qhs starting tonight as no evidence of worsening EPS. Needs meeting with [facility] and CM. 10/07/21: will titrate Haldol to 5 mg BId tomorrow. 10/06/21: Discontinuing abilify. Increasing haldol to 2.5 mg qAM and 5 mg qHS. 10/05/21: Continue cross-taper will reduce abilify from 10 mg to 5 mg tomorrow. Increase haldol from 2.5 mg qd to 2.5 mg BID. 10/04/21: Need to cross-taper from abilify to haldol due to high cost of abilify JAQUEZ. She consents to starting haldol. Tomorrow will reduce abilify from 15 mg to 10mg qd and start haldol 2.5 mg qd. 10/03/21: Continue with abilify 15 mg po qd. Spoke with her outpt psychiatrist Dr. Negron about challenge of JAQUEZ Maintenna possibly being cost prohibitive so have call out to her shoe caser to see if there may be financial support options for this. Otherwise will need to consider haldol JAQUEZ vs Invega JAQUEZ. 10/02/21: She consents to increase of abilify to 15 mg tomorrow morning and discontinuation of zyprexa tonight. Benadryl 50 mg qhs prn for allergy symptoms. Continues to have delusions. Will attempt to start prior authorization process for Abilify Maintena if she continues to tolerate abilify po well. 10/01/21: She consents to ongoing cross-taper will decrease zyprexa from 10mg to 5mg qhs and increasing abilify from 5mg to 10 mg tomorrow morning. Remains very paranoid and suspicious of others so will continue MNPR. 09/30/21: Abilify 5 mg qd today. Tomorrow will decrease zyprexa from 10mg to 5 mg qhs and continue with cross-taper with goal of abilify monotherapy and then JAQUEZ if well tolerated. Continues to have limited insight but appropriate so far today, if this persists will consider d/c of MNPR tomorrow. 09/29/21: continue Zyprexa but taper soon in favor of Abilify. Test dose Abilify 2.5 mg today and 5 mg daily tomorrow. Once tolerability assessed, convert to JAQUEZ. Patient lacks insight into need to return to [facility]. Patient is upset following hearing so will be monitored before additional consideration of d/c MNPR. 09/28/21: continue Zyprexa 10 mg po qhs, add Cogentin 0.5 mg BID. No sense to restart Clozaril if won't take consistently. Monitor symptoms and consider Invega trial with hopes she'll ultimately agree to JAQUEZ. 09/27/21: The patient was admitted to the [facility] ([facility] mental health unit) on q15 min checks (behavioral with suicide precautions) for safety. The patient will participate in group, recreational, and milieu therapies and will be offered additional individual and family sessions as clinically appropriate. Risks/benefits/alternatives were reviewed re: antipsychotics for mood and/or psychosis. Discussion included but was not limited to metabolic side effects, risks of TD. There was EPS tremor but no TD at baseline. Fasting glucose and lipid panel ordered for baseline monitoring. She is agreeable to continuing Zyprexa but not Clozaril. Discussed that an JAQUEZ would be preferred and she declines due to limited insight into need for medication. Inventory Assets Strengths: intelligent, has been pleasant in interactions with staff and likes CM Needs: improved compliance, better tolerated antipsychotic. Risk Factors Assessment : Yes Do You Have Access To A Gun?: No Mental Health Diagnoses: Yes Substance Use Disorders: No Previous Attempt: No Previous Psychiatric Hospitalization: Yes Protective Factors Assessment Employed: No Good Rapport with Provider: Yes Interval History Identifying Information TALITA BALL is a 61-year-old F who currently lives at [facility], has a history of schizophrenia and state hospital placement, and was admitted on 23:33 on a 302 involuntary commitment but is actually maintained on a 305 outpatient commitment for delusional behavior. Chief Complaint "I'm leaving, I'm entitled to my things, my civil attorney is getting me out of here". Review of Systems Sleep Information Total Hours of Sleep: 8.25 Sleep Comments: pt given feliberto per rn. pt on q-15 minute checks Meal Information Percent Meal Consumed - Breakfast: 100 Percent Meal Consumed - Lunch: 100 Percent Meal Consumed - Dinner: 100 Nutrition Comment: per meal record Subjective Subjective Patient was seen & assessed and interval progress reviewed with nursing and social work. Patient remains irritable with staff due to delusions and length of stay. She did take medications as prescribed. She is essentially unwilling to discuss anything but her immediate discharge. Physical Exam Psychiatric Orientation: alert and oriented x 3 Apperance: appropriately dressed and appropriately groomed Eye Contact: + poor eye contact (scowling) Motor Behavior: no abnormal motor movements (but restless at times when discussing discharge) Speech: normal rate/rhythm/volume of speech Affect: + angry affect Mood: + irritable mood Thought Process: + perseveration Thought Content: + delusions Suicidal Thoughts: denies suicidal thoughts Homicidal Thoughts: denies homicidal thoughts Hallucinations: no auditory hallucinations and no visual hallucinations Cognition: language grossly intact; + attention not intact Estimated Intelligence: consistent with education level Vital Signs (Past 24 Hours) Last Vital Signs Temp 36.8 C 10/24/21 06:33 Pulse 103 H 10/24/21 06:34 Resp 16 10/24/21 06:33 BP 138/90 10/24/21 06:34 Pulse Ox 98 10/05/21 06:59 Results & Data ([facility]) Current Inpatient Medications Current Inpatient Medications: Current Inpatient Medications Acetaminophen (Acetaminophen 325 Mg Tab) 650 mg PO Q4H PRN PRN Reason: Headache or Minor Fever Stop: 10/26/21 23:42 Al Hydrox/Mg Hydrox/Simethicone (Aluminum/Magnesium Susp 30 Ml Udc) 30 ml PO Q4H PRN PRN Reason: GI Upset Stop: 10/26/21 23:42 Artificial Tears (Artificial Tears) 1 drops OP QID EMMA Stop: 10/27/21 08:59 Last Admin: 10/24/21 08:28 Dose: 1 drops Documented by: Bismuth Subsalicylate (Bismuth Subsalicylate Liqd 236 Ml) 15 ml PO PRN PRN PRN Reason: Loose Stool Stop: 10/26/21 23:42 Clozapine (Clozapine 25 Mg Tab) 50 mg PO BID EMMA Stop: 11/21/21 08:59 Last Admin: 10/24/21 08:29 Dose: 50 mg Documented by: Diphenhydramine HCl (Diphenhydramine Capsule 25 Mg Cap) 25 mg PO BID PRN PRN Reason: Allergy Symptoms Stop: 11/16/21 16:44 Last Admin: 10/24/21 08:33 Dose: 25 mg Documented by: Docusate Sodium (Docusate Sodium 100 Mg Cap) 100 mg PO BID@0800,2100 [facility] Stop: 10/27/21 08:59 Last Admin: 10/24/21 08:29 Dose: 100 mg Documented by: Ibuprofen (Ibuprofen 200 Mg Tab) 400 mg PO Q6H PRN PRN Reason: pain Stop: 11/10/21 11:33 Last Admin: 10/24/21 08:33 Dose: 400 mg Documented by: Levothyroxine Sodium (Levothyroxine Sodium 25 Mcg Tablet) 25 mcg PO DAILY@0800 [facility] Stop: 10/27/21 08:59 Last Admin: 10/24/21 08:29 Dose: 25 mcg Documented by: Magnesium Hydroxide (Magnesium Hydroxide Susp 30 Ml Udc) 30 ml PO DAILY PRN PRN Reason: Constipation Stop: 10/26/21 23:42 Olanzapine (Olanzapine 10 Mg/2.1 Ml Sdv) 10 mg IM Q6 PRN PRN Reason: Agitation Stop: 11/12/21 08:57 Senna/Docusate Sodium (Docusate Sodium/Senna 50/8.6mg Tab) 1 tab PO BID PRN PRN Reason: Constipation Stop: 11/17/21 15:02 Sodium Chloride (Sodium Chloride 0.65% Na Soln 45 Ml ([place])) 1 - 2 sprays NA PRN PRN PRN Reason: Nasal Dryness/Congestion Stop: 10/26/21 23:42 Vitamin D (Cholecalciferol 1,000 Units 25 Mcg Tab) 1,000 units PO DAILY EMMA Stop: 11/08/21 08:59 Last Admin: 10/24/21 08:29 Dose: 1,000 units Documented by: Zinc Acetate/Diphenhydramine (Diphenhydramine 2%/Zinc 0.1% Cream 28gm Tube) 1 appln EXT DAILY PRN PRN Reason: Itching Stop: 11/03/21 14:35 Last Admin: 10/23/21 08:19 Dose: 1 appln Documented by: Mental Health & Subst Abuse Tx Psychiatrist Name of Psychiatrist: Griffin Negron Banquet Cook Name of Banquet Cook: PADMINI Pederson Phone Number for Banquet Cook: [phone] Date of Appointment with Banquet Cook: 09/29/21 Post Discharge Appointments Contact Information Discharge Discharge Address: [address] [address]
--- NOTE | 2021-10-24 13:55 | Communication Note ---
Date of Service: October 24, 2021 The patient refused blood draw for WBC for Clozaril. Will reattempt. Nursing coordinate with pharmacy to give hs dose regardless as patient has no hx of clozaril induced neutropenia and the benefits outweigh the risks for this patient.
[2021-10-24 17:55] LABS: Basophils # (auto) 0.03 K/uL (0-0.2); Basophils % (auto) 0.5 %; Hematocrit (blood only) 39.5 % (37-47); Hemoglobin 12.9 g/dL (12.0-16.0); Immature Granulocytes # (auto) 0.01 K/uL (0.00-0.02); Immature Granulocytes % (auto) 0.2 %; Lymphocytes # (auto) 2.85 K/uL (1.2-3.4); Lymphocytes % (auto) 43.1 %; Mean Corpuscular Hemoglobin 30.8 pg (25-34); Mean Corpuscular Hgb Conc 32.7 g/dL (32-36); Mean Corpuscular Volume 94.3 fL (80-100); Mean Platelet Volume 9.2 fL (7.4-10.4); Monocytes # (auto) 0.53 K/uL (0.11-0.59); Neutrophils % (auto) 48.2 %; Platelet Count 277 K/uL (130-400); RDW Coefficient of Variation 14.2 % (11.5-14.5); RDW Standard Deviation 48.8 fL (36.4-46.3); Red Blood Count 4.19 M/uL (4.2-5.4); White Blood Count 6.62 K/uL (4.8-10.8)
[2021-10-24] MEDS: cloZAPine 100 MG TAB PO SCH (21:00)
[2021-10-25] MEDS: cloZAPine 25 MG TAB PO SCH (08:52)
[2021-10-25] MEDS: CHOLECALCIFEROL 1,000 UNITS 25 MCG TAB PO SCH (08:53)
[2021-10-25] MEDS: LEVOTHYROXINE SODIUM 25 MCG TABLET PO SCH (08:53)
[2021-10-25] MEDS: DOCUSATE SODIUM 100 MG CAP PO SCH ×2 (08:53→21:28)
[2021-10-25] MEDS: ARTIFICIAL TEARS OP SCH ×4 (08:54→21:07)
[2021-10-25] MEDS: diphenhydrAMINE Capsule 25 MG CAP PO PRN ×2 (08:59→21:28)
[2021-10-25] MEDS: IBUPROFEN 200 MG TAB PO PRN ×2 (08:59→21:27)
--- NOTE | 2021-10-25 11:19 | Psychiatric Progress Note ---
Date of Service October 25, 2021 Impression / Recommendations Elise Miller is a 61 yo female with acute exacerbation of psychosis for non-compliance with clozapine. She is on an extended outpatient commitment prior to admission following discharge from the [facility]. 305 commitment converted to inpatient. Diagnostically seems most consistent with schizophrenia but I'm unsure what to make of her significant memory lapse in terms of meeting me before and delusions versus confabulations about her family members still being alive when there is evidence that they many years ago. MNPR for psychiatric symptoms of psychosis, paranoid ideation 10/25/21: compliant but resistant due to delusions Plan: Continue current dose of Clozaril with additional titration tomorrow, again targeting hs dose to limit daytime sedation. (1) Schizophrenia, paranoid, chronic with acute exacerbation: Inventory Assets Strengths: intelligent, has been pleasant in interactions with staff and likes CM Needs: improved compliance, better tolerated antipsychotic. Risk Factors Assessment : Yes Do You Have Access To A Gun?: No Mental Health Diagnoses: Yes Substance Use Disorders: No Previous Attempt: No Previous Psychiatric Hospitalization: Yes Protective Factors Assessment Employed: No Good Rapport with Provider: Yes Interval History Identifying Information TALITA BALL is a 61-year-old F who currently lives at [facility], has a history of schizophrenia and [facility] placement, and was admitted on 09/26/21 23:33 on a 302 involuntary commitment but is actually maintained on a 305 outpatient commitment for delusional behavior. Chief Complaint "Dr. Pérez took my deed for the money". Review of Systems Sleep Information Total Hours of Sleep: 6.5 Sleep Comments: pt on q-15 minute checks Meal Information Percent Meal Consumed - Breakfast: 100 Percent Meal Consumed - Lunch: 100 Percent Meal Consumed - Dinner: 100 Nutrition Comment: per meal record Subjective Subjective Patient was seen & assessed and interval progress reviewed with treatment team. Eventually cooperated with CBC last night, states she didn't need it as she's read all the information on "that Clozaril" and "it doesn't do that", explained [facility] program. Compliant with increased dose last night. Physical Exam Psychiatric Orientation: alert and oriented x 3 Apperance: appropriately dressed and appropriately groomed Eye Contact: + fair eye contact Speech: normal rate/rhythm/volume of speech Affect: + constricted affect Mood: + irritable mood Thought Process: + circumstantial thought process, + perseveration and + confabulations Thought Content: + paranoid and + delusions Suicidal Thoughts: denies suicidal thoughts Homicidal Thoughts: denies homicidal thoughts Hallucinations: no auditory hallucinations and no visual hallucinations Insight: + severely impaired insight Judgement: + impaired judgement Vital Signs (Past 24 Hours) Last Vital Signs Temp 36.9 C 10/25/21 06:25 Pulse 99 H 10/25/21 06:26 Resp 16 10/25/21 06:25 BP 138/86 10/25/21 06:26 Pulse Ox 98 10/05/21 06:59 Results & Data ([facility]) Laboratory Results Laboratory Results - last 24 hr 10/24/21 17:40 WBC 6.62 RBC 4.19 L Hgb 12.9 Hct 39.5 MCV 94.3 MCH 30.8 MCHC 32.7 RDW Std Deviation 48.8 H RDW Coeff of Kim 14.2 Plt Count 277 MPV 9.2 Immature Gran % (Auto) 0.2 Neut % (Auto) 48.2 Lymph % (Auto) 43.1 [place] % (Auto) 8.0 Eos % (Auto) 0.0 Baso % (Auto) 0.5 Neut # (Auto) 3.20 Lymph # (Auto) 2.85 [place] # (Auto) 0.53 Eos # (Auto) 0.00 Baso # (Auto) 0.03 Immature Gran # (Auto) 0.01 Current Inpatient Medications Current Inpatient Medications: Current Inpatient Medications Acetaminophen (Acetaminophen 325 Mg Tab) 650 mg PO Q4H PRN PRN Reason: Headache or Minor Fever Stop: 11/24/21 23:42 Al Hydrox/Mg Hydrox/Simethicone (Aluminum/Magnesium Susp 30 Ml Udc) 30 ml PO Q4H PRN PRN Reason: GI Upset Stop: 11/24/21 23:42 Artificial Tears (Artificial Tears) 1 drops OP QID EMMA Stop: 11/24/21 08:59 Last Admin: 10/25/21 08:54 Dose: 1 drops Documented by: Bismuth Subsalicylate (Bismuth Subsalicylate Liqd 236 Ml) 15 ml PO PRN PRN PRN Reason: Loose Stool Stop: 11/24/21 23:42 Clozapine (Clozapine 25 Mg Tab) 50 mg PO QAM EMMA Stop: 11/24/21 08:59 Last Admin: 10/25/21 08:52 Dose: 50 mg Documented by: Clozapine (Clozapine 100 Mg Tab) 100 mg PO HS EMMA Stop: 11/23/21 21:59 Last Admin: 10/24/21 21:00 Dose: 100 mg Documented by: Diphenhydramine HCl (Diphenhydramine Capsule 25 Mg Cap) 25 mg PO BID PRN PRN Reason: Allergy Symptoms Stop: 11/24/21 16:44 Last Admin: 10/25/21 08:59 Dose: 25 mg Documented by: Docusate Sodium (Docusate Sodium 100 Mg Cap) 100 mg PO BID@0800,2100 EMMA Stop: 11/24/21 08:59 Last Admin: 10/25/21 08:53 Dose: 100 mg Documented by: Ibuprofen (Ibuprofen 200 Mg Tab) 400 mg PO Q6H PRN PRN Reason: pain Stop: 11/24/21 11:33 Last Admin: 10/25/21 08:59 Dose: 400 mg Documented by: Levothyroxine Sodium (Levothyroxine Sodium 25 Mcg Tablet) 25 mcg PO DAILY@0800 EMMA Stop: 11/24/21 08:59 Last Admin: 10/25/21 08:53 Dose: 25 mcg Documented by: Magnesium Hydroxide (Magnesium Hydroxide Susp 30 Ml Udc) 30 ml PO DAILY PRN PRN Reason: Constipation Stop: 11/24/21 23:42 Olanzapine (Olanzapine 10 Mg/2.1 Ml Sdv) 10 mg IM Q6 PRN PRN Reason: Agitation Stop: 11/24/21 08:57 Senna/Docusate Sodium (Docusate Sodium/Senna 50/8.6mg Tab) 1 tab PO BID PRN PRN Reason: Constipation Stop: 11/24/21 15:02 Sodium Chloride (Sodium Chloride 0.65% Na Soln 45 Ml ([place])) 1 - 2 sprays NA PRN PRN PRN Reason: Nasal Dryness/Congestion Stop: 11/24/21 23:42 Vitamin D (Cholecalciferol 1,000 Units 25 Mcg Tab) 1,000 units PO DAILY EMMA Stop: 11/24/21 08:59 Last Admin: 10/25/21 08:53 Dose: 1,000 units Documented by: Zinc Acetate/Diphenhydramine (Diphenhydramine 2%/Zinc 0.1% Cream 28gm Tube) 1 appln EXT DAILY PRN PRN Reason: Itching Stop: 11/24/21 14:35 Last Admin: 10/23/21 08:19 Dose: 1 appln Documented by: Mental Health & Subst Abuse Tx Psychiatrist Name of Psychiatrist: Griffin Negron Electric Motor Assembler And Tester Name of Electric Motor Assembler And Tester: PADMINI Pederson Phone Number for Electric Motor Assembler And Tester: [phone] Date of Appointment with Electric Motor Assembler And Tester: 09/29/21 Post Discharge Appointments Contact Information Discharge Discharge Address: [facility] [address] [place] [address]
[2021-10-25] MEDS: cloZAPine 100 MG TAB PO SCH (21:07)
[2021-10-26] MEDS: DOCUSATE SODIUM 100 MG CAP PO SCH ×2 (08:08→21:19)
[2021-10-26] MEDS: LEVOTHYROXINE SODIUM 25 MCG TABLET PO SCH (08:08)
[2021-10-26] MEDS: CHOLECALCIFEROL 1,000 UNITS 25 MCG TAB PO SCH (08:08)
[2021-10-26] MEDS: cloZAPine 25 MG TAB PO SCH (08:08)
[2021-10-26] MEDS: diphenhydrAMINE Capsule 25 MG CAP PO PRN ×2 (08:14→21:27)
[2021-10-26] MEDS: IBUPROFEN 200 MG TAB PO PRN ×2 (08:14→21:27)
[2021-10-26] MEDS: ARTIFICIAL TEARS OP SCH ×4 (08:20→21:19)
--- NOTE | 2021-10-26 12:35 | Psychiatric Progress Note ---
Date of Service October 26, 2021 Impression / Recommendations Elise Miller is a 61 yo female with acute exacerbation of psychosis for non-compliance with clozapine. She is on an extended outpatient commitment prior to admission following discharge from the [facility]. 305 commitment converted to inpatient. She refuses to return to previous placement due to her paranoid delusions. MNPR for psychiatric symptoms of psychosis, paranoid ideation 10/26/21: unchanged (1) Schizophrenia, paranoid, chronic with acute exacerbation: 10/26/21: titrate hs clozapine to 150 mg qhs. 10/24/21: titrate hs dose clozapine to 100 mg hs. Patient agreed 10/23/21. 10/22/21: continue with clozapine 50mg BID. No side effects so far. Continued goal of reducing delusions to the point that she will agree to return to [facility] and remain adherent with clozapine, so far taking clozapine without any issues. 10/21/21: increase clozapine to 50mg BID starting tomorrow. 10/20/21: continue current medications. 10/19/21: Increase clozapine to 25 mg BID. Next WBC/ANC on 10/24/21 10/18/21: Continue clozapine 12.5 mg BID. Colace prn added. Has benadryl 25mg BID prn for her allergies (will d/c as clozapine titration continues). Weekly WBC/ANC for now but could go back to monthly monitoring after discharge as it has been <30 days off clozapine. Her refusal to return to any type of supported housing and her inability to function safely in a less supportive setting remains the biggest barrier to discharge. 10/17/21: EKG, ANC, WBC, repeat height/weight/BMI ordered for consideration of starting clozapine. Her refusal to return to her pre-admission housing remains significant barrier to safe discharge especially in setting of ongoing delusions and paranoia. Started clozapine 12.5 mg BID as this worked well for her previously and she is now refusing to further titrate abilify or consider any other long acting injectable options for medications which leaves clozapine as the superior oral medication choice and she is willing to take this. 10/16/21: continue current medications. Continue to reality-test delusions. Discussed with social work and nursing goal of having her supports from her housing come for facilitated meeting to test delusions and paranoia about her housing. 10/15/21: continue current medications. Reviewed chart for substance use history. She is declining any titration of abilify. Agrees to discuss housing options with me tomorrow. 10/14/21: reviewed interim progress from Dr. Valladares's notes. She is back on abilify but remains irritable about her length of stay and remains focused on not wanting to return to her previous housing. Will attempt to further titrate abilify tomorrow if she agrees, she declined today. 10/13/21: patient will not engage in any discussion around Abilify titration today as refusing to stay here, not yet attempting to elope or act out aggressively but Zyprexa 10 mg IM ordered in case of acute agitation. 10/11/21: re=reviewed fasting metabolic labs from earlier in the month. Agreed to increase Abilify 10 mg daily. 10/10/21: unclear if ever had trued EPS for Haldol or just manipulating med regimen, tolerating Abilify this am. Refusing JAQUEZ. 10/09/21: d/c Haldol (patient refusing), there is no acute agitation or threatening behavior or medical decompensation that would support meds over objection/injectable at this time given that she is willing to take Abilify 5 mg daily PO. 10/08/21: more breakthrough during med changes with Haldol not yet therapeutic. Increase Haldol to 5 mg po qam and 10 mg po qhs starting tonight as no evidence of worsening EPS. Needs meeting with [facility] and CM. 10/07/21: will titrate Haldol to 5 mg BId tomorrow. 10/06/21: Discontinuing abilify. Increasing haldol to 2.5 mg qAM and 5 mg qHS. 10/05/21: Continue cross-taper will reduce abilify from 10 mg to 5 mg tomorrow. Increase haldol from 2.5 mg qd to 2.5 mg BID. 10/04/21: Need to cross-taper from abilify to haldol due to high cost of abilify JAQUEZ. She consents to starting haldol. Tomorrow will reduce abilify from 15 mg to 10mg qd and start haldol 2.5 mg qd. 10/03/21: Continue with abilify 15 mg po qd. Spoke with her outpt psychiatrist Dr. Negron about challenge of JAQUEZ [place]aintenna possibly being cost prohibitive so have call out to her housing case manager to see if there may be financial support options for this. Otherwise will need to consider haldol JAQUEZ vs Invega JAQUEZ. 10/02/21: She consents to increase of abilify to 15 mg tomorrow morning and discontinuation of zyprexa tonight. Benadryl 50 mg qhs prn for allergy symptoms. Continues to have delusions. Will attempt to start prior authorization process for Abilify Maintena if she continues to tolerate abilify po well. 10/01/21: She consents to ongoing cross-taper will decrease zyprexa from 10mg to 5mg qhs and increasing abilify from 5mg to 10 mg tomorrow morning. Remains very paranoid and suspicious of others so will continue MNPR. 09/30/21: Abilify 5 mg qd today. Tomorrow will decrease zyprexa from 10mg to 5 mg qhs and continue with cross-taper with goal of abilify monotherapy and then JAQUEZ if well tolerated. Continues to have limited insight but appropriate so far today, if this persists will consider d/c of MNPR tomorrow. 09/29/21: continue Zyprexa but taper soon in favor of Abilify. Test dose Abilify 2.5 mg today and 5 mg daily tomorrow. Once tolerability assessed, convert to JAQUEZ. Patient lacks insight into need to return to [facility]. Patient is upset following hearing so will be monitored before additional consideration of d/c MNPR. 09/28/21: continue Zyprexa 10 mg po qhs, add Cogentin 0.5 mg BID. No sense to restart Clozaril if won't take consistently. Monitor symptoms and consider Invega trial with hopes she'll ultimately agree to JAQUEZ. 09/27/21: The patient was admitted to the [facility] ([facility]) on q15 min checks (behavioral with suicide precautions) for safety. The patient will participate in group, recreational, and milieu therapies and will be offered additional individual and family sessions as clinically appropriate. Risks/benefits/alternatives were reviewed re: antipsychotics for mood and/or psychosis. Discussion included but was not limited to metabolic side effects, risks of TD. There was EPS tremor but no TD at baseline. Fasting glucose and lipid panel ordered for baseline monitoring. She is agreeable to continuing Zyprexa but not Clozaril. Discussed that an JAQUEZ would be preferred and she declines due to limited insight into need for medication. Inventory Assets Strengths: intelligent, has been pleasant in interactions with staff and likes CM Needs: improved compliance, better tolerated antipsychotic. Risk Factors Assessment : Yes Do You Have Access To A Gun?: No Mental Health Diagnoses: Yes Substance Use Disorders: No Previous Attempt: No Previous Psychiatric Hospitalization: Yes Protective Factors Assessment Employed: No Good Rapport with Provider: Yes Interval History Identifying Information TALITA BALL is a 61-year-old F who currently lives at [facility], has a history of schizophrenia and [facility] placement, and was admitted on 09/26 23:33 on a 302 involuntary commitment but is actually maintained on a 305 outpatient commitment for delusional behavior. Chief Complaint "yeah you just need to get my discharge together as I have a place and I'm not putting up with this.". Review of Systems Sleep Information Total Hours of Sleep: 6.5 Sleep Comments: pt on q-15 minute checks Meal Information Percent Meal Consumed - Breakfast: 100 Percent Meal Consumed - Lunch: 100 Percent Meal Consumed - Dinner: 100 Nutrition Comment: per record Subjective Subjective Patient was seen & assessed and interval progress reviewed with nursing. Tolerated room switch. Remains on MNPR due to irritability/psychosis. Accepting clozaril doses and denies side effects. Physical Exam Psychiatric Orientation: alert and oriented x 3 Apperance: appropriately dressed and appropriately groomed Eye Contact: + fair eye contact Speech: normal rate/rhythm/volume of speech Affect: + angry affect Mood: + irritable mood Thought Process: + circumstantial thought process, + perseveration and + confabulations Thought Content: + paranoid and + delusions Suicidal Thoughts: denies suicidal thoughts Homicidal Thoughts: denies homicidal thoughts Hallucinations: no auditory hallucinations and no visual hallucinations Cognition: language grossly intact Insight: + severely impaired insight Judgement: + poor judgement Vital Signs (Past 24 Hours) Last Vital Signs Temp 36.5 C 10/26/21 06:00 Pulse 111 H 10/26/21 06:34 Resp 16 10/26/21 06:00 BP 121/81 10/26/21 06:34 Pulse Ox 98 10/05/21 06:59 Results & Data ([facility]) Current Inpatient Medications Current Inpatient Medications: Current Inpatient Medications Acetaminophen (Acetaminophen 325 Mg Tab) 650 mg PO Q4H PRN PRN Reason: Headache or Minor Fever Stop: 11/24/21 23:42 Al Hydrox/Mg Hydrox/Simethicone (Aluminum/Magnesium Susp 30 Ml Udc) 30 ml PO Q4H PRN PRN Reason: GI Upset Stop: 11/24/21 23:42 Artificial Tears (Artificial Tears) 1 drops OP QID EMMA Stop: 11/24/21 08:59 Last Admin: 10/26/21 12:12 Dose: 1 drops Documented by: Bismuth Subsalicylate (Bismuth Subsalicylate Liqd 236 Ml) 15 ml PO PRN PRN PRN Reason: Loose Stool Stop: 11/24/21 23:42 Clozapine (Clozapine 25 Mg Tab) 50 mg PO QAM EMMA Stop: 11/24/21 08:59 Last Admin: 10/26/21 08:08 Dose: 50 mg Documented by: Clozapine (Clozapine 100 Mg Tab) 100 mg PO HS EMMA Stop: 11/23/21 21:59 Last Admin: 10/25/21 21:07 Dose: 100 mg Documented by: Diphenhydramine HCl (Diphenhydramine Capsule 25 Mg Cap) 25 mg PO BID PRN PRN Reason: Allergy Symptoms Stop: 11/24/21 16:44 Last Admin: 10/26/21 08:14 Dose: 25 mg Documented by: Docusate Sodium (Docusate Sodium 100 Mg Cap) 100 mg PO BID@0800,2100 [facility] Stop: 11/24/21 08:59 Last Admin: 10/26/21 08:08 Dose: 100 mg Documented by: Ibuprofen (Ibuprofen 200 Mg Tab) 400 mg PO Q6H PRN PRN Reason: pain Stop: 11/24/21 11:33 Last Admin: 10/26/21 08:14 Dose: 400 mg Documented by: Levothyroxine Sodium (Levothyroxine Sodium 25 Mcg Tablet) 25 mcg PO DAILY@0800 [facility] Stop: 11/24/21 08:59 Last Admin: 10/26/21 08:08 Dose: 25 mcg Documented by: Magnesium Hydroxide (Magnesium Hydroxide Susp 30 Ml Udc) 30 ml PO DAILY PRN PRN Reason: Constipation Stop: 11/24/21 23:42 Olanzapine (Olanzapine 10 Mg/2.1 Ml Sdv) 10 mg IM Q6 PRN PRN Reason: Agitation Stop: 11/24/21 08:57 Senna/Docusate Sodium (Docusate Sodium/Senna 50/8.6mg Tab) 1 tab PO BID PRN PRN Reason: Constipation Stop: 11/24/21 15:02 Sodium Chloride (Sodium Chloride 0.65% Na Soln 45 Ml (Louisa)) 1 - 2 sprays NA PRN PRN PRN Reason: Nasal Dryness/Congestion Stop: 11/24/21 23:42 Vitamin D (Cholecalciferol 1,000 Units 25 Mcg Tab) 1,000 units PO DAILY EMMA Stop: 11/24/21 08:59 Last Admin: 10/26/21 08:08 Dose: 1,000 units Documented by: Zinc Acetate/Diphenhydramine (Diphenhydramine 2%/Zinc 0.1% Cream 28gm Tube) 1 appln EXT DAILY PRN PRN Reason: Itching Stop: 11/24/21 14:35 Last Admin: 10/23/21 08:19 Dose: 1 appln Documented by: Mental Health & Subst Abuse Tx Psychiatrist Name of Psychiatrist: Griffin Negron Director Of Recreation Therapy Name of Director Of Recreation Therapy: PADMINI Pederson Phone Number for Director Of Recreation Therapy: [phone] Date of Appointment with Director Of Recreation Therapy: 09/29/21 Post Discharge Appointments Contact Information Discharge Discharge Address: [address] [address]
[2021-10-26] MEDS: cloZAPine 100 MG TAB PO SCH (21:20)
[2021-10-26] MEDS ORDERED: cloZAPine 25 MG TAB PO SCH (22:00)
[2021-10-27] MEDS: LEVOTHYROXINE SODIUM 25 MCG TABLET PO SCH (08:57)
[2021-10-27] MEDS: cloZAPine 25 MG TAB PO SCH (08:58)
[2021-10-27] MEDS: CHOLECALCIFEROL 1,000 UNITS 25 MCG TAB PO SCH (08:59)
[2021-10-27] MEDS: DOCUSATE SODIUM 100 MG CAP PO SCH ×2 (09:00→20:45)
[2021-10-27] MEDS: IBUPROFEN 200 MG TAB PO PRN ×2 (09:03→20:44)
[2021-10-27] MEDS: ARTIFICIAL TEARS OP SCH ×4 (09:05→20:45)
--- NOTE | 2021-10-27 10:14 | Psychiatric Progress Note ---
Date of Service October 27, 2021 Impression / Recommendations Elise Miller is a 61 yo female with acute exacerbation of psychosis for non-compliance with clozapine. She is on an extended outpatient commitment prior to admission following discharge from the [facility]. 305 commitment converted to inpatient. She refuses to return to previous placement due to her paranoid delusions. MNPR for psychiatric symptoms of psychosis, paranoid ideation 10/27/21: tolerating increase in Clozaril. Have been increasing by 50 mg every other day rather than 25 mg daily as patient historically paranoid about number of pills and do not want to change every night. (1) Schizophrenia, paranoid, chronic with acute exacerbation: Inventory Assets Strengths: intelligent, has been pleasant in interactions with staff and likes CM Needs: improved compliance, better tolerated antipsychotic. Risk Factors Assessment : Yes Do You Have Access To A Gun?: No Mental Health Diagnoses: Yes Substance Use Disorders: No Previous Attempt: No Previous Psychiatric Hospitalization: Yes Protective Factors Assessment Employed: No Good Rapport with Provider: Yes Interval History Identifying Information TALITA BALL is a 61-year-old F who currently lives at [facility], has a history of schizophrenia and [facility] placement, and was admitted on 09/26/21 23:33 on a 302 involuntary commitment but is actually maintained on a 305 outpatient commitment for delusional behavior. Chief Complaint "[]". Review of Systems Sleep Information Total Hours of Sleep: 7 Sleep Comments: pt on q-15 minute checks Meal Information Percent Meal Consumed - Breakfast: 100 Percent Meal Consumed - Lunch: 100 Percent Meal Consumed - Dinner: 100 Nutrition Comment: per record Subjective Subjective Patient was seen & assessed and interval progress reviewed with [treatment team] [nursing and social work] Physical Exam Psychiatric Orientation: alert and oriented x 3 Apperance: appropriately dressed and appropriately groomed Eye Contact: + fair eye contact Motor Behavior: no abnormal motor movements (but restless at times when discussing discharge) Speech: normal rate/rhythm/volume of speech Affect: + constricted affect Mood: + irritable mood Thought Process: + circumstantial thought process, + perseveration and + confabulations Thought Content: + preoccupation, + paranoid and + delusions Suicidal Thoughts: denies suicidal thoughts Homicidal Thoughts: denies homicidal thoughts Hallucinations: no auditory hallucinations and no visual hallucinations Cognition: language grossly intact; + attention not intact Estimated Intelligence: consistent with education level Insight: + severely impaired insight Judgement: + poor judgement Vital Signs (Past 24 Hours) Last Vital Signs Temp 36.3 C L 10/27/21 06:39 Pulse 106 H 10/27/21 06:40 Resp 16 10/27/21 06:39 BP 113/73 10/27/21 06:40 Pulse Ox 98 10/05/21 06:59 Results & Data ([facility]) Current Inpatient Medications Current Inpatient Medications: Current Inpatient Medications Acetaminophen (Acetaminophen 325 Mg Tab) 650 mg PO Q4H PRN PRN Reason: Headache or Minor Fever Stop: 11/24/21 23:42 Al Hydrox/Mg Hydrox/Simethicone (Aluminum/Magnesium Susp 30 Ml Udc) 30 ml PO Q4H PRN PRN Reason: GI Upset Stop: 11/24/21 23:42 Artificial Tears (Artificial Tears) 1 drops OP QID EMMA Stop: 11/24/21 08:59 Last Admin: 10/27/21 09:05 Dose: 1 drops Documented by: Bismuth Subsalicylate (Bismuth Subsalicylate Liqd 236 Ml) 15 ml PO PRN PRN PRN Reason: Loose Stool Stop: 11/24/21 23:42 Clozapine (Clozapine 25 Mg Tab) 50 mg PO QAM EMMA Stop: 11/24/21 08:59 Last Admin: 10/27/21 08:58 Dose: 50 mg Documented by: Clozapine (Clozapine 100 Mg Tab) 150 mg PO HS EMMA Stop: 11/25/21 21:59 Last Admin: 10/26/21 21:20 Dose: 150 mg Documented by: Diphenhydramine HCl (Diphenhydramine Capsule 25 Mg Cap) 25 mg PO BID PRN PRN Reason: Allergy Symptoms Stop: 11/24/21 16:44 Last Admin: 10/26/21 21:27 Dose: 25 mg Documented by: Docusate Sodium (Docusate Sodium 100 Mg Cap) 100 mg PO BID@0800,2100 [facility] Stop: 11/24/21 08:59 Last Admin: 10/27/21 09:00 Dose: 100 mg Documented by: Ibuprofen (Ibuprofen 200 Mg Tab) 400 mg PO Q6H PRN PRN Reason: pain Stop: 11/24/21 11:33 Last Admin: 10/27/21 09:03 Dose: 400 mg Documented by: Levothyroxine Sodium (Levothyroxine Sodium 25 Mcg Tablet) 25 mcg PO DAILY@0800 [facility] Stop: 11/24/21 08:59 Last Admin: 10/27/21 08:57 Dose: 25 mcg Documented by: Magnesium Hydroxide (Magnesium Hydroxide Susp 30 Ml Udc) 30 ml PO DAILY PRN PRN Reason: Constipation Stop: 11/24/21 23:42 Olanzapine (Olanzapine 10 Mg/2.1 Ml Sdv) 10 mg IM Q6 PRN PRN Reason: Agitation Stop: 11/24/21 08:57 Senna/Docusate Sodium (Docusate Sodium/Senna 50/8.6mg Tab) 1 tab PO BID PRN PRN Reason: Constipation Stop: 11/24/21 15:02 Sodium Chloride (Sodium Chloride 0.65% Na Soln 45 Ml (Ste[place]s)) 1 - 2 sprays NA PRN PRN PRN Reason: Nasal Dryness/Congestion Stop: 11/24/21 23:42 Vitamin D (Cholecalciferol 1,000 Units 25 Mcg Tab) 1,000 units PO DAILY EMMA Stop: 11/24/21 08:59 Last Admin: 10/27/21 08:59 Dose: 1,000 units Documented by: Zinc Acetate/Diphenhydramine (Diphenhydramine 2%/Zinc 0.1% Cream 28gm Tube) 1 appln EXT DAILY PRN PRN Reason: Itching Stop: 11/24/21 14:35 Last Admin: 10/23/21 08:19 Dose: 1 appln Documented by: Mental Health & Subst Abuse Tx Psychiatrist Name of Psychiatrist: Griffin Negron Glass Cleaner Name of Glass Cleaner: PADMINI Pederson Phone Number for Glass Cleaner: [phone] Date of Appointment with Glass Cleaner: 09/29/21 Post Discharge Appointments Contact Information Discharge Discharge Address: [facility] - [address] [place] [id number]
[2021-10-27] MEDS: cloZAPine 100 MG TAB PO SCH (20:46)
[2021-10-27] MEDS: diphenhydrAMINE Capsule 25 MG CAP PO PRN (20:46)
[2021-10-28] MEDS: DOCUSATE SODIUM 100 MG CAP PO SCH ×2 (09:05→20:38)
[2021-10-28] MEDS: LEVOTHYROXINE SODIUM 25 MCG TABLET PO SCH (09:05)
[2021-10-28] MEDS: CHOLECALCIFEROL 1,000 UNITS 25 MCG TAB PO SCH (09:06)
[2021-10-28] MEDS: ARTIFICIAL TEARS OP SCH ×4 (09:06→20:38)
[2021-10-28] MEDS: cloZAPine 25 MG TAB PO SCH (09:06)
[2021-10-28] MEDS: IBUPROFEN 200 MG TAB PO PRN ×2 (09:12→20:40)
[2021-10-28] MEDS: diphenhydrAMINE Capsule 25 MG CAP PO PRN ×2 (09:12→20:38)
--- NOTE | 2021-10-28 12:31 | Psychiatric Progress Note ---
Date of Service October 28, 2021 Impression / Recommendations Elise Miller is a 61 yo female with acute exacerbation of psychosis for non-compliance with clozapine. She is on an extended outpatient commitment prior to admission following [facility]. 305 commitment converted to inpatient. She refuses to return to previous placement due to her paranoid delusions. MNPR for psychiatric symptoms of psychosis, paranoid ideation 10/28/21: continue increasing Clozaril by 50 mg every other day rather than 25 mg daily due to paranoia around pills, little change thus far though less irritable. (1) Schizophrenia, paranoid, chronic with acute exacerbation: 10/28/21: titrate hs clozapine to 200 mg qhs for ongoing paranoid delusions. Weekly CBC. 10/26/21: titrate hs clozapine to 150 mg qhs. 10/24/21: titrate hs dose clozapine to 100 mg hs. Patient agreed 10/23/21. 10/22/21: continue with clozapine 50mg BID. No side effects so far. Continued goal of reducing delusions to the point that she will agree to return to [facility] and remain adherent with clozapine, so far taking clozapine without any issues. 10/21/21: increase clozapine to 50mg BID starting tomorrow. 10/20/21: continue current medications. 10/19/21: Increase clozapine to 25 mg BID. Next WBC/ANC on 10/24/21 10/18/21: Continue clozapine 12.5 mg BID. Colace prn added. Has benadryl 25mg BID prn for her allergies (will d/c as clozapine titration continues). Weekly WBC/ANC for now but could go back to monthly monitoring after discharge as it has been <30 days off clozapine. Her refusal to return to any type of supported housing and her inability to function safely in a less supportive setting remains the biggest barrier to discharge. 10/17/21: EKG, ANC, WBC, repeat height/weight/BMI ordered for consideration of starting clozapine. Her refusal to return to her pre-admission housing remains significant barrier to safe discharge especially in setting of ongoing delusions and paranoia. Started clozapine 12.5 mg BID as this worked well for her previously and she is now refusing to further titrate abilify or consider any other long acting injectable options for medications which leaves clozapine as the superior oral medication choice and she is willing to take this. 10/16/21: continue current medications. Continue to reality-test delusions. Discussed with social work and nursing goal of having her supports from her housing come for facilitated meeting to test delusions and paranoia about her housing. 10/15/21: continue current medications. Reviewed chart for substance use history. She is declining any titration of abilify. Agrees to discuss housing options with me tomorrow. 10/14/21: reviewed interim progress from Dr. Valladares's notes. She is back on abilify but remains irritable about her length of stay and remains focused on not wanting to return to her previous housing. Will attempt to further titrate abilify tomorrow if she agrees, she declined today. 10/13/21: patient will not engage in any discussion around Abilify titration today as refusing to stay here, not yet attempting to elope or act out aggressively but Zyprexa 10 mg IM ordered in case of acute agitation. 10/11/21: re=reviewed fasting metabolic labs from earlier in the month. Agreed to increase Abilify 10 mg daily. 10/10/21: unclear if ever had trued EPS for Haldol or just manipulating med regimen, tolerating Abilify this am. Refusing JAQUEZ. 10/09/21: d/c Haldol (patient refusing), there is no acute agitation or threatening behavior or medical decompensation that would support meds over objection/injectable at this time given that she is willing to take Abilify 5 mg daily PO. 10/08/21: more breakthrough during med changes with Haldol not yet therapeutic. Increase Haldol to 5 mg po qam and 10 mg po qhs starting tonight as no evidence of worsening EPS. Needs meeting with [facility] and CM. 10/07/21: will titrate Haldol to 5 mg BId tomorrow. 10/06/21: Discontinuing abilify. Increasing haldol to 2.5 mg qAM and 5 mg qHS. 10/05/21: Continue cross-taper will reduce abilify from 10 mg to 5 mg tomorrow. Increase haldol from 2.5 mg qd to 2.5 mg BID. 10/04/21: Need to cross-taper from abilify to haldol due to high cost of abilify JAQUEZ. She consents to starting haldol. Tomorrow will reduce abilify from 15 mg to 10mg qd and start haldol 2.5 mg qd. 10/03/21: Continue with abilify 15 mg po qd. Spoke with her outpt psychiatrist Dr. Negron about challenge of JAQUEZ Maintenna possibly being cost prohibitive so have call out to her keycase assembler to see if there may be financial support options for this. Otherwise will need to consider haldol JAQUEZ vs Invega JAQUEZ. 10/02/21: She consents to increase of abilify to 15 mg tomorrow morning and discontinuation of zyprexa tonight. Benadryl 50 mg qhs prn for allergy symptoms. Continues to have delusions. Will attempt to start prior authorization process for Abilify Maintena if she continues to tolerate abilify po well. 10/01/21: She consents to ongoing cross-taper will decrease zyprexa from 10mg to 5mg qhs and increasing abilify from 5mg to 10 mg tomorrow morning. Remains very paranoid and suspicious of others so will continue MNPR. 09/30/21: Abilify 5 mg qd today. Tomorrow will decrease zyprexa from 10mg to 5 mg qhs and continue with cross-taper with goal of abilify monotherapy and then JAQUEZ if well tolerated. Continues to have limited insight but appropriate so far today, if this persists will consider d/c of MNPR tomorrow. 09/29/21: continue Zyprexa but taper soon in favor of Abilify. Test dose Abilify 2.5 mg today and 5 mg daily tomorrow. Once tolerability assessed, convert to JAQUEZ. Patient lacks insight into need to return to [facility]. Patient is upset following hearing so will be monitored before additional consideration of d/c MNPR. 09/28/21: continue Zyprexa 10 mg po qhs, add Cogentin 0.5 mg BID. No sense to restart Clozaril if won't take consistently. Monitor symptoms and consider Invega trial with hopes she'll ultimately agree to JAQUEZ. 09/27/21: The patient was admitted to the [facility] (locked inpatient mental health unit) on q15 min checks (behavioral with suicide precautions) for safety. The patient will participate in group, recreational, and milieu therapies and will be offered additional individual and family sessions as clinically appropriate. Risks/benefits/alternatives were reviewed re: antipsychotics for mood and/or psychosis. Discussion included but was not limited to metabolic side effects, risks of TD. There was EPS tremor but no TD at baseline. Fasting glucose and lipid panel ordered for baseline monitoring. She is agreeable to continuing Zyprexa but not Clozaril. Discussed that an JAQUEZ would be preferred and she declines due to limited insight into need for medication. Inventory Assets Strengths: intelligent, has been pleasant in interactions with staff and likes CM Needs: improved compliance, better tolerated antipsychotic. Risk Factors Assessment : Yes Do You Have Access To A Gun?: No Mental Health Diagnoses: Yes Substance Use Disorders: No Previous Attempt: No Previous Psychiatric Hospitalization: Yes Protective Factors Assessment Employed: No Good Rapport with Provider: Yes Interval History Identifying Information TALITA BALL is a 61-year-old F who currently lives at [facility], has a history of schizophrenia and community health hospital placement, and was admitted on 09/26/21 23:33 on a 302 involuntary commitment but is actually maintained on a 305 outpatient commitment for delusional behavior. Chief Complaint "I'm fine, that's all I have to say to you". Review of Systems Sleep Information Total Hours of Sleep: 6.75 Sleep Comments: pt on q-15 minute checks Meal Information Percent Meal Consumed - Breakfast: 100 Percent Meal Consumed - Lunch: 100 Percent Meal Consumed - Dinner: 100 Nutrition Comment: per record Subjective Subjective Patient was seen & assessed and interval progress reviewed with nursing and social work. More suspicious last pm about her pills but took them. Told staff this am I am in a conspiracy with her sister as I smell like pepper, just like when she was arrested. She believes we adjusted her length of stay solely for money from the insurance company. Physical Exam Psychiatric Orientation: alert and oriented x 3 Apperance: appropriately dressed Eye Contact: + fair eye contact Speech: normal rate/rhythm/volume of speech Affect: + constricted affect Thought Process: + circumstantial thought process and + perseveration Thought Content: + preoccupation, + paranoid and + delusions Suicidal Thoughts: denies suicidal thoughts Homicidal Thoughts: denies homicidal thoughts Hallucinations: no auditory hallucinations and no visual hallucinations Cognition: language grossly intact Insight: + severely impaired insight Judgement: + poor judgement Vital Signs (Past 24 Hours) Last Vital Signs Temp 36.9 C 10/28/21 06:00 Pulse 108 H 10/28/21 06:42 Resp 16 10/28/21 06:00 BP 120/70 10/28/21 06:42 Pulse Ox 98 10/05/21 06:59 Results & Data ([facility]) Current Inpatient Medications Current Inpatient Medications: Current Inpatient Medications Acetaminophen (Acetaminophen 325 Mg Tab) 650 mg PO Q4H PRN PRN Reason: Headache or Minor Fever Stop: 11/24/21 23:42 Al Hydrox/Mg Hydrox/Simethicone (Aluminum/Magnesium Susp 30 Ml Udc) 30 ml PO Q4H PRN PRN Reason: GI Upset Stop: 11/24/21 23:42 Artificial Tears (Artificial Tears) 1 drops OP QID EMMA Stop: 11/24/21 08:59 Last Admin: 10/28/21 09:06 Dose: 1 drops Documented by: Bismuth Subsalicylate (Bismuth Subsalicylate Liqd 236 Ml) 15 ml PO PRN PRN PRN Reason: Loose Stool Stop: 11/24/21 23:42 Clozapine (Clozapine 25 Mg Tab) 50 mg PO QAM EMMA Stop: 11/24/21 08:59 Last Admin: 10/28/21 09:06 Dose: 50 mg Documented by: Clozapine (Clozapine 100 Mg Tab) 200 mg PO HS EMMA Stop: 11/27/21 21:59 Diphenhydramine HCl (Diphenhydramine Capsule 25 Mg Cap) 25 mg PO BID PRN PRN Reason: Allergy Symptoms Stop: 11/24/21 16:44 Last Admin: 10/28/21 09:12 Dose: 25 mg Documented by: Docusate Sodium (Docusate Sodium 100 Mg Cap) 100 mg PO BID@0800,2100 EMMA Stop: 11/24/21 08:59 Last Admin: 10/28/21 09:05 Dose: 100 mg Documented by: Ibuprofen (Ibuprofen 200 Mg Tab) 400 mg PO Q6H PRN PRN Reason: pain Stop: 11/24/21 11:33 Last Admin: 10/28/21 09:12 Dose: 400 mg Documented by: Levothyroxine Sodium (Levothyroxine Sodium 25 Mcg Tablet) 25 mcg PO DAILY@0800 EMMA Stop: 11/24/21 08:59 Last Admin: 10/28/21 09:05 Dose: 25 mcg Documented by: Magnesium Hydroxide (Magnesium Hydroxide Susp 30 Ml Udc) 30 ml PO DAILY PRN PRN Reason: Constipation Stop: 11/24/21 23:42 Olanzapine (Olanzapine 10 Mg/2.1 Ml Sdv) 10 mg IM Q6 PRN PRN Reason: Agitation Stop: 11/24/21 08:57 Senna/Docusate Sodium (Docusate Sodium/Senna 50/8.6mg Tab) 1 tab PO BID PRN PRN Reason: Constipation Stop: 11/24/21 15:02 Sodium Chloride (Sodium Chloride 0.65% Na Soln 45 Ml ([place])) 1 - 2 sprays NA PRN PRN PRN Reason: Nasal Dryness/Congestion Stop: 11/24/21 23:42 Vitamin D (Cholecalciferol 1,000 Units 25 Mcg Tab) 1,000 units PO DAILY EMMA Stop: 11/24/21 08:59 Last Admin: 10/28/21 09:06 Dose: 1,000 units Documented by: Zinc Acetate/Diphenhydramine (Diphenhydramine 2%/Zinc 0.1% Cream 28gm Tube) 1 appln EXT DAILY PRN PRN Reason: Itching Stop: 11/24/21 14:35 Last Admin: 10/23/21 08:19 Dose: 1 appln Documented by: Mental Health & Subst Abuse Tx Psychiatrist Name of Psychiatrist: Griffin Negron Milk Truck Driver Name of Milk Truck Driver: PADMINI Pederson Phone Number for Milk Truck Driver: [phone] Date of Appointment with Milk Truck Driver: 09/29/21 Post Discharge Appointments Contact Information Discharge Discharge Address: [facility] - [address] [place] [id number]
[2021-10-28] MEDS ORDERED: cloZAPine 100 MG TAB PO SCH (22:00)
[2021-10-29] MEDS: LEVOTHYROXINE SODIUM 25 MCG TABLET PO SCH (08:56)
[2021-10-29] MEDS: ARTIFICIAL TEARS OP SCH ×4 (08:56→21:03)
[2021-10-29] MEDS: DOCUSATE SODIUM 100 MG CAP PO SCH ×2 (08:56→21:03)
[2021-10-29] MEDS: IBUPROFEN 200 MG TAB PO PRN ×2 (08:57→21:04)
[2021-10-29] MEDS: diphenhydrAMINE Capsule 25 MG CAP PO PRN ×2 (08:57→21:04)
[2021-10-29] MEDS: CHOLECALCIFEROL 1,000 UNITS 25 MCG TAB PO SCH (08:57)
[2021-10-29] MEDS: cloZAPine 25 MG TAB PO SCH (08:57)
--- NOTE | 2021-10-29 12:55 | Psychiatric Progress Note ---
Date of Service October 29, 2021 Impression / Recommendations Elise Miller is a 61 yo female with acute exacerbation of psychosis for non-compliance with clozapine. She is on an extended outpatient commitment prior to admission following discharge from the [facility] hospital. 305 commitment converted to inpatient. She refuses to return to previous placement due to her paranoid delusions. MNPR for psychiatric symptoms of psychosis, paranoid ideation 10/28/21: remains delusional and unable to care for self outside of the hospital. (1) Schizophrenia, paranoid, chronic with acute exacerbation: 10/29/21: refused clozaril 200 mg, offer 150 mg tonight. 30 day treatment plan. She has been less irritable so may be appropriate for therapeutic walk outside with security soon. 10/28/21: titrate hs clozapine to 200 mg qhs for ongoing paranoid delusions. Weekly CBC. 10/26/21: titrate hs clozapine to 150 mg qhs. 10/24/21: titrate hs dose clozapine to 100 mg hs. Patient agreed 10/23/21. 10/22/21: continue with clozapine 50mg BID. No side effects so far. Continued goal of reducing delusions to the point that she will agree to return to [facility] and remain adherent with clozapine, so far taking clozapine without any issues. 10/21/21: increase clozapine to 50mg BID starting tomorrow. 10/20/21: continue current medications. 10/19/21: Increase clozapine to 25 mg BID. Next WBC/ANC on 10/24/21 10/18/21: Continue clozapine 12.5 mg BID. Colace prn added. Has benadryl 25mg BID prn for her allergies (will d/c as clozapine titration continues). Weekly WBC/ANC for now but could go back to monthly monitoring after discharge as it has been <30 days off clozapine. Her refusal to return to any type of supported housing and her inability to function safely in a less supportive setting remains the biggest barrier to discharge. 10/17/21: EKG, ANC, WBC, repeat height/weight/BMI ordered for consideration of starting clozapine. Her refusal to return to her pre-admission housing remains significant barrier to safe discharge especially in setting of ongoing delusions and paranoia. Started clozapine 12.5 mg BID as this worked well for her previously and she is now refusing to further titrate abilify or consider any other long acting injectable options for medications which leaves clozapine as the superior oral medication choice and she is willing to take this. 10/16/21: continue current medications. Continue to reality-test delusions. Discussed with social work and nursing goal of having her supports from her housing come for facilitated meeting to test delusions and paranoia about her housing. 10/15/21: continue current medications. Reviewed chart for substance use history. She is declining any titration of abilify. Agrees to discuss housing options with me tomorrow. 10/14/21: reviewed interim progress from Dr. Valladares's notes. She is back on abilify but remains irritable about her length of stay and remains focused on not wanting to return to her previous housing. Will attempt to further titrate abilify tomorrow if she agrees, she declined today. 10/13/21: patient will not engage in any discussion around Abilify titration today as refusing to stay here, not yet attempting to elope or act out aggressively but Zyprexa 10 mg IM ordered in case of acute agitation. 10/11/21: re=reviewed fasting metabolic labs from earlier in the month. Agreed to increase Abilify 10 mg daily. 10/10/21: unclear if ever had trued EPS for Haldol or just manipulating med regimen, tolerating Abilify this am. Refusing JAQUEZ. 10/09/21: d/c Haldol (patient refusing), there is no acute agitation or threatening behavior or medical decompensation that would support meds over objection/injectable at this time given that she is willing to take Abilify 5 mg daily PO. 10/08/21: more breakthrough during med changes with Haldol not yet therapeutic. Increase Haldol to 5 mg po qam and 10 mg po qhs starting tonight as no evidence of worsening EPS. Needs meeting with PC and CM. 10/07/21: will titrate Haldol to 5 mg BId tomorrow. 10/06/21: Discontinuing abilify. Increasing haldol to 2.5 mg qAM and 5 mg qHS. 10/05/21: Continue cross-taper will reduce abilify from 10 mg to 5 mg tomorrow. Increase haldol from 2.5 mg qd to 2.5 mg BID. 10/04/21: Need to cross-taper from abilify to haldol due to high cost of abilify JAQUEZ. She consents to starting haldol. Tomorrow will reduce abilify from 15 mg to 10mg qd and start haldol 2.5 mg qd. 10/03/21: Continue with abilify 15 mg po qd. Spoke with her outpt psychiatrist Dr. Negron about challenge of JAQUEZ Maintenna possibly being cost prohibitive so have call out to her country sales manager to see if there may be financial support options for this. Otherwise will need to consider haldol JAQUEZ vs Invega JAQUEZ. 10/02/21: She consents to increase of abilify to 15 mg tomorrow morning and discontinuation of zyprexa tonight. Benadryl 50 mg qhs prn for allergy symptoms. Continues to have delusions. Will attempt to start prior authorization process for Abilify Maintena if she continues to tolerate abilify po well. 10/01/21: She consents to ongoing cross-taper will decrease zyprexa from 10mg to 5mg qhs and increasing abilify from 5mg to 10 mg tomorrow morning. Remains very paranoid and suspicious of others so will continue MNPR. 09/30/21: Abilify 5 mg qd today. Tomorrow will decrease zyprexa from 10mg to 5 mg qhs and continue with cross-taper with goal of abilify monotherapy and then JAQUEZ if well tolerated. Continues to have limited insight but appropriate so far today, if this persists will consider d/c of MNPR tomorrow. 09/29/21: continue Zyprexa but taper soon in favor of Abilify. Test dose Abilify 2.5 mg today and 5 mg daily tomorrow. Once tolerability assessed, convert to JAQUEZ. Patient lacks insight into need to return to [facility]. Patient is upset following hearing so will be monitored before additional consideration of d/c MNPR. 09/28/21: continue Zyprexa 10 mg po qhs, add Cogentin 0.5 mg BID. No sense to restart Clozaril if won't take consistently. Monitor symptoms and consider Invega trial with hopes she'll ultimately agree to JAQUEZ. 09/27/21: The patient was admitted to the [facility] ([facility]) on q15 min checks (behavioral with suicide precautions) for safety. The patient will participate in group, recreational, and milieu therapies and will be offered additional individual and family sessions as clinically appropriate. Risks/benefits/alternatives were reviewed re: antipsychotics for mood and/or psychosis. Discussion included but was not limited to metabolic side effects, risks of TD. There was EPS tremor but no TD at baseline. Fasting glucose and lipid panel ordered for baseline monitoring. She is agreeable to continuing Zyprexa but not Clozaril. Discussed that an JAQUEZ would be preferred and she declines due to limited insight into need for medication. Inventory Assets Strengths: intelligent, has been pleasant in interactions with staff and likes CM Needs: improved compliance, better tolerated antipsychotic. Risk Factors Assessment : Yes Do You Have Access To A Gun?: No Mental Health Diagnoses: Yes Substance Use Disorders: No Previous Attempt: No Previous Psychiatric Hospitalization: Yes Protective Factors Assessment Employed: No Good Rapport with Provider: Yes Interval History Identifying Information TALITA BALL is a 61-year-old F who currently lives at [facility], has a history of schizophrenia and [facility] placement, and was admitted on 09/26/21 23:33 on a 302 involuntary commitment but is actually maintained on a 305 outpatient commitment for delusional behavior. Chief Complaint "yeah I'm not taking all that Clozaril". Review of Systems Sleep Information Total Hours of Sleep: 7.25 Sleep Comments: pt on q-15 minute checks Meal Information Percent Meal Consumed - Breakfast: 100 Percent Meal Consumed - Lunch: 100 Percent Meal Consumed - Dinner: 100 Nutrition Comment: per record Subjective Subjective Patient was seen & assessed and interval progress reviewed with nursing and social work. She only accepted 100 mg Clozaril last night stating that she would feel that "too much". Continues to ask about discharge and stating that she's working with her contracts attorney on paperwork. Physical Exam Psychiatric Orientation: alert and oriented x 3 Apperance: appropriately dressed and appropriately groomed Eye Contact: + fair eye contact Motor Behavior: no abnormal motor movements (but restless at times when discussing discharge) Speech: normal rate/rhythm/volume of speech Affect: + constricted affect Mood: no anxious mood Thought Process: + circumstantial thought process, + perseveration and + confabulations Thought Content: + paranoid and + delusions Suicidal Thoughts: denies suicidal thoughts Homicidal Thoughts: denies homicidal thoughts Hallucinations: no auditory hallucinations and no visual hallucinations Cognition: language grossly intact; + attention not intact Insight: + severely impaired insight Judgement: + poor judgement Vital Signs (Past 24 Hours) Last Vital Signs Temp 36.6 C 10/29/21 06:00 Pulse 105 H 10/29/21 06:21 Resp 16 10/29/21 06:00 BP 106/74 10/29/21 06:21 Pulse Ox 98 10/05/21 06:59 Results & Data ([facility] [[email or web address] Current Inpatient Medications Current Inpatient Medications: Current Inpatient Medications Acetaminophen (Acetaminophen 325 Mg Tab) 650 mg PO Q4H PRN PRN Reason: Headache or Minor Fever Stop: 11/24/21 23:42 Al Hydrox/Mg Hydrox/Simethicone (Aluminum/Magnesium Susp 30 Ml Udc) 30 ml PO Q4H PRN PRN Reason: GI Upset Stop: 11/24/21 23:42 Artificial Tears (Artificial Tears) 1 drops OP QID EMMA Stop: 11/24/21 08:59 Last Admin: 10/29/21 12:52 Dose: 1 drops Documented by: Bismuth Subsalicylate (Bismuth Subsalicylate Liqd 236 Ml) 15 ml PO PRN PRN PRN Reason: Loose Stool Stop: 11/24/21 23:42 Clozapine (Clozapine 25 Mg Tab) 50 mg PO QAM EMMA Stop: 11/24/21 08:59 Last Admin: 10/29/21 08:57 Dose: 50 mg Documented by: Diphenhydramine HCl (Diphenhydramine Capsule 25 Mg Cap) 25 mg PO BID PRN PRN Reason: Allergy Symptoms Stop: 11/24/21 16:44 Last Admin: 10/29/21 08:57 Dose: 25 mg Documented by: Docusate Sodium (Docusate Sodium 100 Mg Cap) 100 mg PO BID@0800,2100 [facility] Stop: 11/24/21 08:59 Last Admin: 10/29/21 08:56 Dose: 100 mg Documented by: Ibuprofen (Ibuprofen 200 Mg Tab) 400 mg PO Q6H PRN PRN Reason: pain Stop: 11/24/21 11:33 Last Admin: 10/29/21 08:57 Dose: 400 mg Documented by: Levothyroxine Sodium (Levothyroxine Sodium 25 Mcg Tablet) 25 mcg PO DAILY@0800 EMMA Stop: 11/24/21 08:59 Last Admin: 10/29/21 08:56 Dose: 25 mcg Documented by: Magnesium Hydroxide (Magnesium Hydroxide Susp 30 Ml Udc) 30 ml PO DAILY PRN PRN Reason: Constipation Stop: 11/24/21 23:42 Olanzapine (Olanzapine 10 Mg/2.1 Ml Sdv) 10 mg IM Q6 PRN PRN Reason: Agitation Stop: 11/24/21 08:57 Senna/Docusate Sodium (Docusate Sodium/Senna 50/8.6mg Tab) 1 tab PO BID PRN PRN Reason: Constipation Stop: 11/24/21 15:02 Sodium Chloride (Sodium Chloride 0.65% Na Soln 45 Ml ([place])) 1 - 2 sprays NA PRN PRN PRN Reason: Nasal Dryness/Congestion Stop: 11/24/21 23:42 Vitamin D (Cholecalciferol 1,000 Units 25 Mcg Tab) 1,000 units PO DAILY EMMA Stop: 11/24/21 08:59 Last Admin: 10/29/21 08:57 Dose: 1,000 units Documented by: Zinc Acetate/Diphenhydramine (Diphenhydramine 2%/Zinc 0.1% Cream 28gm Tube) 1 appln EXT DAILY PRN PRN Reason: Itching Stop: 11/24/21 14:35 Last Admin: 10/23/21 08:19 Dose: 1 appln Documented by: Mental Health & Subst Abuse Tx Psychiatrist Name of Psychiatrist: Griffin Negron Cigar Packer And Picker Name of Cigar Packer And Picker: PADMINI Pdeerson Phone Number for Cigar Packer And Picker: [phone] Date of Appointment with Cigar Packer And Picker: 09/29/21 Post Discharge Appointments Contact Information Discharge Discharge Address: [facility] - [address] [place] [id number]
[2021-10-29] MEDS: cloZAPine 100 MG TAB PO SCH (21:02)
[2021-10-29] MEDS ORDERED: cloZAPine 25 MG TAB PO SCH (22:00)
[2021-10-30] MEDS: CHOLECALCIFEROL 1,000 UNITS 25 MCG TAB PO SCH (08:07)
[2021-10-30] MEDS: LEVOTHYROXINE SODIUM 25 MCG TABLET PO SCH (08:07)
[2021-10-30] MEDS: DOCUSATE SODIUM 100 MG CAP PO SCH ×2 (08:07→21:04)
[2021-10-30] MEDS: cloZAPine 25 MG TAB PO SCH (08:08)
[2021-10-30] MEDS: ARTIFICIAL TEARS OP SCH ×4 (08:08→21:04)
[2021-10-30] MEDS: IBUPROFEN 200 MG TAB PO PRN ×2 (08:12→21:06)
[2021-10-30] MEDS: diphenhydrAMINE Capsule 25 MG CAP PO PRN ×2 (08:12→21:08)
--- NOTE | 2021-10-30 11:34 | Psychiatric Progress Note ---
Date of Service October 30, 2021 Impression / Recommendations Elise Miller is a 61 yo female with acute exacerbation of psychosis for non-compliance with clozapine. She is on an extended outpatient commitment prior to admission following discharge from the [facility]. 305 commitment converted to inpatient. She refuses to return to previous placement due to her paranoid delusions. MNPR for psychiatric symptoms of psychosis, paranoid ideation 10/30/21: remains delusional and unable to care for self outside of the hospital. Plan: reviewed interim progress and notes from Dr. Valladares. (1) Schizophrenia, paranoid, chronic with acute exacerbation: 10/30/21: continue clozapine 50 mg qAM & 150 mg qHS. Offered therapeutic walk which she declined. 10/29/21: refused clozaril 200 mg, offer 150 mg tonight. 30 day treatment plan. She has been less irritable so may be appropriate for therapeutic walk outside with security soon. 10/28/21: titrate hs clozapine to 200 mg qhs for ongoing paranoid delusions. Weekly CBC. 10/26/21: titrate hs clozapine to 150 mg qhs. 10/24/21: titrate hs dose clozapine to 100 mg hs. Patient agreed 10/23/21. 10/22/21: continue with clozapine 50mg BID. No side effects so far. Continued goal of reducing delusions to the point that she will agree to return to [facility] and remain adherent with clozapine, so far taking clozapine without any issues. 10/21/21: increase clozapine to 50mg BID starting tomorrow. 10/20/21: continue current medications. 10/19/21: Increase clozapine to 25 mg BID. Next WBC/ANC on 10/24/21 10/18/21: Continue clozapine 12.5 mg BID. Colace prn added. Has benadryl 25mg BID prn for her allergies (will d/c as clozapine titration continues). Weekly WBC/ANC for now but could go back to monthly monitoring after discharge as it has been <30 days off clozapine. Her refusal to return to any type of supported housing and her inability to function safely in a less supportive setting remains the biggest barrier to discharge. 10/17/21: EKG, ANC, WBC, repeat height/weight/BMI ordered for consideration of starting clozapine. Her refusal to return to her pre-admission housing remains significant barrier to safe discharge especially in setting of ongoing delusions and paranoia. Started clozapine 12.5 mg BID as this worked well for her previously and she is now refusing to further titrate abilify or consider any other long acting injectable options for medications which leaves clozapine as the superior oral medication choice and she is willing to take this. 10/16/21: continue current medications. Continue to reality-test delusions. Discussed with social work and nursing goal of having her supports from her housing come for facilitated meeting to test delusions and paranoia about her housing. 10/15/21: continue current medications. Reviewed chart for substance use history. She is declining any titration of abilify. Agrees to discuss housing options with me tomorrow. 10/14/21: reviewed interim progress from Dr. Valladares's notes. She is back on abilify but remains irritable about her length of stay and remains focused on not wanting to return to her previous housing. Will attempt to further titrate abilify tomorrow if she agrees, she declined today. 10/13/21: patient will not engage in any discussion around Abilify titration today as refusing to stay here, not yet attempting to elope or act out aggressively but Zyprexa 10 mg IM ordered in case of acute agitation. 10/11/21: re=reviewed fasting metabolic labs from earlier in the month. Agreed to increase Abilify 10 mg daily. 10/10/21: unclear if ever had trued EPS for Haldol or just manipulating med regimen, tolerating Abilify this am. Refusing JAQUEZ. 10/09/21: d/c Haldol (patient refusing), there is no acute agitation or threatening behavior or medical decompensation that would support meds over objection/injectable at this time given that she is willing to take Abilify 5 mg daily PO. 10/08/21: more breakthrough during med changes with Haldol not yet therapeutic. Increase Haldol to 5 mg po qam and 10 mg po qhs starting tonight as no evidence of worsening EPS. Needs meeting with PC and CM. 10/07/21: will titrate Haldol to 5 mg BId tomorrow. 10/06/21: Discontinuing abilify. Increasing haldol to 2.5 mg qAM and 5 mg qHS. 10/05/21: Continue cross-taper will reduce abilify from 10 mg to 5 mg tomorrow. Increase haldol from 2.5 mg qd to 2.5 mg BID. 10/04/21: Need to cross-taper from abilify to haldol due to high cost of abilify JAQUEZ. She consents to starting haldol. Tomorrow will reduce abilify from 15 mg to 10mg qd and start haldol 2.5 mg qd. 10/03/21: Continue with abilify 15 mg po qd. Spoke with her outpt psychiatrist Dr. Negron about challenge of JAQUEZ Maintenna possibly being cost prohibitive so have call out to her case finisher to see if there may be financial support options for this. Otherwise will need to consider haldol JAQUEZ vs Invega JAQUEZ. 10/02/21: She consents to increase of abilify to 15 mg tomorrow morning and discontinuation of zyprexa tonight. Benadryl 50 mg qhs prn for allergy symptoms. Continues to have delusions. Will attempt to start prior authorization process for Abilify Maintena if she continues to tolerate abilify po well. 10/01/21: She consents to ongoing cross-taper will decrease zyprexa from 10mg to 5mg qhs and increasing abilify from 5mg to 10 mg tomorrow morning. Remains very paranoid and suspicious of others so will continue MNPR. 09/30/21: Abilify 5 mg qd today. Tomorrow will decrease zyprexa from 10mg to 5 mg qhs and continue with cross-taper with goal of abilify monotherapy and then JAQUEZ if well tolerated. Continues to have limited insight but appropriate so far today, if this persists will consider d/c of MNPR tomorrow. 09/29/21: continue Zyprexa but taper soon in favor of Abilify. Test dose Abilify 2.5 mg today and 5 mg daily tomorrow. Once tolerability assessed, convert to JAQUEZ. Patient lacks insight into need to return to [facility]. Patient is upset following hearing so will be monitored before additional consideration of d/c MNPR. 09/28/21: continue Zyprexa 10 mg po qhs, add Cogentin 0.5 mg BID. No sense to restart Clozaril if won't take consistently. Monitor symptoms and consider Invega trial with hopes she'll ultimately agree to JAQUEZ. 09/27/21: The patient was admitted to the [facility] ([facility]) on q15 min checks (behavioral with suicide precautions) for safety. The patient will participate in group, recreational, and milieu therapies and will be offered additional individual and family sessions as clinically appropriate. Risks/benefits/alternatives were reviewed re: antipsychotics for mood and/or psychosis. Discussion included but was not limited to metabolic side effects, risks of TD. There was EPS tremor but no TD at baseline. Fasting glucose and lipid panel ordered for baseline monitoring. She is agreeable to continuing Zyprexa but not Clozaril. Discussed that an JAQUEZ would be preferred and she declines due to limited insight into need for medication. Inventory Assets Strengths: intelligent, has been pleasant in interactions with staff and likes CM Needs: improved compliance, better tolerated antipsychotic. Risk Factors Assessment : Yes Do You Have Access To A Gun?: No Mental Health Diagnoses: Yes Substance Use Disorders: No Previous Attempt: No Previous Psychiatric Hospitalization: Yes Protective Factors Assessment Employed: No Good Rapport with Provider: Yes Interval History Identifying Information TALITA BALL is a 61-year-old F who currently lives at [facility], has a history of schizophrenia and [facility] placement, and was admitted on 09/26/21 23:33 on a 302 involuntary commitment but is actually maintained on a 305 outpatient commitment for delusional behavior. Chief Complaint "I have a lot of important work to get back to, it's pilling up". Review of Systems Sleep Information Total Hours of Sleep: 7 Sleep Comments: pt on q-15 minute checks Meal Information Percent Meal Consumed - Breakfast: 100 Percent Meal Consumed - Lunch: 100 Percent Meal Consumed - Dinner: 100 Nutrition Comment: per record Subjective Subjective Patient was seen & assessed and interval progress reviewed with treatment team nursing and social work. Angela remains isolative to her room and continues to believe that she has purchased a home while in the hospital, that she is working for the [employer] and that she is communicating with her new housing development to get a fax sent for confirmation of this. Remains paranoid that we are keeping her here "because I have good private insurance". States she will be working today on "getting that fax sent over, but they are having problems with their fax machine". Remains paranoid about [facility] staff using drugs. Notes some fatigue from the clozapine but she likes the dose how it is and declines offers to consider adjusting the dosing timing to reduce daytime fatigue. Denies any other concerns nor side effects. Physical Exam Psychiatric Orientation: alert and oriented x 3 Apperance: appropriately dressed and appropriately groomed Eye Contact: good eye contact Motor Behavior: steady gait and station and no abnormal motor movements Speech: normal rate/rhythm/volume of speech Affect: + constricted affect Mood: no depressed mood and no anxious mood Thought Process: + circumstantial thought process and + confabulations Thought Content: + paranoid and + delusions Suicidal Thoughts: denies suicidal thoughts Homicidal Thoughts: denies homicidal thoughts Hallucinations: no auditory hallucinations and no visual hallucinations Cognition: remote memory grossly intact and language grossly intact; + recent memory not intact Estimated Intelligence: consistent with education level Insight: + impaired insight Judgement: + impaired judgement Vital Signs (Past 24 Hours) Last Vital Signs Temp 36.6 C 10/30/21 06:19 Pulse 99 H 10/30/21 06:20 Resp 18 10/30/21 06:19 BP 128/79 10/30/21 06:20 Pulse Ox 98 10/05/21 06:59 Results & Data ([facility]) Current Inpatient Medications Current Inpatient Medications: Current Inpatient Medications Acetaminophen (Acetaminophen 325 Mg Tab) 650 mg PO Q4H PRN PRN Reason: Headache or Minor Fever Stop: 11/24/21 23:42 Al Hydrox/Mg Hydrox/Simethicone (Aluminum/Magnesium Susp 30 Ml Udc) 30 ml PO Q4H PRN PRN Reason: GI Upset Stop: 11/24/21 23:42 Artificial Tears (Artificial Tears) 1 drops OP QID EMMA Stop: 11/24/21 08:59 Last Admin: 10/30/21 08:08 Dose: 1 drops Documented by: Bismuth Subsalicylate (Bismuth Subsalicylate Liqd 236 Ml) 15 ml PO PRN PRN PRN Reason: Loose Stool Stop: 11/24/21 23:42 Clozapine (Clozapine 25 Mg Tab) 50 mg PO QAM EMMA Stop: 11/24/21 08:59 Last Admin: 10/30/21 08:08 Dose: 50 mg Documented by: Clozapine (Clozapine 100 Mg Tab) 150 mg PO HS EMMA Stop: 11/28/21 21:59 Last Admin: 10/29/21 21:02 Dose: 150 mg Documented by: Diphenhydramine HCl (Diphenhydramine Capsule 25 Mg Cap) 25 mg PO BID PRN PRN Reason: Allergy Symptoms Stop: 11/24/21 16:44 Last Admin: 10/30/21 08:12 Dose: 25 mg Documented by: Docusate Sodium (Docusate Sodium 100 Mg Cap) 100 mg PO BID@0800,2100 EMMA Stop: 11/24/21 08:59 Last Admin: 10/30/21 08:07 Dose: 100 mg Documented by: Ibuprofen (Ibuprofen 200 Mg Tab) 400 mg PO Q6H PRN PRN Reason: pain Stop: 11/24/21 11:33 Last Admin: 10/30/21 08:12 Dose: 400 mg Documented by: Levothyroxine Sodium (Levothyroxine Sodium 25 Mcg Tablet) 25 mcg PO DAILY@0800 EMMA Stop: 11/24/21 08:59 Last Admin: 10/30/21 08:07 Dose: 25 mcg Documented by: Magnesium Hydroxide (Magnesium Hydroxide Susp 30 Ml Udc) 30 ml PO DAILY PRN PRN Reason: Constipation Stop: 11/24/21 23:42 Olanzapine (Olanzapine 10 Mg/2.1 Ml Sdv) 10 mg IM Q6 PRN PRN Reason: Agitation Stop: 11/24/21 08:57 Senna/Docusate Sodium (Docusate Sodium/Senna 50/8.6mg Tab) 1 tab PO BID PRN PRN Reason: Constipation Stop: 11/24/21 15:02 Sodium Chloride (Sodium Chloride 0.65% Na Soln 45 Ml (Hopkins)) 1 - 2 sprays NA PRN PRN PRN Reason: Nasal Dryness/Congestion Stop: 11/24/21 23:42 Vitamin D (Cholecalciferol 1,000 Units 25 Mcg Tab) 1,000 units PO DAILY EMMA Stop: 11/24/21 08:59 Last Admin: 10/30/21 08:07 Dose: 1,000 units Documented by: Zinc Acetate/Diphenhydramine (Diphenhydramine 2%/Zinc 0.1% Cream 28gm Tube) 1 appln EXT DAILY PRN PRN Reason: Itching Stop: 11/24/21 14:35 Last Admin: 10/23/21 08:19 Dose: 1 appln Documented by: Mental Health & Subst Abuse Tx Psychiatrist Name of Psychiatrist: Griffin Negron Utility Mechanic Name of Utility Mechanic: PADMINI Pederson Phone Number for Utility Mechanic: [phone] Date of Appointment with Utility Mechanic: 09/29/21 Post Discharge Appointments Contact Information Discharge Discharge Address: [facility] - [address] [place] [address] [place] [address]
[2021-10-30] MEDS: cloZAPine 100 MG TAB PO SCH (21:05)
[2021-10-31 08:05] LABS: Basophils # (auto) 0.04 K/uL (0-0.2); Basophils % (auto) 0.8 %; Eosinophils # (auto) 0.01 K/uL (0-0.5); Eosinophils % (auto) 0.2 %; Hematocrit (blood only) 37.5 % (37-47); Hemoglobin 12.1 g/dL (12.0-16.0); Lymphocytes # (auto) 2.36 K/uL (1.2-3.4); Lymphocytes % (auto) 46.3 %; Mean Corpuscular Hemoglobin 30.4 pg (25-34); Mean Corpuscular Hgb Conc 32.3 g/dL (32-36); Mean Corpuscular Volume 94.2 fL (80-100); Mean Platelet Volume 9.3 fL (7.4-10.4); Monocytes # (auto) 0.38 K/uL (0.11-0.59); Monocytes % (auto) 7.5 %; Neutrophils # (auto) 2.31 K/uL (1.4-6.5); Neutrophils % (auto) 45.2 %; Platelet Count 249 K/uL (130-400); RDW Coefficient of Variation 14.2 % (11.5-14.5); RDW Standard Deviation 48.7 fL (36.4-46.3); Red Blood Count 3.98 M/uL (4.2-5.4)
[2021-10-31] MEDS: CHOLECALCIFEROL 1,000 UNITS 25 MCG TAB PO SCH (08:37)
[2021-10-31] MEDS: LEVOTHYROXINE SODIUM 25 MCG TABLET PO SCH (08:37)
[2021-10-31] MEDS: cloZAPine 25 MG TAB PO SCH (08:37)
[2021-10-31] MEDS: DOCUSATE SODIUM 100 MG CAP PO SCH ×2 (08:37→21:34)
[2021-10-31] MEDS: diphenhydrAMINE Capsule 25 MG CAP PO PRN (08:38)
[2021-10-31] MEDS: IBUPROFEN 200 MG TAB PO PRN ×2 (08:38→21:34)
[2021-10-31] MEDS: ARTIFICIAL TEARS OP SCH ×4 (08:43→21:35)
[2021-10-31] MEDS ORDERED: diphenhydrAMINE Capsule 25 MG CAP PO PRN (15:27)
--- NOTE | 2021-10-31 15:32 | Psychiatric Progress Note ---
Date of Service October 31, 2021 Impression / Recommendations Elise Miller is a 61 yo female with acute exacerbation of psychosis for non-compliance with clozapine. She is on an extended outpatient commitment prior to admission following discharge from the [facility] hospital. 305 commitment converted to inpatient. She refuses to return to previous placement due to her paranoid delusions. MNPR for psychiatric symptoms of psychosis, paranoid ideation 10/31/21: remains delusional and unable to care for self outside of the hospital. Some sedation likely from clozapine as well as her desire to take benadryl prn BID. Discussed again risks of benadryl with clozapine and goal of eliminating benadryl. She was agreeable to discontinuing the morning dose of prn benadryl to reduce sedation. If sedation persists can move to clozapine all at qHS. She remains resistant to further dose titration. Plan: reduced benadryl from BID prn to hs prn. Reviewed CBC-WBC and ANC stable. (1) Schizophrenia, paranoid, chronic with acute exacerbation: 10/31/21: continue clozapine 50mg qAM & 150 mg qHS. Decreasing prn Benadryl 25mg to once daily. 10/30/21: continue clozapine 50 mg qAM & 150 mg qHS. Offered therapeutic walk which she declined. 10/29/21: refused clozaril 200 mg, offer 150 mg tonight. 30 day treatment plan. She has been less irritable so may be appropriate for therapeutic walk outside with security soon. 10/28/21: titrate hs clozapine to 200 mg qhs for ongoing paranoid delusions. Weekly CBC. 10/26/21: titrate hs clozapine to 150 mg qhs. 10/24/21: titrate hs dose clozapine to 100 mg hs. Patient agreed 10/23/21. 10/22/21: continue with clozapine 50mg BID. No side effects so far. Continued goal of reducing delusions to the point that she will agree to return to [facility] and remain adherent with clozapine, so far taking clozapine without any issues. 10/21/21: increase clozapine to 50mg BID starting tomorrow. 10/20/21: continue current medications. 10/19/21: Increase clozapine to 25 mg BID. Next WBC/ANC on 10/24/21 10/18/21: Continue clozapine 12.5 mg BID. Colace prn added. Has benadryl 25mg BID prn for her allergies (will d/c as clozapine titration continues). Weekly WBC/ANC for now but could go back to monthly monitoring after discharge as it has been <30 days off clozapine. Her refusal to return to any type of supported housing and her inability to function safely in a less supportive setting remains the biggest barrier to discharge. 10/17/21: EKG, ANC, WBC, repeat height/weight/BMI ordered for consideration of starting clozapine. Her refusal to return to her pre-admission housing remains significant barrier to safe discharge especially in setting of ongoing delusions and paranoia. Started clozapine 12.5 mg BID as this worked well for her previously and she is now refusing to further titrate abilify or consider any other long acting injectable options for medications which leaves clozapine as the superior oral medication choice and she is willing to take this. 10/16/21: continue current medications. Continue to reality-test delusions. Discussed with social work and nursing goal of having her supports from her housing come for facilitated meeting to test delusions and paranoia about her housing. 10/15/21: continue current medications. Reviewed chart for substance use history. She is declining any titration of abilify. Agrees to discuss housing op tions with me tomorrow. 10/14/21: reviewed interim progress from Dr. Valladares's notes. She is back on abilify but remains irritable about her length of stay and remains focused on not wanting to return to her previous housing. Will attempt to further titrate abilify tomorrow if she agrees, she declined today. 10/13/21: patient will not engage in any discussion around Abilify titration today as refusing to stay here, not yet attempting to elope or act out aggressively but Zyprexa 10 mg IM ordered in case of acute agitation. 10/11/21: re=reviewed fasting metabolic labs from earlier in the month. Agreed to increase Abilify 10 mg daily. 10/10/21: unclear if ever had trued EPS for Haldol or just manipulating med regimen, tolerating Abilify this am. Refusing JAQUEZ. 10/09/21: d/c Haldol (patient refusing), there is no acute agitation or threatening behavior or medical decompensation that would support meds over objection/injectable at this time given that she is willing to take Abilify 5 mg daily PO. 10/08/21: more breakthrough during med changes with Haldol not yet therapeutic. Increase Haldol to 5 mg po qam and 10 mg po qhs starting tonight as no evidence of worsening EPS. Needs meeting with [facility] and CM. 10/07/21: will titrate Haldol to 5 mg BId tomorrow. 10/06/21: Discontinuing abilify. Increasing haldol to 2.5 mg qAM and 5 mg qHS. 10/05/21: Continue cross-taper will reduce abilify from 10 mg to 5 mg tomorrow. Increase haldol from 2.5 mg qd to 2.5 mg BID. 10/04/21: Need to cross-taper from abilify to haldol due to high cost of abilify JAQUEZ. She consents to starting haldol. Tomorrow will reduce abilify from 15 mg to 10mg qd and start haldol 2.5 mg qd. 10/03/21: Continue with abilify 15 mg po qd. Spoke with her outpt psychiatrist Dr. Negron about challenge of JAQUEZ [place] possibly being cost prohibitive so have call out to her child welfare caseworker to see if there may be financial support options for this. Otherwise will need to consider haldol JAQUEZ vs Invega JAQUEZ. 10/02/21: She consents to increase of abilify to 15 mg tomorrow morning and discontinuation of zyprexa tonight. Benadryl 50 mg qhs prn for allergy symptoms. Continues to have delusions. Will attempt to start prior authorization process for Abilify Maintena if she continues to tolerate abilify po well. 10/01/21: She consents to ongoing cross-taper will decrease zyprexa from 10mg to 5mg qhs and increasing abilify from 5mg to 10 mg tomorrow morning. Remains very paranoid and suspicious of others so will continue MNPR. 09/30/21: Abilify 5 mg qd today. Tomorrow will decrease zyprexa from 10mg to 5 mg qhs and continue with cross-taper with goal of abilify monotherapy and then JAQUEZ if well tolerated. Continues to have limited insight but appropriate so far today, if this persists will consider d/c of MNPR tomorrow. 09/29/21: continue Zyprexa but taper soon in favor of Abilify. Test dose Abilify 2.5 mg today and 5 mg daily tomorrow. Once tolerability assessed, convert to JAQUEZ. Patient lacks insight into need to return to [facility]. Patient is upset following hearing so will be monitored before additional consideration of d/c MNPR. 09/28/21: continue Zyprexa 10 mg po qhs, add Cogentin 0.5 mg BID. No sense to restart Clozaril if won't take consistently. Monitor symptoms and consider Invega trial with hopes she'll ultimately agree to JAQUEZ. 09/27/21: The patient was admitted [facility] ([facility] mental health unit) on q15 min checks (behavioral with suicide precautions) for safety. The patient will participate in group, recreational, and milieu therapies and will be offered additional individual and family sessions as clinically appropriate. Risks/benefits/alternatives were reviewed re: antipsychotics for mood and/or psychosis. Discussion included but was not limited to metabolic side effects, risks of TD. There was EPS tremor but no TD at baseline. Fasting glucose and lipid panel ordered for baseline monitoring. She is agreeable to continuing Zyprexa but not Clozaril. Discussed that an JAQUEZ would be preferred and she declines due to limited insight into need for medication. Inventory Assets Strengths: intelligent, has been pleasant in interactions with staff and likes CM Needs: improved compliance, better tolerated antipsychotic. Risk Factors Assessment : Yes Do You Have Access To A Gun?: No Mental Health Diagnoses: Yes Substance Use Disorders: No Previous Attempt: No Previous Psychiatric Hospitalization: Yes Protective Factors Assessment Employed: No Good Rapport with Provider: Yes Interval History Identifying Information TALITA BALL is a 61-year-old F who currently lives at [facility], has a history of schizophrenia and state hospital placement, and was admitted on 09/26/21 23:33 on a 302 involuntary commitment but is actually maintained on a 305 outpatient commitment for delusional behavior. Chief Complaint "I'm ok". Review of Systems Sleep Information Total Hours of Sleep: 8 Sleep Comments: pt on q-15 minute checks Meal Information Percent Meal Consumed - Breakfast: 100 Percent Meal Consumed - Lunch: 100 Percent Meal Consumed - Dinner: 100 Nutrition Comment: per record Subjective Subjective Patient was seen & assessed and interval progress reviewed with treatment team nursing and social work. Today reports "ok" mood and feels like she's experiencing some sedation in the morning from the clozapine. She remains focused on "getting that fax to you" to prove that she has housing. Largely isolative to her room except for meals. Physical Exam Psychiatric Orientation: alert and oriented x 3 Apperance: appropriately dressed and appropriately groomed Eye Contact: good eye contact Motor Behavior: steady gait and station and no abnormal motor movements Speech: normal rate/rhythm/volume of speech Affect: + constricted affect Mood: no depressed mood and no anxious mood Thought Process: + circumstantial thought process and + confabulations Thought Content: + paranoid and + delusions Suicidal Thoughts: denies suicidal thoughts Homicidal Thoughts: denies homicidal thoughts Hallucinations: no auditory hallucinations and no visual hallucinations Cognition: remote memory grossly intact and language grossly intact; + recent memory not intact Estimated Intelligence: consistent with education level Insight: + impaired insight Judgement: + impaired judgement Vital Signs (Past 24 Hours) Last Vital Signs Temp 37 C 10/31/21 06:40 Pulse 108 H 10/31/21 06:40 Resp 16 10/31/21 06:40 BP 115/69 10/31/21 06:40 Pulse Ox 98 10/05/21 06:59 Results & Data ([facility]) Laboratory Results Laboratory Results - last 24 hr 10/31/21 07:45 WBC 5.10 RBC 3.98 L Hgb 12.1 Hct 37.5 MCV 94.2 MCH 30.4 MCHC 32.3 RDW Std Deviation 48.7 H RDW Coeff of Kim 14.2 Plt Count 249 MPV 9.3 Immature Gran % (Auto) 0.0 Neut % (Auto) 45.2 Lymph % (Auto) 46.3 [place] % (Auto) 7.5 Eos % (Auto) 0.2 Baso % (Auto) 0.8 Neut # (Auto) 2.31 Lymph # (Auto) 2.36 [place] # (Auto) 0.38 Eos # (Auto) 0.01 Baso # (Auto) 0.04 Immature Gran # (Auto) 0.00 Current Inpatient Medications Current Inpatient Medications: Current Inpatient Medications Acetaminophen (Acetaminophen 325 Mg Tab) 650 mg PO Q4H PRN PRN Reason: Headache or Minor Fever Stop: 11/24/21 23:42 Al Hydrox/Mg Hydrox/Simethicone (Aluminum/Magnesium Susp 30 Ml Udc) 30 ml PO Q4H PRN PRN Reason: GI Upset Stop: 11/24/21 23:42 Artificial Tears (Artificial Tears) 1 drops OP QID EMMA Stop: 11/24/21 08:59 Last Admin: 10/31/21 14:34 Dose: 1 drops Documented by: Bismuth Subsalicylate (Bismuth Subsalicylate Liqd 236 Ml) 15 ml PO PRN PRN PRN Reason: Loose Stool Stop: 11/24/21 23:42 Clozapine (Clozapine 25 Mg Tab) 50 mg PO QAM EMMA Stop: 11/24/21 08:59 Last Admin: 10/31/21 08:37 Dose: 50 mg Documented by: Clozapine (Clozapine 100 Mg Tab) 150 mg PO HS EMMA Stop: 11/28/21 21:59 Last Admin: 10/30/21 21:05 Dose: 150 mg Documented by: Diphenhydramine HCl (Diphenhydramine Capsule 25 Mg Cap) 25 mg PO BID PRN PRN Reason: Allergy Symptoms Stop: 11/24/21 16:44 Last Admin: 10/31/21 08:38 Dose: 25 mg Documented by: Docusate Sodium (Docusate Sodium 100 Mg Cap) 100 mg PO BID@0800,2100 [facility] Stop: 11/24/21 08:59 Last Admin: 10/31/21 08:37 Dose: 100 mg Documented by: Ibuprofen (Ibuprofen 200 Mg Tab) 400 mg PO Q6H PRN PRN Reason: pain Stop: 11/24/21 11:33 Last Admin: 10/31/21 08:38 Dose: 400 mg Documented by: Levothyroxine Sodium (Levothyroxine Sodium 25 Mcg Tablet) 25 mcg PO DAILY@0800 [facility] Stop: 11/24/21 08:59 Last Admin: 10/31/21 08:37 Dose: 25 mcg Documented by: Magnesium Hydroxide (Magnesium Hydroxide Susp 30 Ml Udc) 30 ml PO DAILY PRN PRN Reason: Constipation Stop: 11/24/21 23:42 Olanzapine (Olanzapine 10 Mg/2.1 Ml Sdv) 10 mg IM Q6 PRN PRN Reason: Agitation Stop: 11/24/21 08:57 Senna/Docusate Sodium (Docusate Sodium/Senna 50/8.6mg Tab) 1 tab PO BID PRN PRN Reason: Constipation Stop: 11/24/21 15:02 Sodium Chloride (Sodium Chloride 0.65% Na Soln 45 Ml ([place])) 1 - 2 sprays NA PRN PRN PRN Reason: Nasal Dryness/Congestion Stop: 11/24/21 23:42 Vitamin D (Cholecalciferol 1,000 Units 25 Mcg Tab) 1,000 units PO DAILY EMMA Stop: 11/24/21 08:59 Last Admin: 10/31/21 08:37 Dose: 1,000 units Documented by: Zinc Acetate/Diphenhydramine (Diphenhydramine 2%/Zinc 0.1% Cream 28gm Tube) 1 appln EXT DAILY PRN PRN Reason: Itching Stop: 11/24/21 14:35 Last Admin: 10/23/21 08:19 Dose: 1 appln Documented by: Mental Health & Subst Abuse Tx Psychiatrist Name of Psychiatrist: Griffin Negron Commercial [employer] Architect Name of Commercial Green Building Architect: PADMINI Pederson Phone Number for Commercial Green Building Architect: [phone] Date of Appointment with Commercial Green Building Architect: 09/29/21 Post Discharge Appointments Contact Information Discharge Discharge Address: [address] [address]
[2021-10-31] MEDS: cloZAPine 100 MG TAB PO SCH (21:32)
[2021-11-01] MEDS: DOCUSATE SODIUM 100 MG CAP PO SCH ×2 (08:58→21:37)
[2021-11-01] MEDS: CHOLECALCIFEROL 1,000 UNITS 25 MCG TAB PO SCH (08:58)
[2021-11-01] MEDS: IBUPROFEN 200 MG TAB PO PRN ×2 (08:59→21:42)
[2021-11-01] MEDS: cloZAPine 25 MG TAB PO SCH (09:01)
[2021-11-01] MEDS: LEVOTHYROXINE SODIUM 25 MCG TABLET PO SCH (09:01)
[2021-11-01] MEDS: ARTIFICIAL TEARS OP SCH ×4 (09:02→21:36)
--- NOTE | 2021-11-01 16:31 | Psychiatric Progress Note ---
Date of Service November 01, 2021 Impression / Recommendations Elise Miller is a 61 yo female with acute exacerbation of psychosis for non-compliance with clozapine. She is on an extended outpatient commitment prior to admission following discharge from the [facility]. 305 commitment converted to inpatient. She refuses to return to previous placement due to her paranoid delusions. MNPR for psychiatric symptoms of psychosis, paranoid ideation 11/01/21: remains delusional, paranoid and unable to care for self outside of the hospital. Some sedation likely from clozapine she would like to consolidate the dose. She remains resistant to further dose titration. Plan: Consolidate dose of clozapine all at qhs with aim of continuing with titration. (1) Schizophrenia, paranoid, chronic with acute exacerbation: 11/01/21: consolidate clozapine to 200mg qHS with goal of titrating further if Angela allows. 10/31/21: continue clozapine 50mg qAM & 150 mg qHS. Decreasing prn Benadryl 25mg to once daily. 10/30/21: continue clozapine 50 mg qAM & 150 mg qHS. Offered therapeutic walk which she declined. 10/29/21: refused clozaril 200 mg, offer 150 mg tonight. 30 day treatment plan. She has been less irritable so may be appropriate for therapeutic walk outside with security soon. 10/28/21: titrate hs clozapine to 200 mg qhs for ongoing paranoid delusions. Weekly CBC. 10/26/21: titrate hs clozapine to 150 mg qhs. 10/24/21: titrate hs dose clozapine to 100 mg hs. Patient agreed 10/23/21. 10/22/21: continue with clozapine 50mg BID. No side effects so far. Continued goal of reducing delusions to the point that she will agree to return to [facility] and remain adherent with clozapine, so far taking clozapine without any issues. 10/21/21: increase clozapine to 50mg BID starting tomorrow. 10/20/21: continue current medications. 10/19/21: Increase clozapine to 25 mg BID. Next WBC/ANC on 10/24/21 10/18/21: Continue clozapine 12.5 mg BID. Colace prn added. Has benadryl 25mg BID prn for her allergies (will d/c as clozapine titration continues). Weekly WBC/ANC for now but could go back to monthly monitoring after discharge as it has been <30 days off clozapine. Her refusal to return to any type of supported housing and her inability to function safely in a less supportive setting remains the biggest barrier to discharge. 10/17/21: EKG, ANC, WBC, repeat height/weight/BMI ordered for consideration of starting clozapine. Her refusal to return to her pre-admission housing remains significant barrier to safe discharge especially in setting of ongoing delusions and paranoia. Started clozapine 12.5 mg BID as this worked well for her previously and she is now refusing to further titrate abilify or consider any other long acting injectable options for medications which leaves clozapine as the superior oral medication choice and she is willing to take this. 10/16/21: continue current medications. Continue to reality-test delusions. Discussed with social work and nursing goal of having her supports from her housing come for facilitated meeting to test delusions and paranoia about her housing. 10/15/21: continue current medications. Reviewed chart for substance use history . She is declining any titration of abilify. Agrees to discuss housing options with me tomorrow. 10/14/21: reviewed interim progress from Dr. Valladares's notes. She is back on abilify but remains irritable about her length of stay and remains focused on not wanting to return to her previous housing. Will attempt to further titrate abilify tomorrow if she agrees, she declined today. 10/13/21: patient will not engage in any discussion around Abilify titration today as refusing to stay here, not yet attempting to elope or act out aggressively but Zyprexa 10 mg IM ordered in case of acute agitation. 10/11/21: re=reviewed fasting metabolic labs from earlier in the month. Agreed to increase Abilify 10 mg daily. 10/10/21: unclear if ever had trued EPS for Haldol or just manipulating med tyrese men, tolerating Abilify this am. Refusing JAQUEZ. 10/09/21: d/c Haldol (patient refusing), there is no acute agitation or threatening behavior or medical decompensation that would support meds over obj ection/injectable at this time given that she is willing to take Abilify 5 mg daily PO. 10/08/21: more breakthrough during med changes with Haldol not yet therapeutic. Increase Haldol to 5 mg po qam and 10 mg po qhs starting tonight as no evidence of worsening EPS. Needs meeting with [facility] and CM. 10/07/21: will titrate Haldol to 5 mg BId tomorrow. 10/06/21: Discontinuing abilify. Increasing haldol to 2.5 mg qAM and 5 mg qHS. 10/05/21: Continue cross-taper will reduce abilify from 10 mg to 5 mg tomorrow. Increase haldol from 2.5 mg qd to 2.5 mg BID. 10/04/21: Need to cross-taper from abilify to haldol due to high cost of abilify JAQUEZ. She consents to starting haldol. Tomorrow will reduce abilify from 15 mg to 10mg qd and start haldol 2.5 mg qd. 10/03/21: Continue with abilify 15 mg po qd. Spoke with her outpt psychiatrist Dr. Negron about challenge of JAQUEZ [place] possibly being cost prohibitive so have call out to her case management manager to see if there may be financial support options for this. Otherwise will need to consider haldol JAQUEZ vs Invega JAQUEZ. 10/02/21: She consents to increase of abilify to 15 mg tomorrow morning and discontinuation of zyprexa tonight. Benadryl 50 mg qhs prn for allergy symptoms. Continues to have delusions. Will attempt to start prior authorization process for Abilify Maintena if she continues to tolerate abilify po well. 10/01/21: She consents to ongoing cross-taper will decrease zyprexa from 10mg to 5mg qhs and increasing abilify from 5mg to 10 mg tomorrow morning. Remains very paranoid and suspicious of others so will continue MNPR. 09/30/21: Abilify 5 mg qd today. Tomorrow will decrease zyprexa from 10mg to 5 mg qhs and continue with cross-taper with goal of abilify monotherapy and then JAQUEZ if well tolerated. Continues to have limited insight but appropriate so far today, if this persists will consider d/c of MNPR tomorrow. 09/29/21: continue Zyprexa but taper soon in favor of Abilify. Test dose Abilify 2.5 mg today and 5 mg daily tomorrow. Once tolerability assessed, convert to JAQUEZ. Patient lacks insight into need to return to [facility]. Patient is upset following hearing so will be monitored before additional consideration of d/c M NPR. 09/28/21: continue Zyprexa 10 mg po qhs, add Cogentin 0.5 mg BID. No sense to restart Clozaril if won't take consistently. Monitor symptoms and consider Invega trial with hopes she'll ultimately agree to JAQUEZ. 09/27/21: The patient was admitted to the [facility] ([facility] mental health unit) on q15 min checks (behavioral with suicide precautions) for safety. The patient will participate in group, recreational, and milieu therapies and will be offered additional individual and family sessions as clinically appropriate. Risks/benefits/alternatives were reviewed re: antipsychotics for mood and/or psychosis. Discussion included but was not limited to metabolic side effects, risks of TD. There was EPS tremor but no TD at baseline. Fasting glucose and lipid panel ordered for baseline monitoring. She is agreeable to continuing Zyprexa but not Clozaril. Discussed that an JAQUEZ would be preferred and she declines due to limited insight into need for medication. Inventory Assets Strengths: intelligent, has been pleasant in interactions with staff and likes Needs: improved compliance, better tolerated antipsychotic. Risk Factors Assessment : Yes Do You Have Access To A Gun?: No Mental Health Diagnoses: Yes Substance Use Disorders: No Previous Attempt: No Previous Psychiatric Hospitalization: Yes Protective Factors Assessment Employed: No Good Rapport with Provider: Yes Interval History Identifying Information TALITA BALL is a 61-year-old F who currently lives at [facility], has a history of schizophrenia and [facility] placement, and was admitted on 09/26/21 23:33 on a 302 involuntary commitment but is actually maintained on a 305 outpatient commitment for delusional behavior. Chief Complaint "I need the Benadryl for my hay fever". Review of Systems Sleep Information Total Hours of Sleep: 7.75 Sleep Comments: pt on q-15 minute checks Meal Information Percent Meal Consumed - Breakfast: 100 Percent Meal Consumed - Lunch: 100 Percent Meal Consumed - Dinner: 100 Nutrition Comment: per record Subjective Subjective Patient was seen & assessed and interval progress reviewed with treatment team nursing and social work. She remains delusional about [place]. 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 Some fatigue during the day, likes the idea of consolidating clozapine all at bedtime. Remains fixated on benadryl and taking it for hay fever even though she acknowledges it is now snowing outside and that she hasn't been going outside. Physical Exam Psychiatric Orientation: alert and oriented x 3 Apperance: appropriately dressed and appropriately groomed Eye Contact: + fair eye contact Motor Behavior: steady gait and station and no abnormal motor movements Speech: normal rate/rhythm/volume of speech Affect: + constricted affect Mood: + irritable mood Thought Process: + circumstantial thought process Thought Content: + preoccupation and + paranoid Suicidal Thoughts: denies suicidal thoughts Homicidal Thoughts: denies homicidal thoughts Hallucinations: no auditory hallucinations and no visual hallucinations Cognition: remote memory grossly intact and language grossly intact; + recent memory not intact and + attention not intact Estimated Intelligence: consistent with education level Insight: + severely impaired insight Judgement: + impaired judgement Vital Signs (Past 24 Hours) Last Vital Signs Temp 36.6 C 11/01/21 06:00 Pulse 102 H 11/01/21 06:34 Resp 16 11/01/21 06:00 BP 115/74 11/01/21 06:34 Pulse Ox 98 10/05/21 06:59 Results & Data ([facility]) Current Inpatient Medications Current Inpatient Medications: Current Inpatient Medications Acetaminophen (Acetaminophen 325 Mg Tab) 650 mg PO Q4H PRN PRN Reason: Headache or Minor Fever Stop: 11/24/21 23:42 Al Hydrox/Mg Hydrox/Simethicone (Aluminum/Magnesium Susp 30 Ml Udc) 30 ml PO Q4H PRN PRN Reason: GI Upset Stop: 11/24/21 23:42 Artificial Tears (Artificial Tears) 1 drops OP QID EMMA Stop: 11/24/21 08:59 Last Admin: 11/01/21 12:44 Dose: 1 drops Documented by: Bismuth Subsalicylate (Bismuth Subsalicylate Liqd 236 Ml) 15 ml PO PRN PRN PRN Reason: Loose Stool Stop: 11/24/21 23:42 Docusate Sodium (Docusate Sodium 100 Mg Cap) 100 mg PO BID@0800,2100 EMMA Stop: 11/24/21 08:59 Last Admin: 11/01/21 08:58 Dose: 100 mg Documented by: Ibuprofen (Ibuprofen 200 Mg Tab) 400 mg PO Q6H PRN PRN Reason: pain Stop: 11/24/21 11:33 Last Admin: 11/01/21 08:59 Dose: 400 mg Documented by: Levothyroxine Sodium (Levothyroxine Sodium 25 Mcg Tablet) 25 mcg PO DAILY@0800 EMMA Stop: 11/24/21 08:59 Last Admin: 11/01/21 09:01 Dose: 25 mcg Documented by: Magnesium Hydroxide (Magnesium Hydroxide Susp 30 Ml Udc) 30 ml PO DAILY PRN PRN Reason: Constipation Stop: 11/24/21 23:42 Olanzapine (Olanzapine 10 Mg/2.1 Ml Sdv) 10 mg IM Q6 PRN PRN Reason: Agitation Stop: 11/24/21 08:57 Senna/Docusate Sodium (Docusate Sodium/Senna 50/8.6mg Tab) 1 tab PO BID PRN PRN Reason: Constipation Stop: 11/24/21 15:02 Sodium Chloride (Sodium Chloride 0.65% Na Soln 45 Ml ([place])) 1 - 2 sprays NA PRN PRN PRN Reason: Nasal Dryness/Congestion Stop: 11/24/21 23:42 Vitamin D (Cholecalciferol 1,000 Units 25 Mcg Tab) 1,000 units PO DAILY EMMA Stop: 11/24/21 08:59 Last Admin: 11/01/21 08:58 Dose: 1,000 units Documented by: Zinc Acetate/Diphenhydramine (Diphenhydramine 2%/Zinc 0.1% Cream 28gm Tube) 1 appln EXT DAILY PRN PRN Reason: Itching Stop: 11/24/21 14:35 Last Admin: 10/23/21 08:19 Dose: 1 appln Documented by: Mental Health & Subst Abuse Tx Psychiatrist Name of Psychiatrist: Griffin Negron Manager Office Name of Manager Office: PADMINI Pederson Phone Number for Manager Office: [phone] Date of Appointment with Manager Office: 09/29/21 Post Discharge Appointments Contact Information Discharge Discharge Address: [facility] - [address], [place] [id number]
[2021-11-01] MEDS: cloZAPine 100 MG TAB PO SCH (21:38)
[2021-11-02] MEDS: IBUPROFEN 200 MG TAB PO PRN ×3 (08:27→21:08)
[2021-11-02] MEDS: LEVOTHYROXINE SODIUM 25 MCG TABLET PO SCH (08:27)
[2021-11-02] MEDS: CHOLECALCIFEROL 1,000 UNITS 25 MCG TAB PO SCH (08:27)
[2021-11-02] MEDS: DOCUSATE SODIUM 100 MG CAP PO SCH ×2 (08:27→21:03)
[2021-11-02] MEDS: ARTIFICIAL TEARS OP SCH ×4 (08:28→21:03)
[2021-11-02] MEDS: diphenhydrAMINE Capsule 25 MG CAP PO PRN (08:36)
--- NOTE | 2021-11-02 15:28 | Psychiatric Progress Note ---
Date of Service November 02, 2021 Impression / Recommendations Elise Miller is a 61 yo female with acute exacerbation of psychosis for non-compliance with clozapine. She is on an extended outpatient commitment prior to admission following discharge from the [facility]. 305 commitment converted to inpatient. She refuses to return to previous placement due to her paranoid delusions. MNPR for psychiatric symptoms of psychosis, paranoid ideation 11/02/21: remains delusional, paranoid and unable to care for self outside of the hospital. Continue with consolidated clozapine which she is agreeable to. She remains resistant to further dose titration. Continues to have tachycardia and lower BP today but asymptomatic. If continues for another day will get EKG given potential for cardiac side effects with clozapine. Plan: reviewed trend of tachycardia even prior to initiation with clozapine, encouraged good fluid intake for BP, she walked outside today and did not complain of cardiac issues and had no dizziness which is further reassuring against myocarditis. Increasing frequency of vital signs and then will determine if EKG is needed tomorrow. (1) Schizophrenia, paranoid, chronic with acute exacerbation: 11/02/21: continue clozapine 200 mg qHS. Increase vitals to qshift given decreased BP and tachycardia and potential for myocarditis with clozapine, if BP remains low will get EKG tomorrow. 11/01/21: consolidate clozapine to 200mg qHS with goal of titrating further if Angela allows. 10/31/21: continue clozapine 50mg qAM & 150 mg qHS. Decreasing prn Benadryl 25mg to once daily. 10/30/21: continue clozapine 50 mg qAM & 150 mg qHS. Offered therapeutic walk which she declined. 10/29/21: refused clozaril 200 mg, offer 150 mg tonight. 30 day treatment plan. She has been less irritable so may be appropriate for therapeutic walk outside with security soon. 10/28/21: titrate hs clozapine to 200 mg qhs for ongoing paranoid delusions. Weekly CBC. 10/26/21: titrate hs clozapine to 150 mg qhs. 10/24/21: titrate hs dose clozapine to 100 mg hs. Patient agreed 10/23/21. 10/22/21: continue with clozapine 50mg BID. No side effects so far. Continued goal of reducing delusions to the point that she will agree to return to [facility] and remain adherent with clozapine, so far taking clozapine without any issues. 10/21/21: increase clozapine to 50mg BID starting tomorrow. 10/20/21: continue current medications. 10/19/21: Increase clozapine to 25 mg BID. Next WBC/ANC on 10/24/21 10/18/21: Continue clozapine 12.5 mg BID. Colace prn added. Has benadryl 25mg BID prn for her allergies (will d/c as clozapine titration continues). Weekly WBC/ANC for now but could go back to monthly monitoring after discharge as it has been <30 days off clozapine. Her refusal to return to any type of supported housing and her inability to function safely in a less supportive setting remains the biggest barrier to discharge. 10/17/21: EKG, ANC, WBC, repeat height/weight/BMI ordered for consideration of starting clozapine. Her refusal to return to her pre-admission housing remains significant barrier to safe discharge especially in setting of ongoing delusions and paranoia. Started clozapine 12.5 mg BID as this worked well for her previously and she is now refusing to further titrate abilify or consider any other long acting injectable options for medications which leaves clozapine as the superior oral medication choice and she is willing to take this. 10/16/21: continue current medications. Continue to reality-test delusions. Discussed with social work and nursing goal of having her supports from her housing come for facilitated meeting to test delusions and paranoia about her housing. 10/15/21: continue current medications. Reviewed chart for substance use history. She is declining any titration of abilify. Agrees to discuss housing options with me tomorrow. 10/14/21: reviewed interim progress from Dr. Valladares's notes. She is back on abilify but remains irritable about her length of stay and remains focused on not wanting to return to her previous housing. Will attempt to further titrate abilify tomorrow if she agrees, she declined today. 10/13/21: patient will not engage in any discussion around Abilify titration today as refusing to stay here, not yet attempting to elope or act out aggressively but Zyprexa 10 mg IM ordered in case of acute agitation. 10/11/21: re=reviewed fasting metabolic labs from earlier in the month. Agreed to increase Abilify 10 mg daily. 10/10/21: unclear if ever had trued EPS for Haldol or just manipulating med regimen, tolerating Abilify this am. Refusing JAQUEZ. 10/09/21: d/c Haldol (patient refusing), there is no acute agitation or threatening behavior or medical decompensation that would support meds over objection/injectable at this time given that she is willing to take Abilify 5 mg daily PO. 10/08/21: more breakthrough during med changes with Haldol not yet therapeutic. Increase Haldol to 5 mg po qam and 10 mg po qhs starting tonight as no evidence of worsening EPS. Needs meeting with [facility] and CM. 10/07/21: will titrate Haldol to 5 mg BId tomorrow. 10/06/21: Discontinuing abilify. Increasing haldol to 2.5 mg qAM and 5 mg qHS. 10/05/21: Continue cross-taper will reduce abilify from 10 mg to 5 mg tomorrow. Increase haldol from 2.5 mg qd to 2.5 mg BID. 10/04/21: Need to cross-taper from abilify to haldol due to high cost of abilify JAQUEZ. She consents to starting haldol. Tomorrow will reduce abilify from 15 mg to 10mg qd and start haldol 2.5 mg qd. 10/03/21: Continue with abilify 15 mg po qd. Spoke with her outpt psychiatrist Dr. Negron about challenge of JAQUEZ [place] possibly being cost prohibitive so have call out to her telephonic nurse case manager to see if there may be financial support options for this. Otherwise will need to consider haldol JAQUEZ vs Invega JAQUEZ. 10/02/21: She consents to increase of abilify to 15 mg tomorrow morning and discontinuation of zyprexa tonight. Benadryl 50 mg qhs prn for allergy symptoms. Continues to have delusions. Will attempt to start prior authorization process for Abilify Maintena if she continues to tolerate abilify po well. 10/01/21: She consents to ongoing cross-taper will decrease zyprexa from 10mg to 5mg qhs and increasing abilify from 5mg to 10 mg tomorrow morning. Remains very paranoid and suspicious of others so will continue MNPR. 09/30/21: Abilify 5 mg qd today. Tomorrow will decrease zyprexa from 10mg to 5 mg qhs and continue with cross-taper with goal of abilify monotherapy and then JAQUEZ if well tolerated. Continues to have limited insight but appropriate so far today, if this persists will consider d/c of MNPR tomorrow. 09/29/21: continue Zyprexa but taper soon in favor of Abilify. Test dose Abilify 2.5 mg today and 5 mg daily tomorrow. Once tolerability assessed, convert to JAQUEZ. Patient lacks insight into need to return to [facility]. Patient is upset following hearing so will be monitored before additional consideration of d/c MNPR. 09/28/21: continue Zyprexa 10 mg po qhs, add Cogentin 0.5 mg BID. No sense to restart Clozaril if won't take consistently. Monitor symptoms and consider Invega trial with hopes she'll ultimately agree to JAQUEZ. 09/27/21: The patient was admitted to the [facility] ([facility]) on q15 min checks (behavioral with suicide precautions) for safety. The patient will participate in group, recreational, and milieu therapies and will be offered additional individual and family sessions as clinically appropriate. Risks/benefits/alternatives were reviewed re: antipsychotics for mood and/or psychosis. Discussion included but was not limited to metabolic side effects, risks of TD. There was EPS tremor but no TD at baseline. Fasting glucose and lipid panel ordered for baseline monitoring. She is agreeable to continuing Zyprexa but not Clozaril. Discussed that an JAQUEZ would be preferred and she declines due to limited insight into need for medication. Inventory Assets Strengths: intelligent, has been pleasant in interactions with staff and likes CM Needs: improved compliance, better tolerated antipsychotic. Risk Factors Assessment : Yes Do You Have Access To A Gun?: No Mental Health Diagnoses: Yes Substance Use Disorders: No Previous Attempt: No Previous Psychiatric Hospitalization: Yes Protective Factors Assessment Employed: No Good Rapport with Provider: Yes Interval History Identifying Information TALITA BALL is a 61-year-old F who currently lives at [facility], has a history of schizophrenia and [facility] placement, and was admitted on 09/26/21 23:33 on a 302 involuntary commitment but is actually maintained on a 305 outpatient commitment for delusional behavior. Chief Complaint "I'm still tired and it's not from the benadryl". Review of Systems Sleep Information Total Hours of Sleep: 6.75 Sleep Comments: pt on q-15 minute checks Meal Information Percent Meal Consumed - Breakfast: 100 Percent Meal Consumed - Lunch: 100 Percent Meal Consumed - Dinner: 100 Nutrition Comment: per record Subjective Subjective Patient was seen & assessed and interval progress reviewed with treatment team nursing and social work. She continues to feel that she bought a house and after calling and discovering it was not owned by the [employer] she believed she noted embarrassment to staff and stated she would need to talk to her senior animator (who has been confirmed to have ). Today she reports ongoing daytime fatigue and wonders about switching to abilify. She remains fixated on benadryl being important for her hay fever and feels it does not contribute to her daytime fatigue. She denies any other side effects from the clozapine and is agreeable to continuing with clozapine to see if sedation improves after a few days taking it only at bedtime especially since she doesn't want to have to restart a medication cross-taper. Physical Exam Psychiatric Orientation: alert and oriented x 3 Apperance: appropriately dressed and appropriately groomed Eye Contact: + fair eye contact Motor Behavior: steady gait and station and no abnormal motor movements Speech: normal rate/rhythm/volume of speech Affect: + constricted affect Mood: no depressed mood and no anxious mood Thought Process: + circumstantial thought process and + confabulations Thought Content: + paranoid and + delusions Suicidal Thoughts: denies suicidal thoughts Homicidal Thoughts: denies homicidal thoughts Hallucinations: no auditory hallucinations and no visual hallucinations Cognition: remote memory grossly intact and language grossly intact; + recent memory not intact Insight: + impaired insight Judgement: + impaired judgement Vital Signs (Past 24 Hours) Last Vital Signs Temp 36.8 C 11/02/21 06:00 Pulse 111 H 11/02/21 06:49 Resp 16 11/02/21 06:00 BP 96/60 L 11/02/21 06:49 Pulse Ox 98 10/05/21 06:59 Results & Data ([facility]) Current Inpatient Medications Current Inpatient Medications: Current Inpatient Medications Acetaminophen (Acetaminophen 325 Mg Tab) 650 mg PO Q4H PRN PRN Reason: Headache or Minor Fever Stop: 11/24/21 23:42 Al Hydrox/Mg Hydrox/Simethicone (Aluminum/Magnesium Susp 30 Ml Udc) 30 ml PO Q4H PRN PRN Reason: GI Upset Stop: 11/24/21 23:42 Artificial Tears (Artificial Tears) 1 drops OP QID [facility] Stop: 11/24/21 08:59 Last Admin: 11/02/21 12:36 Dose: 1 drops Documented by: Bismuth Subsalicylate (Bismuth Subsalicylate Liqd 236 Ml) 15 ml PO PRN PRN PRN Reason: Loose Stool Stop: 11/24/21 23:42 Clozapine (Clozapine 100 Mg Tab) 200 mg PO HS [facility] Stop: 12/01/21 21:59 Last Admin: 11/01/21 21:38 Dose: 200 mg Documented by: Diphenhydramine HCl (Diphenhydramine Capsule 25 Mg Cap) 25 mg PO DAILY PRN PRN Reason: Allergy Symptoms Stop: 11/30/21 15:26 Last Admin: 11/02/21 08:36 Dose: 25 mg Documented by: Docusate Sodium (Docusate Sodium 100 Mg Cap) 100 mg PO BID@0800,2100 [facility] Stop: 11/24/21 08:59 Last Admin: 11/02/21 08:27 Dose: 100 mg Documented by: Ibuprofen (Ibuprofen 200 Mg Tab) 400 mg PO Q6H PRN PRN Reason: pain Stop: 11/24/21 11:33 Last Admin: 11/02/21 14:04 Dose: 400 mg Documented by: Levothyroxine Sodium (Levothyroxine Sodium 25 Mcg Tablet) 25 mcg PO DAILY@0800 [facility] Stop: 11/24/21 08:59 Last Admin: 11/02/21 08:27 Dose: 25 mcg Documented by: Magnesium Hydroxide (Magnesium Hydroxide Susp 30 Ml Udc) 30 ml PO DAILY PRN PRN Reason: Constipation Stop: 11/24/21 23:42 Olanzapine (Olanzapine 10 Mg/2.1 Ml Sdv) 10 mg IM Q6 PRN PRN Reason: Agitation Stop: 11/24/21 08:57 Senna/Docusate Sodium (Docusate Sodium/Senna 50/8.6mg Tab) 1 tab PO BID PRN PRN Reason: Constipation Stop: 11/24/21 15:02 Sodium Chloride (Sodium Chloride 0.65% Na Soln 45 Ml ([place])) 1 - 2 sprays NA PRN PRN PRN Reason: Nasal Dryness/Congestion Stop: 11/24/21 23:42 Vitamin D (Cholecalciferol 1,000 Units 25 Mcg Tab) 1,000 units PO DAILY [facility] Stop: 11/24/21 08:59 Last Admin: 11/02/21 08:27 Dose: 1,000 units Documented by: Zinc Acetate/Diphenhydramine (Diphenhydramine 2%/Zinc 0.1% Cream 28gm Tube) 1 appln EXT DAILY PRN PRN Reason: Itching Stop: 11/24/21 14:35 Last Admin: 10/23/21 08:19 Dose: 1 appln Documented by: Mental Health & Subst Abuse Tx Psychiatrist Name of Psychiatrist: Griffin Negron Chart Writer Name of Chart Writer: PADMINI Pederson Phone Number for Chart Writer: [phone] Date of Appointment with Chart Writer: 09/29/21 Post Discharge Appointments Contact Information Discharge Discharge Address: [facility] - [address] [place] [id number]
[2021-11-02] MEDS: cloZAPine 100 MG TAB PO SCH (21:03)
[2021-11-03] MEDS: ARTIFICIAL TEARS OP SCH ×4 (08:30→20:14)
[2021-11-03] MEDS: DOCUSATE SODIUM 100 MG CAP PO SCH ×2 (08:32→20:15)
[2021-11-03] MEDS: CHOLECALCIFEROL 1,000 UNITS 25 MCG TAB PO SCH (08:32)
[2021-11-03] MEDS: LEVOTHYROXINE SODIUM 25 MCG TABLET PO SCH (08:32)
[2021-11-03] MEDS: IBUPROFEN 200 MG TAB PO PRN ×2 (08:32→20:15)
[2021-11-03] MEDS: diphenhydrAMINE Capsule 25 MG CAP PO PRN (08:37)
--- NOTE | 2021-11-03 15:34 | Psychiatric Progress Note ---
Date of Service November 03, 2021 Impression / Recommendations Elise Miller is a 61 yo female with acute exacerbation of psychosis for non-compliance with clozapine. She is on an extended outpatient commitment prior to admission following discharge from the [facility] hospital. 305 commitment converted to inpatient. She refuses to return to previous placement due to her paranoid delusions. MNPR for psychiatric symptoms of psychosis, paranoid ideation 11/03/21: remains delusional, paranoid and unable to care for self outside of the hospital. Continue with consolidated clozapine which she is agreeable to. She remains resistant to further dose titration. Discussed option to move up time of clozapine in the evening to see if this helps reduce morning fatigue which she would like to try. Continues to have tachycardia but asymptomatic and BP improved so no indication at this time for any further workup or testing. Plan: change dosing schedule for clozapine to with dinner (1) Schizophrenia, paranoid, chronic with acute exacerbation: 11/03/21: BP improved and continues to not have any symptoms associated with tachycardia and no SOB so no indication for any further workup. Will adjust clozapine to be given with dinner to reduce morning fatigue. 11/02/21: continue clozapine 200 mg qHS. Increase vitals to qshift given decreased BP and tachycardia and potential for myocarditis with clozapine, if BP remains low will get EKG tomorrow. 11/01/21: consolidate clozapine to 200mg qHS with goal of titrating further if Angela allows. 10/31/21: continue clozapine 50mg qAM & 150 mg qHS. Decreasing prn Benadryl 25mg to once daily. 10/30/21: continue clozapine 50 mg qAM & 150 mg qHS. Offered therapeutic walk which she declined. 10/29/21: refused clozaril 200 mg, offer 150 mg tonight. 30 day treatment plan. She has been less irritable so may be appropriate for therapeutic walk outside with security soon. 10/28/21: titrate hs clozapine to 200 mg qhs for ongoing paranoid delusions. Weekly CBC. 10/26/21: titrate hs clozapine to 150 mg qhs. 10/24/21: titrate hs dose clozapine to 100 mg hs. Patient agreed 10/23/21. 10/22/21: continue with clozapine 50mg BID. No side effects so far. Continued goal of reducing delusions to the point that she will agree to return to [place] and remain adherent with clozapine, so far taking clozapine without any issues. 10/21/21: increase clozapine to 50mg BID starting tomorrow. 10/20/21: continue current medications. 10/19/21: Increase clozapine to 25 mg BID. Next WBC/ANC on 10/24/21 10/18/21: Continue clozapine 12.5 mg BID. Colace prn added. Has benadryl 25mg BID prn for her allergies (will d/c as clozapine titration continues). Weekly WBC/ANC for now but could go back to monthly monitoring after discharge as it has been <30 days off clozapine. Her refusal to return to any type of supported housing and her inability to function safely in a less supportive setting remains the biggest barrier to discharge. 10/17/21: EKG, ANC, WBC, repeat height/weight/BMI ordered for consideration of starting clozapine. Her refusal to return to her pre-admission housing remains significant barrier to safe discharge especially in setting of ongoing delusions and paranoia. Started clozapine 12.5 mg BID as this worked well for her previously and she is now refusing to further titrate abilify or consider any other long acting injectable options for medications which leaves clozapine as the superior oral medication choice and she is willing to take this. 10/16/21: continue current medications. Continue to reality-test delusions. Discussed with social work and nursing goal of having her supports from her housing come for facilitated meeting to test delusions and paranoia about her housing. 10/15/21: continue current medications. Reviewed chart for substance use history. She is declining any titration of abilify. Agrees to discuss housing options with me tomorrow. 10/14/21: reviewed interim progress from Dr. Valladares's notes. She is back on abilify but remains irritable about her length of stay and remains focused on not wanting to return to her previous housing. Will attempt to further titrate abilify tomorrow if she agrees, she declined today. 10/13/21: patient will not engage in any discussion around Abilify titration today as refusing to stay here, not yet attempting to elope or act out aggressively but Zyprexa 10 mg IM ordered in case of acute agitation. 10/11/21: re=reviewed fasting metabolic labs from earlier in the month. Agreed to increase Abilify 10 mg daily. 10/10/21: unclear if ever had trued EPS for Haldol or just manipulating med regimen, tolerating Abilify this am. Refusing JAQUEZ. 10/09/21: d/c Haldol (patient refusing), there is no acute agitation or threatening behavior or medical decompensation that would support meds over objection/injectable at this time given that she is willing to take Abilify 5 mg daily PO. 10/08/21: more breakthrough during med changes with Haldol not yet therapeutic. Increase Haldol to 5 mg po qam and 10 mg po qhs starting tonight as no evidence of worsening EPS. Needs meeting with [facility] and CM. 10/07/21: will titrate Haldol to 5 mg BId tomorrow. 10/06/21: Discontinuing abilify. Increasing haldol to 2.5 mg qAM and 5 mg qHS. 10/05/21: Continue cross-taper will reduce abilify from 10 mg to 5 mg tomorrow. Increase haldol from 2.5 mg qd to 2.5 mg BID. 10/04/21: Need to cross-taper from abilify to haldol due to high cost of abilify JAQUEZ. She consents to starting haldol. Tomorrow will reduce abilify from 15 mg to 10mg qd and start haldol 2.5 mg qd. 10/03/21: Continue with abilify 15 mg po qd. Spoke with her outpt psychiatrist Dr. Negron about challenge of JAQUEZ Maintenna possibly being cost prohibitive so have call out to her complex case manager to see if there may be financial support options for this. Otherwise will need to consider haldol JAQUEZ vs Invega JAQUEZ. 10/02/21: She consents to increase of abilify to 15 mg tomorrow morning and discontinuation of zyprexa tonight. Benadryl 50 mg qhs prn for allergy symptoms. Continues to have delusions. Will attempt to start prior authorization process for Abilify Maintena if she continues to tolerate abilify po well. 10/01/21: She consents to ongoing cross-taper will decrease zyprexa from 10mg to 5mg qhs and increasing abilify from 5mg to 10 mg tomorrow morning. Remains very paranoid and suspicious of others so will continue MNPR. 09/30/21: Abilify 5 mg qd today. Tomorrow will decrease zyprexa from 10mg to 5 mg qhs and continue with cross-taper with goal of abilify monotherapy and then JAQUEZ if well tolerated. Continues to have limited insight but appropriate so far today, if this persists will consider d/c of MNPR tomorrow. 09/29/21: continue Zyprexa but taper soon in favor of Abilify. Test dose Abilify 2.5 mg today and 5 mg daily tomorrow. Once tolerability assessed, convert to JAQUEZ. Patient lacks insight into need to return to [facility]. Patient is upset following hearing so will be monitored before additional consideration of d/c MNPR. 09/28/21: continue Zyprexa 10 mg po qhs, add Cogentin 0.5 mg BID. No sense to restart Clozaril if won't take consistently. Monitor symptoms and consider Invega trial with hopes she'll ultimately agree to JAQUEZ. 09/27/21: The patient was admitted to the [facility] ([facility] inpatient mental health unit) on q15 min checks (behavioral with suicide precautions) for safety. The patient will participate in group, recreational, and milieu therapies and will be offered additional individual and family sessions as clinically appropriate. Risks/benefits/alternatives were reviewed re: antipsychotics for mood and/or psychosis. Discussion included but was not limited to metabolic side effects, risks of TD. There was EPS tremor but no TD at baseline. Fasting glucose and lipid panel ordered for baseline monitoring. She is agreeable to continuing Zyprexa but not Clozaril. Discussed that an JAQUEZ would be preferred and she declines due to limited insight into need for medication. Inventory Assets Strengths: intelligent, has been pleasant in interactions with staff and likes Needs: improved compliance, better tolerated antipsychotic. Risk Factors Assessment : Yes Do You Have Access To A Gun?: No Mental Health Diagnoses: Yes Substance Use Disorders: No Previous Attempt: No Previous Psychiatric Hospitalization: Yes Protective Factors Assessment Employed: No Good Rapport with Provider: Yes Interval History Identifying Information TALITA BALL is a 61-year-old F who currently lives at [facility], has a history of schizophrenia and [facility] hospital placement, and was admitted on 09/26/21 23:33 on a 302 involuntary commitment but is actually maintained on a 305 outpatient commitment for delusional behavior. Chief Complaint "It's my right not to go back there". Review of Systems Sleep Information Total Hours of Sleep: 8.25 Sleep Comments: pt on q-15 minute checks Meal Information Percent Meal Consumed - Breakfast: 100 Percent Meal Consumed - Lunch: 100 Percent Meal Consumed - Dinner: 100 Nutrition Comment: per record Subjective Subjective Patient was seen & assessed and interval progress reviewed with treatment team nursing and social work. Vital signs were stable with increased measurements and she continues to deny any symptoms of SOB, cardiac symptoms including no palpitations, dizziness, nor fainting. She remains adherent with clozapine. Continues to feel sedated in the morning but she feels it improves by mid-day. She remains paranoid about her living environment and her complex case manager. Tells me she doesn't want to talk with [facility] because "she'll want me to go to [facility]". She also noted suspicion about her because "she works with the [employer] [facility]". Remains fixated on her refusal to return to [facility] citing "it's my right not to go back there" and stated she believes staff use drugs and that "it's managed wrong and I don't like the whole street". Discussed with her that we have given her time to provide housing de and now we need to start exploring other options. She states that she prefers being in the hospital to [facility] and we discuss that this is not an appropriate long-term housing option. Physical Exam Psychiatric Orientation: alert and oriented x 3 Apperance: appropriately dressed and appropriately groomed Eye Contact: + fair eye contact Motor Behavior: steady gait and station and no abnormal motor movements Speech: normal rate/rhythm/volume of speech Affect: + constricted affect Mood: + irritable mood Thought Process: + perseveration Thought Content: + preoccupation, + paranoid and + delusions Suicidal Thoughts: denies suicidal thoughts Homicidal Thoughts: denies homicidal thoughts Hallucinations: no auditory hallucinations and no visual hallucinations Cognition: remote memory grossly intact and language grossly intact; + recent memory not intact and + attention not intact Insight: + severely impaired insight Judgement: + impaired judgement Vital Signs (Past 24 Hours) Last Vital Signs Temp 36.5 C 11/03/21 06:37 Pulse 96 H 11/03/21 08:00 Resp 16 11/03/21 06:37 BP 121/79 11/03/21 08:00 Pulse Ox 96 11/02/21 21:05 Results & Data ([facility]) Current Inpatient Medications Current Inpatient Medications: Current Inpatient Medications Acetaminophen (Acetaminophen 325 Mg Tab) 650 mg PO Q4H PRN PRN Reason: Headache or Minor Fever Stop: 11/24/21 23:42 Al Hydrox/Mg Hydrox/Simethicone (Aluminum/Magnesium Susp 30 Ml Udc) 30 ml PO Q4H PRN PRN Reason: GI Upset Stop: 11/24/21 23:42 Artificial Tears (Artificial Tears) 1 drops OP QID [facility] Stop: 11/24/21 08:59 Last Admin: 11/03/21 13:12 Dose: 1 drops Documented by: Bismuth Subsalicylate (Bismuth Subsalicylate Liqd 236 Ml) 15 ml PO PRN PRN PRN Reason: Loose Stool Stop: 11/24/21 23:42 Clozapine (Clozapine 100 Mg Tab) 200 mg PO HS [facility] Stop: 12/01/21 21:59 Last Admin: 11/02/21 21:03 Dose: 200 mg Documented by: Diphenhydramine HCl (Diphenhydramine Capsule 25 Mg Cap) 25 mg PO DAILY PRN PRN Reason: Allergy Symptoms Stop: 11/30/21 15:26 Last Admin: 11/03/21 08:37 Dose: 25 mg Documented by: Docusate Sodium (Docusate Sodium 100 Mg Cap) 100 mg PO BID@0800,2100 [facility] Stop: 11/24/21 08:59 Last Admin: 11/03/21 08:32 Dose: 100 mg Documented by: Ibuprofen (Ibuprofen 200 Mg Tab) 400 mg PO Q6H PRN PRN Reason: pain Stop: 11/24/21 11:33 Last Admin: 11/03/21 08:32 Dose: 400 mg Documented by: Levothyroxine Sodium (Levothyroxine Sodium 25 Mcg Tablet) 25 mcg PO DAILY@0800 [facility] Stop: 11/24/21 08:59 Last Admin: 11/03/21 08:32 Dose: 25 mcg Documented by: Magnesium Hydroxide (Magnesium Hydroxide Susp 30 Ml Udc) 30 ml PO DAILY PRN PRN Reason: Constipation Stop: 11/24/21 23:42 Olanzapine (Olanzapine 10 Mg/2.1 Ml Sdv) 10 mg IM Q6 PRN PRN Reason: Agitation Stop: 11/24/21 08:57 Senna/Docusate Sodium (Docusate Sodium/Senna 50/8.6mg Tab) 1 tab PO BID PRN PRN Reason: Constipation Stop: 11/24/21 15:02 Sodium Chloride (Sodium Chloride 0.65% Na Soln 45 Ml (Rice)) 1 - 2 sprays NA PRN PRN PRN Reason: Nasal Dryness/Congestion Stop: 11/24/21 23:42 Vitamin D (Cholecalciferol 1,000 Units 25 Mcg Tab) 1,000 units PO DAILY [facility] Stop: 11/24/21 08:59 Last Admin: 11/03/21 08:32 Dose: 1,000 units Documented by: Zinc Acetate/Diphenhydramine (Diphenhydramine 2%/Zinc 0.1% Cream 28gm Tube) 1 appln EXT DAILY PRN PRN Reason: Itching Stop: 11/24/21 14:35 Last Admin: 10/23/21 08:19 Dose: 1 appln Documented by: Mental Health & Subst Abuse Tx Psychiatrist Name of Psychiatrist: Griffin Negron Check Totaler Name of Check Totaler: PADMINI Pederson Phone Number for Check Totaler: [phone] Date of Appointment with Check Totaler: 09/29/21 Post Discharge Appointments Contact Information Discharge Discharge Address: [address] [address]
[2021-11-03] MEDS: cloZAPine 100 MG TAB PO SCH (17:34)
[2021-11-04] MEDS: diphenhydrAMINE Capsule 25 MG CAP PO PRN (08:57)
[2021-11-04] MEDS: DOCUSATE SODIUM 100 MG CAP PO SCH ×2 (08:58→20:37)
[2021-11-04] MEDS: ARTIFICIAL TEARS OP SCH ×4 (08:58→20:38)
[2021-11-04] MEDS: CHOLECALCIFEROL 1,000 UNITS 25 MCG TAB PO SCH (08:58)
[2021-11-04] MEDS: LEVOTHYROXINE SODIUM 25 MCG TABLET PO SCH (08:58)
[2021-11-04] MEDS: IBUPROFEN 200 MG TAB PO PRN ×2 (09:39→20:37)
--- NOTE | 2021-11-04 10:51 | Psychiatric Progress Note ---
Date of Service November 04, 2021 Impression / Recommendations Elise Miller is a 61 yo female with acute exacerbation of psychosis for non-compliance with clozapine. She is on an extended outpatient commitment prior to admission following discharge from the [facility]. 305 commitment converted to inpatient. She refuses to return to previous placement due to her paranoid delusions. MNPR for psychiatric symptoms of psychosis, paranoid ideation, recent irritability toward peers. 11/04/21: remains delusional, paranoid and unable to care for self outside of the hospital. Continue with consolidated clozapine which she is agreeable to. (1) Schizophrenia, paranoid, chronic with acute exacerbation: 11/04/21: as patient is resistant to further titration of clozapine, offered to augment with low dose Abilify as was partially helpful. She declines. 11/03/21: BP improved and continues to not have any symptoms associated with tachycardia and no SOB so no indication for any further workup. Will adjust clozapine to be given with dinner to reduce morning fatigue. 11/02/21: continue clozapine 200 mg qHS. Increase vitals to qshift given decreased BP and tachycardia and potential for myocarditis with clozapine, if BP remains low will get EKG tomorrow. 11/01/21: consolidate clozapine to 200mg qHS with goal of titrating further if Angela allows. 10/31/21: continue clozapine 50mg qAM & 150 mg qHS. Decreasing prn Benadryl 25mg to once daily. 10/30/21: continue clozapine 50 mg qAM & 150 mg qHS. Offered therapeutic walk which she declined. 10/29/21: refused clozaril 200 mg, offer 150 mg tonight. 30 day treatment plan. She has been less irritable so may be appropriate for therapeutic walk outside with security soon. 10/28/21: titrate hs clozapine to 200 mg qhs for ongoing paranoid delusions. Weekly CBC. 10/26/21: titrate hs clozapine to 150 mg qhs. 10/24/21: titrate hs dose clozapine to 100 mg hs. Patient agreed 10/23/21. 10/22/21: continue with clozapine 50mg BID. No side effects so far. Continued goal of reducing delusions to the point that she will agree to return to [facility] and remain adherent with clozapine, so far taking clozapine without any issues. 10/21/21: increase clozapine to 50mg BID starting tomorrow. 10/20/21: continue current medications. 10/19/21: Increase clozapine to 25 mg BID. Next WBC/ANC on 10/24/21 10/18/21: Continue clozapine 12.5 mg BID. Colace prn added. Has benadryl 25mg BID prn for her allergies (will d/c as clozapine titration continues). Weekly WBC/ANC for now but could go back to monthly monitoring after discharge as it has been <30 days off clozapine. Her refusal to return to any type of supported housing and her inability to function safely in a less supportive setting remains the biggest barrier to discharge. 10/17/21: EKG, ANC, WBC, repeat height/weight/BMI ordered for consideration of starting clozapine. Her refusal to return to her pre-admission housing remains significant barrier to safe discharge especially in setting of ongoing delusions and paranoia. Started clozapine 12.5 mg BID as this worked well for her previously and she is now refusing to further titrate abilify or consider any other long acting injectable options for medications which leaves clozapine as the superior oral medication choice and she is willing to take this. 10/16/21: continue current medications. Continue to reality-test delusions. Disc ussed with social work and nursing goal of having her supports from her housing come for facilitated meeting to test delusions and paranoia about her housing. 10/15/21: continue current medications. Reviewed chart for substance use history. She is declining any titration of abilify. Agrees to discuss housing options with me tomorrow. 10/14/21: reviewed interim progress from Dr. Valladares's notes. She is back on abilify but remains irritable about her length of stay and remains focused on not wanting to return to her previous housing. Will attempt to further titrate abilify tomorrow if she agrees, she declined today. 10/13/21: patient will not engage in any discussion around Abilify titration today as refusing to stay here, not yet attempting to elope or act out aggressively but Zyprexa 10 mg IM ordered in case of acute agitation. 10/11/21: re=reviewed fasting metabolic labs from earlier in the month. Agreed to increase Abilify 10 mg daily. 10/10/21: unclear if ever had trued EPS for Haldol or just manipulating med regimen, tolerating Abilify this am. Refusing JAQUEZ. 10/09/21: d/c Haldol (patient refusing), there is no acute agitation or threatening behavior or medical decompensation that would support meds over objection/injectable at this time given that she is willing to take Abilify 5 mg daily PO. 10/08/21: more breakthrough during med changes with Haldol not yet therapeutic. Increase Haldol to 5 mg po qam and 10 mg po qhs starting tonight as no evidence of worsening EPS. Needs meeting with [facility] and CM. 10/07/21: will titrate Haldol to 5 mg BId tomorrow. 10/06/21: Discontinuing abilify. Increasing haldol to 2.5 mg qAM and 5 mg qHS. 10/05/21: Continue cross-taper will reduce abilify from 10 mg to 5 mg tomorrow. Increase haldol from 2.5 mg qd to 2.5 mg BID. 10/04/21: Need to cross-taper from abilify to haldol due to high cost of abilify JAQUEZ. She consents to starting haldol. Tomorrow will reduce abilify from 15 mg to 10mg qd and start haldol 2.5 mg qd. 10/03/21: Continue with abilify 15 mg po qd. Spoke with her outpt psychiatrist Dr. Negron about challenge of JAQUEZ [place] possibly being cost prohibitive so have call out to her cyanide case hardener to see if there may be financial support options for this. Otherwise will need to consider haldol JAQUEZ vs Invega JAQUEZ. 10/02/21: She consents to increase of abilify to 15 mg tomorrow morning and discontinuation of zyprexa tonight. Benadryl 50 mg qhs prn for allergy symptoms. Continues to have delusions. Will attempt to start prior authorization process for Abilify Maintena if she continues to tolerate abilify po well. 10/01/21: She consents to ongoing cross-taper will decrease zyprexa from 10mg to 5mg qhs and increasing abilify from 5mg to 10 mg tomorrow morning. Remains very paranoid and suspicious of others so will continue MNPR. 09/30/21: Abilify 5 mg qd today. Tomorrow will decrease zyprexa from 10mg to 5 mg qhs and continue with cross-taper with goal of abilify monotherapy and then JAQUEZ if well tolerated. Continues to have limited insight but appropriate so far today, if this persists will consider d/c of MNPR tomorrow. 09/29/21: continue Zyprexa but taper soon in favor of Abilify. Test dose Abilify 2.5 mg today and 5 mg daily tomorrow. Once tolerability assessed, convert to JAQUEZ. Patient lacks insight into need to return to [facility]. Patient is upset following hearing so will be monitored before additional consideration of d/c MNPR. 09/28/21: continue Zyprexa 10 mg po qhs, add Cogentin 0.5 mg BID. No sense to restart Clozaril if won't take consistently. Monitor symptoms and consider Invega trial with hopes she'll ultimately agree to JAQUEZ. 09/27/21: The patient was admitted to the [facility] ([facility] unit) on q15 min checks (behavioral with suicide precautions) for safety. The patient will participate in group, recreational, and milieu therapies and will be offered additional individual and family sessions as clinically appropriate. Risks/benefits/alternatives were reviewed re: antipsychotics for mood and/or psychosis. Discussion included but was not limited to metabolic side effects, risks of TD. There was EPS tremor but no TD at baseline. Fasting glucose and lipid panel ordered for baseline monitoring. She is agreeable to continuing Zyprexa but not Clozaril. Discussed that an JAQUEZ would be preferred and she declines due to limited insight into need for medication. Inventory Assets Strengths: intelligent, has been pleasant in interactions with staff and likes CM Needs: improved compliance, better tolerated antipsychotic. Risk Factors Assessment : Yes Do You Have Access To A Gun?: No Mental Health Diagnoses: Yes Substance Use Disorders: No Previous Attempt: No Previous Psychiatric Hospitalization: Yes Protective Factors Assessment Employed: No Good Rapport with Provider: Yes Interval History Identifying Information TALITA BALL is a 61-year-old F who currently lives at [facility], has a history of [facility] and [facility], and was admitted on 09/26/21 23:33 on a 302 involuntary commitment but is actually maintained on a 305 outpatient commitment for delusional behavior. Chief Complaint "I just feel so tired". Review of Systems Sleep Information Total Hours of Sleep: 7 Sleep Comments: pt on q-15 minute checks Meal Information Percent Meal Consumed - Breakfast: 100 Percent Meal Consumed - Lunch: 100 Percent Meal Consumed - Dinner: 100 Nutrition Comment: per record Subjective Subjective Patient was seen & assessed and interval progress reviewed with nursing and social work. Patient reporting she'd like to try Abilify. Reminded patient she tool it before and refused dose increase so I'm concerned just trying to manipulate meds again. She does not want to progress as doesn't want discharged to previous placement. Maintains she has a deed and is working with her insurance attorney, then tells a story about injuring her knee competing in the [employer]. Physical Exam Psychiatric Orientation: alert and oriented x 3 Apperance: appropriately dressed and appropriately groomed Eye Contact: + fair eye contact Motor Behavior: steady gait and station and no abnormal motor movements Speech: normal rate/rhythm/volume of speech Affect: + constricted affect Mood: + irritable mood; no depressed mood and no anxious mood Thought Process: + confabulations Thought Content: + delusions Suicidal Thoughts: denies suicidal thoughts Homicidal Thoughts: denies homicidal thoughts Hallucinations: no auditory hallucinations and no visual hallucinations Cognition: language grossly intact; + attention not intact Insight: + severely impaired insight Judgement: + poor judgement Vital Signs (Past 24 Hours) Last Vital Signs Temp 36.4 C L 11/04/21 06:38 Pulse 103 H 11/04/21 06:39 Resp 16 11/04/21 06:38 BP 108/71 11/04/21 06:39 Pulse Ox 96 11/02/21 21:05 Results & Data ([facility]) Current Inpatient Medications Current Inpatient Medications: Current Inpatient Medications Acetaminophen (Acetaminophen 325 Mg Tab) 650 mg PO Q4H PRN PRN Reason: Headache or Minor Fever Stop: 11/24/21 23:42 Al Hydrox/Mg Hydrox/Simethicone (Aluminum/Magnesium Susp 30 Ml Udc) 30 ml PO Q4H PRN PRN Reason: GI Upset Stop: 11/24/21 23:42 Artificial Tears (Artificial Tears) 1 drops OP QID [facility] Stop: 11/24/21 08:59 Last Admin: 11/04/21 08:58 Dose: 1 drops Documented by: Bismuth Subsalicylate (Bismuth Subsalicylate Liqd 236 Ml) 15 ml PO PRN PRN PRN Reason: Loose Stool Stop: 11/24/21 23:42 Clozapine (Clozapine 100 Mg Tab) 200 mg PO DAILYBD [facility] Stop: 12/03/21 17:14 Last Admin: 11/03/21 17:34 Dose: 200 mg Documented by: Diphenhydramine HCl (Diphenhydramine Capsule 25 Mg Cap) 25 mg PO DAILY PRN PRN Reason: Allergy Symptoms Stop: 11/30/21 15:26 Last Admin: 11/04/21 08:57 Dose: 25 mg Documented by: Docusate Sodium (Docusate Sodium 100 Mg Cap) 100 mg PO BID@0800,2100 [facility] Stop: 11/24/21 08:59 Last Admin: 11/04/21 08:58 Dose: 100 mg Documented by: Ibuprofen (Ibuprofen 200 Mg Tab) 400 mg PO Q6H PRN PRN Reason: pain Stop: 11/24/21 11:33 Last Admin: 11/04/21 09:39 Dose: 400 mg Documented by: Levothyroxine Sodium (Levothyroxine Sodium 25 Mcg Tablet) 25 mcg PO DAILY@0800 [facility] Stop: 11/24/21 08:59 Last Admin: 11/04/21 08:58 Dose: 25 mcg Documented by: Magnesium Hydroxide (Magnesium Hydroxide Susp 30 Ml Udc) 30 ml PO DAILY PRN PRN Reason: Constipation Stop: 11/24/21 23:42 Olanzapine (Olanzapine 10 Mg/2.1 Ml Sdv) 10 mg IM Q6 PRN PRN Reason: Agitation Stop: 11/24/21 08:57 Senna/Docusate Sodium (Docusate Sodium/Senna 50/8.6mg Tab) 1 tab PO BID PRN PRN Reason: Constipation Stop: 11/24/21 15:02 Sodium Chloride (Sodium Chloride 0.65% Na Soln 45 Ml ([place])) 1 - 2 sprays NA PRN PRN PRN Reason: Nasal Dryness/Congestion Stop: 11/24/21 23:42 Vitamin D (Cholecalciferol 1,000 Units 25 Mcg Tab) 1,000 units PO DAILY [facility] Stop: 11/24/21 08:59 Last Admin: 11/04/21 08:58 Dose: 1,000 units Documented by: Zinc Acetate/Diphenhydramine (Diphenhydramine 2%/Zinc 0.1% Cream 28gm Tube) 1 appln EXT DAILY PRN PRN Reason: Itching Stop: 11/24/21 14:35 Last Admin: 10/23/21 08:19 Dose: 1 appln Documented by: Mental Health & Subst Abuse Tx Psychiatrist Name of Psychiatrist: Griffin Negron Seasonal Delivery Driver Name of Seasonal Delivery Driver: PADMINI Pederson Phone Number for Seasonal Delivery Driver: [phone] Date of Appointment with Seasonal Delivery Driver: 09/29/21 Post Discharge Appointments Contact Information Discharge Discharge Address: [facility] - [address] [place], [place] [address] [address]
[2021-11-04] MEDS: cloZAPine 100 MG TAB PO SCH (17:26)
[2021-11-05] MEDS: DOCUSATE SODIUM 100 MG CAP PO SCH ×2 (09:03→20:00)
[2021-11-05] MEDS: LEVOTHYROXINE SODIUM 25 MCG TABLET PO SCH (09:03)
[2021-11-05] MEDS: ARTIFICIAL TEARS OP SCH ×4 (09:03→20:00)
[2021-11-05] MEDS: CHOLECALCIFEROL 1,000 UNITS 25 MCG TAB PO SCH (09:03)
[2021-11-05] MEDS: IBUPROFEN 200 MG TAB PO PRN ×2 (09:07→20:05)
--- NOTE | 2021-11-05 14:56 | Psychiatric Progress Note ---
Date of Service November 05, 2021 Impression / Recommendations Elise Miller is a 61 yo female with acute exacerbation of psychosis for non-compliance with clozapine. She is on an extended outpatient commitment prior to admission following discharge from the [facility]. 305 commitment converted to inpatient. She refuses to return to previous placement due to her paranoid delusions. MNPR for psychiatric symptoms of psychosis, paranoid ideation, recent irritability toward peers. 11/05/21: remains delusional, paranoid and unable to care for self outside of the hospital. Plan: Reinforced compliance with clozaril, unlikely to be able to titrate further. Patient unwilling to take with Abilify for efficacy. (1) Schizophrenia, paranoid, chronic with acute exacerbation: Inventory Assets Strengths: intelligent, has been pleasant in interactions with staff and likes CM Needs: improved compliance, better tolerated antipsychotic. Risk Factors Assessment : Yes Do You Have Access To A Gun?: No Mental Health Diagnoses: Yes Substance Use Disorders: No Previous Attempt: No Previous Psychiatric Hospitalization: Yes Protective Factors Assessment Employed: No Good Rapport with Provider: Yes Interval History Identifying Information TALITA BALL is a 61-year-old F who currently lives at [facility], has a history of schizophrenia and [facility] placement, and was admitted on 09/26/21 23:33 on a 302 involuntary commitment but is actually maintained on a 305 outpatient commitment for delusional behavior. Chief Complaint "yeah I'm still tired today". Review of Systems Sleep Information Total Hours of Sleep: 8.25 Sleep Comments: pt on q-15 minute checks Meal Information Percent Meal Consumed - Breakfast: 100 Percent Meal Consumed - Lunch: 100 Percent Meal Consumed - Dinner: 100 Nutrition Comment: per record Subjective Subjective Patient was seen & assessed and interval progress reviewed with nursing and social work. patient remains resistant to Clozaril but ultimately took medication last pm. BP low this am while in bed, denies dizziness, gait is steady. She declines taking medication earlier. Remains insistent she has a deed and needs to be discharged but distracted by discussion around [place] game. Physical Exam Psychiatric Orientation: alert Apperance: appropriately dressed and appropriately groomed Eye Contact: + fair eye contact Motor Behavior: steady gait and station and no abnormal motor movements Speech: normal rate/rhythm/volume of speech Affect: + constricted affect Mood: no anxious mood Thought Process: + circumstantial thought process, + perseveration and + confabulations Thought Content: + delusions Suicidal Thoughts: denies suicidal thoughts Homicidal Thoughts: denies homicidal thoughts Hallucinations: no auditory hallucinations and no visual hallucinations Cognition: language grossly intact; + attention not intact Insight: + severely impaired insight Judgement: + poor judgement Vital Signs (Past 24 Hours) Last Vital Signs Temp 36.9 C 11/05/21 06:39 Pulse 71 11/05/21 06:40 Resp 16 11/05/21 06:39 BP 79/50 L 11/05/21 06:40 Pulse Ox 96 11/02/21 21:05 Results & Data ([facility]) Current Inpatient Medications Current Inpatient Medications: Current Inpatient Medications Acetaminophen (Acetaminophen 325 Mg Tab) 650 mg PO Q4H PRN PRN Reason: Headache or Minor Fever Stop: 11/24/21 23:42 Al Hydrox/Mg Hydrox/Simethicone (Aluminum/Magnesium Susp 30 Ml Udc) 30 ml PO Q4H PRN PRN Reason: GI Upset Stop: 11/24/21 23:42 Artificial Tears (Artificial Tears) 1 drops OP QID [facility] Stop: 11/24/21 08:59 Last Admin: 11/05/21 13:15 Dose: 1 drops Documented by: Bismuth Subsalicylate (Bismuth Subsalicylate Liqd 236 Ml) 15 ml PO PRN PRN PRN Reason: Loose Stool Stop: 11/24/21 23:42 Clozapine (Clozapine 100 Mg Tab) 200 mg PO DAILYBD [facility] Stop: 12/03/21 17:14 Last Admin: 11/04/21 17:26 Dose: 200 mg Documented by: Diphenhydramine HCl (Diphenhydramine Capsule 25 Mg Cap) 25 mg PO DAILY PRN PRN Reason: Allergy Symptoms Stop: 11/30/21 15:26 Last Admin: 11/04/21 08:57 Dose: 25 mg Documented by: Docusate Sodium (Docusate Sodium 100 Mg Cap) 100 mg PO BID@0800,2100 [facility] Stop: 11/24/21 08:59 Last Admin: 11/05/21 09:03 Dose: 100 mg Documented by: Ibuprofen (Ibuprofen 200 Mg Tab) 400 mg PO Q6H PRN PRN Reason: pain Stop: 11/24/21 11:33 Last Admin: 11/05/21 09:07 Dose: 400 mg Documented by: Levothyroxine Sodium (Levothyroxine Sodium 25 Mcg Tablet) 25 mcg PO DAILY@0800 [facility] Stop: 11/24/21 08:59 Last Admin: 11/05/21 09:03 Dose: 25 mcg Documented by: Magnesium Hydroxide (Magnesium Hydroxide Susp 30 Ml Udc) 30 ml PO DAILY PRN PRN Reason: Constipation Stop: 11/24/21 23:42 Olanzapine (Olanzapine 10 Mg/2.1 Ml Sdv) 10 mg IM Q6 PRN PRN Reason: Agitation Stop: 11/24/21 08:57 Senna/Docusate Sodium (Docusate Sodium/Senna 50/8.6mg Tab) 1 tab PO BID PRN PRN Reason: Constipation Stop: 11/24/21 15:02 Sodium Chloride (Sodium Chloride 0.65% Na Soln 45 Ml ([place])) 1 - 2 sprays NA PRN PRN PRN Reason: Nasal Dryness/Congestion Stop: 11/24/21 23:42 Vitamin D (Cholecalciferol 1,000 Units 25 Mcg Tab) 1,000 units PO DAILY [facility] Stop: 11/24/21 08:59 Last Admin: 11/05/21 09:03 Dose: 1,000 units Documented by: Zinc Acetate/Diphenhydramine (Diphenhydramine 2%/Zinc 0.1% Cream 28gm Tube) 1 appln EXT DAILY PRN PRN Reason: Itching Stop: 11/24/21 14:35 Last Admin: 10/23/21 08:19 Dose: 1 appln Documented by: Mental Health & Subst Abuse Tx Psychiatrist Name of Psychiatrist: Griffin Negron Research Advisor Name of Research Advisor: PADMINI Pederson Phone Number for Research Advisor: [phone] Date of Appointment with Research Advisor: 09/29/21 Post Discharge Appointments Contact Information Discharge Discharge Address: [facility] - [address] [place] [phone]
[2021-11-05] MEDS: cloZAPine 100 MG TAB PO SCH (18:04)
[2021-11-06] MEDS: LEVOTHYROXINE SODIUM 25 MCG TABLET PO SCH (08:52)
[2021-11-06] MEDS: CHOLECALCIFEROL 1,000 UNITS 25 MCG TAB PO SCH (08:52)
[2021-11-06] MEDS: DOCUSATE SODIUM 100 MG CAP PO SCH ×2 (08:52→21:21)
[2021-11-06] MEDS: ARTIFICIAL TEARS OP SCH ×4 (08:52→21:21)
[2021-11-06] MEDS: IBUPROFEN 200 MG TAB PO PRN ×2 (08:56→21:20)
--- NOTE | 2021-11-06 12:26 | Psychiatric Progress Note ---
Date of Service November 06, 2021 Impression / Recommendations Elise Miller is a 61 yo female with acute exacerbation of psychosis for non-compliance with clozapine. She is on an extended outpatient commitment prior to admission following discharge from the [facility]. 305 commitment converted to inpatient. She refuses to return to previous placement due to her paranoid delusions. MNPR for psychiatric symptoms of psychosis, paranoid ideation, recent irritability toward peers. 11/06/21: less resistant to interventions, maintains she has an apartment but willing to explore options. Plan: Reinforced compliance with Clozaril as pursue housing options. (1) Schizophrenia, paranoid, chronic with acute exacerbation: Inventory Assets Strengths: intelligent, has been pleasant in interactions with staff and likes CM Needs: improved compliance, better tolerated antipsychotic. Risk Factors Assessment : Yes Do You Have Access To A Gun?: No Mental Health Diagnoses: Yes Substance Use Disorders: No Previous Attempt: No Previous Psychiatric Hospitalization: Yes Protective Factors Assessment Employed: No Good Rapport with Provider: Yes Interval History Identifying Information TALITA BALL is a 61-year-old F who currently lives at [facility], has a history of schizophrenia and [facility] placement, and was admitted on 09/26/21 23:33 on a 302 involuntary commitment but is actually maintained on a 305 outpatient commitment for delusional behavior. Chief Complaint "I'm fine, the [employer] won". Review of Systems Sleep Information Total Hours of Sleep: 8 Sleep Comments: pt on q-15 minute checks Meal Information Percent Meal Consumed - Breakfast: 100 Percent Meal Consumed - Lunch: 100 Percent Meal Consumed - Dinner: 100 Nutrition Comment: per record Subjective Subjective Patient was seen & assessed and interval progress reviewed with treatment team. More agreeable today in that willing to sign BEN for her rep payee so other options can be explored re: housing. Took Clozaril without incident last pm. Physical Exam Psychiatric Orientation: alert and oriented x 3 Apperance: appropriately dressed and appropriately groomed Eye Contact: + fair eye contact Motor Behavior: steady gait and station and no abnormal motor movements Speech: normal rate/rhythm/volume of speech Affect: + constricted affect Mood: no depressed mood Thought Process: + circumstantial thought process and + confabulations Thought Content: + delusions Suicidal Thoughts: denies suicidal thoughts Homicidal Thoughts: denies homicidal thoughts Hallucinations: no auditory hallucinations and no visual hallucinations Insight: + impaired insight Judgement: + impaired judgement Vital Signs (Past 24 Hours) Last Vital Signs Temp 36.6 C 11/06/21 06:37 Pulse 103 H 11/06/21 06:38 Resp 16 11/06/21 06:37 BP 127/78 11/06/21 06:38 Pulse Ox 96 11/02/21 21:05 Results & Data ([facility]) Current Inpatient Medications Current Inpatient Medications: Current Inpatient Medications Acetaminophen (Acetaminophen 325 Mg Tab) 650 mg PO Q4H PRN PRN Reason: Headache or Minor Fever Stop: 11/24/21 23:42 Al Hydrox/Mg Hydrox/Simethicone (Aluminum/Magnesium Susp 30 Ml Udc) 30 ml PO Q4H PRN PRN Reason: GI Upset Stop: 11/24/21 23:42 Artificial Tears (Artificial Tears) 1 drops OP QID EMMA Stop: 11/24/21 08:59 Last Admin: 11/06/21 08:52 Dose: 1 drops Documented by: Bismuth Subsalicylate (Bismuth Subsalicylate Liqd 236 Ml) 15 ml PO PRN PRN PRN Reason: Loose Stool Stop: 11/24/21 23:42 Clozapine (Clozapine 100 Mg Tab) 200 mg PO DAILYBD EMMA Stop: 12/03/21 17:14 Last Admin: 11/05/21 18:04 Dose: 200 mg Documented by: Diphenhydramine HCl (Diphenhydramine Capsule 25 Mg Cap) 25 mg PO DAILY PRN PRN Reason: Allergy Symptoms Stop: 11/30/21 15:26 Last Admin: 11/04/21 08:57 Dose: 25 mg Documented by: Docusate Sodium (Docusate Sodium 100 Mg Cap) 100 mg PO BID@0800,2100 [facility] Stop: 11/24/21 08:59 Last Admin: 11/06/21 08:52 Dose: 100 mg Documented by: Ibuprofen (Ibuprofen 200 Mg Tab) 400 mg PO Q6H PRN PRN Reason: pain Stop: 11/24/21 11:33 Last Admin: 11/06/21 08:56 Dose: 400 mg Documented by: Levothyroxine Sodium (Levothyroxine Sodium 25 Mcg Tablet) 25 mcg PO DAILY@0800 [facility] Stop: 11/24/21 08:59 Last Admin: 11/06/21 08:52 Dose: 25 mcg Documented by: Magnesium Hydroxide (Magnesium Hydroxide Susp 30 Ml Udc) 30 ml PO DAILY PRN PRN Reason: Constipation Stop: 11/24/21 23:42 Olanzapine (Olanzapine 10 Mg/2.1 Ml Sdv) 10 mg IM Q6 PRN PRN Reason: Agitation Stop: 11/24/21 08:57 Senna/Docusate Sodium (Docusate Sodium/Senna 50/8.6mg Tab) 1 tab PO BID PRN PRN Reason: Constipation Stop: 11/24/21 15:02 Sodium Chloride (Sodium Chloride 0.65% Na Soln 45 Ml ([place])) 1 - 2 sprays NA PRN PRN PRN Reason: Nasal Dryness/Congestion Stop: 11/24/21 23:42 Vitamin D (Cholecalciferol 1,000 Units 25 Mcg Tab) 1,000 units PO DAILY EMMA Stop: 11/24/21 08:59 Last Admin: 11/06/21 08:52 Dose: 1,000 units Documented by: Zinc Acetate/Diphenhydramine (Diphenhydramine 2%/Zinc 0.1% Cream 28gm Tube) 1 appln EXT DAILY PRN PRN Reason: Itching Stop: 11/24/21 14:35 Last Admin: 10/23/21 08:19 Dose: 1 appln Documented by: Mental Health & Subst Abuse Tx Psychiatrist Name of Psychiatrist: Griffin Negron [address] [address] Forms Name of [employer] [address] Forms: PADMINI Pederson Phone Number for [employer] [address] Forms: [phone] Date of Appointment with [employer] [address] Forms: 09/29/21 Post Discharge Appointments Contact Information Discharge Discharge Address: [address] [address]
[2021-11-06] MEDS: cloZAPine 100 MG TAB PO SCH (17:08)
[2021-11-07 08:26] LABS: Basophils # (auto) 0.02 K/uL (0-0.2); Basophils % (auto) 0.4 %; Eosinophils # (auto) 0.01 K/uL (0-0.5); Eosinophils % (auto) 0.2 %; Hematocrit (blood only) 38.9 % (37-47); Hemoglobin 12.5 g/dL (12.0-16.0); Immature Granulocytes # (auto) 0.01 K/uL (0.00-0.02); Immature Granulocytes % (auto) 0.2 %; Lymphocytes # (auto) 1.91 K/uL (1.2-3.4); Lymphocytes % (auto) 41.6 %; Mean Corpuscular Hemoglobin 30.4 pg (25-34); Mean Corpuscular Hgb Conc 32.1 g/dL (32-36); Mean Corpuscular Volume 94.6 fL (80-100); Mean Platelet Volume 9.3 fL (7.4-10.4); Monocytes # (auto) 0.43 K/uL (0.11-0.59); Monocytes % (auto) 9.4 %; Neutrophils # (auto) 2.21 K/uL (1.4-6.5); Neutrophils % (auto) 48.2 %; Platelet Count 249 K/uL (130-400); RDW Coefficient of Variation 14.1 % (11.5-14.5); RDW Standard Deviation 48.8 fL (36.4-46.3); Red Blood Count 4.11 M/uL (4.2-5.4); White Blood Count 4.59 K/uL (4.8-10.8)
[2021-11-07] MEDS: DOCUSATE SODIUM 100 MG CAP PO SCH ×2 (08:47→20:27)
[2021-11-07] MEDS: CHOLECALCIFEROL 1,000 UNITS 25 MCG TAB PO SCH (08:47)
[2021-11-07] MEDS: IBUPROFEN 200 MG TAB PO PRN ×2 (08:47→20:27)
[2021-11-07] MEDS: LEVOTHYROXINE SODIUM 25 MCG TABLET PO SCH (08:47)
[2021-11-07] MEDS: ARTIFICIAL TEARS OP SCH ×4 (08:51→20:31)
--- NOTE | 2021-11-07 10:27 | Psychiatric Progress Note ---
Date of Service November 07, 2021 Impression / Recommendations Elise Miller is a 61 yo female with acute exacerbation of psychosis for non-compliance with clozapine. She is on an extended outpatient commitment prior to admission following discharge from the [facility]. 305 commitment converted to inpatient. She refuses to return to previous placement due to her paranoid delusions. MNPR for psychiatric symptoms of psychosis, paranoid ideation, recent irritability toward peers. 11/07/21: persistent sedation from Clozaril likely to impact compliance following discharge (has before), she is now agreeable to take in combo with Abilify to maximize benefits of both while minimizing side effects. (1) Schizophrenia, paranoid, chronic with acute exacerbation: 11/05/21: clozaril 150 mg po qpm with Abilify 2.5 mg po qam with plan to retitrate to 10 mg. 11/04/21: as patient is resistant to further titration of clozapine, offered to augment with low dose Abilify as was partially helpful. She declines. 11/03/21: BP improved and continues to not have any symptoms associated with tachycardia and no SOB so no indication for any further workup. Will adjust clozapine to be given with dinner to reduce morning fatigue. 11/02/21: continue clozapine 200 mg qHS. Increase vitals to qshift given decreased BP and tachycardia and potential for myocarditis with clozapine, if BP remains low will get EKG tomorrow. 11/01/21: consolidate clozapine to 200mg qHS with goal of titrating further if Angela allows. 10/31/21: continue clozapine 50mg qAM & 150 mg qHS. Decreasing prn Benadryl 25mg to once daily. 10/30/21: continue clozapine 50 mg qAM & 150 mg qHS. Offered therapeutic walk which she declined. 10/29/21: refused clozaril 200 mg, offer 150 mg tonight. 30 day treatment plan. She has been less irritable so may be appropriate for therapeutic walk outside with security soon. 10/28/21: titrate hs clozapine to 200 mg qhs for ongoing paranoid delusions. Weekly CBC. 10/26/21: titrate hs clozapine to 150 mg qhs. 10/24/21: titrate hs dose clozapine to 100 mg hs. Patient agreed 10/23/21. 10/22/21: continue with clozapine 50mg BID. No side effects so far. Continued goal of reducing delusions to the point that she will agree to return to [facility] and remain adherent with clozapine, so far taking clozapine without any issues. 10/21/21: increase clozapine to 50mg BID starting tomorrow. 10/20/21: continue current medications. 10/19/21: Increase clozapine to 25 mg BID. Next WBC/ANC on 10/24/21 10/18/21: Continue clozapine 12.5 mg BID. Colace prn added. Has benadryl 25mg BID prn for her allergies (will d/c as clozapine titration continues). Weekly WBC/ANC for now but could go back to monthly monitoring after discharge as it has been <30 days off clozapine. Her refusal to return to any type of supported housing and her inability to function safely in a less supportive setting remains the biggest barrier to discharge. 10/17/21: EKG, ANC, WBC, repeat height/weight/BMI ordered for consideration of starting clozapine. Her refusal to return to her pre-admission housing remains significant barrier to safe discharge especially in setting of ongoing delusions and paranoia. Started clozapine 12.5 mg BID as this worked well for her previously and she is now refusing to further titrate abilify or consider any other long acting injectable options for medications which leaves clozapine as the superior oral medication choice and she is willing to take this. 10/16/21: continue current medications. Continue to reality-test delusions. Discussed with social work and nursing goal of having her supports from her housing come for facilitated meeting to test delusions and paranoia about her housing. 10/15/21: continue current medications. Reviewed chart for substance use history. She is declining any titration of abilify. Agrees to discuss housing options with me tomorrow. 10/14/21: reviewed interim progress from Dr. Valladares's notes. She is back on abilify but remains irritable about her length of stay and remains focused on not wanting to return to her previous housing. Will attempt to further titrate abilify tomorrow if she agrees, she declined today. 10/13/21: patient will not engage in any discussion around Abilify titration today as refusing to stay here, not yet attempting to elope or act out aggressively but Zyprexa 10 mg IM ordered in case of acute agitation. 10/11/21: re=reviewed fasting metabolic labs from earlier in the month. Agreed to increase Abilify 10 mg daily. 10/10/21: unclear if ever had trued EPS for Haldol or just manipulating med regimen, tolerating Abilify this am. Refusing JAQUEZ. 10/09/21: d/c Haldol (patient refusing), there is no acute agitation or threatening behavior or medical decompensation that would support meds over objection/injectable at this time given that she is willing to take Abilify 5 mg daily PO. 10/08/21: more breakthrough during med changes with Haldol not yet therapeutic. Increase Haldol to 5 mg po qam and 10 mg po qhs starting tonight as no evidence of worsening EPS. Needs meeting with [facility] and CM. 10/07/21: will titrate Haldol to 5 mg BId tomorrow. 10/06/21: Discontinuing abilify. Increasing haldol to 2.5 mg qAM and 5 mg qHS. 10/05/21: Continue cross-taper will reduce abilify from 10 mg to 5 mg tomorrow. Increase haldol from 2.5 mg qd to 2.5 mg BID. 10/04/21: Need to cross-taper from abilify to haldol due to high cost of abilify JAQUEZ. She consents to starting haldol. Tomorrow will reduce abilify from 15 mg to 10mg qd and start haldol 2.5 mg qd. 10/03/21: Continue with abilify 15 mg po qd. Spoke with her outpt psychiatrist Dr. Negron about challenge of JAQUEZ [place] possibly being cost prohibitive so have call out to her welfare case worker to see if there may be financial support options for this. Otherwise will need to consider haldol JAQUEZ vs Invega JAQUEZ. 10/02/21: She consents to increase of abilify to 15 mg tomorrow morning and discontinuation of zyprexa tonight. Benadryl 50 mg qhs prn for allergy symptoms. Continues to have delusions. Will attempt to start prior authorization process for Abilify Maintena if she continues to tolerate abilify po well. 10/01/21: She consents to ongoing cross-taper will decrease zyprexa from 10mg to 5mg qhs and increasing abilify from 5mg to 10 mg tomorrow morning. Remains very paranoid and suspicious of others so will continue MNPR. 09/30/21: Abilify 5 mg qd today. Tomorrow will decrease zyprexa from 10mg to 5 mg qhs and continue with cross-taper with goal of abilify monotherapy and then JAQUEZ if well tolerated. Continues to have limited insight but appropriate so far today, if this persists will consider d/c of MNPR tomorrow. 09/29/21: continue Zyprexa but taper soon in favor of Abilify. Test dose Abilify 2.5 mg today and 5 mg daily tomorrow. Once tolerability assessed, convert to JAQUEZ. Patient lacks insight into need to return to [facility]. Patient is upset following hearing so will be monitored before additional consideration of d/c MNPR. 09/28/21: continue Zyprexa 10 mg po qhs, add Cogentin 0.5 mg BID. No sense to restart Clozaril if won't take consistently. Monitor symptoms and consider Invega trial with hopes she'll ultimately agree to JAQUEZ. 09/27/21: The patient was admitted to the [facility] ([facility] inpatient mental health unit) on q15 min checks (behavioral with suicide precautions) for safety. The patient will participate in group, recreational, and milieu therapies and will be offered additional individual and family sessions as clinically appropriate. Risks/benefits/alternatives were reviewed re: antipsychotics for mood and/or psychosis. Discussion included but was not limited to metabolic side effects, risks of TD. There was EPS tremor but no TD at baseline. Fasting glucose and lipid panel ordered for baseline monitoring. She is agreeable to continuing Zyprexa but not Clozaril. Discussed that an JAQUEZ would be preferred and she declines due to limited insight into need for medication. Inventory Assets Strengths: intelligent, has been pleasant in interactions with staff and likes CM Needs: improved compliance, better tolerated antipsychotic. Risk Factors Assessment : Yes Do You Have Access To A Gun?: No Mental Health Diagnoses: Yes Substance Use Disorders: No Previous Attempt: No Previous Psychiatric Hospitalization: Yes Protective Factors Assessment Employed: No Good Rapport with Provider: Yes Interval History Identifying Information TALITA BALL is a 61-year-old F who currently lives at [facility], [facility] a [facility], and was admitted on 09/26/21 23:33 on a 302 involuntary commitment but was maintained on a 305 outpatient commitment for delusional behavior so a 306 conversion hearing was held. Chief Complaint "I'm still so tired". Review of Systems Sleep Information Total Hours of Sleep: 8 Sleep Comments: pt on q-15 minute checks Meal Information Percent Meal Consumed - Breakfast: 100 Percent Meal Consumed - Lunch: 90 Percent Meal Consumed - Dinner: 100 Nutrition Comment: per record Subjective Subjective Patient was seen & assessed and interval progress reviewed with nursing and social work. So patient has been gamey about medications overall, complains of sedation repeatedly (some of which are reality based), she has been more cooperative with discharge planning. Staff have been in contact with rep payee to explore housing options. Physical Exam Psychiatric Orientation: alert and oriented x 3 Apperance: appropriately dressed and appropriately groomed Eye Contact: good eye contact Motor Behavior: no abnormal motor movements Speech: normal rate/rhythm/volume of speech Affect: euthymic affect Mood: + anxious mood Thought Process: + concrete thought process Thought Content: + paranoid (re: [facility]) and + delusions (that she is working and earning money, less focussed on having her own home) Suicidal Thoughts: denies suicidal thoughts Homicidal Thoughts: denies homicidal thoughts Hallucinations: no auditory hallucinations and no visual hallucinations Cognition: attention grossly intact and language grossly intact Estimated Intelligence: consistent with education level Insight: + limited insight Judgement: + limited judgement Vital Signs (Past 24 Hours) Last Vital Signs Temp 36.7 C 11/07/21 06:35 Pulse 102 H 11/07/21 06:35 Resp 16 11/07/21 06:35 BP 117/77 11/07/21 06:35 Pulse Ox 96 11/02/21 21:05 Results & Data ([facility]) Laboratory Results Laboratory Results - last 24 hr 11/07/21 08:15 WBC 4.59 L RBC 4.11 L Hgb 12.5 Hct 38.9 MCV 94.6 MCH 30.4 MCHC 32.1 RDW Std Deviation 48.8 H RDW Coeff of Kim 14.1 Plt Count 249 MPV 9.3 Immature Gran % (Auto) 0.2 Neut % (Auto) 48.2 Lymph % (Auto) 41.6 Hartley % (Auto) 9.4 Eos % (Auto) 0.2 Baso % (Auto) 0.4 Neut # (Auto) 2.21 Lymph # (Auto) 1.91 Hartley # (Auto) 0.43 Eos # (Auto) 0.01 Baso # (Auto) 0.02 Immature Gran # (Auto) 0.01 Current Inpatient Medications Current Inpatient Medications: Current Inpatient Medications Acetaminophen (Acetaminophen 325 Mg Tab) 650 mg PO Q4H PRN PRN Reason: Headache or Minor Fever Stop: 11/24/21 23:42 Al Hydrox/Mg Hydrox/Simethicone (Aluminum/Magnesium Susp 30 Ml Udc) 30 ml PO Q4H PRN PRN Reason: GI Upset Stop: 11/24/21 23:42 Artificial Tears (Artificial Tears) 1 drops OP QID EMMA Stop: 11/24/21 08:59 Last Admin: 11/07/21 08:51 Dose: 1 drops Documented by: Bismuth Subsalicylate (Bismuth Subsalicylate Liqd 236 Ml) 15 ml PO PRN PRN PRN Reason: Loose Stool Stop: 11/24/21 23:42 Clozapine (Clozapine 100 Mg Tab) 200 mg PO DAILYBD EMMA Stop: 12/03/21 17:14 Last Admin: 11/06/21 17:08 Dose: 200 mg Documented by: Diphenhydramine HCl (Diphenhydramine Capsule 25 Mg Cap) 25 mg PO DAILY PRN PRN Reason: Allergy Symptoms Stop: 11/30/21 15:26 Last Admin: 11/04/21 08:57 Dose: 25 mg Documented by: Docusate Sodium (Docusate Sodium 100 Mg Cap) 100 mg PO BID@0800,2100 [facility] Stop: 11/24/21 08:59 Last Admin: 11/07/21 08:47 Dose: 100 mg Documented by: Ibuprofen (Ibuprofen 200 Mg Tab) 400 mg PO Q6H PRN PRN Reason: pain Stop: 11/24/21 11:33 Last Admin: 11/07/21 08:47 Dose: 400 mg Documented by: Levothyroxine Sodium (Levothyroxine Sodium 25 Mcg Tablet) 25 mcg PO DAILY@0800 [facility] Stop: 11/24/21 08:59 Last Admin: 11/07/21 08:47 Dose: 25 mcg Documented by: Magnesium Hydroxide (Magnesium Hydroxide Susp 30 Ml Udc) 30 ml PO DAILY PRN PRN Reason: Constipation Stop: 11/24/21 23:42 Olanzapine (Olanzapine 10 Mg/2.1 Ml Sdv) 10 mg IM Q6 PRN PRN Reason: Agitation Stop: 11/24/21 08:57 Senna/Docusate Sodium (Docusate Sodium/Senna 50/8.6mg Tab) 1 tab PO BID PRN PRN Reason: Constipation Stop: 11/24/21 15:02 Sodium Chloride (Sodium Chloride 0.65% Na Soln 45 Ml ([place])) 1 - 2 sprays NA PRN PRN PRN Reason: Nasal Dryness/Congestion Stop: 11/24/21 23:42 Vitamin D (Cholecalciferol 1,000 Units 25 Mcg Tab) 1,000 units PO DAILY [facility]MA Stop: 11/24/21 08:59 Last Admin: 11/07/21 08:47 Dose: 1,000 units Documented by: Zinc Acetate/Diphenhydramine (Diphenhydramine 2%/Zinc 0.1% Cream 28gm Tube) 1 appln EXT DAILY PRN PRN Reason: Itching Stop: 11/24/21 14:35 Last Admin: 10/23/21 08:19 Dose: 1 appln Documented by: Mental Health & Subst Abuse Tx Psychiatrist Name of Psychiatrist: Griffin Negron Inspector Of Weights And Measures Name of Inspector Of Weights And Measures: PADMINI Pederson Phone Number for Inspector Of Weights And Measures: [phone] Date of Appointment with Inspector Of Weights And Measures: 09/29/21 Post Discharge Appointments Contact Information Discharge Discharge Address: [address] [address]
[2021-11-07] MEDS: cloZAPine 100 MG TAB PO SCH (17:16)
[2021-11-08] MEDS: CHOLECALCIFEROL 1,000 UNITS 25 MCG TAB PO SCH (08:56)
[2021-11-08] MEDS: DOCUSATE SODIUM 100 MG CAP PO SCH ×2 (08:56→20:30)
[2021-11-08] MEDS: LEVOTHYROXINE SODIUM 25 MCG TABLET PO SCH (08:56)
[2021-11-08] MEDS: ARIPiprazole 5 MG TAB PO SCH (08:56)
[2021-11-08] MEDS: ARTIFICIAL TEARS OP SCH ×4 (08:57→20:30)
--- NOTE | 2021-11-08 14:21 | Psychiatric Progress Note ---
Date of Service November 08, 2021 Impression / Recommendations Elise Miller is a 61 yo female with acute exacerbation of psychosis for non-compliance with clozapine. She is on an extended outpatient commitment prior to admission following discharge from the [facility]. 305 commitment converted to inpatient. She refuses to return to previous placement due to her paranoid delusions. MNPR for psychiatric symptoms of psychosis, paranoid ideation, recent irritability toward peers. 11/08/21: remains delusional, partial response to antipsychotics Plan: continue current meds and tx plan. (1) Schizophrenia, paranoid, chronic with acute exacerbation: Inventory Assets Strengths: intelligent, has been pleasant in interactions with staff and likes CM Needs: improved compliance, better tolerated antipsychotic. Risk Factors Assessment : Yes Do You Have Access To A Gun?: No Mental Health Diagnoses: Yes Substance Use Disorders: No Previous Attempt: No Previous Psychiatric Hospitalization: Yes Protective Factors Assessment Employed: No Good Rapport with Provider: Yes Interval History Identifying Information TALITA BALL is a 61-year-old F who currently lives at [facility], has a history of schizophrenia and [facility] placement, and was admitted on 09/26/21 23:33 on a 302 involuntary commitment but was maintained on a 305 outpatient commitment for delusional behavior so a 306 conversion hearing was held. Chief Complaint "hello, yeah I make alot of money through my job". Review of Systems Sleep Information Total Hours of Sleep: 7.25 Sleep Comments: pt on q-15 minute checks Meal Information Percent Meal Consumed - Breakfast: 100 Percent Meal Consumed - Lunch: 100 Percent Meal Consumed - Dinner: 100 Nutrition Comment: per record Subjective Subjective Patient was seen & assessed and interval progress reviewed with treatment team. 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 Still refusing to return to [facility] or to interact with community supports but med compliant. Physical Exam Psychiatric Orientation: alert and oriented x 3 Apperance: appropriately dressed and appropriately groomed Eye Contact: good eye contact Motor Behavior: no abnormal motor movements Speech: normal rate/rhythm/volume of speech Mood: no depressed mood Thought Process: + perseveration Thought Content: + delusions Suicidal Thoughts: denies suicidal thoughts Homicidal Thoughts: denies homicidal thoughts Hallucinations: no auditory hallucinations and no visual hallucinations Cognition: attention grossly intact and language grossly intact Estimated Intelligence: consistent with education level Vital Signs (Past 24 Hours) Last Vital Signs Temp 36.9 C 11/08/21 06:39 Pulse 105 H 11/08/21 06:40 Resp 16 11/08/21 06:39 BP 123/75 11/08/21 06:40 Pulse Ox 96 11/02/21 21:05 Results & Data ([facility]) Current Inpatient Medications Current Inpatient Medications: Current Inpatient Medications Acetaminophen (Acetaminophen 325 Mg Tab) 650 mg PO Q4H PRN PRN Reason: Headache or Minor Fever Stop: 11/24/21 23:42 Al Hydrox/Mg Hydrox/Simethicone (Aluminum/Magnesium Susp 30 Ml Udc) 30 ml PO Q4H PRN PRN Reason: GI Upset Stop: 11/24/21 23:42 Aripiprazole (Aripiprazole 5 Mg Tab) 2.5 mg PO QAM [facility] Stop: 12/08/21 08:59 Last Admin: 11/08/21 08:56 Dose: 2.5 mg Documented by: Artificial Tears (Artificial Tears) 1 drops OP QID [facility] Stop: 11/24/21 08:59 Last Admin: 11/08/21 12:04 Dose: 1 drops Documented by: Bismuth Subsalicylate (Bismuth Subsalicylate Liqd 236 Ml) 15 ml PO PRN PRN PRN Reason: Loose Stool Stop: 11/24/21 23:42 Clozapine (Clozapine 100 Mg Tab) 150 mg PO DAILYBD [facility] Stop: 12/07/21 17:14 Last Admin: 11/07/21 17:16 Dose: 150 mg Documented by: Diphenhydramine HCl (Diphenhydramine Capsule 25 Mg Cap) 25 mg PO DAILY PRN PRN Reason: Allergy Symptoms Stop: 11/30/21 15:26 Last Admin: 11/04/21 08:57 Dose: 25 mg Documented by: Docusate Sodium (Docusate Sodium 100 Mg Cap) 100 mg PO BID@0800,2100 [facility] Stop: 11/24/21 08:59 Last Admin: 11/08/21 08:56 Dose: 100 mg Documented by: Ibuprofen (Ibuprofen 200 Mg Tab) 400 mg PO Q6H PRN PRN Reason: pain Stop: 11/24/21 11:33 Last Admin: 11/07/21 20:27 Dose: 400 mg Documented by: Levothyroxine Sodium (Levothyroxine Sodium 25 Mcg Tablet) 25 mcg PO DAILY@0800 [facility] Stop: 11/24/21 08:59 Last Admin: 11/08/21 08:56 Dose: 25 mcg Documented by: Magnesium Hydroxide (Magnesium Hydroxide Susp 30 Ml Udc) 30 ml PO DAILY PRN PRN Reason: Constipation Stop: 11/24/21 23:42 Olanzapine (Olanzapine 10 Mg/2.1 Ml Sdv) 10 mg IM Q6 PRN PRN Reason: Agitation Stop: 11/24/21 08:57 Senna/Docusate Sodium (Docusate Sodium/Senna 50/8.6mg Tab) 1 tab PO BID PRN PRN Reason: Constipation Stop: 11/24/21 15:02 Sodium Chloride (Sodium Chloride 0.65% Na Soln 45 Ml ([place])) 1 - 2 sprays NA PRN PRN PRN Reason: Nasal Dryness/Congestion Stop: 11/24/21 23:42 Vitamin D (Cholecalciferol 1,000 Units 25 Mcg Tab) 1,000 units PO DAILY [facility] Stop: 11/24/21 08:59 Last Admin: 11/08/21 08:56 Dose: 1,000 units Documented by: Zinc Acetate/Diphenhydramine (Diphenhydramine 2%/Zinc 0.1% Cream 28gm Tube) 1 appln EXT DAILY PRN PRN Reason: Itching Stop: 11/24/21 14:35 Last Admin: 10/23/21 08:19 Dose: 1 appln Documented by: Mental Health & Subst Abuse Tx Psychiatrist Name of Psychiatrist: Griffin Negron Cabin Furnishings Installer Name of Cabin Furnishings Installer: PADMINI Pederson Phone Number for Cabin Furnishings Installer: [phone] Date of Appointment with Cabin Furnishings Installer: 09/29/21 Post Discharge Appointments Contact Information Discharge Discharge Address: [facility] - [address] [place] [id number]
[2021-11-08] MEDS: cloZAPine 100 MG TAB PO SCH (17:13)
[2021-11-08] MEDS: IBUPROFEN 200 MG TAB PO PRN (20:29)
[2021-11-09] MEDS: DOCUSATE SODIUM 100 MG CAP PO SCH ×2 (08:07→20:34)
[2021-11-09] MEDS: LEVOTHYROXINE SODIUM 25 MCG TABLET PO SCH (08:08)
[2021-11-09] MEDS: IBUPROFEN 200 MG TAB PO PRN ×2 (08:08→20:33)
[2021-11-09] MEDS: CHOLECALCIFEROL 1,000 UNITS 25 MCG TAB PO SCH (08:08)
[2021-11-09] MEDS: ARIPiprazole 5 MG TAB PO SCH (08:08)
[2021-11-09] MEDS: ARTIFICIAL TEARS OP SCH ×4 (08:09→20:37)
--- NOTE | 2021-11-09 14:26 | Psychiatric Progress Note ---
Date of Service November 09, 2021 Impression / Recommendations Elise Miller is a 61 yo female with acute exacerbation of psychosis for non-compliance with clozapine. She is on an extended outpatient commitment prior to admission following discharge from the [facility]. 305 commitment converted to inpatient. She refuses to return to previous placement due to her paranoid delusions. MNPR for psychiatric symptoms of psychosis, paranoid ideation, recent irritability toward peers. May try a roommate soon. 11/09/21: remains delusional, appears less sedated Plan: increase Abilify to 5 mg tomorrow am. (1) Schizophrenia, paranoid, chronic with acute exacerbation: Inventory Assets Strengths: intelligent, has been pleasant in interactions with staff and likes CM Needs: improved compliance, better tolerated antipsychotic. Risk Factors Assessment : Yes Do You Have Access To A Gun?: No Mental Health Diagnoses: Yes Substance Use Disorders: No Previous Attempt: No Previous Psychiatric Hospitalization: Yes Protective Factors Assessment Employed: No Good Rapport with Provider: Yes Interval History Identifying Information TALITA BALL is a 61-year-old F who currently lives at [facility], has a history of schizophrenia and [facility] placement, and was admitted on 09/26/21 23:33 on a 302 involuntary commitment but was maintained on a 305 outpatient commitment for delusional behavior so a 306 conversion hearing was held. Chief Complaint "if you say so", commenting that she looks less tired Review of Systems Sleep Information Total Hours of Sleep: 6.5 Sleep Comments: pt on q-15 minute checks Meal Information Percent Meal Consumed - Breakfast: 100 Percent Meal Consumed - Lunch: 50 Percent Meal Consumed - Dinner: 100 Nutrition Comment: per record Subjective Subjective Patient was seen & assessed and interval progress reviewed with nursing and social work. No acute issues over night. Patient continues to refuse to return to [facility] due to fixed delusion. Meeting with sw to reality check re: her finances and housing options. Physical Exam Psychiatric Orientation: alert and oriented x 3 Apperance: appropriately dressed and appropriately groomed Eye Contact: good eye contact Motor Behavior: no abnormal motor movements Speech: normal rate/rhythm/volume of speech Affect: euthymic affect Mood: no depressed mood Thought Process: + concrete thought process Thought Content: + delusions Suicidal Thoughts: denies suicidal thoughts Homicidal Thoughts: denies homicidal thoughts Hallucinations: no auditory hallucinations and no visual hallucinations Cognition: attention grossly intact and language grossly intact Estimated Intelligence: consistent with education level Insight: + poor insight Judgement: + poor judgement Vital Signs (Past 24 Hours) Last Vital Signs Temp 36.8 C 11/09/21 06:35 Pulse 103 H 11/09/21 06:36 Resp 16 11/09/21 06:35 BP 116/73 11/09/21 06:36 Pulse Ox 96 11/02/21 21:05 Results & Data ([facility]) Current Inpatient Medications Current Inpatient Medications: Current Inpatient Medications Acetaminophen (Acetaminophen 325 Mg Tab) 650 mg PO Q4H PRN PRN Reason: Headache or Minor Fever Stop: 11/24/21 23:42 Al Hydrox/Mg Hydrox/Simethicone (Aluminum/Magnesium Susp 30 Ml Udc) 30 ml PO Q4H PRN PRN Reason: GI Upset Stop: 11/24/21 23:42 Aripiprazole (Aripiprazole 5 Mg Tab) 2.5 mg PO QAM [facility] Stop: 12/08/21 08:59 Last Admin: 11/09/21 08:08 Dose: 2.5 mg Documented by: Artificial Tears (Artificial Tears) 1 drops OP QID [facility] Stop: 11/24/21 08:59 Last Admin: 11/09/21 13:38 Dose: 1 drops Documented by: Bismuth Subsalicylate (Bismuth Subsalicylate Liqd 236 Ml) 15 ml PO PRN PRN PRN Reason: Loose Stool Stop: 11/24/21 23:42 Clozapine (Clozapine 100 Mg Tab) 150 mg PO DAILYBD [facility] Stop: 12/07/21 17:14 Last Admin: 11/08/21 17:13 Dose: 150 mg Documented by: Diphenhydramine HCl (Diphenhydramine Capsule 25 Mg Cap) 25 mg PO DAILY PRN PRN Reason: Allergy Symptoms Stop: 11/30/21 15:26 Last Admin: 11/04/21 08:57 Dose: 25 mg Documented by: Docusate Sodium (Docusate Sodium 100 Mg Cap) 100 mg PO BID@0800,2100 [facility] Stop: 11/24/21 08:59 Last Admin: 11/09/21 08:07 Dose: 100 mg Documented by: Ibuprofen (Ibuprofen 200 Mg Tab) 400 mg PO Q6H PRN PRN Reason: pain Stop: 11/24/21 11:33 Last Admin: 11/09/21 08:08 Dose: 400 mg Documented by: Levothyroxine Sodium (Levothyroxine Sodium 25 Mcg Tablet) 25 mcg PO DAILY@0800 [facility] Stop: 11/24/21 08:59 Last Admin: 11/09/21 08:08 Dose: 25 mcg Documented by: Magnesium Hydroxide (Magnesium Hydroxide Susp 30 Ml Udc) 30 ml PO DAILY PRN PRN Reason: Constipation Stop: 11/24/21 23:42 Olanzapine (Olanzapine 10 Mg/2.1 Ml Sdv) 10 mg IM Q6 PRN PRN Reason: Agitation Stop: 11/24/21 08:57 Senna/Docusate Sodium (Docusate Sodium/Senna 50/8.6mg Tab) 1 tab PO BID PRN PRN Reason: Constipation Stop: 11/24/21 15:02 Sodium Chloride (Sodium Chloride 0.65% Na Soln 45 Ml ([place])) 1 - 2 sprays NA PRN PRN PRN Reason: Nasal Dryness/Congestion Stop: 11/24/21 23:42 Vitamin D (Cholecalciferol 1,000 Units 25 Mcg Tab) 1,000 units PO DAILY [facility] Stop: 11/24/21 08:59 Last Admin: 11/09/21 08:08 Dose: 1,000 units Documented by: Zinc Acetate/Diphenhydramine (Diphenhydramine 2%/Zinc 0.1% Cream 28gm Tube) 1 appln EXT DAILY PRN PRN Reason: Itching Stop: 11/24/21 14:35 Last Admin: 10/23/21 08:19 Dose: 1 appln Documented by: Mental Health & Subst Abuse Tx Psychiatrist Name of Psychiatrist: Griffin Negron Pattern Filer Name of Pattern Filer: PADMINI Pederson Phone Number for Pattern Filer: [phone] Date of Appointment with Pattern Filer: 09/29/21 Post Discharge Appointments Contact Information Discharge Discharge Address: [facility] - [address] [place] [id number]
[2021-11-09] MEDS: cloZAPine 100 MG TAB PO SCH (17:08)
[2021-11-10] MEDS: CHOLECALCIFEROL 1,000 UNITS 25 MCG TAB PO SCH (09:23)
[2021-11-10] MEDS: ARIPiprazole 5 MG TAB PO SCH (09:23)
[2021-11-10] MEDS: DOCUSATE SODIUM 100 MG CAP PO SCH ×2 (09:23→20:13)
[2021-11-10] MEDS: LEVOTHYROXINE SODIUM 25 MCG TABLET PO SCH (09:23)
[2021-11-10] MEDS: ARTIFICIAL TEARS OP SCH ×4 (09:24→20:18)
[2021-11-10] MEDS: diphenhydrAMINE Capsule 25 MG CAP PO PRN (09:49)
--- NOTE | 2021-11-10 09:53 | Psychiatric Progress Note ---
Date of Service November 10, 2021 Impression / Recommendations Elise Miller is a 61 yo female with acute exacerbation of psychosis for non-compliance with clozapine. She is on an extended outpatient commitment prior to admission following discharge from the [facility]. 305 commitment converted to inpatient. She refuses to return to previous placement due to her paranoid delusions. MNPR for psychiatric symptoms of psychosis, paranoid ideation, recent irritability toward peers. May try a roommate soon. 11/10/21: remains delusional, mood improving Plan: continue current meds and treatment plan. (1) Schizophrenia, paranoid, chronic with acute exacerbation: Inventory Assets Strengths: intelligent, has been pleasant in interactions with staff and likes CM Needs: improved compliance, better tolerated antipsychotic. Risk Factors Assessment : Yes Do You Have Access To A Gun?: No Mental Health Diagnoses: Yes Substance Use Disorders: No Previous Attempt: No Previous Psychiatric Hospitalization: Yes Protective Factors Assessment Employed: No Good Rapport with Provider: Yes Interval History Identifying Information TALITA BALL is a 61-year-old F who currently lives at [facility], has a history of schizophrenia and [facility] placement, and was admitted on 09/26/21 23:33 on a 302 involuntary commitment but was maintained on a 305 outpatient commitment for delusional behavior so a 306 conversion hearing was held. Chief Complaint "I have money, I'm good". Review of Systems Sleep Information Total Hours of Sleep: 5.5 Sleep Comments: pt on q-15 minute checks Meal Information Percent Meal Consumed - Breakfast: 100 Percent Meal Consumed - Lunch: 50 Percent Meal Consumed - Dinner: 100 Nutrition Comment: per record Subjective Subjective Patient was seen & assessed and interval progress reviewed with treatment team. Has been out of room more and more engaged yesterday in that did laundry, appears to have washed hair. She is tolerating meetings with director of social services about finances and housing options. Physical Exam Psychiatric alert, less guarded, affect more spontaneous. continues to deny psych symptoms due to poor insight. Refusing return to [facility]. Unable to comprehend her limitations. Thoughts concrete but more organized. Confabulates bordering in delusions. Less paranoia. Vital Signs (Past 24 Hours) Last Vital Signs Temp 36.6 C 11/10/21 06:00 Pulse 98 H 11/10/21 06:29 Resp 16 11/10/21 06:00 BP 109/77 11/10/21 06:29 Pulse Ox 96 11/02/21 21:05 Results & Data ([facility]) Current Inpatient Medications Current Inpatient Medications: Current Inpatient Medications Acetaminophen (Acetaminophen 325 Mg Tab) 650 mg PO Q4H PRN PRN Reason: Headache or Minor Fever Stop: 11/24/21 23:42 Al Hydrox/Mg Hydrox/Simethicone (Aluminum/Magnesium Susp 30 Ml Udc) 30 ml PO Q4H PRN PRN Reason: GI Upset Stop: 11/24/21 23:42 Aripiprazole (Aripiprazole 5 Mg Tab) 5 mg PO QAM [facility] Stop: 12/10/21 08:59 Last Admin: 11/10/21 09:23 Dose: 5 mg Documented by: Artificial Tears (Artificial Tears) 1 drops OP QID [facility] Stop: 11/24/21 08:59 Last Admin: 11/10/21 09:24 Dose: 1 drops Documented by: Bismuth Subsalicylate (Bismuth Subsalicylate Liqd 236 Ml) 15 ml PO PRN PRN PRN Reason: Loose Stool Stop: 11/24/21 23:42 Clozapine (Clozapine 100 Mg Tab) 150 mg PO DAILYBD [facility] Stop: 12/07/21 17:14 Last Admin: 11/09/21 17:08 Dose: 150 mg Documented by: Diphenhydramine HCl (Diphenhydramine Capsule 25 Mg Cap) 25 mg PO DAILY PRN PRN Reason: Allergy Symptoms Stop: 11/30/21 15:26 Last Admin: 11/04/21 08:57 Dose: 25 mg Documented by: Docusate Sodium (Docusate Sodium 100 Mg Cap) 100 mg PO BID@0800,2100 [facility] Stop: 11/24/21 08:59 Last Admin: 11/10/21 09:23 Dose: 100 mg Documented by: Ibuprofen (Ibuprofen 200 Mg Tab) 400 mg PO Q6H PRN PRN Reason: pain Stop: 11/24/21 11:33 Last Admin: 11/09/21 20:33 Dose: 400 mg Documented by: Levothyroxine Sodium (Levothyroxine Sodium 25 Mcg Tablet) 25 mcg PO DAILY@0800 [facility] Stop: 11/24/21 08:59 Last Admin: 11/10/21 09:23 Dose: 25 mcg Documented by: Magnesium Hydroxide (Magnesium Hydroxide Susp 30 Ml Udc) 30 ml PO DAILY PRN PRN Reason: Constipation Stop: 11/24/21 23:42 Olanzapine (Olanzapine 10 Mg/2.1 Ml Sdv) 10 mg IM Q6 PRN PRN Reason: Agitation Stop: 11/24/21 08:57 Senna/Docusate Sodium (Docusate Sodium/Senna 50/8.6mg Tab) 1 tab PO BID PRN PRN Reason: Constipation Stop: 11/24/21 15:02 Sodium Chloride (Sodium Chloride 0.65% Na Soln 45 Ml ([place])) 1 - 2 sprays NA PRN PRN PRN Reason: Nasal Dryness/Congestion Stop: 11/24/21 23:42 Vitamin D (Cholecalciferol 1,000 Units 25 Mcg Tab) 1,000 units PO DAILY [facility] Stop: 11/24/21 08:59 Last Admin: 11/10/21 09:23 Dose: 1,000 units Documented by: Zinc Acetate/Diphenhydramine (Diphenhydramine 2%/Zinc 0.1% Cream 28gm Tube) 1 appln EXT DAILY PRN PRN Reason: Itching Stop: 11/24/21 14:35 Last Admin: 10/23/21 08:19 Dose: 1 appln Documented by: Mental Health & Subst Abuse Tx Psychiatrist Name of Psychiatrist: Griffin Negron Hat Cutter Name of Hat Cutter: PADMINI Pederson Phone Number for Hat Cutter: [phone] Date of Appointment with Hat Cutter: 09/29/21 Post Discharge Appointments Contact Information Discharge Discharge Address: [address] [address]
[2021-11-10] MEDS: cloZAPine 100 MG TAB PO SCH (17:06)
[2021-11-10] MEDS: IBUPROFEN 200 MG TAB PO PRN (20:15)
[2021-11-11] MEDS: DOCUSATE SODIUM 100 MG CAP PO SCH ×2 (09:03→20:04)
[2021-11-11] MEDS: ARIPiprazole 5 MG TAB PO SCH (09:03)
[2021-11-11] MEDS: LEVOTHYROXINE SODIUM 25 MCG TABLET PO SCH (09:03)
[2021-11-11] MEDS: ARTIFICIAL TEARS OP SCH ×4 (09:04→20:05)
[2021-11-11] MEDS: CHOLECALCIFEROL 1,000 UNITS 25 MCG TAB PO SCH (09:04)
[2021-11-11] MEDS: diphenhydrAMINE Capsule 25 MG CAP PO PRN (09:27)
--- NOTE | 2021-11-11 14:42 | Psychiatric Progress Note ---
Date of Service November 11, 2021 Impression / Recommendations Elise Miller is a 61 yo female with acute exacerbation of psychosis for non-compliance with clozapine. She is on an extended outpatient commitment prior to admission following [facility]. 305 commitment converted to inpatient. She refuses to return to previous placement due to her paranoid delusions. MNPR for psychiatric symptoms of psychosis, paranoid ideation, recent irritability toward peers. May try a roommate soon. 11/11/21: remains delusional, mood improving when not challenged, when delusions are challenged she becomes irritable, EKG ordered and reviewed notable for QTC 430, some abnormalities of unknown age for which outpatient cardiology consultation may be warranted but will have her PCP determine if this is necessary. Plan: reviewed interval progress from Dr. Valladares's notes and ordered EKG to evaluate QTc given dual antipsychotic therapy which was reassuring for normal QTc. (1) Schizophrenia, paranoid, chronic with acute exacerbation: 11/11/21: continue with clozapine 150mg qd and abilify 5 mg qd. 11/05/21: clozaril 150 mg po qpm with Abilify 2.5 mg po qam with plan to retitrate to 10 mg. 11/04/21: as patient is resistant to further titration of clozapine, offered to augment with low dose Abilify as was partially helpful. She declines. 11/03/21: BP improved and continues to not have any symptoms associated with tachycardia and no SOB so no indication for any further workup. Will adjust clozapine to be given with dinner to reduce morning fatigue. 11/02/21: continue clozapine 200 mg qHS. Increase vitals to qshift given decreased BP and tachycardia and potential for myocarditis with clozapine, if BP remains low will get EKG tomorrow. 11/01/21: consolidate clozapine to 200mg qHS with goal of titrating further if Angela allows. 10/31/21: continue clozapine 50mg qAM & 150 mg qHS. Decreasing prn Benadryl 25mg to once daily. 10/30/21: continue clozapine 50 mg qAM & 150 mg qHS. Offered therapeutic walk which she declined. 10/29/21: refused clozaril 200 mg, offer 150 mg tonight. 30 day treatment plan. She has been less irritable so may be appropriate for therapeutic walk outside with security soon. 10/28/21: titrate hs clozapine to 200 mg qhs for ongoing paranoid delusions. Weekly CBC. 10/26/21: titrate hs clozapine to 150 mg qhs. 10/24/21: titrate hs dose clozapine to 100 mg hs. Patient agreed 10/23/21. 10/22/21: continue with clozapine 50mg BID. No side effects so far. Continued goal of reducing delusions to the point that she will agree to return to [facility] and remain adherent with clozapine, so far taking clozapine without any issues. 10/21/21: increase clozapine to 50mg BID starting tomorrow. 10/20/21: continue current medications. 10/19/21: Increase clozapine to 25 mg BID. Next WBC/ANC on 10/24/21 10/18/21: Continue clozapine 12.5 mg BID. Colace prn added. Has benadryl 25mg BID prn for her allergies (will d/c as clozapine titration continues). Weekly WBC/ANC for now but could go back to monthly monitoring after discharge as it has been <30 days off clozapine. Her refusal to return to any type of supported housing and her inability to function safely in a less supportive setting remains the biggest barrier to discharge. 10/17/21: EKG, ANC, WBC, repeat height/weight/BMI ordered for consideration of starting clozapine. Her refusal to return to her pre-admission housing remains significant barrier to safe discharge especially in setting of ongoing delusions and paranoia. Started clozapine 12.5 mg BID as this worked well for her pre viously and she is now refusing to further titrate abilify or consider any other long acting injectable options for medications which leaves clozapine as the superior oral medication choice and she is willing to take this. 10/16/21: continue current medications. Continue to reality-test delusions. Discussed with social work and nursing goal of having her supports from her housing come for facilitated meeting to test delusions and paranoia about her housing. 10/15/21: continue current medications. Reviewed chart for substance use history. She is declining any titration of abilify. Agrees to discuss housing options with me tomorrow. 10/14/21: reviewed interim progress from Dr. Valladares's notes. She is back on abilify but remains irritable about her length of stay and remains focused on not wanting to return to her previous housing. Will attempt to further titrate abilify tomorrow if she agrees, she declined today. 10/13/21: patient will not engage in any discussion around Abilify titration today as refusing to stay here, not yet attempting to elope or act out aggressively but Zyprexa 10 mg IM ordered in case of acute agitation. 10/11/21: re=reviewed fasting metabolic labs from earlier in the month. Agreed to increase Abilify 10 mg daily. 10/10/21: unclear if ever had trued EPS for Haldol or just manipulating med regimen, tolerating Abilify this am. Refusing JAQUEZ. 10/09/21: d/c Haldol (patient refusing), there is no acute agitation or threatening behavior or medical decompensation that would support meds over objection/injectable at this time given that she is willing to take Abilify 5 mg daily PO. 10/08/21: more breakthrough during med changes with Haldol not yet therapeutic. Increase Haldol to 5 mg po qam and 10 mg po qhs starting tonight as no evidence of worsening EPS. Needs meeting with [facility] and CM. 10/07/21: will titrate Haldol to 5 mg BId tomorrow. 10/06/21: Discontinuing abilify. Increasing haldol to 2.5 mg qAM and 5 mg qHS. 10/05/21: Continue cross-taper will reduce abilify from 10 mg to 5 mg tomorrow. Increase haldol from 2.5 mg qd to 2.5 mg BID. 10/04/21: Need to cross-taper from abilify to haldol due to high cost of abilify JAQUEZ. She consents to starting haldol. Tomorrow will reduce abilify from 15 mg to 10mg qd and start haldol 2.5 mg qd. 10/03/21: Continue with abilify 15 mg po qd. Spoke with her outpt psychiatrist Dr. Negron about challenge of JAQUEZ Maintenna possibly being cost prohibitive so have call out to her outpatient case manager to see if there may be financial support options for this. Otherwise will need to consider haldol JAQUEZ vs Invega JAQUEZ. 10/02/21: She consents to increase of abilify to 15 mg tomorrow morning and discontinuation of zyprexa tonight. Benadryl 50 mg qhs prn for allergy symptoms. Continues to have delusions. Will attempt to start prior authorization process for Abilify Maintena if she continues to tolerate abilify po well. 10/01/21: She consents to ongoing cross-taper will decrease zyprexa from 10mg to 5mg qhs and increasing abilify from 5mg to 10 mg tomorrow morning. Remains very paranoid and suspicious of others so will continue MNPR. 09/30/21: Abilify 5 mg qd today. Tomorrow will decrease zyprexa from 10mg to 5 mg qhs and continue with cross-taper with goal of abilify monotherapy and then JAQUEZ if well tolerated. Continues to have limited insight but appropriate so far today, if this persists will consider d/c of MNPR tomorrow. 09/29/21: continue Zyprexa but taper soon in favor of Abilify. Test dose Abilify 2.5 mg today and 5 mg daily tomorrow. Once tolerability assessed, convert to JAQUEZ. Patient lacks insight into need to return to [facility]. Patient is upset following hearing so will be monitored before additional consideration of d/c MNPR. 09/28/21: continue Zyprexa 10 mg po qhs, add Cogentin 0.5 mg BID. No sense to restart Clozaril if won't take consistently. Monitor symptoms and consider Invega trial with hopes she'll ultimately agree to JAQUEZ. 09/27/21: The patient was admitted to the [facility] ([facility] mental health unit) on q15 min checks (behavioral with suicide precautions) for safety. The patient will participate in group, recreational, and milieu therapies and will be offered additional individual and family sessions as clinically appropriate. Risks/benefits/alternatives were reviewed re: antipsychotics for mood and/or psychosis. Discussion included but was not limited to metabolic side effects, risks of TD. There was EPS tremor but no TD at baseline. Fasting glucose and lipid panel ordered for baseline monitoring. She is agreeable to continuing Zyprexa but not Clozaril. Discussed that an JAQUEZ would be preferred and she declines due to limited insight into need for medication. Inventory Assets Strengths: intelligent, has been pleasant in interactions with staff and likes CM Needs: improved compliance, better tolerated antipsychotic. Risk Factors Assessment : Yes Do You Have Access To A Gun?: No Mental Health Diagnoses: Yes Substance Use Disorders: No Previous Attempt: No Previous Psychiatric Hospitalization: Yes Protective Factors Assessment Employed: No Good Rapport with Provider: Yes Interval History Identifying Information TALITA BALL is a 61-year-old F who currently lives at [facility], has a history of schizophrenia and community health hospital placement, and was admitted on 09/26/21 23:33 on a 302 involuntary commitment but was maintained on a 305 outpatient commitment for delusional behavior so a 306 conversion hearing was held. Chief Complaint "I know the laws and I can only be held here for 5 days, 120 hours". Review of Systems Notes She denies any SOB, chest pain, nausea, jaw pain. No physical pain or complaints. Sleep Information Total Hours of Sleep: 7.25 Sleep Comments: pt on q-15 minute checks Meal Information Percent Meal Consumed - Breakfast: 100 Percent Meal Consumed - Lunch: 100 Percent Meal Consumed - Dinner: 100 Nutrition Comment: per record Subjective Subjective Patient was seen & assessed and interval progress reviewed with treatment team nursing and social work. Angela denies any side effects from the abilify though continues to feel that the clozapine is making her feel too tired. She wonders about just taking abilify. We discuss that in the past two trials of abilify she become reluctant to consider higher enough doses of abilify to offer therapuetic benefit. Asked her to reflect on if she would be willing to fully titrate abilify, to at least 30 mg per day, and then plan to get JAQUEZ before we decide to stop the clozapine. She again reiterates her desire to move to [place] which she views as a "nice place to be". Tells me she has talked with her 92 yo father and could move in with him. Later when reality-tested with her father's obituary she tells me this was fake and due to him being in the [employer] service and that her mother and sister, who she states use drugs, likely planted this story since they lie about things. Reiterated my concern that she has no safe housing options outside of [facility]. She remains very resistant to returning there. Physical Exam Psychiatric Orientation: alert and oriented x 3 Apperance: appropriately dressed and appropriately groomed Eye Contact: good eye contact Motor Behavior: steady gait and station and no abnormal motor movements Speech: normal rate/rhythm/volume of speech Affect: + constricted affect Mood: + irritable mood; no depressed mood and no anxious mood Thought Process: + circumstantial thought process and + confabulations Thought Content: + paranoid and + delusions Suicidal Thoughts: denies suicidal thoughts Homicidal Thoughts: denies homicidal thoughts Hallucinations: no auditory hallucinations and no visual hallucinations Cognition: remote memory grossly intact and language grossly intact; + recent memory not intact Estimated Intelligence: consistent with education level Insight: + impaired insight Judgement: + impaired judgement Vital Signs (Past 24 Hours) Last Vital Signs Temp 36.6 C 11/11/21 06:00 Pulse 94 H 11/11/21 06:44 Resp 16 11/11/21 06:00 BP 114/77 11/11/21 06:44 Pulse Ox 96 11/02/21 21:05 Results & Data ([facility]) Current Inpatient Medications Current Inpatient Medications: Current Inpatient Medications Acetaminophen (Acetaminophen 325 Mg Tab) 650 mg PO Q4H PRN PRN Reason: Headache or Minor Fever Stop: 11/24/21 23:42 Al Hydrox/Mg Hydrox/Simethicone (Aluminum/Magnesium Susp 30 Ml Udc) 30 ml PO Q4H PRN PRN Reason: GI Upset Stop: 11/24/21 23:42 Aripiprazole (Aripiprazole 5 Mg Tab) 5 mg PO QAM [facility] Stop: 12/10/21 08:59 Last Admin: 11/11/21 09:03 Dose: 5 mg Documented by: Artificial Tears (Artificial Tears) 1 drops OP QID [facility] Stop: 11/24/21 08:59 Last Admin: 11/11/21 14:11 Dose: 1 drops Documented by: Bismuth Subsalicylate (Bismuth Subsalicylate Liqd 236 Ml) 15 ml PO PRN PRN PRN Reason: Loose Stool Stop: 11/24/21 23:42 Clozapine (Clozapine 100 Mg Tab) 150 mg PO DAILYBD [facility] Stop: 12/07/21 17:14 Last Admin: 11/10/21 17:06 Dose: 150 mg Documented by: Diphenhydramine HCl (Diphenhydramine Capsule 25 Mg Cap) 25 mg PO DAILY PRN PRN Reason: Allergy Symptoms Stop: 11/30/21 15:26 Last Admin: 11/11/21 09:27 Dose: 25 mg Documented by: Docusate Sodium (Docusate Sodium 100 Mg Cap) 100 mg PO BID@0800,2100 [facility] Stop: 11/24/21 08:59 Last Admin: 11/11/21 09:03 Dose: 100 mg Documented by: Ibuprofen (Ibuprofen 200 Mg Tab) 400 mg PO Q6H PRN PRN Reason: pain Stop: 11/24/21 11:33 Last Admin: 11/10/21 20:15 Dose: 400 mg Documented by: Levothyroxine Sodium (Levothyroxine Sodium 25 Mcg Tablet) 25 mcg PO DAILY@0800 [facility] Stop: 11/24/21 08:59 Last Admin: 11/11/21 09:03 Dose: 25 mcg Documented by: Magnesium Hydroxide (Magnesium Hydroxide Susp 30 Ml Udc) 30 ml PO DAILY PRN PRN Reason: Constipation Stop: 11/24/21 23:42 Olanzapine (Olanzapine 10 Mg/2.1 Ml Sdv) 10 mg IM Q6 PRN PRN Reason: Agitation Stop: 11/24/21 08:57 Senna/Docusate Sodium (Docusate Sodium/Senna 50/8.6mg Tab) 1 tab PO BID PRN PRN Reason: Constipation Stop: 11/24/21 15:02 Sodium Chloride (Sodium Chloride 0.65% Na Soln 45 Ml ([place])) 1 - 2 sprays NA PRN PRN PRN Reason: Nasal Dryness/Congestion Stop: 11/24/21 23:42 Vitamin D (Cholecalciferol 1,000 Units 25 Mcg Tab) 1,000 units PO DAILY [facility] Stop: 11/24/21 08:59 Last Admin: 11/11/21 09:04 Dose: 1,000 units Documented by: Zinc Acetate/Diphenhydramine (Diphenhydramine 2%/Zinc 0.1% Cream 28gm Tube) 1 appln EXT DAILY PRN PRN Reason: Itching Stop: 11/24/21 14:35 Last Admin: 10/23/21 08:19 Dose: 1 appln Documented by: Mental Health & Subst Abuse Tx Psychiatrist Name of Psychiatrist: Griffin Negron Bank Manager Name of Bank Manager: PADMINI Pederson Phone Number for Bank Manager: [phone] Date of Appointment with Bank Manager: 09/29/21 Post Discharge Appointments Contact Information Discharge Discharge Address: [facility] Personal Care - [facility] [place] [address]
[2021-11-11] MEDS: cloZAPine 100 MG TAB PO SCH (17:23)
[2021-11-11] MEDS: IBUPROFEN 200 MG TAB PO PRN (20:04)
[2021-11-12] MEDS: LEVOTHYROXINE SODIUM 25 MCG TABLET PO SCH (08:46)
[2021-11-12] MEDS: ARTIFICIAL TEARS OP SCH ×4 (08:46→20:50)
[2021-11-12] MEDS: ARIPiprazole 5 MG TAB PO SCH (08:46)
[2021-11-12] MEDS: DOCUSATE SODIUM 100 MG CAP PO SCH ×2 (08:46→20:50)
[2021-11-12] MEDS: CHOLECALCIFEROL 1,000 UNITS 25 MCG TAB PO SCH (08:46)
--- NOTE | 2021-11-12 16:58 | Psychiatric Progress Note ---
Date of Service November 12, 2021 Impression / Recommendations Elise Miller is a 61 yo female with acute exacerbation of psychosis for non-compliance with clozapine. She is on an extended outpatient commitment prior to admission following discharge from the [facility] hospital. 305 commitment converted to inpatient. She refuses to return to previous placement due to her paranoid delusions. MNPR for psychiatric symptoms of psychosis, paranoid ideation, recent irritability toward peers. May try a roommate soon. 11/12/21: remains delusional, mood improving when not challenged, when delusions are challenged she becomes irritable. Remains fixated and perseverative about having a home and wanting to move to [facility] which continues to present significant barriers and safety concerns for discharge as she was brought to the ED after leaving [facility] and attempting to trespass in an old apartment. Plan: will continue with abilify titration given that she cannot tolerate further titration of clozapine due to sedation and has failed multiple other monotherapy trials. Will need to find a medication combination to lessen the delusions and fixation on [facility] or find secure housing in a very high support environment. (1) Schizophrenia, paranoid, chronic with acute exacerbation: 11/12/21: increase abilify to 10mg qd, continue with clozapine. 11/11/21: continue with clozapine 150mg qd and abilify 5 mg qd. EKG done and reviewed given dual antipsychotic therapy, QTc normal. 11/05/21: clozaril 150 mg po qpm with Abilify 2.5 mg po qam with plan to retitrate to 10 mg. 11/04/21: as patient is resistant to further titration of clozapine, offered to augment with low dose Abilify as was partially helpful. She declines. 11/03/21: BP improved and continues to not have any symptoms associated with tachycardia and no SOB so no indication for any further workup. Will adjust clozapine to be given with dinner to reduce morning fatigue. 11/02/21: continue clozapine 200 mg qHS. Increase vitals to qshift given decreased BP and tachycardia and potential for myocarditis with clozapine, if BP remains low will get EKG tomorrow. 11/01/21: consolidate clozapine to 200mg qHS with goal of titrating further if Angela allows. 10/31/21: continue clozapine 50mg qAM & 150 mg qHS. Decreasing prn Benadryl 25mg to once daily. 10/30/21: continue clozapine 50 mg qAM & 150 mg qHS. Offered therapeutic walk which she declined. 10/29/21: refused clozaril 200 mg, offer 150 mg tonight. 30 day treatment plan. She has been less irritable so may be appropriate for therapeutic walk outside with security soon. 10/28/21: titrate hs clozapine to 200 mg qhs for ongoing paranoid delusions. Weekly CBC. 10/26/21: titrate hs clozapine to 150 mg qhs. 10/24/21: titrate hs dose clozapine to 100 mg hs. Patient agreed 10/23/21. 10/22/21: continue with clozapine 50mg BID. No side effects so far. Continued goal of reducing delusions to the point that she will agree to return to [facility] and remain adherent with clozapine, so far taking clozapine without any issues. 10/21/21: increase clozapine to 50mg BID starting tomorrow. 10/20/21: continue current medications. 10/19/21: Increase clozapine to 25 mg BID. Next WBC/ANC on 10/24/21 10/18/21: Continue clozapine 12.5 mg BID. Colace prn added. Has benadryl 25mg BID prn for her allergies (will d/c as clozapine titration continues). Weekly WBC/ANC for now but could go back to monthly monitoring after discharge as it has been <30 days off clozapine. Her refusal to return to any type of supported housing and her inability to function safely in a less supportive setting remains the biggest barrier to discharge. 10/17/21: EKG, ANC, WBC, repeat height/weight/BMI ordered for consideration of starting clozapine. Her refusal to return to her pre-admission housing remains significant barrier to safe discharge especially in setting of ongoing delusions and paranoia. Started clozapine 12.5 mg BID as this worked well for her previously and she is now refusing to further titrate abilify or consider any other long acting injectable options for medications which leaves clozapine as the superior oral medication choice and she is willing to take this. 10/16/21: continue current medications. Continue to reality-test delusions. Discussed with social work and nursing goal of having her supports from her housing come for facilitated meeting to test delusions and paranoia about her housing. 10/15/21: continue current medications. Reviewed chart for substance use history. She is declining any titration of abilify. Agrees to discuss housing options with me tomorrow. 10/14/21: reviewed interim progress from Dr. Valladares's notes. She is back on abilify but remains irritable about her length of stay and remains focused on not wanting to return to her previous housing. Will attempt to further titrate abilify tomorrow if she agrees, she declined today. 10/13/21: patient will not engage in any discussion around Abilify titration today as refusing to stay here, not yet attempting to elope or act out aggressively but Zyprexa 10 mg IM ordered in case of acute agitation. 10/11/21: re=reviewed fasting metabolic labs from earlier in the month. Agreed to increase Abilify 10 mg daily. 10/10/21: unclear if ever had trued EPS for Haldol or just manipulating med regimen, tolerating Abilify this am. Refusing JQAUEZ. 10/09/21: d/c Haldol (patient refusing), there is no acute agitation or threatening behavior or medical decompensation that would support meds over objection/injectable at this time given that she is willing to take Abilify 5 mg daily PO. 10/08/21: more breakthrough during med changes with Haldol not yet therapeutic. Increase Haldol to 5 mg po qam and 10 mg po qhs starting tonight as no evidence of worsening EPS. Needs meeting with [facility] and CM. 10/07/21: will titrate Haldol to 5 mg BId tomorrow. 10/06/21: Discontinuing abilify. Increasing haldol to 2.5 mg qAM and 5 mg qHS. 10/05/21: Continue cross-taper will reduce abilify from 10 mg to 5 mg tomorrow. Increase haldol from 2.5 mg qd to 2.5 mg BID. 10/04/21: Need to cross-taper from abilify to haldol due to high cost of abilify JAQUEZ. She consents to starting haldol. Tomorrow will reduce abilify from 15 mg to 10mg qd and start haldol 2.5 mg qd. 10/03/21: Continue with abilify 15 mg po qd. Spoke with her outpt psychiatrist Dr. Negron about challenge of JAQUEZ Maintenna possibly being cost prohibitive so have call out to her ed case manager to see if there may be financial support options for this. Otherwise will need to consider haldol JAQUEZ vs Invega JAQUEZ. 10/02/21: She consents to increase of abilify to 15 mg tomorrow morning and discontinuation of zyprexa tonight. Benadryl 50 mg qhs prn for allergy symptoms. Continues to have delusions. Will attempt to start prior authorization process for Abilify Maintena if she continues to tolerate abilify po well. 10/01/21: She consents to ongoing cross-taper will decrease zyprexa from 10mg to 5mg qhs and increasing abilify from 5mg to 10 mg tomorrow morning. Remains very paranoid and suspicious of others so will continue MNPR. 09/30/21: Abilify 5 mg qd today. Tomorrow will decrease zyprexa from 10mg to 5 mg qhs and continue with cross-taper with goal of abilify monotherapy and then JAQUEZ if well tolerated. Continues to have limited insight but appropriate so far today, if this persists will consider d/c of MNPR tomorrow. 09/29/21: continue Zyprexa but taper soon in favor of Abilify. Test dose Abilify 2.5 mg today and 5 mg daily tomorrow. Once tolerability assessed, convert to JAQUEZ. Patient lacks insight into need to return to [facility]. Patient is upset following hearing so will be monitored before additional consideration of d/c MNPR. 09/28/21: continue Zyprexa 10 mg po qhs, add Cogentin 0.5 mg BID. No sense to restart Clozaril if won't take consistently. Monitor symptoms and consider Invega trial with hopes she'll ultimately agree to JAQUEZ. 09/27/21: The patient was admitted to the [facility] ([facility] mental [facility] unit) on q15 min checks (behavioral with suicide precautions) for safety. The patient will participate in group, recreational, and milieu therapies and will be offered additional individual and family sessions as clinically appropriate. Risks/benefits/alternatives were reviewed re: antipsychotics for mood and/or psychosis. Discussion included but was not limited to metabolic side effects, risks of TD. There was EPS tremor but no TD at baseline. Fasting glucose and lipid panel ordered for baseline monitoring. She is agreeable to continuing Zyprexa but not Clozaril. Discussed that an JAQUEZ would be preferred and she declines due to limited insight into need for medication. Inventory Assets Strengths: intelligent, has been pleasant in interactions with staff and likes CM Needs: improved compliance, better tolerated antipsychotic. Risk Factors Assessment : Yes Do You Have Access To A Gun?: No Mental Health Diagnoses: Yes Substance Use Disorders: No Previous Attempt: No Previous Psychiatric Hospitalization: Yes Protective Factors Assessment Employed: No Good Rapport with Provider: Yes Interval History Identifying Information TALITA BALL is a 61-year-old F who currently lives at [facility], has a history of schizophrenia and [facility] hospital placement, and was admitted on 09/26/21 23:33 on a 302 involuntary commitment but was maintained on a 305 outpatient commitment for delusional behavior so a 306 conversion hearing was held. Chief Complaint "I really think [facility] would a good place for me". Review of Systems Sleep Information Total Hours of Sleep: 7.25 Sleep Comments: pt on q-15 minute checks Meal Information Percent Meal Consumed - Breakfast: 100 Percent Meal Consumed - Lunch: 100 Percent Meal Consumed - Dinner: 100 Nutrition Comment: per record Subjective Subjective Patient was seen & assessed and interval progress reviewed with treatment team nursing and social work. Isolative last evening. Continues to perseverative about [place] and wanting to live there and having a house there. Experiencing sedation from the clozapine which she feels improves during the day. Likes the abilify and agreeable to dose increase. Discussed that [facility] remains the only viable housing option which she remains resistant to. Physical Exam Psychiatric Orientation: alert and oriented x 3 Apperance: appropriately dressed and appropriately groomed Eye Contact: good eye contact Motor Behavior: steady gait and station and no abnormal motor movements Speech: normal rate/rhythm/volume of speech Affect: + constricted affect Mood: no depressed mood and no anxious mood Thought Process: + circumstantial thought process and + confabulations Thought Content: + paranoid and + delusions Suicidal Thoughts: denies suicidal thoughts Homicidal Thoughts: denies homicidal thoughts Hallucinations: no auditory hallucinations and no visual hallucinations Cognition: remote memory grossly intact and language grossly intact; + recent memory not intact Estimated Intelligence: consistent with education level Insight: + impaired insight Judgement: + impaired judgement Vital Signs (Past 24 Hours) Last Vital Signs Temp 37.1 C 11/12/21 06:00 Pulse 104 H 11/12/21 06:44 Resp 16 11/12/21 06:00 BP 111/63 11/12/21 06:44 Pulse Ox 96 11/02/21 21:05 Results & Data ([facility]) Current Inpatient Medications Current Inpatient Medications: Current Inpatient Medications Acetaminophen (Acetaminophen 325 Mg Tab) 650 mg PO Q4H PRN PRN Reason: Headache or Minor Fever Stop: 11/24/21 23:42 Al Hydrox/Mg Hydrox/Simethicone (Aluminum/Magnesium Susp 30 Ml Udc) 30 ml PO Q4H PRN PRN Reason: GI Upset Stop: 11/24/21 23:42 Aripiprazole (Aripiprazole 5 Mg Tab) 5 mg PO QAM [facility] Stop: 12/10/21 08:59 Last Admin: 11/12/21 08:46 Dose: 5 mg Documented by: Artificial Tears (Artificial Tears) 1 drops OP QID [facility] Stop: 11/24/21 08:59 Last Admin: 11/12/21 13:34 Dose: 1 drops Documented by: Bismuth Subsalicylate (Bismuth Subsalicylate Liqd 236 Ml) 15 ml PO PRN PRN PRN Reason: Loose Stool Stop: 11/24/21 23:42 Clozapine (Clozapine 100 Mg Tab) 150 mg PO DAILYBD [facility] Stop: 12/07/21 17:14 Last Admin: 11/11/21 17:23 Dose: 150 mg Documented by: Diphenhydramine HCl (Diphenhydramine Capsule 25 Mg Cap) 25 mg PO DAILY PRN PRN Reason: Allergy Symptoms Stop: 11/30/21 15:26 Last Admin: 11/11/21 09:27 Dose: 25 mg Documented by: Docusate Sodium (Docusate Sodium 100 Mg Cap) 100 mg PO BID@0800,2100 [facility] Stop: 11/24/21 08:59 Last Admin: 11/12/21 08:46 Dose: 100 mg Documented by: Ibuprofen (Ibuprofen 200 Mg Tab) 400 mg PO Q6H PRN PRN Reason: pain Stop: 11/24/21 11:33 Last Admin: 11/11/21 20:04 Dose: 400 mg Documented by: Levothyroxine Sodium (Levothyroxine Sodium 25 Mcg Tablet) 25 mcg PO DAILY@0800 [facility] Stop: 11/24/21 08:59 Last Admin: 11/12/21 08:46 Dose: 25 mcg Documented by: Magnesium Hydroxide (Magnesium Hydroxide Susp 30 Ml Udc) 30 ml PO DAILY PRN PRN Reason: Constipation Stop: 11/24/21 23:42 Olanzapine (Olanzapine 10 Mg/2.1 Ml Sdv) 10 mg IM Q6 PRN PRN Reason: Agitation Stop: 11/24/21 08:57 Senna/Docusate Sodium (Docusate Sodium/Senna 50/8.6mg Tab) 1 tab PO BID PRN PRN Reason: Constipation Stop: 11/24/21 15:02 Sodium Chloride (Sodium Chloride 0.65% Na Soln 45 Ml ([place])) 1 - 2 sprays NA PRN PRN PRN Reason: Nasal Dryness/Congestion Stop: 11/24/21 23:42 Vitamin D (Cholecalciferol 1,000 Units 25 Mcg Tab) 1,000 units PO DAILY [facility] Stop: 11/24/21 08:59 Last Admin: 11/12/21 08:46 Dose: 1,000 units Documented by: Zinc Acetate/Diphenhydramine (Diphenhydramine 2%/Zinc 0.1% Cream 28gm Tube) 1 appln EXT DAILY PRN PRN Reason: Itching Stop: 11/24/21 14:35 Last Admin: 10/23/21 08:19 Dose: 1 appln Documented by: Mental Health & Subst Abuse Tx Psychiatrist Name of Psychiatrist: Griffin Negron Forestry Worker Name of Forestry Worker: PADMINI Pederson Phone Number for Forestry Worker: [phone] Date of Appointment with Forestry Worker: 09/29/21 Post Discharge Appointments Contact Information Discharge Discharge Address: [facility] - [address] [place] [id number]
[2021-11-12] MEDS: cloZAPine 100 MG TAB PO SCH (17:24)
[2021-11-12] MEDS: IBUPROFEN 200 MG TAB PO PRN (20:50)
--- NOTE | 2021-11-12 21:13 | Electrocardiogram Report ---
Test Reason : Blood Pressure : / mmHG Vent. Rate : 083 BPM Atrial Rate : 083 BPM P-R Int : 162 ms QRS Dur : 096 ms QT Int : 366 ms P-R-T Axes : 035 072 038 degrees QTc Int : 430 ms Normal sinus rhythm Low voltage QRS Poor R wave progression, consider anterior OH vs. lead placement vs. LVH Abnormal ECG When compared with ECG of 17-OCT-2021 16:19, No significant change was found Confirmed by Anupam Busch ([id number]) on 11/12/2021 9:13:22 PM Referred By: Usman Kirkpatrick Confirmed By:Anupam Busch
[2021-11-13] MEDS: DOCUSATE SODIUM 100 MG CAP PO SCH ×2 (08:39→20:28)
[2021-11-13] MEDS: ARTIFICIAL TEARS OP SCH ×4 (08:39→20:29)
[2021-11-13] MEDS: ARIPiprazole 10 MG TAB PO SCH (08:39)
[2021-11-13] MEDS: LEVOTHYROXINE SODIUM 25 MCG TABLET PO SCH (08:39)
[2021-11-13] MEDS: CHOLECALCIFEROL 1,000 UNITS 25 MCG TAB PO SCH (08:39)
[2021-11-13] MEDS ORDERED: ARIPiprazole 10 MG TAB PO SCH (09:00)
[2021-11-13] MEDS: cloZAPine 100 MG TAB PO SCH (17:20)
--- NOTE | 2021-11-13 17:33 | Psychiatric Progress Note ---
Date of Service November 13, 2021 Impression / Recommendations Elise Miller is a 61 yo female with acute exacerbation of psychosis for non-compliance with clozapine. She is on an extended outpatient commitment prior to admission following discharge from the [facility]. 305 commitment converted to inpatient. She refuses to return to previous placement due to her paranoid delusions. MNPR for psychiatric symptoms of psychosis, paranoid ideation, recent irritability toward peers. 11/13/21: remains delusional, mood improving when not challenged, when delusions are challenged she becomes irritable though tolerated open dialogue approach. Remains fixated and perseverative about having a home and wanting to move to [facility] which continues to present significant barriers and safety concerns for discharge as she was brought to the ED after leaving [facility] and attempting to trespass in an old apartment. Plan: making referral to [facility], meeting tomorrow with her patient case coordinator via phone (1) Schizophrenia, paranoid, chronic with acute exacerbation: 11/13/21: placing referral for [facility] given ongoing delusions which are unresponsive to multiple medication trials 11/12/21: increase abilify to 10mg qd, continue with clozapine. 11/11/21: continue with clozapine 150mg qd and abilify 5 mg qd. EKG done and reviewed given dual antipsychotic therapy, QTc normal. 11/05/21: clozaril 150 mg po qpm with Abilify 2.5 mg po qam with plan to retitrate to 10 mg. 11/04/21: as patient is resistant to further titration of clozapine, offered to augment with low dose Abilify as was partially helpful. She declines. 11/03/21: BP improved and continues to not have any symptoms associated with tachycardia and no SOB so no indication for any further workup. Will adjust clozapine to be given with dinner to reduce morning fatigue. 11/02/21: continue clozapine 200 mg qHS. Increase vitals to qshift given decreased BP and tachycardia and potential for myocarditis with clozapine, if BP remains low will get EKG tomorrow. 11/01/21: consolidate clozapine to 200mg qHS with goal of titrating further if Angela allows. 10/31/21: continue clozapine 50mg qAM & 150 mg qHS. Decreasing prn Benadryl 25mg to once daily. 10/30/21: continue clozapine 50 mg qAM & 150 mg qHS. Offered therapeutic walk which she declined. 10/29/21: refused clozaril 200 mg, offer 150 mg tonight. 30 day treatment plan. She has been less irritable so may be appropriate for therapeutic walk outside with security soon. 10/28/21: titrate hs clozapine to 200 mg qhs for ongoing paranoid delusions. Weekly CBC. 10/26/21: titrate hs clozapine to 150 mg qhs. 10/24/21: titrate hs dose clozapine to 100 mg hs. Patient agreed 10/23/21. 10/22/21: continue with clozapine 50mg BID. No side effects so far. Continued goal of reducing delusions to the point that she will agree to return to [facility] and remain adherent with clozapine, so far taking clozapine without any issues. 10/21/21: increase clozapine to 50mg BID starting tomorrow. 10/20/21: continue current medications. 10/19/21: Increase clozapine to 25 mg BID. Next WBC/ANC on 10/24/21 10/18/21: Continue clozapine 12.5 mg BID. Colace prn added. Has benadryl 25mg BID prn for her allergies (will d/c as clozapine titration continues). Weekly WBC/ANC for now but could go back to monthly monitoring after discharge as it has been <30 days off clozapine. Her refusal to return to any type of supported housing and her inability to function safely in a less supportive setting remains the biggest barrier to discharge. 10/17/21: EKG, ANC, WBC, repeat height/weight/BMI ordered for consideration of starting clozapine. Her refusal to return to her pre-admission housing remains significant barrier to safe discharge especially in setting of ongoing delusions and paranoia. Started clozapine 12.5 mg BID as this worked well for her previously and she is now refusing to further titrate abilify or consider any other long acting injectable options for medications which leaves clozapine as the superior oral medication choice and she is willing to take this. 10/16/21: continue current medications. Continue to reality-test delusions. Discussed with social work and nursing goal of having her supports from her housing come for facilitated meeting to test delusions and paranoia about her housing. 10/15/21: continue current medications. Reviewed chart for substance use history. She is declining any titration of abilify. Agrees to discuss housing options with me tomorrow. 10/14/21: reviewed interim progress from Dr. Valladares's notes. She is back on abilify but remains irritable about her length of stay and remains focused on not wanting to return to her previous housing. Will attempt to further titrate abilify tomorrow if she agrees, she declined today. 10/13/21: patient will not engage in any discussion around Abilify titration today as refusing to stay here, not yet attempting to elope or act out aggressively but Zyprexa 10 mg IM ordered in case of acute agitation. 10/11/21: re=reviewed fasting metabolic labs from earlier in the month. Agreed to increase Abilify 10 mg daily. 10/10/21: unclear if ever had trued EPS for Haldol or just manipulating med regimen, tolerating Abilify this am. Refusing JAQUEZ. 10/09/21: d/c Haldol (patient refusing), there is no acute agitation or threatening behavior or medical decompensation that would support meds over objection/injectable at this time given that she is willing to take Abilify 5 mg daily PO. 10/08/21: more breakthrough during med changes with Haldol not yet therapeutic. Increase Haldol to 5 mg po qam and 10 mg po qhs starting tonight as no evidence of worsening EPS. Needs meeting with [facility] and CM. 10/07/21: will titrate Haldol to 5 mg BId tomorrow. 10/06/21: Discontinuing abilify. Increasing haldol to 2.5 mg qAM and 5 mg qHS. 10/05/21: Continue cross-taper will reduce abilify from 10 mg to 5 mg tomorrow. Increase haldol from 2.5 mg qd to 2.5 mg BID. 10/04/21: Need to cross-taper from abilify to haldol due to high cost of abilify JAQUEZ. She consents to starting haldol. Tomorrow will reduce abilify from 15 mg to 10mg qd and start haldol 2.5 mg qd. 10/03/21: Continue with abilify 15 mg po qd. Spoke with her outpt psychiatrist Dr. Negron about challenge of JAQUEZ Maintenna possibly being cost prohibitive so have call out to her patient case coordinator to see if there may be financial support options for this. Otherwise will need to consider haldol JAQUEZ vs Invega JAQUEZ. 10/02/21: She consents to increase of abilify to 15 mg tomorrow morning and discontinuation of zyprexa tonight. Benadryl 50 mg qhs prn for allergy symptoms. Continues to have delusions. Will attempt to start prior authorization process for Abilify Maintena if she continues to tolerate abilify po well. 10/01/21: She consents to ongoing cross-taper will decrease zyprexa from 10mg to 5mg qhs and increasing abilify from 5mg to 10 mg tomorrow morning. Remains very paranoid and suspicious of others so will continue MNPR. 09/30/21: Abilify 5 mg qd today. Tomorrow will decrease zyprexa from 10mg to 5 mg qhs and continue with cross-taper with goal of abilify monotherapy and then JAQUEZ if well tolerated. Continues to have limited insight but appropriate so far today, if this persists will consider d/c of MNPR tomorrow. 09/29/21: continue Zyprexa but taper soon in favor of Abilify. Test dose Abilify 2.5 mg today and 5 mg daily tomorrow. Once tolerability assessed, convert to JAQUEZ. Patient lacks insight into need to return to [facility]. Patient is upset following hearing so will be monitored before additional consideration of d/c MNPR. 09/28/21: continue Zyprexa 10 mg po qhs, add Cogentin 0.5 mg BID. No sense to restart Clozaril if won't take consistently. Monitor symptoms and consider Invega trial with hopes she'll ultimately agree to JAQUEZ. 09/27/21: The patient was admitted to the [facility] ([facility] inpatient mental health unit) on q15 min checks (behavioral with suicide precautions) for safety. The patient will participate in group, recreational, and milieu therapies and will be offered additional individual and family sessions as clinically appropriate. Risks/benefits/alternatives were reviewed re: antipsychotics for mood and/or psychosis. Discussion included but was not limited to metabolic side effects, risks of TD. There was EPS tremor but no TD at baseline. Fasting glucose and lipid panel ordered for baseline monitoring. She is agreeable to continuing Zyprexa but not Clozaril. Discussed that an JAQUEZ would be preferred and she declines due to limited insight into need for medication. Inventory Assets Strengths: intelligent, has been pleasant in interactions with staff and likes CM Needs: improved compliance, better tolerated antipsychotic. Risk Factors Assessment : Yes Do You Have Access To A Gun?: No Mental Health Diagnoses: Yes Substance Use Disorders: No Previous Attempt: No Previous Psychiatric Hospitalization: Yes Protective Factors Assessment Employed: No Good Rapport with Provider: Yes Interval History Identifying Information TALITA BALL is a 61-year-old F who currently lives at [facility], has a h istory of schizophrenia and state hospital placement, and was admitted on 09/26/21 23:33 on a 302 involuntary commitment but was maintained on a 305 outpatient commitment for delusional behavior so a 306 conversion hearing was held. Chief Complaint "I do not have schizophrenia". Review of Systems Sleep Information Total Hours of Sleep: 8.5 Sleep Comments: pt appeared to sleep 1.5 hrs during evening shift. pt on q-15 minute checks Meal Information Percent Meal Consumed - Breakfast: 100 Percent Meal Consumed - Lunch: 100 Percent Meal Consumed - Dinner: 100 Nutrition Comment: per record Subjective Subjective Patient was seen & assessed and interval progress reviewed with treatment team nursing and social work. Met as team with Angela using open dialogue approach. 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 Continues to believe she was visiting her son when she found trying to break into a stranger's home prior to admission. Reviewed her financial limitations. She continues to feel that staff at [facility] use drugs as do her sister and mother. Denies any side effects from the abilify or clozapine. Physical Exam Psychiatric Orientation: alert and oriented x 3 Apperance: appropriately dressed and appropriately groomed Eye Contact: good eye contact Motor Behavior: steady gait and station and no abnormal motor movements Speech: normal rate/rhythm/volume of speech Affect: + constricted affect Mood: no depressed mood and no anxious mood Thought Process: + circumstantial thought process and + confabulations Thought Content: + paranoid and + delusions Suicidal Thoughts: denies suicidal thoughts Homicidal Thoughts: denies homicidal thoughts Hallucinations: no auditory hallucinations and no visual hallucinations Cognition: remote memory grossly intact and language grossly intact; + recent memory not intact Estimated Intelligence: consistent with education level Insight: + impaired insight Judgement: + impaired judgement Vital Signs (Past 24 Hours) Last Vital Signs Temp 36.4 C 11/12/21 20:00 Pulse 104 H 11/12/21 06:44 Resp 16 11/12/21 06:00 BP 111/63 11/12/21 06:44 Pulse Ox 96 11/02/21 21:05 Results & Data ([facility]) Current Inpatient Medications Current Inpatient Medications: Current Inpatient Medications Acetaminophen (Acetaminophen 325 Mg Tab) 650 mg PO Q4H PRN PRN Reason: Headache or Minor Fever Stop: 11/24/21 23:42 Al Hydrox/Mg Hydrox/Simethicone (Aluminum/Magnesium Susp 30 Ml Udc) 30 ml PO Q4H PRN PRN Reason: GI Upset Stop: 11/24/21 23:42 Aripiprazole (Aripiprazole 10 Mg Tab) 10 mg PO QAM EMMA Stop: 12/13/21 08:59 Last Admin: 11/13/21 08:39 Dose: 10 mg Documented by: Artificial Tears (Artificial Tears) 1 drops OP QID EMMA Stop: 11/24/21 08:59 Last Admin: 11/13/21 17:21 Dose: 1 drops Documented by: Bismuth Subsalicylate (Bismuth Subsalicylate Liqd 236 Ml) 15 ml PO PRN PRN PRN Reason: Loose Stool Stop: 11/24/21 23:42 Clozapine (Clozapine 100 Mg Tab) 150 mg PO DAILYBD EMMA Stop: 12/07/21 17:14 Last Admin: 11/13/21 17:20 Dose: 150 mg Documented by: Diphenhydramine HCl (Diphenhydramine Capsule 25 Mg Cap) 25 mg PO DAILY PRN PRN Reason: Allergy Symptoms Stop: 11/30/21 15:26 Last Admin: 11/11/21 09:27 Dose: 25 mg Documented by: Docusate Sodium (Docusate Sodium 100 Mg Cap) 100 mg PO BID@0800,2100 [facility] Stop: 11/24/21 08:59 Last Admin: 11/13/21 08:39 Dose: 100 mg Documented by: Ibuprofen (Ibuprofen 200 Mg Tab) 400 mg PO Q6H PRN PRN Reason: pain Stop: 11/24/21 11:33 Last Admin: 11/12/21 20:50 Dose: 400 mg Documented by: Levothyroxine Sodium (Levothyroxine Sodium 25 Mcg Tablet) 25 mcg PO DAILY@0800 EMMA Stop: 11/24/21 08:59 Last Admin: 11/13/21 08:39 Dose: 25 mcg Documented by: Magnesium Hydroxide (Magnesium Hydroxide Susp 30 Ml Udc) 30 ml PO DAILY PRN PRN Reason: Constipation Stop: 11/24/21 23:42 Olanzapine (Olanzapine 10 Mg/2.1 Ml Sdv) 10 mg IM Q6 PRN PRN Reason: Agitation Stop: 11/24/21 08:57 Senna/Docusate Sodium (Docusate Sodium/Senna 50/8.6mg Tab) 1 tab PO BID PRN PRN Reason: Constipation Stop: 11/24/21 15:02 Sodium Chloride (Sodium Chloride 0.65% Na Soln 45 Ml (Dyer)) 1 - 2 sprays NA PRN PRN PRN Reason: Nasal Dryness/Congestion Stop: 11/24/21 23:42 Vitamin D (Cholecalciferol 1,000 Units 25 Mcg Tab) 1,000 units PO DAILY EMMA Stop: 11/24/21 08:59 Last Admin: 11/13/21 08:39 Dose: 1,000 units Documented by: Zinc Acetate/Diphenhydramine (Diphenhydramine 2%/Zinc 0.1% Cream 28gm Tube) 1 appln EXT DAILY PRN PRN Reason: Itching Stop: 11/24/21 14:35 Last Admin: 10/23/21 08:19 Dose: 1 appln Documented by: Mental Health & Subst Abuse Tx Psychiatrist Name of Psychiatrist: Griffin Negron Cad Specialist Name of Cad Specialist: PADMINI Pederson Phone Number for Cad Specialist: [phone] Date of Appointment with Cad Specialist: 09/29/21 Post Discharge Appointments Contact Information Discharge Discharge Address: [place] [address]
[2021-11-13] MEDS: IBUPROFEN 200 MG TAB PO PRN (20:28)
[2021-11-14 08:46] LABS: Basophils # (auto) 0.02 K/uL (0-0.2); Basophils % (auto) 0.4 %; Eosinophils # (auto) 0.01 K/uL (0-0.5); Eosinophils % (auto) 0.2 %; Hematocrit (blood only) 38.2 % (37-47); Hemoglobin 12.1 g/dL (12.0-16.0); Lymphocytes # (auto) 2.32 K/uL (1.2-3.4); Lymphocytes % (auto) 48.3 %; Mean Corpuscular Hgb Conc 31.7 g/dL (32-36); Mean Corpuscular Volume 94.8 fL (80-100); Mean Platelet Volume 9.3 fL (7.4-10.4); Monocytes # (auto) 0.32 K/uL (0.11-0.59); Monocytes % (auto) 6.7 %; Neutrophils # (auto) 2.13 K/uL (1.4-6.5); Neutrophils % (auto) 44.4 %; Platelet Count 249 K/uL (130-400); RDW Coefficient of Variation 13.9 % (11.5-14.5); Red Blood Count 4.03 M/uL (4.2-5.4)
[2021-11-14] MEDS: CHOLECALCIFEROL 1,000 UNITS 25 MCG TAB PO SCH (08:53)
[2021-11-14] MEDS: DOCUSATE SODIUM 100 MG CAP PO SCH ×2 (08:53→20:50)
[2021-11-14] MEDS: ARIPiprazole 10 MG TAB PO SCH (08:53)
[2021-11-14] MEDS: LEVOTHYROXINE SODIUM 25 MCG TABLET PO SCH (08:53)
[2021-11-14] MEDS: ARTIFICIAL TEARS OP SCH ×4 (08:54→20:51)
[2021-11-14] MEDS: diphenhydrAMINE Capsule 25 MG CAP PO PRN (08:55)
[2021-11-14] MEDS: IBUPROFEN 200 MG TAB PO PRN ×2 (08:59→20:49)
--- NOTE | 2021-11-14 12:44 | Psychiatric Progress Note ---
Date of Service November 14, 2021 Impression / Recommendations Impression Angela is a 61 yo female with acute exacerbation of psychosis for non-compliance with clozapine. She is on an extended outpatient commitment prior to admission following discharge from the [facility]. 305 commitment converted to inpatient. She refuses to return to previous placement due to her paranoid delusions. MNPR for psychiatric symptoms of psychosis, paranoid ideation, delusions. 11/14/21: remains delusional even with increasing intensity of reality-testing and now on dual antipsychotic medication including clozapine with limited improvement. Remains fixated and perseverative about having a home and wanting to move to [facility] which continues to present significant barriers and safety concerns for discharge as she was brought to the ED after leaving [facility] and attempting to trespass in an old apartment. Plan: attended meeting with her showcase maker, social work and Angela to discuss potential housing options besides [facility]. Reviewed ANC done today for clozapine which is stable. (1) Schizophrenia, paranoid, chronic with acute exacerbation: 11/14/21: continue abilify 10mg qd and clozapine 150mg qHS. ANC stable. 11/13/21: placing referral for [facility] given ongoing delusions which are unresponsive to multiple medication trials 11/12/21: increase abilify to 10mg qd, continue with clozapine. 11/11/21: continue with clozapine 150mg qd and abilify 5 mg qd. EKG done and reviewed given dual antipsychotic therapy, QTc normal. 11/05/21: clozaril 150 mg po qpm with Abilify 2.5 mg po qam with plan to retitrate to 10 mg. 11/04/21: as patient is resistant to further titration of clozapine, offered to augment with low dose Abilify as was partially helpful. She declines. 11/03/21: BP improved and continues to not have any symptoms associated with tachycardia and no SOB so no indication for any further workup. Will adjust clozapine to be given with dinner to reduce morning fatigue. 11/02/21: continue clozapine 200 mg qHS. Increase vitals to qshift given decreased BP and tachycardia and potential for myocarditis with clozapine, if BP remains low will get EKG tomorrow. 11/01/21: consolidate clozapine to 200mg qHS with goal of titrating further if Angela allows. 10/31/21: continue clozapine 50mg qAM & 150 mg qHS. Decreasing prn Benadryl 25mg to once daily. 10/30/21: continue clozapine 50 mg qAM & 150 mg qHS. Offered therapeutic walk which she declined. 10/29/21: refused clozaril 200 mg, offer 150 mg tonight. 30 day treatment plan. She has been less irritable so may be appropriate for therapeutic walk outside with security soon. 10/28/21: titrate hs clozapine to 200 mg qhs for ongoing paranoid delusions. Weekly CBC. 10/26/21: titrate hs clozapine to 150 mg qhs. 10/24/21: titrate hs dose clozapine to 100 mg hs. Patient agreed 10/23/21. 10/22/21: continue with clozapine 50mg BID. No side effects so far. Continued goal of reducing delusions to the point that she will agree to return to [facility] and remain adherent with clozapine, so far taking clozapine without any issues. 10/21/21: increase clozapine to 50mg BID starting tomorrow. 10/20/21: continue current medications. 10/19/21: Increase clozapine to 25 mg BID. Next WBC/ANC on 10/24/21 10/18/21: Continue clozapine 12.5 mg BID. Colace prn added. Has benadryl 25mg BID prn for her allergies (will d/c as clozapine titration continues). Weekly WBC/ANC for now but could go back to monthly monitoring after discharge as it has been <30 days off clozapine. Her refusal to return to any type of supported housing and her inability to function safely in a less supportive setting remains the biggest barrier to discharge. 10/17/21: EKG, ANC, WBC, repeat height/weight/BMI ordered for consideration of starting clozapine. Her refusal to return to her pre-admission housing remains significant barrier to safe discharge especially in setting of ongoing delusions and paranoia. Started clozapine 12.5 mg BID as this worked well for her previously and she is now refusing to further titrate abilify or consider any other long acting injectable options for medications which leaves clozapine as the superior oral medication choice and she is willing to take this. 10/16/21: continue current medications. Continue to reality-test delusions. Discussed with social work and nursing goal of having her supports from her housing come for facilitated meeting to test delusions and paranoia about her housing. 10/15/21: continue current medications. Reviewed chart for substance use history. She is declining any titration of abilify. Agrees to discuss housing options with me tomorrow. 10/14/21: reviewed interim progress from Dr. Valladares's notes. She is back on abilify but remains irritable about her length of stay and remains focused on not wanting to return to her previous housing. Will attempt to further titrate abilify tomorrow if she agrees, she declined today. 10/13/21: patient will not engage in any discussion around Abilify titration today as refusing to stay here, not yet attempting to elope or act out aggressively but Zyprexa 10 mg IM ordered in case of acute agitation. 10/11/21: re=reviewed fasting metabolic labs from earlier in the month. Agreed to increase Abilify 10 mg daily. 10/10/21: unclear if ever had trued EPS for Haldol or just manipulating med regimen, tolerating Abilify this am. Refusing JAQUEZ. 10/09/21: d/c Haldol (patient refusing), there is no acute agitation or threatening behavior or medical decompensation that would support meds over objection/injectable at this time given that she is willing to take Abilify 5 mg daily PO. 10/08/21: more breakthrough during med changes with Haldol not yet therapeutic. Increase Haldol to 5 mg po qam and 10 mg po qhs starting tonight as no evidence of worsening EPS. Needs meeting with [facility] and CM. 10/07/21: will titrate Haldol to 5 mg BId tomorrow. 10/06/21: Discontinuing abilify. Increasing haldol to 2.5 mg qAM and 5 mg qHS. 10/05/21: Continue cross-taper will reduce abilify from 10 mg to 5 mg tomorrow. Increase haldol from 2.5 mg qd to 2.5 mg BID. 10/04/21: Need to cross-taper from abilify to haldol due to high cost of abilify JAQUEZ. She consents to starting haldol. Tomorrow will reduce abilify from 15 mg to 10mg qd and start haldol 2.5 mg qd. 10/03/21: Continue with abilify 15 mg po qd. Spoke with her outpt psychiatrist Dr. Negron about challenge of JAQUEZ Maintenna possibly being cost prohibitive so have call out to her showcase maker to see if there may be financial support options for this. Otherwise will need to consider haldol JAQUEZ vs Invega JAQUEZ. 10/02/21: She consents to increase of abilify to 15 mg tomorrow morning and discontinuation of zyprexa tonight. Benadryl 50 mg qhs prn for allergy symptoms. Continues to have delusions. Will attempt to start prior authorization process for Abilify Maintena if she continues to tolerate abilify po well. 10/01/21: She consents to ongoing cross-taper will decrease zyprexa from 10mg to 5mg qhs and increasing abilify from 5mg to 10 mg tomorrow morning. Remains very paranoid and suspicious of others so will continue MNPR. 09/30/21: Abilify 5 mg qd today. Tomorrow will decrease zyprexa from 10mg to 5 mg qhs and continue with cross-taper with goal of abilify monotherapy and then JAQUEZ if well tolerated. Continues to have limited insight but appropriate so far today, if this persists will consider d/c of MNPR tomorrow. 09/29/21: continue Zyprexa but taper soon in favor of Abilify. Test dose Abilify 2.5 mg today and 5 mg daily tomorrow. Once tolerability assessed, convert to JAQUEZ. Patient lacks insight into need to return to [facility]. Patient is upset following hearing so will be monitored before additional consideration of d/c MNPR. 09/28/21: continue Zyprexa 10 mg po qhs, add Cogentin 0.5 mg BID. No sense to restart Clozaril if won't take consistently. Monitor symptoms and consider Invega trial with hopes she'll ultimately agree to JAQUEZ. 09/27/21: [facility] on q15 min checks (behavioral with suicide precautions) for safety. The patient will participate in group, recreational, and milieu therapies and will be offered additional individual and family sessions as clinically appropriate. Risks/benefits/alternatives were reviewed re: antipsychotics for mood and/or psychosis. Discussion included but was not limited to metabolic side effects, risks of TD. There was EPS tremor but no TD at baseline. Fasting glucose and lipid panel ordered for baseline monitoring. She is agreeable to continuing Zyprexa but not Clozaril. Discussed that an JAQUEZ would be preferred and she declines due to limited insight into need for medication. Inventory Assets Strengths: intelligent, has been pleasant in interactions with staff and likes CM Needs: improved compliance, better tolerated antipsychotic. Risk Factors Assessment : Yes Do You Have Access To A Gun?: No Mental Health Diagnoses: Yes Substance Use Disorders: No Previous Attempt: No Previous Psychiatric Hospitalization: Yes Protective Factors Assessment Employed: No Good Rapport with Provider: Yes Interval History Identifying Information TALITA BALL is a 61-year-old F who currently lives at [facility], has a history of schizophrenia and [facility] placement, and was admitted on 23:33 on a 302 involuntary commitment but was maintained on a 305 outpatient commitment for delusional behavior so a 306 conversion hearing was held. Chief Complaint "I need time to think about [facility]". Review of Systems Sleep Information Total Hours of Sleep: 8 Sleep Comments: pt on q-15 minute checks Meal Information Percent Meal Consumed - Breakfast: 100 Percent Meal Consumed - Lunch: 100 Percent Meal Consumed - Dinner: 100 Nutrition Comment: per record Subjective Subjective Patient was seen & assessed and interval progress reviewed with treatment team nursing and social work. After open dialogue meeting yesterday she was back to asking staff to be on the lookout for her house deed to be faxed. Denies medication side effects and stable mood. Remains perseverative about drug use of staff at [facility]. Meeting held at 2:30pm with her showcase maker FaridehXenia Miller expressed understanding that current options are limited to [facility] or [facility]. She asked for time to consider this as she continues to feel nervous about Yeimi, a staff at [facility], using drugs. She also reiterated her belief that she has a home with furniture in [facility] that was taken from her by her sister and mother. Physical Exam Psychiatric Orientation: alert and oriented x 3 Apperance: appropriately dressed and appropriately groomed Eye Contact: good eye contact Motor Behavior: steady gait and station and no abnormal motor movements Speech: normal rate/rhythm/volume of speech Affect: + constricted affect Mood: no depressed mood and no anxious mood Thought Process: + circumstantial thought process and + confabulations Thought Content: + paranoid and + delusions Suicidal Thoughts: denies suicidal thoughts Homicidal Thoughts: denies homicidal thoughts Hallucinations: no auditory hallucinations and no visual hallucinations Cognition: remote memory grossly intact and language grossly intact; + recent memory not intact Estimated Intelligence: consistent with education level Insight: + impaired insight Judgement: + impaired judgement Vital Signs (Past 24 Hours) Last Vital Signs Temp 36.5 C 11/14/21 06:42 Pulse 101 H 11/14/21 06:43 Resp 16 11/14/21 06:42 BP 101/63 11/14/21 06:43 Pulse Ox 96 11/02/21 21:05 Results & Data ([facility]) Laboratory Results Laboratory Results - last 24 hr 11/14/21 08:23 WBC 4.80 RBC 4.03 L Hgb 12.1 Hct 38.2 MCV 94.8 MCH 30.0 MCHC 31.7 L RDW Std Deviation 48.0 H RDW Coeff of Kim 13.9 Plt Count 249 MPV 9.3 Immature Gran % (Auto) 0.0 Neut % (Auto) 44.4 Lymph % (Auto) 48.3 Stevens % (Auto) 6.7 Eos % (Auto) 0.2 Baso % (Auto) 0.4 Neut # (Auto) 2.13 Lymph # (Auto) 2.32 Stevens # (Auto) 0.32 Eos # (Auto) 0.01 Baso # (Auto) 0.02 Immature Gran # (Auto) 0.00 Current Inpatient Medications Current Inpatient Medications: Current Inpatient Medications Acetaminophen (Acetaminophen 325 Mg Tab) 650 mg PO Q4H PRN PRN Reason: Headache or Minor Fever Stop: 11/24/21 23:42 Al Hydrox/Mg Hydrox/Simethicone (Aluminum/Magnesium Susp 30 Ml Udc) 30 ml PO Q4H PRN PRN Reason: GI Upset Stop: 11/24/21 23:42 Aripiprazole (Aripiprazole 10 Mg Tab) 10 mg PO QAM [facility] Stop: 12/13/21 08:59 Last Admin: 11/14/21 08:53 Dose: 10 mg Documented by: Artificial Tears (Artificial Tears) 1 drops OP QID EMMA Stop: 11/24/21 08:59 Last Admin: 11/14/21 12:26 Dose: 1 drops Documented by: Bismuth Subsalicylate (Bismuth Subsalicylate Liqd 236 Ml) 15 ml PO PRN PRN PRN Reason: Loose Stool Stop: 11/24/21 23:42 Clozapine (Clozapine 100 Mg Tab) 150 mg PO DAILYBD EMMA Stop: 12/07/21 17:14 Last Admin: 11/13/21 17:20 Dose: 150 mg Documented by: Diphenhydramine HCl (Diphenhydramine Capsule 25 Mg Cap) 25 mg PO DAILY PRN PRN Reason: Allergy Symptoms Stop: 11/30/21 15:26 Last Admin: 11/14/21 08:55 Dose: 25 mg Documented by: Docusate Sodium (Docusate Sodium 100 Mg Cap) 100 mg PO BID@0800,2100 [facility] Stop: 11/24/21 08:59 Last Admin: 11/14/21 08:53 Dose: 100 mg Documented by: Ibuprofen (Ibuprofen 200 Mg Tab) 400 mg PO Q6H PRN PRN Reason: pain Stop: 11/24/21 11:33 Last Admin: 11/14/21 08:59 Dose: 400 mg Documented by: Levothyroxine Sodium (Levothyroxine Sodium 25 Mcg Tablet) 25 mcg PO DAILY@0800 [facility] Stop: 11/24/21 08:59 Last Admin: 11/14/21 08:53 Dose: 25 mcg Documented by: Magnesium Hydroxide (Magnesium Hydroxide Susp 30 Ml Udc) 30 ml PO DAILY PRN PRN Reason: Constipation Stop: 11/24/21 23:42 Olanzapine (Olanzapine 10 Mg/2.1 Ml Sdv) 10 mg IM Q6 PRN PRN Reason: Agitation Stop: 11/24/21 08:57 Senna/Docusate Sodium (Docusate Sodium/Senna 50/8.6mg Tab) 1 tab PO BID PRN PRN Reason: Constipation Stop: 11/24/21 15:02 Sodium Chloride (Sodium Chloride 0.65% Na Soln 45 Ml (Forrest)) 1 - 2 sprays NA PRN PRN PRN Reason: Nasal Dryness/Congestion Stop: 11/24/21 23:42 Vitamin D (Cholecalciferol 1,000 Units 25 Mcg Tab) 1,000 units PO DAILY EMMA Stop: 11/24/21 08:59 Last Admin: 11/14/21 08:53 Dose: 1,000 units Documented by: Zinc Acetate/Diphenhydramine (Diphenhydramine 2%/Zinc 0.1% Cream 28gm Tube) 1 appln EXT DAILY PRN PRN Reason: Itching Stop: 11/24/21 14:35 Last Admin: 10/23/21 08:19 Dose: 1 appln Documented by: Mental Health & Subst Abuse Tx Psychiatrist Name of Psychiatrist: Griffin Negron [employer] Name of [employer]ipe Making: PADMINI Pederson Phone Number for [employer]: [phone] Date of Appointment with [employer]: 09/29/21 Post Discharge Appointments Contact Information Discharge Discharge Address: [facility] [place] [address]
[2021-11-14] MEDS: cloZAPine 100 MG TAB PO SCH (17:32)
[2021-11-15] MEDS: LEVOTHYROXINE SODIUM 25 MCG TABLET PO SCH (08:09)
[2021-11-15] MEDS: CHOLECALCIFEROL 1,000 UNITS 25 MCG TAB PO SCH (08:09)
[2021-11-15] MEDS: ARIPiprazole 10 MG TAB PO SCH (08:09)
[2021-11-15] MEDS: DOCUSATE SODIUM 100 MG CAP PO SCH ×2 (08:09→20:33)
[2021-11-15] MEDS: IBUPROFEN 200 MG TAB PO PRN ×2 (08:09→20:34)
[2021-11-15] MEDS: ARTIFICIAL TEARS OP SCH ×4 (08:10→20:33)
--- NOTE | 2021-11-15 15:23 | Psychiatric Progress Note ---
Date of Service November 15, 2021 Impression / Recommendations Elise Miller is a 61 yo female with acute exacerbation of psychosis for non-compliance with clozapine. She is on an extended outpatient commitment prior to admission following discharge from the [facility]. 305 commitment converted to inpatient. She refuses to return to previous placement due to her paranoid delusions. MNPR for psychiatric symptoms of psychosis, paranoid ideation, delusions. 11/15/21: remains delusional even with increasing intensity of reality-testing and now on dual antipsychotic medication including clozapine with limited improvement. Remains fixated and perseverative about having a home and wanting to move to [facility] or another personal mcfp which continues to present significant barriers and safety concerns for discharge as she was brought to the ED after leaving [facility] and attempting to trespass in an old apartment. Plan: met using open dialogue therapeutic approach, called personal mcfp in [place] to determine if it may be feasible option-not in coun ty so unlikely to be feasible or appropriate. Meeting tomorrow with Shena. (1) Schizophrenia, paranoid, chronic with acute exacerbation: 11/15/21: continue abilify and clozapine. 11/14/21: continue abilify 10mg qd and clozapine 150mg qHS. ANC stable. 11/13/21: placing referral for [facility] given ongoing delusions which are unresponsive to multiple medication trials 11/12/21: increase abilify to 10mg qd, continue with clozapine. 11/11/21: continue with clozapine 150mg qd and abilify 5 mg qd. EKG done and reviewed given dual antipsychotic therapy, QTc normal. 11/05/21: clozaril 150 mg po qpm with Abilify 2.5 mg po qam with plan to retitrate to 10 mg. 11/04/21: as patient is resistant to further titration of clozapine, offered to augment with low dose Abilify as was partially helpful. She declines. 11/03/21: BP improved and continues to not have any symptoms associated with tachycardia and no SOB so no indication for any further workup. Will adjust clozapine to be given with dinner to reduce morning fatigue. 11/02/21: continue clozapine 200 mg qHS. Increase vitals to qshift given decreased BP and tachycardia and potential for myocarditis with clozapine, if BP remains low will get EKG tomorrow. 11/01/21: consolidate clozapine to 200mg qHS with goal of titrating further if Angela allows. 10/31/21: continue clozapine 50mg qAM & 150 mg qHS. Decreasing prn Benadryl 25mg to once daily. 10/30/21: continue clozapine 50 mg qAM & 150 mg qHS. Offered therapeutic walk which she declined. 10/29/21: refused clozaril 200 mg, offer 150 mg tonight. 30 day treatment plan. She has been less irritable so may be appropriate for therapeutic walk outside with security soon. 10/28/21: titrate hs clozapine to 200 mg qhs for ongoing paranoid delusions. Weekly CBC. 10/26/21: titrate hs clozapine to 150 mg qhs. 10/24/21: titrate hs dose clozapine to 100 mg hs. Patient agreed 10/23/21. 10/22/21: continue with clozapine 50mg BID. No side effects so far. Continued goal of reducing delusions to the point that she will agree to return to [facility] and remain adherent with clozapine, so far taking clozapine without any issues. 10/21/21: increase clozapine to 50mg BID starting tomorrow. 10/20/21: continue current medications. 10/19/21: Increase clozapine to 25 mg BID. Next WBC/ANC on 10/24/21 10/18/21: Continue clozapine 12.5 mg BID. Colace prn added. Has benadryl 25mg BID prn for her allergies (will d/c as clozapine titration continues). Weekly WBC/ANC for now but could go back to monthly monitoring after discharge as it has been <30 days off clozapine. Her refusal to return to any type of supported housing and her inability to function safely in a less supportive setting remains the biggest barrier to discharge. 10/17/21: EKG, ANC, WBC, repeat height/weight/BMI ordered for consideration of starting clozapine. Her refusal to return to her pre-admission housing remains significant barrier to safe discharge especially in setting of ongoing delusions and paranoia. Started clozapine 12.5 mg BID as this worked well for her previously and she is now refusing to further titrate abilify or consider any other long acting injectable options for medications which leaves clozapine as the superior oral medication choice and she is willing to take this. 10/16/21: continue current medications. Continue to reality-test delusions. Discussed with social work and nursing goal of having her supports from her housing come for facilitated meeting to test delusions and paranoia about her housing. 10/15/21: continue current medications. Reviewed chart for substance use history. She is declining any titration of abilify. Agrees to discuss housing options with me tomorrow. 10/14/21: reviewed interim progress from Dr. Valladares's notes. She is back on abilify but remains irritable about her length of stay and remains focused on not wanting to return to her previous housing. Will attempt to further titrate abilify tomorrow if she agrees, she declined today. 10/13/21: patient will not engage in any discussion around Abilify titration today as refusing to stay here, not yet attempting to elope or act out aggressively but Zyprexa 10 mg IM ordered in case of acute agitation. 10/11/21: re=reviewed fasting metabolic labs from earlier in the month. Agreed to increase Abilify 10 mg daily. 10/10/21: unclear if ever had trued EPS for Haldol or just manipulating med regimen, tolerating Abilify this am. Refusing JAQUEZ. 10/09/21: d/c Haldol (patient refusing), there is no acute agitation or threatening behavior or medical decompensation that would support meds over objection/injectable at this time given that she is willing to take Abilify 5 mg daily PO. 10/08/21: more breakthrough during med changes with Haldol not yet therapeutic. Increase Haldol to 5 mg po qam and 10 mg po qhs starting tonight as no evidence of worsening EPS. Needs meeting with [facility] and CM. 10/07/21: will titrate Haldol to 5 mg BId tomorrow. 10/06/21: Discontinuing abilify. Increasing haldol to 2.5 mg qAM and 5 mg qHS. 10/05/21: Continue cross-taper will reduce abilify from 10 mg to 5 mg tomorrow. Increase haldol from 2.5 mg qd to 2.5 mg BID. 10/04/21: Need to cross-taper from abilify to haldol due to high cost of abilify JAQUEZ. She consents to starting haldol. Tomorrow will reduce abilify from 15 mg to 10mg qd and start haldol 2.5 mg qd. 10/03/21: Continue with abilify 15 mg po qd. Spoke with her outpt psychiatrist Dr. Negron about challenge of JAQUEZ Maintenna possibly being cost prohibitive so have call out to her case reviewer to see if there may be financial support options for this. Otherwise will need to consider haldol JAQUEZ vs Invega JAQUEZ. 10/02/21: She consents to increase of abilify to 15 mg tomorrow morning and discontinuation of zyprexa tonight. Benadryl 50 mg qhs prn for allergy symptoms. Continues to have delusions. Will attempt to start prior authorization process for Abilify Maintena if she continues to tolerate abilify po well. 10/01/21: She consents to ongoing cross-taper will decrease zyprexa from 10mg to 5mg qhs and increasing abilify from 5mg to 10 mg tomorrow morning. Remains very paranoid and suspicious of others so will continue MNPR. 09/30/21: Abilify 5 mg qd today. Tomorrow will decrease zyprexa from 10mg to 5 mg qhs and continue with cross-taper with goal of abilify monotherapy and then JAQUEZ if well tolerated. Continues to have limited insight but appropriate so far today, if this persists will consider d/c of MNPR tomorrow. 09/29/21: continue Zyprexa but taper soon in favor of Abilify. Test dose Abilify 2.5 mg today and 5 mg daily tomorrow. Once tolerability assessed, convert to JAQUEZ. Patient lacks insight into need to return to [facility]. Patient is upset following hearing so will be monitored before additional consideration of d/c MNPR. 09/28/21: continue Zyprexa 10 mg po qhs, add Cogentin 0.5 mg BID. No sense to restart Clozaril if won't take consistently. Monitor symptoms and consider Invega trial with hopes she'll ultimately agree to JAQUEZ. 09/27/21: The patient was admitted to the [facility] ([facility] mental health unit) on q15 min checks (behavioral with suicide precautions) for safety. The patient will participate in group, recreational, and milieu therapies and will be offered additional individual and family sessions as clinically appropriate. Risks/benefits/alternatives were reviewed re: antipsychotics for mood and/or psychosis. Discussion included but was not limited to metabolic side effects, risks of TD. There was EPS tremor but no TD at baseline. Fasting glucose and lipid panel ordered for baseline monitoring. She is agreeable to continuing Zyprexa but not Clozaril. Discussed that an JAQUEZ would be preferred a nd she declines due to limited insight into need for medication. Inventory Assets Strengths: intelligent, has been pleasant in interactions with staff and likes CM Needs: improved compliance, better tolerated antipsychotic. Risk Factors Assessment : Yes Do You Have Access To A Gun?: No Mental Health Diagnoses: Yes Substance Use Disorders: No Previous Attempt: No Previous Psychiatric Hospitalization: Yes Protective Factors Assessment Employed: No Good Rapport with Provider: Yes Interval History Identifying Information TALITA BALL is a 61-year-old F who currently lives at [facility], has a history of schizophrenia and [facility] placement, and was admitted on 09/26/21 23:33 on a 302 involuntary commitment but was maintained on a 305 o utpatient commitment for delusional behavior so a 306 conversion hearing was held. Chief Complaint "It's my legal right to refuse [facility] and the [facility]. Review of Systems Sleep Information Total Hours of Sleep: 7.75 Sleep Comments: pt on q-15 minute checks Meal Information Percent Meal Consumed - Breakfast: 100 Percent Meal Consumed - Lunch: 90 Percent Meal Consumed - Dinner: 50 Nutrition Comment: per record Subjective Subjective Patient was seen & assessed and interval progress reviewed with treatment team nursing and social work. met with Angela with treatment team using open dialogue approach. Angela remains fixated on alternative housing options including a new personal mcfp in [place] which she requests we look into to see if it would be financially feasible. Continues to tolerate medication well without side effects. Was observed talking to herself last night. Played [employer] today. She is now agreeing to have Yeimi join the meeting tomorrow with Farideh to discuss her concerns about safety at [facility] given her concerns that staff are using drugs. Physical Exam Psychiatric Orientation: alert and oriented x 3 Apperance: appropriately dressed and appropriately groomed Eye Contact: good eye contact Motor Behavior: steady gait and station and no abnormal motor movements Speech: normal rate/rhythm/volume of speech Affect: + constricted affect Mood: no depressed mood and no anxious mood Thought Process: + circumstantial thought process and + confabulations Thought Content: + paranoid and + delusions Suicidal Thoughts: denies suicidal thoughts Homicidal Thoughts: denies homicidal thoughts Hallucinations: no auditory hallucinations and no visual hallucinations Cognition: remote memory grossly intact and language grossly intact; + recent memory not intact Estimated Intelligence: consistent with education level Insight: + impaired insight Judgement: + impaired judgement Vital Signs (Past 24 Hours) Last Vital Signs Temp 36.9 C 11/15/21 06:29 Pulse 100 H 11/15/21 06:29 Resp 16 11/15/21 06:29 BP 104/72 11/15/21 06:29 Pulse Ox 95 11/15/21 06:29 Results & Data ([facility]) Current Inpatient Medications Current Inpatient Medications: Current Inpatient Medications Acetaminophen (Acetaminophen 325 Mg Tab) 650 mg PO Q4H PRN PRN Reason: Headache or Minor Fever Stop: 11/24/21 23:42 Al Hydrox/Mg Hydrox/Simethicone (Aluminum/Magnesium Susp 30 Ml Udc) 30 ml PO Q4H PRN PRN Reason: GI Upset Stop: 11/24/21 23:42 Aripiprazole (Aripiprazole 10 Mg Tab) 10 mg PO QAM EMMA Stop: 12/13/21 08:59 Last Admin: 11/15/21 08:09 Dose: 10 mg Documented by: Artificial Tears (Artificial Tears) 1 drops OP QID EMMA Stop: 11/24/21 08:59 Last Admin: 11/15/21 12:49 Dose: 1 drops Documented by: Bismuth Subsalicylate (Bismuth Subsalicylate Liqd 236 Ml) 15 ml PO PRN PRN PRN Reason: Loose Stool Stop: 11/24/21 23:42 Clozapine (Clozapine 100 Mg Tab) 150 mg PO DAILYBD EMMA Stop: 12/07/21 17:14 Last Admin: 11/14/21 17:32 Dose: 150 mg Documented by: Diphenhydramine HCl (Diphenhydramine Capsule 25 Mg Cap) 25 mg PO DAILY PRN PRN Reason: Allergy Symptoms Stop: 11/30/21 15:26 Last Admin: 11/14/21 08:55 Dose: 25 mg Documented by: Docusate Sodium (Docusate Sodium 100 Mg Cap) 100 mg PO BID@0800,2100 EMMA Stop: 11/24/21 08:59 Last Admin: 11/15/21 08:09 Dose: 100 mg Documented by: Ibuprofen (Ibuprofen 200 Mg Tab) 400 mg PO Q6H PRN PRN Reason: pain Stop: 11/24/21 11:33 Last Admin: 11/15/21 08:09 Dose: 400 mg Documented by: Levothyroxine Sodium (Levothyroxine Sodium 25 Mcg Tablet) 25 mcg PO DAILY@0800 EMMA Stop: 11/24/21 08:59 Last Admin: 11/15/21 08:09 Dose: 25 mcg Documented by: Magnesium Hydroxide (Magnesium Hydroxide Susp 30 Ml Udc) 30 ml PO DAILY PRN PRN Reason: Constipation Stop: 11/24/21 23:42 Olanzapine (Olanzapine 10 Mg/2.1 Ml Sdv) 10 mg IM Q6 PRN PRN Reason: Agitation Stop: 11/24/21 08:57 Senna/Docusate Sodium (Docusate Sodium/Senna 50/8.6mg Tab) 1 tab PO BID PRN PRN Reason: Constipation Stop: 11/24/21 15:02 Sodium Chloride (Sodium Chloride 0.65% Na Soln 45 Ml ([place])) 1 - 2 sprays NA PRN PRN PRN Reason: Nasal Dryness/Congestion Stop: 11/24/21 23:42 Vitamin D (Cholecalciferol 1,000 Units 25 Mcg Tab) 1,000 units PO DAILY EMMA Stop: 11/24/21 08:59 Last Admin: 11/15/21 08:09 Dose: 1,000 units Documented by: Zinc Acetate/Diphenhydramine (Diphenhydramine 2%/Zinc 0.1% Cream 28gm Tube) 1 appln EXT DAILY PRN PRN Reason: Itching Stop: 11/24/21 14:35 Last Admin: 10/23/21 08:19 Dose: 1 appln Documented by: Mental Health & Subst Abuse Tx Psychiatrist Name of Psychiatrist: Griffin Negron Ice Skating Coach Name of Ice Skating Coach: PADMINI Pederson Phone Number for Ice Skating Coach: [phone] Date of Appointment with Ice Skating Coach: 09/29/21 Post Discharge Appointments Contact Information Discharge Discharge Address: [facility] - [address], [place] [address]
[2021-11-15] MEDS: cloZAPine 100 MG TAB PO SCH (17:42)
[2021-11-16] MEDS: CHOLECALCIFEROL 1,000 UNITS 25 MCG TAB PO SCH (08:33)
[2021-11-16] MEDS: ARIPiprazole 10 MG TAB PO SCH (08:33)
[2021-11-16] MEDS: LEVOTHYROXINE SODIUM 25 MCG TABLET PO SCH (08:33)
[2021-11-16] MEDS: DOCUSATE SODIUM 100 MG CAP PO SCH ×2 (08:33→20:44)
[2021-11-16] MEDS: ARTIFICIAL TEARS OP SCH ×4 (08:34→20:44)
[2021-11-16] MEDS: diphenhydrAMINE Capsule 25 MG CAP PO PRN (09:30)
[2021-11-16] MEDS: IBUPROFEN 200 MG TAB PO PRN ×2 (09:30→20:48)
--- NOTE | 2021-11-16 16:38 | Psychiatric Progress Note ---
Date of Service November 16, 2021 Impression / Recommendations Impression Angela is a 61 yo female with acute exacerbation of psychosis for non-compliance with clozapine. She is on an extended outpatient commitment prior to admission following discharge [facility]. 305 commitment converted to inpatient. She refuses to return to previous placement due to her paranoid delusions. MNPR for psychiatric symptoms of psychosis, paranoid ideation, delusions. 11/16/21: showing some slight movement today in terms of the degree of her delusions, was able to reality-test around delusions about Yeimi using drugs and know states she must have mixed it up with powdered coffee creamer. She is considering if she is willing to return to [facility] and states that she will take her medication daily and work with her outpatient team and remain at [facility] if she decides she is agreeable to returning. Plan: attended one hour phone call with Angela, her outpatient CM, [facility] architect manager and [facility] treatment team to review potential disposition option. (1) Schizophrenia, paranoid, chronic with acute exacerbation: 11/16/21: continue abilify and clozapine. 11/15/21: continue abilify and clozapine. 11/14/21: continue abilify 10mg qd and clozapine 150mg qHS. ANC stable. 11/13/21: placing referral for [facility] given ongoing delusions which are unresponsive to multiple medication trials 11/12/21: increase abilify to 10mg qd, continue with clozapine. 11/11/21: continue with clozapine 150mg qd and abilify 5 mg qd. EKG done and reviewed given dual antipsychotic therapy, QTc normal. 11/05/21: clozaril 150 mg po qpm with Abilify 2.5 mg po qam with plan to retitrate to 10 mg. 11/04/21: as patient is resistant to further titration of clozapine, offered to augment with low dose Abilify as was partially helpful. She declines. 11/03/21: BP improved and continues to not have any symptoms associated with tachycardia and no SOB so no indication for any further workup. Will adjust clozapine to be given with dinner to reduce morning fatigue. 11/02/21: continue clozapine 200 mg qHS. Increase vitals to qshift given decreased BP and tachycardia and potential for myocarditis with clozapine, if BP remains low will get EKG tomorrow. 11/01/21: consolidate clozapine to 200mg qHS with goal of titrating further if Angela allows. 10/31/21: continue clozapine 50mg qAM & 150 mg qHS. Decreasing prn Benadryl 25mg to once daily. 10/30/21: continue clozapine 50 mg qAM & 150 mg qHS. Offered therapeutic walk which she declined. 10/29/21: refused clozaril 200 mg, offer 150 mg tonight. 30 day treatment plan. She has been less irritable so may be appropriate for therapeutic walk outside with security soon. 10/28/21: titrate hs clozapine to 200 mg qhs for ongoing paranoid delusions. Weekly CBC. 10/26/21: titrate hs clozapine to 150 mg qhs. 10/24/21: titrate hs dose clozapine to 100 mg hs. Patient agreed 10/23/21. 10/22/21: continue with clozapine 50mg BID. No side effects so far. Continued goal of reducing delusions to the point that she will agree to return to [facility] and remain adherent with clozapine, so far taking clozapine without any issues. 10/21/21: increase clozapine to 50mg BID starting tomorrow. 10/20/21: continue current medications. 10/19/21: Increase clozapine to 25 mg BID. Next WBC/ANC on 10/24/21 10/18/21: Continue clozapine 12.5 mg BID. Colace prn added. Has benadryl 25mg B ID prn for her allergies (will d/c as clozapine titration continues). Weekly WBC/ANC for now but could go back to monthly monitoring after discharge as it has been <30 days off clozapine. Her refusal to return to any type of supported housing and her inability to function safely in a less supportive setting remains the biggest barrier to discharge. 10/17/21: EKG, ANC, WBC, repeat height/weight/BMI ordered for consideration of starting clozapine. Her refusal to return to her pre-admission housing remains significant barrier to safe discharge especially in setting of ongoing delusions and paranoia. Started clozapine 12.5 mg BID as this worked well for her previously and she is now refusing to further titrate abilify or consider any other long acting injectable options for medications which leaves clozapine as the superior oral medication choice and she is willing to take this. 10/16/21: continue current medications. Continue to reality-test delusions. Discussed with social work and nursing goal of having her supports from her housing come for facilitated meeting to test delusions and paranoia about her housing. 10/15/21: continue current medications. Reviewed chart for substance use history. She is declining any titration of abilify. Agrees to discuss housing options with me tomorrow. 10/14/21: reviewed interim progress from Dr. Valladares's notes. She is back on abilify but remains irritable about her length of stay and remains focused on not wanting to return to her previous housing. Will attempt to further titrate abilify tomorrow if she agrees, she declined today. 10/13/21: patient will not engage in any discussion around Abilify titration today as refusing to stay here, not yet attempting to elope or act out aggressively but Zyprexa 10 mg IM ordered in case of acute agitation. 10/11/21: re=reviewed fasting metabolic labs from earlier in the month. Agreed to increase Abilify 10 mg daily. 10/10/21: unclear if ever had trued EPS for Haldol or just manipulating med regimen, tolerating Abilify this am. Refusing JAQUEZ. 10/09/21: d/c Haldol (patient refusing), there is no acute agitation or threatening behavior or medical decompensation that would support meds over objection/injectable at this time given that she is willing to take Abilify 5 mg daily PO. 10/08/21: more breakthrough during med changes with Haldol not yet therapeutic. Increase Haldol to 5 mg po qam and 10 mg po qhs starting tonight as no evidence of worsening EPS. Needs meeting with PC and CM. 10/07/21: will titrate Haldol to 5 mg BId tomorrow. 10/06/21: Discontinuing abilify. Increasing haldol to 2.5 mg qAM and 5 mg qHS. 10/05/21: Continue cross-taper will reduce abilify from 10 mg to 5 mg tomorrow. Increase haldol from 2.5 mg qd to 2.5 mg BID. 10/04/21: Need to cross-taper from abilify to haldol due to high cost of abilify JAQUEZ. She consents to starting haldol. Tomorrow will reduce abilify from 15 mg to 10mg qd and start haldol 2.5 mg qd. 10/03/21: Continue with abilify 15 mg po qd. Spoke with her outpt psychiatrist Dr. Negron about challenge of JAQUEZ Maintenna possibly being cost prohibitive so have call out to her embedded case manager to see if there may be financial support options for this. Otherwise will need to consider haldol JAQUEZ vs Invega JAQUEZ. 10/02/21: She consents to increase of abilify to 15 mg tomorrow morning and discontinuation of zyprexa tonight. Benadryl 50 mg qhs prn for allergy symptoms. Continues to have delusions. Will attempt to start prior authorization process for Abilify Maintena if she continues to tolerate abilify po well. 10/01/21: She consents to ongoing cross-taper will decrease zyprexa from 10mg to 5mg qhs and increasing abilify from 5mg to 10 mg tomorrow morning. Remains very paranoid and suspicious of others so will continue MNPR. 09/30/21: Abilify 5 mg qd today. Tomorrow will decrease zyprexa from 10mg to 5 mg qhs and continue with cross-taper with goal of abilify monotherapy and then JAQUEZ if well tolerated. Continues to have limited insight but appropriate so far today, if this persists will consider d/c of MNPR tomorrow. 09/29/21: continue Zyprexa but taper soon in favor of Abilify. Test dose Abilify 2.5 mg today and 5 mg daily tomorrow. Once tolerability assessed, convert to JAQUEZ. Patient lacks insight into need to return to [facility]. Patient is upset following hearing so will be monitored before additional consideration of d/c MNPR. 09/28/21: continue Zyprexa 10 mg po qhs, add Cogentin 0.5 mg BID. No sense to restart Clozaril if won't take consistently. Monitor symptoms and consider Invega trial with hopes she'll ultimately agree to JAQUEZ. 09/27/21: The patient was admitted to the [facility] ([facility] unit) on q15 min checks (behavioral with suicide precautions) for safety. The patient will participate in group, recreational, and milieu therapies and will be offered additional individual and family sessions as clinically appropriate. Risks/benefits/alternatives were reviewed re: antipsychotics for mood and/or psychosis. Discussion included but was not limited to metabolic side effects, risks of TD. There was EPS tremor but no TD at baseline. Fasting glucose and lipid panel ordered for baseline monitoring. She is agreeable to continuing Zyprexa but not Clozaril. Discussed that an JAQUEZ would be preferred and she declines due to limited insight into need for medication. Inventory Assets Strengths: intelligent, has been pleasant in interactions with staff and likes CM Needs: improved compliance, better tolerated antipsychotic. Risk Factors Assessment : Yes Do You Have Access To A Gun?: No Mental Health Diagnoses: Yes Substance Use Disorders: No Previous Attempt: No Previous Psychiatric Hospitalization: Yes Protective Factors Assessment Employed: No Good Rapport with Provider: Yes Interval History Identifying Information TALITA BALL is a 61-year-old F who currently lives at [facility], has a history of schizophrenia and [facility] placement, and was admitted on 09/26/21 23:33 on a 302 involuntary commitment but was maintained on a 305 outpatient commitment for delusional behavior so a 306 conversion hearing was held. Chief Complaint "I have the right to refuse the [facility]". Review of Systems Sleep Information Total Hours of Sleep: 6.75 Sleep Comments: pt on q-15 minute checks Meal Information Percent Meal Consumed - Breakfast: 75 Percent Meal Consumed - Lunch: 95 Percent Meal Consumed - Dinner: 100 Nutrition Comment: per record Subjective Subjective Patient was seen & assessed and interval progress reviewed with treatment team nursing and social work. She watched some a movie last night and played Wii but otherwise isolative to her room. Attended meeting with MAHOGANY Miller, rec therapist, her outpt CM and the architect manager of [facility]. Angela expressed her concerns about people smoking and using drugs at [facility] and was able to reality-test that what she likely saw Yeimi putting in her coffee was not drugs but rather powder coffee creamer. She remains frustrated by her limited living options given her outpatient commitment and fiancees. She wanted to time to reflect about returning to [facility] and will give me her answer tomorrow. She continues to feel somewhat sedated which she attributes to the clozapine. She likes the abilify at the current dose. Reviewed the importance of getting exercise to also help with energy which she agrees with. 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 Physical Exam Psychiatric Orientation: alert and oriented x 3 Apperance: appropriately dressed and appropriately groomed Eye Contact: good eye contact Motor Behavior: steady gait and station and no abnormal motor movements Speech: normal rate/rhythm/volume of speech Affect: + constricted affect Mood: no depressed mood and no anxious mood Thought Process: + circumstantial thought process and + confabulations Thought Content: + paranoid and + delusions Suicidal Thoughts: denies suicidal thoughts Homicidal Thoughts: denies homicidal thoughts Hallucinations: no auditory hallucinations and no visual hallucinations Cognition: remote memory grossly intact and language grossly intact; + recent memory not intact Estimated Intelligence: consistent with education level Insight: + impaired insight Judgement: + impaired judgement Vital Signs (Past 24 Hours) Last Vital Signs Temp 36.6 C 11/16/21 06:25 Pulse 103 H 11/16/21 06:26 Resp 16 11/16/21 06:25 BP 110/73 11/16/21 06:26 Pulse Ox 95 11/15/21 06:29 [facility] Current Inpatient Medications Current Inpatient Medications: Current Inpatient Medications Acetaminophen (Acetaminophen 325 Mg Tab) 650 mg PO Q4H PRN PRN Reason: Headache or Minor Fever Stop: 11/24/21 23:42 Al Hydrox/Mg Hydrox/Simethicone (Aluminum/Magnesium Susp 30 Ml Udc) 30 ml PO Q4H PRN PRN Reason: GI Upset Stop: 11/24/21 23:42 Aripiprazole (Aripiprazole 10 Mg Tab) 10 mg PO QAM EMMA Stop: 12/13/21 08:59 Last Admin: 11/16/21 08:33 Dose: 10 mg Documented by: Artificial Tears (Artificial Tears) 1 drops OP QID EMMA Stop: 11/24/21 08:59 Last Admin: 11/16/21 13:14 Dose: 1 drops Documented by: Bismuth Subsalicylate (Bismuth Subsalicylate Liqd 236 Ml) 15 ml PO PRN PRN PRN Reason: Loose Stool Stop: 11/24/21 23:42 Clozapine (Clozapine 100 Mg Tab) 150 mg PO DAILYBD EMMA Stop: 12/07/21 17:14 Last Admin: 11/15/21 17:42 Dose: 150 mg Documented by: Diphenhydramine HCl (Diphenhydramine Capsule 25 Mg Cap) 25 mg PO DAILY PRN PRN Reason: Allergy Symptoms Stop: 11/30/21 15:26 Last Admin: 11/16/21 09:30 Dose: 25 mg Documented by: Docusate Sodium (Docusate Sodium 100 Mg Cap) 100 mg PO BID@0800,2100 EMMA Stop: 11/24/21 08:59 Last Admin: 11/16/21 08:33 Dose: 100 mg Documented by: Ibuprofen (Ibuprofen 200 Mg Tab) 400 mg PO Q6H PRN PRN Reason: pain Stop: 11/24/21 11:33 Last Admin: 11/16/21 09:30 Dose: 400 mg Documented by: Levothyroxine Sodium (Levothyroxine Sodium 25 Mcg Tablet) 25 mcg PO DAILY@0800 EMMA Stop: 11/24/21 08:59 Last Admin: 11/16/21 08:33 Dose: 25 mcg Documented by: Magnesium Hydroxide (Magnesium Hydroxide Susp 30 Ml Udc) 30 ml PO DAILY PRN PRN Reason: Constipation Stop: 11/24/21 23:42 Olanzapine (Olanzapine 10 Mg/2.1 Ml Sdv) 10 mg IM Q6 PRN PRN Reason: Agitation Stop: 11/24/21 08:57 Senna/Docusate Sodium (Docusate Sodium/Senna 50/8.6mg Tab) 1 tab PO BID PRN PRN Reason: Constipation Stop: 11/24/21 15:02 Sodium Chloride (Sodium Chloride 0.65% Na Soln 45 Ml ([place])) 1 - 2 sprays NA PRN PRN PRN Reason: Nasal Dryness/Congestion Stop: 11/24/21 23:42 Vitamin D (Cholecalciferol 1,000 Units 25 Mcg Tab) 1,000 units PO DAILY EMMA Stop: 11/24/21 08:59 Last Admin: 11/16/21 08:33 Dose: 1,000 units Documented by: Zinc Acetate/Diphenhydramine (Diphenhydramine 2%/Zinc 0.1% Cream 28gm Tube) 1 appln EXT DAILY PRN PRN Reason: Itching Stop: 11/24/21 14:35 Last Admin: 10/23/21 08:19 Dose: 1 appln Documented by: Mental Health & Subst Abuse Tx Psychiatrist Name of Psychiatrist: Griffin Negron Screening Tech Name of Screening Tech: PADMINI Pederson Phone Number for Screening Tech: [phone] Date of Appointment with Screening Tech: 09/29/21 Post Discharge Appointments Contact Information Discharge Discharge Address: [facility] - [address] [place] [id number]
[2021-11-16] MEDS: cloZAPine 100 MG TAB PO SCH (17:08)
[2021-11-17] MEDS: DOCUSATE SODIUM 100 MG CAP PO SCH ×2 (08:23→20:40)
[2021-11-17] MEDS: LEVOTHYROXINE SODIUM 25 MCG TABLET PO SCH (08:23)
[2021-11-17] MEDS: ARIPiprazole 10 MG TAB PO SCH (08:48)
[2021-11-17] MEDS: IBUPROFEN 200 MG TAB PO PRN ×2 (08:48→20:47)
[2021-11-17] MEDS: CHOLECALCIFEROL 1,000 UNITS 25 MCG TAB PO SCH (08:48)
[2021-11-17] MEDS: ARTIFICIAL TEARS OP SCH ×4 (08:53→20:40)
--- NOTE | 2021-11-17 14:08 | Psychiatric Progress Note ---
Date of Service November 17, 2021 Impression / Recommendations Impression Angela is a 61 yo female with acute exacerbation of psychosis for non-compliance with clozapine. She is on an extended outpatient commitment prior to admission following discharge from the [facility]. 305 commitment converted to inpatient. She refuses to return to previous placement due to her paranoid delusions. MNPR for psychiatric symptoms of psychosis, paranoid ideation, delusions though improving but she does well with space to decompress when unit is active to help her maintain stable mood. 11/17/21: was able to reality-test around delusions about Yeimi using drugs and know states she must have mixed it up with powdered coffee creamer. She is now willing to return to [facility] and states her understanding and agreement with needing to continue taking her medication daily and staying at [facility] for the duration of her outpatient commitment. Plan: notified her CM and [facility] clinical trials manager Yeimi of her decision, need to start process of setting up appointment with Dr. Negron and planning for smooth transition back to [facility]. Reviewed treatment plan with Angela and she agreed to sign it today. (1) Schizophrenia, paranoid, chronic with acute exacerbation: 11/17/21: continue abilify and clozapine. 11/16/21: continue abilify and clozapine. 11/15/21: continue abilify and clozapine. 11/14/21: continue abilify 10mg qd and clozapine 150mg qHS. ANC stable. 11/13/21: placing referral for [facility] given ongoing delusions which are unresponsive to multiple medication trials 11/12/21: increase abilify to 10mg qd, continue with clozapine. 11/11/21: continue with clozapine 150mg qd and abilify 5 mg qd. EKG done and reviewed given dual antipsychotic therapy, QTc normal. 11/05/21: clozaril 150 mg po qpm with Abilify 2.5 mg po qam with plan to retitrate to 10 mg. 11/04/21: as patient is resistant to further titration of clozapine, offered to augment with low dose Abilify as was partially helpful. She declines. 11/03/21: BP improved and continues to not have any symptoms associated with tachycardia and no SOB so no indication for any further workup. Will adjust clozapine to be given with dinner to reduce morning fatigue. 11/02/21: continue clozapine 200 mg qHS. Increase vitals to qshift given decreased BP and tachycardia and potential for myocarditis with clozapine, if BP remains low will get EKG tomorrow. 11/01/21: consolidate clozapine to 200mg qHS with goal of titrating further if Angela allows. 10/31/21: continue clozapine 50mg qAM & 150 mg qHS. Decreasing prn Benadryl 25mg to once daily. 10/30/21: continue clozapine 50 mg qAM & 150 mg qHS. Offered therapeutic walk which she declined. 10/29/21: refused clozaril 200 mg, offer 150 mg tonight. 30 day treatment plan. She has been less irritable so may be appropriate for therapeutic walk outside with security soon. 10/28/21: titrate hs clozapine to 200 mg qhs for ongoing paranoid delusions. Weekly CBC. 10/26/21: titrate hs clozapine to 150 mg qhs. 10/24/21: titrate hs dose clozapine to 100 mg hs. Patient agreed 10/23/21. 10/22/21: continue with clozapine 50mg BID. No side effects so far. Continued goal of reducing delusions to the point that she will agree to return to [facility] and remain adherent with clozapine, so far taking clozapine without any issues. 10/21/21: increase clozapine to 50mg BID starting tomorrow. 10/20/21: continue current medications. 10/19/21: Increase clozapine to 25 mg BID. Next WBC/ANC on 10/24/21 10/18/21: Continue clozapine 12.5 mg BID. Colace prn added. Has benadryl 25mg BID prn for her allergies (will d/c as clozapine titration continues). Weekly WBC/ANC for now but could go back to monthly monitoring after discharge as it has been <30 days off clozapine. Her refusal to return to any type of supported housing and her inability to function safely in a less supportive setting remains the biggest barrier to discharge. 10/17/21: EKG, ANC, WBC, repeat height/weight/BMI ordered for consideration of starting clozapine. Her refusal to return to her pre-admission housing remains significant barrier to safe discharge especially in setting of ongoing delusions and paranoia. Started clozapine 12.5 mg BID as this worked well for her previously and she is now refusing to further titrate abilify or consider any other long acting injectable options for medications which leaves clozapine as the superior oral medication choice and she is willing to take this. 10/16/21: continue current medications. Continue to reality-test delusions. Discussed with social work and nursing goal of having her supports from her housing come for facilitated meeting to test delusions and paranoia about her housing. 10/15/21: continue current medications. Reviewed chart for substance use history. She is declining any titration of abilify. Agrees to discuss housing options with me tomorrow. 10/14/21: reviewed interim progress from Dr. Valladares's notes. She is back on abilify but remains irritable about her length of stay and remains focused on not wanting to return to her previous housing. Will attempt to further titrate abilify tomorrow if she agrees, she declined today. 10/13/21: patient will not engage in any discussion around Abilify titration today as refusing to stay here, not yet attempting to elope or act out aggressively but Zyprexa 10 mg IM ordered in case of acute agitation. 10/11/21: re=reviewed fasting metabolic labs from earlier in the month. Agreed to increase Abilify 10 mg daily. 10/10/21: unclear if ever had trued EPS for Haldol or just manipulating med regimen, tolerating Abilify this am. Refusing JAQUEZ. 10/09/21: d/c Haldol (patient refusing), there is no acute agitation or threatening behavior or medical decompensation that would support meds over objection/injectable at this time given that she is willing to take Abilify 5 mg daily PO. 10/08/21: more breakthrough during med changes with Haldol not yet therapeutic. Increase Haldol to 5 mg po qam and 10 mg po qhs starting tonight as no evidence of worsening EPS. Needs meeting with [facility] and CM. 10/07/21: will titrate Haldol to 5 mg BId tomorrow. 10/06/21: Discontinuing abilify. Increasing haldol to 2.5 mg qAM and 5 mg qHS. 10/05/21: Continue cross-taper will reduce abilify from 10 mg to 5 mg tomorrow. Increase haldol from 2.5 mg qd to 2.5 mg BID. 10/04/21: Need to cross-taper from abilify to haldol due to high cost of abilify JAQUEZ. She consents to starting haldol. Tomorrow will reduce abilify from 15 mg to 10mg qd and start haldol 2.5 mg qd. 10/03/21: Continue with abilify 15 mg po qd. Spoke with her outpt psychiatrist Dr. Negron about challenge of JAQUEZ M[place]enna possibly being cost prohibitive so have call out to her spring encaser to see if there may be financial support options for this. Otherwise will need to consider haldol JAQUEZ vs Invega JAQUEZ. 10/02/21: She consents to increase of abilify to 15 mg tomorrow morning and discontinuation of zyprexa tonight. Benadryl 50 mg qhs prn for allergy symptoms. Continues to have delusions. Will attempt to start prior authorization process for Abilify Maintena if she continues to tolerate abilify po well. 10/01/21: She consents to ongoing cross-taper will decrease zyprexa from 10mg to 5mg qhs and increasing abilify from 5mg to 10 mg tomorrow morning. Remains very paranoid and suspicious of others so will continue MNPR. 09/30/21: Abilify 5 mg qd today. Tomorrow will decrease zyprexa from 10mg to 5 mg qhs and continue with cross-taper with goal of abilify monotherapy and then JAQUEZ if well tolerated. Continues to have limited insight but appropriate so far today, if this persists will consider d/c of MNPR tomorrow. 09/29/21: continue Zyprexa but taper soon in favor of Abilify. Test dose Abilify 2.5 mg today and 5 mg daily tomorrow. Once tolerability assessed, convert to JAQUEZ. Patient lacks insight into need to return to [facility]. Patient is upset following hearing so will be monitored before additional consideration of d/c MNPR. 09/28/21: continue Zyprexa 10 mg po qhs, add Cogentin 0.5 mg BID. No sense to restart Clozaril if won't take consistently. Monitor symptoms and consider Invega trial with hopes she'll ultimately agree to JAQUEZ. 09/27/21: The patient was [facility] on q15 min checks (behavioral with suicide precautions) for safety. The patient will participate in group, recreational, and milieu therapies and will be offered additional individual and family sessions as clinically appropriate. Risks/benefits/alternatives were reviewed re: antipsychotics for mood and/or psychosis. Discussion included but was not limited to metabolic side effects, risks of TD. There was EPS tremor but no TD at baseline. Fasting glucose and lipid panel ordered for baseline monitoring. She is agreeable to continuing Zyprexa but not Clozaril. Discussed that an JAQUEZ would be preferred and she declines due to limited insight into need for medication. Inventory Assets Strengths: intelligent, has been pleasant in interactions with staff and likes CM Needs: improved compliance, better tolerated antipsychotic. Risk Factors Assessment : Yes Do You Have Access To A Gun?: No Mental Health Diagnoses: Yes Substance Use Disorders: No Previous Attempt: No Previous Psychiatric Hospitalization: Yes Protective Factors Assessment Employed: No Good Rapport with Provider: Yes Interval History Identifying Information TALITA BALL is a 61-year-old F who currently lives at [facility], has a history of schizophrenia and [facility] placement, and was admitted on 09/26/21 23:33 on a 302 involuntary commitment but was maintained on a 305 outpatient commitment for delusional behavior so a 306 conversion hearing was held. Chief Complaint "[facility] is better than the other options". Review of Systems Sleep Information Total Hours of Sleep: 7.75 Sleep Comments: pt on q-15 minute checks Meal Information Percent Meal Consumed - Breakfast: 100 Percent Meal Consumed - Lunch: 95 Percent Meal Consumed - Dinner: 100 Nutrition Comment: per record Subjective Subjective Patient was seen & assessed and interval progress reviewed with treatment team nursing and social work. Angela reflected on the meeting from yesterday and decided that she will return to [facility]. She is no longer concerned about drug use there by staff but does continue to feel that other residents smoking is frustrating and makes it a less than ideal living environment. However she states she would prefer to be at [facility] than have to go to the [facility]. She understands she will need to continue her medication and cannot leave [facility] as she will be on an outpatient commitment. She endorses stable mood and while she feels the clozapine can cause sedation she's tolerating it. Physical Exam Psychiatric Orientation: alert and oriented x 3 Apperance: appropriately dressed and appropriately groomed Eye Contact: good eye contact Motor Behavior: steady gait and station and no abnormal motor movements Speech: normal rate/rhythm/volume of speech Affect: euthymic affect Mood: no depressed mood and no anxious mood Thought Process: + circumstantial thought process Thought Content: reality based without delusions Suicidal Thoughts: denies suicidal thoughts Homicidal Thoughts: denies homicidal thoughts Hallucinations: no auditory hallucinations and no visual hallucinations Cognition: recent memory grossly intact, remote memory grossly intact, attention grossly intact and language grossly intact Estimated Intelligence: consistent with education level Insight: + impaired insight Judgement: + impaired judgement Vital Signs (Past 24 Hours) Last Vital Signs Temp 36.8 C 11/17/21 06:37 Pulse 98 H 11/17/21 06:37 Resp 16 11/17/21 06:37 BP 113/72 11/17/21 06:37 Pulse Ox 95 11/15/21 06:29 Results & Data ([facility]) Current Inpatient Medications Current Inpatient Medications: Current Inpatient Medications Acetaminophen (Acetaminophen 325 Mg Tab) 650 mg PO Q4H PRN PRN Reason: Headache or Minor Fever Stop: 11/24/21 23:42 Al Hydrox/Mg Hydrox/Simethicone (Aluminum/Magnesium Susp 30 Ml Udc) 30 ml PO Q4H PRN PRN Reason: GI Upset Stop: 11/24/21 23:42 Aripiprazole (Aripiprazole 10 Mg Tab) 10 mg PO QAM [facility] Stop: 12/13/21 08:59 Last Admin: 11/17/21 08:48 Dose: 10 mg Documented by: Artificial Tears (Artificial Tears) 1 drops OP QID [facility] Stop: 11/24/21 08:59 Last Admin: 11/17/21 13:22 Dose: 1 drops Documented by: Bismuth Subsalicylate (Bismuth Subsalicylate Liqd 236 Ml) 15 ml PO PRN PRN PRN Reason: Loose Stool Stop: 11/24/21 23:42 Clozapine (Clozapine 100 Mg Tab) 150 mg PO DAILYBD [facility] Stop: 12/07/21 17:14 Last Admin: 11/16/21 17:08 Dose: 150 mg Documented by: Diphenhydramine HCl (Diphenhydramine Capsule 25 Mg Cap) 25 mg PO DAILY PRN PRN Reason: Allergy Symptoms Stop: 11/30/21 15:26 Last Admin: 11/16/21 09:30 Dose: 25 mg Documented by: Docusate Sodium (Docusate Sodium 100 Mg Cap) 100 mg PO BID@0800,2100 [facility] Stop: 11/24/21 08:59 Last Admin: 11/17/21 08:23 Dose: 100 mg Documented by: Ibuprofen (Ibuprofen 200 Mg Tab) 400 mg PO Q6H PRN PRN Reason: pain Stop: 11/24/21 11:33 Last Admin: 11/17/21 08:48 Dose: 400 mg Documented by: Levothyroxine Sodium (Levothyroxine Sodium 25 Mcg Tablet) 25 mcg PO DAILY@0800 [facility] Stop: 11/24/21 08:59 Last Admin: 11/17/21 08:23 Dose: 25 mcg Documented by: Magnesium Hydroxide (Magnesium Hydroxide Susp 30 Ml Udc) 30 ml PO DAILY PRN PRN Reason: Constipation Stop: 11/24/21 23:42 Olanzapine (Olanzapine 10 Mg/2.1 Ml Sdv) 10 mg IM Q6 PRN PRN Reason: Agitation Stop: 11/24/21 08:57 Senna/Docusate Sodium (Docusate Sodium/Senna 50/8.6mg Tab) 1 tab PO BID PRN PRN Reason: Constipation Stop: 11/24/21 15:02 Sodium Chloride (Sodium Chloride 0.65% Na Soln 45 Ml ([place])) 1 - 2 sprays NA PRN PRN PRN Reason: Nasal Dryness/Congestion Stop: 11/24/21 23:42 Vitamin D (Cholecalciferol 1,000 Units 25 Mcg Tab) 1,000 units PO DAILY [facility] Stop: 11/24/21 08:59 Last Admin: 11/17/21 08:48 Dose: 1,000 units Documented by: Zinc Acetate/Diphenhydramine (Diphenhydramine 2%/Zinc 0.1% Cream 28gm Tube) 1 appln EXT DAILY PRN PRN Reason: Itching Stop: 11/24/21 14:35 Last Admin: 10/23/21 08:19 Dose: 1 appln Documented by: Mental Health & Subst Abuse Tx Psychiatrist Name of Psychiatrist: Griffin Negron Block Cleaner Name of Block Cleaner: PADMINI Pederson Phone Number for Block Cleaner: [phone] Date of Appointment with Block Cleaner: 09/29/21 Post Discharge Appointments Contact Information Discharge Discharge Address: [facility] Personal Care - [facility] [place] [address]
[2021-11-17] MEDS: cloZAPine 100 MG TAB PO SCH (17:35)
[2021-11-18] MEDS: DOCUSATE SODIUM 100 MG CAP PO SCH ×2 (08:38→20:07)
[2021-11-18] MEDS: ARIPiprazole 10 MG TAB PO SCH (08:39)
[2021-11-18] MEDS: ARTIFICIAL TEARS OP SCH ×4 (08:39→20:07)
[2021-11-18] MEDS: LEVOTHYROXINE SODIUM 25 MCG TABLET PO SCH (08:39)
[2021-11-18] MEDS: CHOLECALCIFEROL 1,000 UNITS 25 MCG TAB PO SCH (08:40)
[2021-11-18] MEDS: diphenhydrAMINE Capsule 25 MG CAP PO PRN (08:47)
[2021-11-18] MEDS: IBUPROFEN 200 MG TAB PO PRN ×2 (08:47→20:10)
--- NOTE | 2021-11-18 10:42 | Psychiatric Progress Note ---
Date of Service November 18, 2021 Impression / Recommendations Elise Miller is a 61 yo female with acute exacerbation of psychosis for non-compliance with clozapine. She is on an extended outpatient commitment prior to admission following discharge from the [facility]. 305 commitment converted to inpatient. She refuses to return to previous placement due to her paranoid delusions. 11/18/21: improving Plan: continue current meds and tx plan. Inventory Assets Strengths: intelligent, has been pleasant in interactions with staff and likes CM Needs: improved compliance, better tolerated antipsychotic. Risk Factors Assessment : Yes Do You Have Access To A Gun?: No Mental Health Diagnoses: Yes Substance Use Disorders: No Previous Attempt: No Previous Psychiatric Hospitalization: Yes Protective Factors Assessment Employed: No Good Rapport with Provider: Yes Interval History Identifying Information TALITA BALL is a 61-year-old F who currently lives at [facility], has a history of schizophrenia and [facility] placement, and was admitted on 09/26/21 23:33 on a 302 involuntary commitment but was maintained on a 305 outpatient commitment for delusional behavior so a 306 conversion hearing was held. Chief Complaint "things are moving forward". Review of Systems Sleep Information Total Hours of Sleep: 7.75 Sleep Comments: pt on q-15 minute checks Meal Information Percent Meal Consumed - Breakfast: 100 Percent Meal Consumed - Lunch: 95 Percent Meal Consumed - Dinner: 100 Nutrition Comment: per record Subjective Subjective Patient was seen & assessed and interval progress reviewed with nursing and social work. No acute issues overnight. Has verbalized willingness to return to previous housing and agreeing to aftercare. She does have more insight into her paranoid delusions, "silly" to think that powder in drinks was drugs. Physical Exam Psychiatric Orientation: alert and oriented x 3 Apperance: appropriately dressed and appropriately groomed Eye Contact: good eye contact Motor Behavior: no abnormal motor movements Speech: normal rate/rhythm/volume of speech Affect: no depressed affect Mood: no depressed mood Thought Process: + concrete thought process Thought Content: + preoccupation; not paranoid Suicidal Thoughts: denies suicidal thoughts Homicidal Thoughts: denies homicidal thoughts Hallucinations: no auditory hallucinations and no visual hallucinations Cognition: attention grossly intact and language grossly intact Estimated Intelligence: consistent with education level Insight: + limited insight Judgement: + limited judgement Vital Signs (Past 24 Hours) Last Vital Signs Temp 36.6 C 11/18/21 06:46 Pulse 96 H 12/18/21 06:47 Resp 16 11/18/21 06:46 BP 109/71 11/18/21 06:47 Pulse Ox 95 11/15/21 06:29 Results & Data ([facility]) Current Inpatient Medications Current Inpatient Medications: Current Inpatient Medications Acetaminophen (Acetaminophen 325 Mg Tab) 650 mg PO Q4H PRN PRN Reason: Headache or Minor Fever Stop: 11/24/21 23:42 Al Hydrox/Mg Hydrox/Simethicone (Aluminum/Magnesium Susp 30 Ml Udc) 30 ml PO Q4H PRN PRN Reason: GI Upset Stop: 11/24/21 23:42 Aripiprazole (Aripiprazole 10 Mg Tab) 10 mg PO QAM [facility] Stop: 12/13/21 08:59 Last Admin: 11/18/21 08:39 Dose: 10 mg Documented by: Artificial Tears (Artificial Tears) 1 drops OP QID [facility] Stop: 11/24/21 08:59 Last Admin: 11/18/21 08:39 Dose: 1 drops Documented by: Bismuth Subsalicylate (Bismuth Subsalicylate Liqd 236 Ml) 15 ml PO PRN PRN PRN Reason: Loose Stool Stop: 11/24/21 23:42 Clozapine (Clozapine 100 Mg Tab) 150 mg PO DAILYBD [facility] Stop: 12/07/21 17:14 Last Admin: 11/17/21 17:35 Dose: 150 mg Documented by: Diphenhydramine HCl (Diphenhydramine Capsule 25 Mg Cap) 25 mg PO DAILY PRN PRN Reason: Allergy Symptoms Stop: 11/30/21 15:26 Last Admin: 11/18/21 08:47 Dose: 25 mg Documented by: Docusate Sodium (Docusate Sodium 100 Mg Cap) 100 mg PO BID@0800,2100 [facility] Stop: 11/24/21 08:59 Last Admin: 11/18/21 08:38 Dose: 100 mg Documented by: Ibuprofen (Ibuprofen 200 Mg Tab) 400 mg PO Q6H PRN PRN Reason: pain Stop: 11/24/21 11:33 Last Admin: 11/18/21 08:47 Dose: 400 mg Documented by: Levothyroxine Sodium (Levothyroxine Sodium 25 Mcg Tablet) 25 mcg PO DAILY@0800 [facility] Stop: 11/24/21 08:59 Last Admin: 11/18/21 08:39 Dose: 25 mcg Documented by: Magnesium Hydroxide (Magnesium Hydroxide Susp 30 Ml Udc) 30 ml PO DAILY PRN PRN Reason: Constipation Stop: 11/24/21 23:42 Olanzapine (Olanzapine 10 Mg/2.1 Ml Sdv) 10 mg IM Q6 PRN PRN Reason: Agitation Stop: 11/24/21 08:57 Senna/Docusate Sodium (Docusate Sodium/Senna 50/8.6mg Tab) 1 tab PO BID PRN PRN Reason: Constipation Stop: 11/24/21 15:02 Sodium Chloride (Sodium Chloride 0.65% Na Soln 45 Ml ([place])) 1 - 2 sprays NA PRN PRN PRN Reason: Nasal Dryness/Congestion Stop: 11/24/21 23:42 Vitamin D (Cholecalciferol 1,000 Units 25 Mcg Tab) 1,000 units PO DAILY [facility] Stop: 11/24/21 08:59 Last Admin: 11/18/21 08:40 Dose: 1,000 units Documented by: Zinc Acetate/Diphenhydramine (Diphenhydramine 2%/Zinc 0.1% Cream 28gm Tube) 1 appln EXT DAILY PRN PRN Reason: Itching Stop: 11/24/21 14:35 Last Admin: 10/23/21 08:19 Dose: 1 appln Documented by: Mental Health & Subst Abuse Tx Psychiatrist Name of Psychiatrist: Griffin Negron Customer Servicer Name of Customer Servicer: PADMINI Pederson Phone Number for Customer Servicer: [phone] Date of Appointment with Customer Servicer: 09/29/21 Post Discharge Appointments Contact Information Discharge Discharge Address: [address] [address]
[2021-11-18] MEDS: cloZAPine 100 MG TAB PO SCH (17:41)
[2021-11-19] MEDS: DOCUSATE SODIUM 100 MG CAP PO SCH ×2 (08:48→20:07)
[2021-11-19] MEDS: LEVOTHYROXINE SODIUM 25 MCG TABLET PO SCH (08:48)
[2021-11-19] MEDS: CHOLECALCIFEROL 1,000 UNITS 25 MCG TAB PO SCH (08:49)
[2021-11-19] MEDS: ARIPiprazole 10 MG TAB PO SCH (08:49)
[2021-11-19] MEDS: ARTIFICIAL TEARS OP SCH ×4 (08:49→20:07)
--- NOTE | 2021-11-19 12:59 | Psychiatric Progress Note ---
Date of Service November 19, 2021 Impression / Recommendations Elise Miller is a 61 yo female with acute exacerbation of psychosis for non-compliance with clozapine. She is on an extended outpatient commitment prior to admission following [facility] the [facility]. 305 commitment converted to inpatient. She had been refusing to return to previous placement due to her paranoid delusions but has improved on combo of Abilify and Clozaril. 11/19/21: improving Plan: continue current meds and tx plan. Continue MNPR so as not to disrupt unit routine which has been destabilizing to her in past Inventory Assets Strengths: intelligent, has been pleasant in interactions with staff and likes CM Needs: improved compliance, better tolerated antipsychotic. Risk Factors Assessment : Yes Do You Have Access To A Gun?: No Mental Health Diagnoses: Yes Substance Use Disorders: No Previous Attempt: No Previous Psychiatric Hospitalization: Yes Protective Factors Assessment Employed: No Good Rapport with Provider: Yes Interval History Identifying Information TALITA BALL is a 61-year-old F who currently lives at [facility], has a history of schizophrenia and critical [facility] hospital placement, and was admitted on 09/26/21 23:33 on a 302 involuntary commitment but was maintained on a 305 outpatient commitment for delusional behavior so a 306 conversion hearing was held. Chief Complaint "that tiredness still hangs around". Review of Systems Sleep Information Total Hours of Sleep: 6.5 Sleep Comments: pt on q-15 minute checks Meal Information Percent Meal Consumed - Breakfast: 100 Percent Meal Consumed - Lunch: 100 Percent Meal Consumed - Dinner: 100 Nutrition Comment: per record Subjective Subjective Patient was seen & assessed and interval progress reviewed with nursing and social work. Med compliant. Excited to watch [employer]. More animated in conversation. does not openly express her delusions or confabulate. Physical Exam Psychiatric Orientation: alert and oriented x 3 Apperance: appropriately dressed and appropriately groomed Eye Contact: good eye contact Motor Behavior: no abnormal motor movements Speech: normal rate/rhythm/volume of speech Affect: euthymic affect Mood: no depressed mood Thought Process: + concrete thought process Thought Content: + paranoid; no delusions Suicidal Thoughts: denies suicidal thoughts Homicidal Thoughts: denies homicidal thoughts Hallucinations: no auditory hallucinations and no visual hallucinations Cognition: attention grossly intact and language grossly intact Estimated Intelligence: consistent with education level Insight: + limited insight (but improving) Judgement: + limited judgement Vital Signs (Past 24 Hours) Last Vital Signs Temp 36.9 C 11/19/21 06:47 Pulse 101 H 11/19/21 06:49 Resp 16 11/19/21 06:47 BP 108/71 11/19/21 06:49 Pulse Ox 95 11/15/21 06:29 Results & Data ([facility]) Current Inpatient Medications Current Inpatient Medications: Current Inpatient Medications Acetaminophen (Acetaminophen 325 Mg Tab) 650 mg PO Q4H PRN PRN Reason: Headache or Minor Fever Stop: 11/24/21 23:42 Al Hydrox/Mg Hydrox/Simethicone (Aluminum/Magnesium Susp 30 Ml Udc) 30 ml PO Q4H PRN PRN Reason: GI Upset Stop: 11/24/21 23:42 Aripiprazole (Aripiprazole 10 Mg Tab) 10 mg PO QAM [facility] Stop: 12/13/21 08:59 Last Admin: 11/19/21 08:49 Dose: 10 mg Documented by: Artificial Tears (Artificial Tears) 1 drops OP QID [facility] Stop: 11/24/21 08:59 Last Admin: 11/19/21 12:26 Dose: 1 drops Documented by: Bismuth Subsalicylate (Bismuth Subsalicylate Liqd 236 Ml) 15 ml PO PRN PRN PRN Reason: Loose Stool Stop: 11/24/21 23:42 Clozapine (Clozapine 100 Mg Tab) 150 mg PO DAILYBD [facility] Stop: 12/07/21 17:14 Last Admin: 11/18/21 17:41 Dose: 150 mg Documented by: Diphenhydramine HCl (Diphenhydramine Capsule 25 Mg Cap) 25 mg PO DAILY PRN PRN Reason: Allergy Symptoms Stop: 11/30/21 15:26 Last Admin: 11/18/21 08:47 Dose: 25 mg Documented by: Docusate Sodium (Docusate Sodium 100 Mg Cap) 100 mg PO BID@0800,2100 [facility] Stop: 11/24/21 08:59 Last Admin: 11/19/21 08:48 Dose: 100 mg Documented by: Ibuprofen (Ibuprofen 200 Mg Tab) 400 mg PO Q6H PRN PRN Reason: pain Stop: 11/24/21 11:33 Last Admin: 11/18/21 20:10 Dose: 400 mg Documented by: Levothyroxine Sodium (Levothyroxine Sodium 25 Mcg Tablet) 25 mcg PO DAILY@0800 [facility] Stop: 11/24/21 08:59 Last Admin: 11/19/21 08:48 Dose: 25 mcg Documented by: Magnesium Hydroxide (Magnesium Hydroxide Susp 30 Ml Udc) 30 ml PO DAILY PRN PRN Reason: Constipation Stop: 11/24/21 23:42 Olanzapine (Olanzapine 10 Mg/2.1 Ml Sdv) 10 mg IM Q6 PRN PRN Reason: Agitation Stop: 11/24/21 08:57 Senna/Docusate Sodium (Docusate Sodium/Senna 50/8.6mg Tab) 1 tab PO BID PRN PRN Reason: Constipation Stop: 11/24/21 15:02 Sodium Chloride (Sodium Chloride 0.65% Na Soln 45 Ml ([place])) 1 - 2 sprays NA PRN PRN PRN Reason: Nasal Dryness/Congestion Stop: 11/24/21 23:42 Vitamin D (Cholecalciferol 1,000 Units 25 Mcg Tab) 1,000 units PO DAILY [facility] Stop: 11/24/21 08:59 Last Admin: 11/19/21 08:49 Dose: 1,000 units Documented by: Zinc Acetate/Diphenhydramine (Diphenhydramine 2%/Zinc 0.1% Cream 28gm Tube) 1 appln EXT DAILY PRN PRN Reason: Itching Stop: 11/24/21 14:35 Last Admin: 10/23/21 08:19 Dose: 1 appln Documented by: Mental Health & Subst Abuse Tx Psychiatrist Name of Psychiatrist: Griffin Negron Cpht Name of Cpht: PADMINI Pederson Phone Number for Cpht: [phone] Date of Appointment with Cpht: 09/29/21 Post Discharge Appointments Contact Information Discharge Discharge Address: [facility] - [address] [place] [id number]
[2021-11-19] MEDS: cloZAPine 100 MG TAB PO SCH (17:33)
[2021-11-19] MEDS: IBUPROFEN 200 MG TAB PO PRN (20:11)
[2021-11-20] MEDS: LEVOTHYROXINE SODIUM 25 MCG TABLET PO SCH (08:40)
[2021-11-20] MEDS: DOCUSATE SODIUM 100 MG CAP PO SCH ×2 (08:40→20:04)
[2021-11-20] MEDS: CHOLECALCIFEROL 1,000 UNITS 25 MCG TAB PO SCH (08:41)
[2021-11-20] MEDS: ARTIFICIAL TEARS OP SCH ×4 (08:41→20:08)
[2021-11-20] MEDS: ARIPiprazole 10 MG TAB PO SCH (08:41)
[2021-11-20] MEDS: diphenhydrAMINE Capsule 25 MG CAP PO PRN (15:36)
[2021-11-20] MEDS: IBUPROFEN 200 MG TAB PO PRN ×2 (15:37→21:34)
--- NOTE | 2021-11-20 17:23 | Psychiatric Progress Note ---
Date of Service November 20, 2021 Impression / Recommendations Elise Miller is a 61 yo female with acute exacerbation of psychosis for non-compliance with clozapine. She is on an extended outpatient commitment prior to admission following discharge from the [facility]. 305 commitment converted to inpatient. She had been refusing to return to previous placement due to her paranoid delusions but has improved on combo of Abilify and Clozaril. 11/20/21: improved significant from admission and even 2 weeks ago, med compliant Plan: transition back to [facility] anticipated 11/21/21. (1) Schizophrenia, paranoid, chronic with acute exacerbation: Inventory Assets Strengths: intelligent, has been pleasant in interactions with staff and likes CM Needs: improved compliance, better tolerated antipsychotic. Risk Factors Assessment : Yes Do You Have Access To A Gun?: No Mental Health Diagnoses: Yes Substance Use Disorders: No Previous Attempt: No Previous Psychiatric Hospitalization: Yes Protective Factors Assessment Employed: No Good Rapport with Provider: Yes Interval History Identifying Information TALITA BALL is a 61-year-old F who currently lives at [facility], has a history of schizophrenia and [facility] placement, and was admitted on 09/26/21 23:33 on a 302 involuntary commitment but was maintained on a 305 outpatient commitment for delusional behavior so a 306 conversion hearing was held. Chief Complaint "I realize it's my only choice and I'll go", referring to [facility] Review of Systems Sleep Information Total Hours of Sleep: 8.5 Sleep Comments: pt appeared to sleep 1.5 hrs during evening shift. pt on q-15 minute checks Meal Information Percent Meal Consumed - Breakfast: 100 Percent Meal Consumed - Lunch: 100 Percent Meal Consumed - Dinner: 100 Nutrition Comment: per record Subjective Subjective Patient was seen & assessed and interval progress reviewed with treatment team. Patient crossed out [facility] on her treatment plan but states that's only because she believes she can live independently and will return there and take medications for the remainder of her commitment, etc. She is glad she has her own room there. She is still suspicious of staff/peers there but "I'll give it a try" and doesn't believe that they were being poisoned anymore. Continues to report her [place] was [place]. Physical Exam Psychiatric alert, pleasant, makes good eye contact and initiates conversation, she denies SI/HI/murray, much less delusional (appears baseline), insight is minimally improved but cooperative with meds. Vital Signs (Past 24 Hours) Last Vital Signs Temp 36.5 C 11/20/21 06:39 Pulse 102 H 11/20/21 06:40 Resp 16 11/20/21 06:39 BP 120/82 11/20/21 06:40 Pulse Ox 95 11/15/21 06:29 Results & Data ([facility]) Laboratory Results Laboratory Results - last 24 hr 11/20/21 Unknown SARS-CoV-2, RNA, NAAT NEGATIVE Current Inpatient Medications Current Inpatient Medications: Current Inpatient Medications Acetaminophen (Acetaminophen 325 Mg Tab) 650 mg PO Q4H PRN PRN Reason: Headache or Minor Fever Stop: 11/24/21 23:42 Al Hydrox/Mg Hydrox/Simethicone (Aluminum/Magnesium Susp 30 Ml Udc) 30 ml PO Q4H PRN PRN Reason: GI Upset Stop: 11/24/21 23:42 Aripiprazole (Aripiprazole 10 Mg Tab) 10 mg PO QAM [facility] Stop: 12/13/21 08:59 Last Admin: 11/20/21 08:41 Dose: 10 mg Documented by: Artificial Tears (Artificial Tears) 1 drops OP QID [facility] Stop: 11/24/21 08:59 Last Admin: 11/20/21 12:59 Dose: 1 drops Documented by: Bismuth Subsalicylate (Bismuth Subsalicylate Liqd 236 Ml) 15 ml PO PRN PRN PRN Reason: Loose Stool Stop: 11/24/21 23:42 Clozapine (Clozapine 100 Mg Tab) 150 mg PO DAILYBD [facility] Stop: 12/07/21 17:14 Last Admin: 11/19/21 17:33 Dose: 150 mg Documented by: Diphenhydramine HCl (Diphenhydramine Capsule 25 Mg Cap) 25 mg PO DAILY PRN PRN Reason: Allergy Symptoms Stop: 11/30/21 15:26 Last Admin: 11/20/21 15:36 Dose: 25 mg Documented by: Docusate Sodium (Docusate Sodium 100 Mg Cap) 100 mg PO BID@0800,2100 [facility] Stop: 11/24/21 08:59 Last Admin: 11/20/21 08:40 Dose: 100 mg Documented by: Ibuprofen (Ibuprofen 200 Mg Tab) 400 mg PO Q6H PRN PRN Reason: pain Stop: 11/24/21 11:33 Last Admin: 11/20/21 15:37 Dose: 400 mg Documented by: Levothyroxine Sodium (Levothyroxine Sodium 25 Mcg Tablet) 25 mcg PO DAILY@0800 [facility] Stop: 11/24/21 08:59 Last Admin: 11/20/21 08:40 Dose: 25 mcg Documented by: Magnesium Hydroxide (Magnesium Hydroxide Susp 30 Ml Udc) 30 ml PO DAILY PRN PRN Reason: Constipation Stop: 11/24/21 23:42 Olanzapine (Olanzapine 10 Mg/2.1 Ml Sdv) 10 mg IM Q6 PRN PRN Reason: Agitation Stop: 11/24/21 08:57 Senna/Docusate Sodium (Docusate Sodium/Senna 50/8.6mg Tab) 1 tab PO BID PRN PRN Reason: Constipation Stop: 11/24/21 15:02 Sodium Chloride (Sodium Chloride 0.65% Na Soln 45 Ml ([place])) 1 - 2 sprays NA PRN PRN PRN Reason: Nasal Dryness/Congestion Stop: 11/24/21 23:42 Vitamin D (Cholecalciferol 1,000 Units 25 Mcg Tab) 1,000 units PO DAILY [facility] Stop: 11/24/21 08:59 Last Admin: 11/20/21 08:41 Dose: 1,000 units Documented by: Zinc Acetate/Diphenhydramine (Diphenhydramine 2%/Zinc 0.1% Cream 28gm Tube) 1 appln EXT DAILY PRN PRN Reason: Itching Stop: 11/24/21 14:35 Last Admin: 10/23/21 08:19 Dose: 1 appln Documented by: Mental Health & Subst Abuse Tx Psychiatrist Name of Psychiatrist: Griffin Negron Psychiatrist's Date of Appointment with Psychiatrist: 12/04/21 Time of Appointment with Psychiatrist: 1:30 p.m. Psychiatric Appointment Comment: [id number] [facility], [place] [id number] [employer] Name of Planishing Hammer Operator: PADMINI Pederson Phone Number for Planishing Hammer Operator: [phone] Date of Appointment with Planishing Hammer Operator: 11/29/21 Time of Appointment with Planishing Hammer Operator: 10:30 a.m. Case Management Appointment Comment: Will see you at [facility] Post Discharge Appointments Primary Care Physician Name Of Family Doctor: Florence Contreras Primary Care Time of Appointment with PCP: Please follow up as/if needed Provider Appointment Comment: [address] [facility] [place] [address] Contact Information Discharge Discharge Address: [facility] Personal Care - [address] [place], [place] [address] [id number]
[2021-11-20] MEDS: cloZAPine 100 MG TAB PO SCH (17:32)
[2021-11-21 08:03] LABS: Basophils # (auto) 0.02 K/uL (0-0.2); Basophils % (auto) 0.4 %; Hematocrit (blood only) 38.4 % (37-47); Hemoglobin 12.3 g/dL (12.0-16.0); Lymphocytes % (auto) 41.2 %; Mean Corpuscular Hemoglobin 30.4 pg (25-34); Mean Platelet Volume 9.2 fL (7.4-10.4); Monocytes # (auto) 0.54 K/uL (0.11-0.59); Monocytes % (auto) 11.1 %; Neutrophils # (auto) 2.29 K/uL (1.4-6.5); Neutrophils % (auto) 47.3 %; Platelet Count 241 K/uL (130-400); RDW Coefficient of Variation 13.8 % (11.5-14.5); RDW Standard Deviation 47.7 fL (36.4-46.3); Red Blood Count 4.04 M/uL (4.2-5.4); White Blood Count 4.85 K/uL (4.8-10.8)
[2021-11-21] MEDS: IBUPROFEN 200 MG TAB PO PRN (08:33)
[2021-11-21] MEDS: LEVOTHYROXINE SODIUM 25 MCG TABLET PO SCH (08:34)
[2021-11-21] MEDS: DOCUSATE SODIUM 100 MG CAP PO SCH (08:34)
[2021-11-21] MEDS: ARTIFICIAL TEARS OP SCH (08:35)
[2021-11-21] MEDS: CHOLECALCIFEROL 1,000 UNITS 25 MCG TAB PO SCH (08:35)
[2021-11-21] MEDS: ARIPiprazole 10 MG TAB PO SCH (08:35)
--- NOTE | 2021-11-21 09:16 | Discharge Summary ---
Date of Service November 21, 2021 History of Present Illness The patient has reportedly been non-compliant with her Clozaril since 09/20 or 09/22/21 and is being followed by Dr. Negron since leaving [facility] last August after a 1-1.5 year stay. She has never been admitted to our facility. She apparently arranged county transportation from [facility] to go to her old apartment to find her sons. Per JARRED Gong the patient doesn't have children. 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 Her outpatient psychiatrist felt she would benefit from inpatient admission to get restabilized on her medications as there were concerns about ability to care for self due to psychosis and likelihood that she would decompensate further without medication. She accepted Zyprexa 5 mg last hs and has been without agitation thus far. Patient told staff that she feels the staff where she lives are putting powder in people's drinks and she believes it's heroin. 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 She does not appear restless. She does have some upper extremity tremor, worse on left (patient is left handed) forearm and wrist. States she was simply looking for a better place to live. Doesn't recall past hospitalizations or medication trials. Notes from appointments with Dr. Negron mention a son in [place]. Physical Exam Psychiatric See admission H&P and DOD summary. Vital Signs (Past 24 Hours) Last Vital Signs Temp 36.4 C L 11/21/21 06:41 Pulse 99 H 11/21/21 06:41 Resp 16 11/21/21 06:41 BP 123/76 11/21/21 06:41 Pulse Ox 95 11/15/21 06:29 Principal Diagnosis schizophrenia Psychiatric Data See daily stay summary. In short, safety was maintained and the patient was cooperative with care. Given length of stay, medication changes and rationale are further outlined below. In short she was restarted on Clozaril with Abilify as Clozaril titration was limited by side effects. She has been compliant with meds and blood draws. She was cooperative with phone meetings with [facility] admin and CM prior to finalizing transition plan. A safety plan was completed prior to discharge. She is more animated and excited for discharge and voiced understanding of her outpatient commitment. She no longer believes that anyone i s being poisoned at [facility] and expressed some embarrassment that she may have confused coffee creamer or Miralax with drugs. She still maintains that she does not have a mental illness and would prefer to live independently but is accepting of her current supervised housing. Day of Discharge Assessment Today the patient voices readiness for discharge. They note improvement in mood and deny thoughts to harm self or others. Thoughts remain organized and they are improved from admission. There is no evidence of active hallucinations or bizar re delusions. Her thoughts are much more organized and she is attending to self care. They agree to take mediations as prescribed and keep follow-up appointments. They are stable for discharge to outpatient level of care. Transition of Care Transition Of Care Record: was reviewed with the patient Advance Directives Advance Directives Information Provided: Yes Advance Directives: No Mental Health Advance Directive: No Advance Directives on File: No Living Will: No Power of Veterinary Anatomist: No Advance Directives Reason:: Declines as Mental Health Visit. Risk Factors Assessment : Yes Do You Have Access To A Gun?: No Mental Health Diagnoses: Yes Substance Use Disorders: No Previous Attempt: No Previous Psychiatric Hospitalization: Yes Protective Factors Assessment Employed: No Good Rapport with Provider: Yes Tobacco Cessation at Discharge Tobacco Cessation Medication Prescribed at Discharge: Offered & Pt Refused Antipsychotic Medications The patient is continuing 2 antipsychotics due to: A history of a minimum of 3 failed trials of monotherapy (LIST):clozaril, zyprexa, abilify Augmentation of clozapine: with Abilify Other rationale: benefits from clozapine but cannot tolerate therapeutic dose. Abilify has additional benefit for mood and minimizes the metabolic side effects of Clozaril. Total Time Total Time Spent: Greater Than 30 Minutes Total Time Includes: Examination of the patient, Discharge Planning and Medication Reconciliation Discharge Data Lab Results 09/26/21 09/26/21 09/26/21 14:35 14:35 15:38 WBC 6.31 RBC 4.27 Hgb 13.1 Hct 39.6 MCV 92.7 MCH 30.7 MCHC 33.1 RDW Std Deviation 49.4 H RDW Coeff of Kim 14.5 Plt Count 296 MPV 9.3 Immature Gran % (Auto) 0.2 Neut % (Auto) 58.8 Lymph % (Auto) 31.5 Armstrong % (Auto) 9.0 Eos % (Auto) 0.0 Baso % (Auto) 0.5 Neut # (Auto) 3.71 Lymph # (Auto) 1.99 Armstrong # (Auto) 0.57 Eos # (Auto) 0.00 Baso # (Auto) 0.03 Immature Gran # (Auto) 0.01 Sodium Potassium Chloride Carbon Dioxide Anion Gap BUN Creatinine Est Cr Clr Drug Dosing Est GFR ( Amer) Est GFR (Non-Af Amer) BUN/Creatinine Ratio Glucose Fasting Glucose Calcium Total Bilirubin AST ALT Alkaline Phosphatase Total Protein Albumin Globulin Albumin/Globulin Ratio Triglycerides Cholesterol LDL Cholesterol, Calc VLDL Cholesterol, Calc HDL Cholesterol Cholesterol/HDL Ratio TSH Urine Color Yellow Urine Appearance Clear Urine pH 6.0 Ur Specific Caribou 1.005 Urine Protein Negative Urine Glucose (UA) Negative Urine Ketones Negative Urine Blood Negative Urine Nitrite Negative Urine Bilirubin Negative Urine Urobilinogen Negative Ur Leukocyte Esterase Negative Salicylates Urine Opiates Screen Neg Ur Methadone, Qual Neg Acetaminophen Urine Barbiturates Neg Ur Phencyclidine (PCP) Neg U Amphetamin/Meth Scrn Neg MDMA (Ecstasy) Screen Neg U Benzodiazepines Scrn Neg Ur Cocaine Metabolite Neg U Marijuana (THC) Screen Neg Ethyl Alcohol mg/dL COVID-19 Eval Order SARS-CoV-2 (PCR) SARS-CoV-2, RNA, NAAT 09/26/21 09/26/21 09/26/21 15:38 15:38 15:38 WBC RBC Hgb Hct MCV MCH MCHC RDW Std Deviation RDW Coeff of Kim Plt Count MPV Immature Gran % (Auto) Neut % (Auto) Lymph % (Auto) Armstrong % (Auto) Eos % (Auto) Baso % (Auto) Neut # (Auto) Lymph # (Auto) Armstrong # (Auto) Eos # (Auto) Baso # (Auto) Immature Gran # (Auto) Sodium 140 Potassium 4.1 Chloride 109 H Carbon Dioxide 25 Anion Gap 6.0 BUN 10 Creatinine 1.08 Est Cr Clr Drug Dosing 61.1 Est GFR ( Amer) 63.3 Est GFR (Non-Af Amer) 54.6 BUN/Creatinine Ratio 8.9 L Glucose 95 Fasting Glucose Calcium 9.6 Total Bilirubin 0.3 AST 18 ALT 22 Alkaline Phosphatase 96 Total Protein 7.7 Albumin 3.7 Globulin 4.0 Albumin/Globulin Ratio 0.9 Triglycerides Cholesterol LDL Cholesterol, Calc VLDL Cholesterol, Calc HDL Cholesterol Cholesterol/HDL Ratio TSH 1.270 Urine Color Urine Appearance Urine pH Ur Specific Caribou Urine Protein Urine Glucose (UA) Urine Ketones Urine Blood Urine Nitrite Urine Bilirubin Urine Urobilinogen Ur Leukocyte Esterase Salicylates < 1.7 L Urine Opiates Screen Ur Methadone, Qual Acetaminophen < 2 L Urine Barbiturates Ur Phencyclidine (PCP) U Amphetamin/Meth Scrn MDMA (Ecstasy) Screen U Benzodiazepines Scrn Ur Cocaine Metabolite U Marijuana (THC) Screen Ethyl Alcohol mg/dL < 3.0 COVID-19 Eval Order SARS-CoV-2 (PCR) SARS-CoV-2, RNA, NAAT 09/26/21 09/26/21 09/28/21 15:53 15:53 07:36 WBC RBC Hgb Hct MCV MCH MCHC RDW Std Deviation RDW Coeff of Kim Plt Count MPV Immature Gran % (Auto) Neut % (Auto) Lymph % (Auto) Armstrong % (Auto) Eos % (Auto) Baso % (Auto) Neut # (Auto) Lymph # (Auto) Armstrong # (Auto) Eos # (Auto) Baso # (Auto) Immature Gran # (Auto) Sodium Potassium Chloride Carbon Dioxide Anion Gap BUN Creatinine Est Cr Clr Drug Dosing Est GFR ( Amer) Est GFR (Non-Af Amer) BUN/Creatinine Ratio Glucose Fasting Glucose 98 Calcium Total Bilirubin AST ALT Alkaline Phosphatase Total Protein Albumin Globulin Albumin/Globulin Ratio Triglycerides 155 H Cholesterol 192 LDL Cholesterol, Calc 129 VLDL Cholesterol, Calc 31 HDL Cholesterol 32 Cholesterol/HDL Ratio 6 TSH Urine Color Urine Appearance Urine pH Ur Specific [place] Urine Protein Urine Glucose (UA) Urine Ketones Urine Blood Urine Nitrite Urine Bilirubin Urine Urobilinogen Ur Leukocyte Esterase Salicylates Urine Opiates Screen Ur Methadone, Qual Acetaminophen Urine Barbiturates Ur Phencyclidine (PCP) U Amphetamin/Meth Scrn MDMA (Ecstasy) Screen U Benzodiazepines Scrn Ur Cocaine Metabolite U Marijuana (THC) Screen Ethyl Alcohol mg/dL COVID-[address] Eval [address] [facility] SARS-CoV-2 (PCR) NEGATIVE SARS-CoV-2, RNA, NAAT 10/17/21 10/24/21 10/31/21 15:30 17:40 07:45 WBC 6.65 6.62 5.10 RBC 3.91 L 4.19 L 3.98 L Hgb 11.9 L 12.9 12.1 Hct 36.2 L 39.5 37.5 MCV 92.6 94.3 94.2 MCH 30.4 30.8 30.4 MCHC 32.9 32.7 32.3 RDW Std Deviation 46.8 H 48.8 H 48.7 H RDW Coeff of Kim 13.8 14.2 14.2 Plt Count 259 277 249 MPV 9.2 9.2 9.3 Immature Gran % (Auto) 0.2 0.2 0.0 Neut % (Auto) 50.1 48.2 45.2 Lymph % (Auto) 40.0 43.1 46.3 Armstrong % (Auto) 9.2 8.0 7.5 Eos % (Auto) 0.0 0.0 0.2 Baso % (Auto) 0.5 0.5 0.8 Neut # (Auto) 3.34 3.20 2.31 Lymph # (Auto) 2.66 2.85 2.36 Armstrong # (Auto) 0.61 H 0.53 0.38 Eos # (Auto) 0.00 0.00 0.01 Baso # (Auto) 0.03 0.03 0.04 Immature Gran # (Auto) 0.01 0.01 0.00 Sodium Potassium Chloride Carbon Dioxide Anion Gap BUN Creatinine Est Cr Clr Drug Dosing Est GFR ( Amer) Est GFR (Non-Af Amer) BUN/Creatinine Ratio Glucose Fasting Glucose Calcium Total Bilirubin AST ALT Alkaline Phosphatase Total Protein Albumin Globulin Albumin/Globulin Ratio Triglycerides Cholesterol LDL Cholesterol, Calc VLDL Cholesterol, Calc HDL Cholesterol Cholesterol/HDL Ratio TSH Urine Color Urine Appearance Urine pH Ur Specific Carib[place] Urine Protein Urine Glucose (UA) Urine Ketones Urine Blood Urine Nitrite Urine Bilirubin Urine Urobilinogen Ur Leukocyte Esterase Salicylates Urine Opiates Screen Ur Methadone, Qual Acetaminophen Urine Barbiturates Ur Phencyclidine (PCP) U Amphetamin/Meth Scrn MDMA (Ecstasy) Screen U Benzodiazepines Scrn Ur Cocaine Metabolite U Marijuana (THC) Screen Ethyl Alcohol mg/dL COVID-19 Eval Order SARS-CoV-2 (PCR) SARS-CoV-2, RNA, NAAT 11/07/21 11/14/21 11/20/21 08:15 08:23 Unknown WBC 4.59 L 4.80 RBC 4.11 L 4.03 L Hgb 12.5 12.1 Hct 38.9 38.2 MCV 94.6 94.8 MCH 30.4 30.0 MCHC 32.1 31.7 L RDW Std Deviation 48.8 H 48.0 H RDW Coeff of Kim 14.1 13.9 Plt Count 249 249 MPV 9.3 9.3 Immature Gran % (Auto) 0.2 0.0 Neut % (Auto) 48.2 44.4 Lymph % (Auto) 41.6 48.3 Armstrong % (Auto) 9.4 6.7 Eos % (Auto) 0.2 0.2 Baso % (Auto) 0.4 0.4 Neut # (Auto) 2.21 2.13 Lymph # (Auto) 1.91 2.32 Armstrong # (Auto) 0.43 0.32 Eos # (Auto) 0.01 0.01 Baso # (Auto) 0.02 0.02 Immature Gran # (Auto) 0.01 0.00 Sodium Potassium Chloride Carbon Dioxide Anion Gap BUN Creatinine Est Cr Clr Drug Dosing Est GFR ( Amer) Est GFR (Non-Af Amer) BUN/Creatinine Ratio Glucose Fasting Glucose Calcium Total Bilirubin AST ALT Alkaline Phosphatase Total Protein Albumin Globulin Albumin/Globulin Ratio Triglycerides Cholesterol LDL Cholesterol, Calc VLDL Cholesterol, Calc HDL Cholesterol Cholesterol/HDL Ratio TSH Urine Color Urine Appearance Urine pH Ur Specific Caribou Urine Protein Urine Glucose (UA) Urine Ketones Urine Blood Urine Nitrite Urine Bilirubin Urine Urobilinogen Ur Leukocyte Esterase Salicylates Urine Opiates Screen Ur Methadone, Qual Acetaminophen Urine Barbiturates Ur Phencyclidine (PCP) U Amphetamin/Meth Scrn MDMA (Ecstasy) Screen U Benzodiazepines Scrn Ur Cocaine Metabolite U Marijuana (THC) Screen Ethyl Alcohol mg/dL COVID-19 Eval Order SARS-CoV-2 (PCR) SARS-CoV-2, RNA, NAAT NEGATIVE 11/21/21 07:48 WBC 4.85 RBC 4.04 L Hgb 12.3 Hct 38.4 MCV 95.0 MCH 30.4 MCHC 32.0 RDW Std Deviation 47.7 H RDW Coeff of Kim 13.8 Plt Count 241 MPV 9.2 Immature Gran % (Auto) 0.0 Neut % (Auto) 47.3 Lymph % (Auto) 41.2 Armstrong % (Auto) 11.1 Eos % (Auto) 0.0 Baso % (Auto) 0.4 Neut # (Auto) 2.29 Lymph # (Auto) 2.00 Armstrong # (Auto) 0.54 Eos # (Auto) 0.00 Baso # (Auto) 0.02 Immature Gran # (Auto) 0.00 Sodium Potassium Chloride Carbon Dioxide Anion Gap BUN Creatinine Est Cr Clr Drug Dosing Est GFR ( Amer) Est GFR (Non-Af Amer) BUN/Creatinine Ratio Glucose Fasting Glucose Calcium Total Bilirubin AST ALT Alkaline Phosphatase Total Protein Albumin Globulin Albumin/Globulin Ratio Triglycerides Cholesterol LDL Cholesterol, Calc VLDL Cholesterol, Calc HDL Cholesterol Cholesterol/HDL Ratio TSH Urine Color Urine Appearance Urine pH Ur Specific [place]ou Urine Protein Urine Glucose (UA) Urine Ketones Urine Blood Urine Nitrite Urine Bilirubin Urine Urobilinogen Ur Leukocyte Esterase Salicylates Urine Opiates Screen Ur Methadone, Qual Acetaminophen Urine Barbiturates Ur Phencyclidine (PCP) U Amphetamin/Meth Scrn MDMA (Ecstasy) Screen U Benzodiazepines Scrn Ur Cocaine Metabolite U Marijuana (THC) Screen Ethyl Alcohol mg/dL COVID-19 Eval Order SARS-CoV-2 (PCR) SARS-CoV-2, RNA, NAAT Hospital Course (1) Schizophrenia, paranoid, chronic with acute exacerbation: This is a condensed course summary given length of hospitalization: The patient was admitted on 09/27 and restarted on Zyprexa but not clozaril as not clear she would accept medications or bloodwork on a consistent basis. As Zyprexa does not come in a JAQUEZ, cross tapered to Abilify with noticeable improvement in mood but not delusions with regards to her housing. Ultimately she became resistant to Abilify titration and the JAQUEZ form was not financially sustainable for her at $800/month [address] Pérez transitioned to Haldol in October which she refused to take within about a week. She did seem more irr itable while on Haldol but agreed to resume Clozaril on 10/17/21 with weekly CBC while hospitalized, return to monthly upon discharge. She did not tolerate BID dosing of clozaril due to sedation and started to refuse clozaril due to sedation at 200 mg pm. Compromise to improve compliance and mood was to take clozapine 150 mg in pm with Abilify in am. This regimen was effective in decreasing irritability and delusions and she was more accepting of aftercare plan and need for monitoring though still lacks insight into her condition and maintains that she owns a home in [place] and [place] her [place]. She feels safe returning to [facility]. Mental Health & Subst Abuse Tx Psychiatrist Name of Psychiatrist: Griffin Negron Psychiatrist's Date of Appointment with Psychiatrist: 12/04/21 Time of Appointment with Psychiatrist: 1:30 p.m. Psychiatric Appointment Comment: [address] [place] [address] U.S. Revenue Officer Name of U.S. Revenue Officer: PADMINI Pederson Phone Number for U.S. Revenue Officer: [phone] Date of Appointment with U.S. Revenue Officer: 11/29/21 Time of Appointment with U.S. Revenue Officer: 10:30 a.m. Case Management Appointment Comment: Will see you at [facility] Post Discharge Appointments Primary Care Physician Name Of Family Doctor: Florence Contreras Primary Care Time of Appointment with PCP: Please follow up as/if needed Provider Appointment Comment: [address] [place] [address] Smoking Cessation Counseling Tobacco Cessation Medication Prescribed at Discharge: Offered & Pt Refused Contact Information Discharge Discharge Address: [address] [address] Discharge Plan Discharge Items Patient Disposition: Personal Senior Living Reason For Visit: MENTAL HEALTH EVALUATION Discharge Diagnosis: schizophrenia Activity: Resume your previous activity Non-emergency contact: Primary Care Provider, Psychiatrist, Therapist and Property Economist Call non-emergency contact if: you have any medication questions and your symptoms worsen Follow-up/Referrals: Usman Kirkpatrick [Primary Care Provider] - Diet: Regular Addtl Attending Provider Instructions: SPECIAL CARE INSTRUCTIONS: 1. Follow through with your scheduled aftercare appointments. If unable to keep an appointment, please call to reschedule. 2. Take your medication only as prescribed. Medication should not be changed or stopped without the approval of your doctor. In the event of worsening symptoms or concerns about side effects, contact your doctor immediately. 3. Utilize new healthy coping skills, anger management skills, and stress management skills learned during your hospitalization. Journal feelings and process them with a support person. Identify stressors or situations that may result in relapse, deterioration or inappropriate behaviors and develop a plan to deal with those issues. 4. If your coping skills are ineffective and you are in crisis, contact your outpatient providers for direction. If unable to reach your providers, please call the [facility] CRISIS LINE AT , go to the [facility] walk-in center at [address], [address], [place], or go to the closest Emergency Room. 5. Avoid alcohol and un-prescribed drugs. 6. You have been provided with the Mental Health Advance Directives Pamphlet for your review. 7. Your condition is stable for discharge to outpatient level of care, but recovery is an ongoing process. Ifthoughts to harm yourself or others return, follow the safety plan developed during your stay. Planning for a safe return home includes securing weapons. Our treatment team recommends weaponsbe removed from the home until your outpatient provider reassesses your progress. In rare cases where the items themselvescannot be removed, guns and ammunitionshould be secured separatelyand keys stored by a reliable personoutside of the home. If you were admitted on an involuntary commitment, the police or other legal authorities may be involved in this process. AFTERCARE APPOINTMENTS: * Please call your insurance company prior to your scheduled appointment to confirm your aftercare providers are covered. Take your insurance information to your appointments. WHO TO CALL AND WHEN: Medical Emergencies: For questions or emergencies related to your hospital stay, please contact the Inpatient Behavioral Health Unit at [phone]. A skein mercerizing machine operator is on-call 24/06 for the Behavioral Health Unit for emergencies At any time you feel your situation is an emergency, you may also call 911 immediately. Pending Studies at Discharge: No Studies:: you will require monthly blood work (or more frequently per Dr. Negron) for management of Clozaril. Stand-Alone Forms: My [employer], Smoking Cessation Skilled Items Patient informed of condition?: Yes DNR: No Discharge Level of Care: Other Communicable Disease: No (Covid negative) Discharge Prognosis: Stable Lines: None Urinary Catheter: No Medications and DC Order Prescriptions: New clozapine 100 mg Tablet 150 mg PO DAILYBD 30 Days Qty: 45 RF: 0 aripiprazole [Abilify] 10 mg Tablet 10 mg PO QAM 30 Days Qty: 30 RF: 0 ibuprofen 200 mg Tablet 400 mg PO Q6H PRN (Reason: pain) Qty: 30 RF: 0 diphenhydramine HCl [Benadryl] 25 mg capsule 25 mg PO HS PRN (Reason: allergy symptoms) Qty: 30 RF: 0 Continued loratadine 10 mg Tablet 10 mg PO DAILY RF: 0 acetaminophen 500 mg Tablet 500 - 1,000 mg PO Q8H PRN (Reason: Moderate Pain (Scale Score 5-6)) RF: 0 levothyroxine 25 mcg Tablet 25 mcg PO DAILY RF: 0 Vitamin D3 5,000 units 5,000 units PO DAILY RF: 0 docusate sodium 100 mg 100 mg PO BID RF: 0 Refresh Optive 1 drp INSTIL QID RF: 0 Discontinued clozapine 100 mg Tablet 200 mg PO DAILY RF: 0 clozapine 50 mg Tablet 50 mg PO DAILY RF: 0 olanzapine 5 mg Tablet 5 mg PO HS RF: 0 naproxen 500 mg Tablet 500 mg PO BID RF: 0 pantoprazole 20 mg Tablet,Delayed Release (Dr/Ec) 20 mg PO DAILY RF: 0 Discharge Orders: Discharge Order (Routine); Ordered 11/21/21 Ordered By: Clare Valladares Admission Data Admit Date/Time: 09/26/21 23:33 Attending Provider: Clare Valladares Admit Provider: Clare Valladares Primary Care Provider: Usman Kirkpatrick Other Interventions: PSY Interdisciplinary Discharge Planning Last Done: 11/20/21 10:32 Coding Level of Care Code 97493 D/C day mgmt > 30 min Diagnoses Schizophrenia, paranoid, chronic with acute exacerbation F20.0
== END 2021-11-21 10:57 | disposition home or self-care (01) | DRG 885 ==
LOC: ED 14:17 → 3S 23:24 → SUATTDRO 23:33 → 3S 23:33